=== PATIENT | female | born 1985 | race Caucasian/White ===

== ENCOUNTER 2024-02-18 21:32 | Outpatient (REF) | payer MEDICAID, SELFPAY ==
[2024-02-24 12:09] LABS: Age Gdln ACOG Testing Note (.); HPV Aptima Negative (Negative); IGP, Aptima HPV, rfx 16/18,45 Note (.)
== END 2024-02-18 21:33 | disposition home or self-care (01) ==
LOC: LAB 21:32
PROVIDERS: Visit Provider Obstetrics & Gynecology
DX: Z01.419 Encounter for gynecological examination (general) (routine) without abnormal findings (principal)
CPT/HCPCS: 88175

== ENCOUNTER 2024-04-02 08:50 | Outpatient (OUT) | payer MEDICAID, SELFPAY ==
--- NOTE | 2024-04-02 09:01 | ECG_ITS ---
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
--- OUTSIDE RECORDS SUMMARY | 2024-04-02 09:04 | XMS_ITS | CCD ---
Author Organization [facility] Care Team Providers Care Telecommunications Network Engineer Name Role Phone House, Sr Mario Peterson Primary Care Provider MAXWELL LLANES Referring Unavailab le HOUSE, SR MARIO Peterson Primary Care Unavailable MAXWELL LLANES Referring Unavailab le HOUSE, SR MARIO Peterson Primary Care Unavailable MAXWELL LLANES Referring Unavailab le HOUSE, SR MARIO Peterson Primary Care Unavailable MAXWELL LLANES Referring Unavailab le HOUSE, SR MARIO Peterson Primary Care Unavailable LISSETH GIBBS Attending Unavailable LESLIE, SR MARIO Peterson Primary Care Unavailable LESLIE, SR MARIO Peterson Primary Care Unavailable HOWARD CUELLAR Referring Unavailable JAVAD, DR BECKER Admitting Unavailable JAVAD, DR BECKER Attending Unavailable HOUSE, DR BOWERS Primary Care Unavailable JAVAD, DR BECKER Consulting Unavailable Adrian NITRIC ACID PLANT OPERATOR-Annette WARD Primary Care Provid er ANNETTE CAMPBELL Referring Unavailable ANNETTE CAMPBELL Primary Care Unavailable ANNETTE CAMPBELL Referring Unavailable ANNETTE CAMPBELL Primary Care Unavailable GRISELDA CAMPBELLERIE Oz Primary Care Unavailable GOOD, SINDI Attending Unavailable GOOD, SINDI Attending Unavailable GOODSINDI Referring Unavailable CAMPBELLGRISELDA GLEASONERICorina Clinton Primary Care Unavailable GIRISH HENRIQUEZ Referring Unavailable CAMPBELLANNETTE GLEASON Primary Care Unavailable ANNETTE CAMPBELL Referring Unavailable CAMPBELL, ANNETTE J Primary Care Unavailable Campbell Annette ADKINS Unavailable [phone] Cynthia Colvin Unavailable Unavailable ANNETTE CAMPBELL Attending Unavailable ANNETTE CAMPBELL Referring Unavailable ADRIAN, ANNETTE J Primary Care Unavailable ENEIDA EATON Attending Unavailable ANNETTE CAMPBELL Referring Unavailable CAMPBELL, ANNETTE Clinton Primary Care Unavailable CAMPBELL, ANNETTE J Attending Unavailable ANNETTE CAMPBELL Referring Unavailable CAMPBELL, ANNETTE Clinton Primary Care Unavailable CAMPBELL, ANNETTE Clinton Referring Unavailable CAMPBELL, ANNETTE Clinton Primary Care Unavailable CAMPBELL, ANNETTE Clinton Attending Unavailable CAMPBELL, ANNETTE Clinton Attending Unavailable CAMPBELL, ANNETTE Clinton Referring Unavailable CAMPBELL, ANNETTE Clinton Primary Care Unavailable CAMPBELL, ANNETTE Clinton Referring Unavailable CAMPBELL, ANNETTE Clinton Primary Care Unavailable CAMPBELL, ANNETTE Clinton Attending Unavailable CAMPBELL, ANNETTE Clinton Referring Unavailable CAMPBELL, ANNETTE Clinton Primary Care Unavailable CAMPBELL, ANNETTE Clinton Attending Unavailable CAMPBELL, ANNETTE Clinton Referring Unavailable CAMPBELL, ANNETTE Clinton Primary Care Unavailable CAMPBELL, ANNETTE Clinton Referring Unavailable CAMPBELL, ANNETTE Clinton Primary Care Unavailable CAMPBELL, ANNETTE Clinton Attending Unavailable CAMPBELL, ANNETTE Clinton Referring Unavailable CAMPBELL, ANNETTE Clinton Primary Care Unavailable LUÍS ALBARRAN Attending Unavailable ADRIAN, ANNETTE Referring Unavailable EUGENIO FARNSWORTH Attending Unavailable EUGENIO FARNSWORTH Attending Unavailable Allergies Allergy Classification Reported Allergen(s) Allergy Type Date of Onset Reaction(s) Facility (8 sources) benzonatate; Translations: [BENZONATATE] Drug Allergy 4 Facial Swelling [facility] (3 sources) benzonatate Drug Allergy 4 [facility] Work Phone: Medications Current Medications Medication Drug Class(es) Dates Sig (Normalized) Sig (Original) amoxicillin 875 mg / clavulanate 125 mg oral tablet (1 source) Penicillin-class Antibacterial Start: 08-28-2023 End: 09-07-2023 take 1 tablet by mouth once in the morning amoxicillin-pot clavulanate (AUGMENTIN) 875-125 mg per tablet Indications: Acute non-recurrent pansinusitis Take 1 tablet by mouth in the morning and 1 tablet before bedtime. Do all this for 10 days. 20 tablet 0 08/28/2023 09/07/2023 Active azithromycin 500 mg oral tablet (1 source) Macrolide Antimicrobial Start: 08-24-2023 take 1 tablet by mouth once daily at mealtime azithromycin (ZITHROMAX) 500 mg tablet TAKE 1 TABLET (500MG) BY MOUTH ONCE DAILY FOR 5 DAYS, TAKE WITH FOOD. 0 08/24/2023 Active cholecalciferol 0.125 mg oral capsule (8 sources) Vitamin D Start: 02-05-2024 take 1 capsule by mouth once in the morning cholecalciferol, vitamin D3, (VITAMIN D3) 5,000 units capsule Indications: Vitamin D deficiency Take 1 capsule (5,000 Units total) by mouth in the morning. 30 capsule 11 02/05/2024 Active Start: 05-05-2023 take 1 capsule by [facility] once in the morning cholecalciferol, vitamin D3, (VITAMIN D3) 5,000 units capsule Indications: Vitamin D deficiency Take 1 capsule (5,000 Units total) by mouth in the morning. 30 capsule 11 05/05/2023 Active End: 03-18-2024 take 1 capsule by mouth once daily cholecalciferol (Vitamin D-3) 250 MCG (11997 UT) capsule Take 1 capsule by mouth Daily 03/18/2024 Discontinued fluticasone propionate 0.05 mg/actuat metered dose nasal spray (4 sources) Corticosteroid Start: 10-09-2023 take 2 spray(s) nasal route in the morning fluticasone propionate (FLONASE) 50 mcg/actuation nasal spray Indications: Seasonal allergic rhinitis due to pollen Administer 2 sprays into each nostril in the morning. 16 g 6 10/09/2023 Active Start: 09-10-2023 End: 03-18-2024 take 2 spray(s) nasal route once daily fluticasone (Flonase) 50 MCG/ACT nasal spray Administer 2 sprays into each nostril Daily 09/10/2023 03/18/2024 Discontinued ibuprofen 600 mg oral tablet (8 sources) Nonsteroidal Anti-inflammatory Drug Start: 08-21-2022 take 1 tablet by mouth every eight hours as needed for pain ibuprofen (MOTRIN) 600 mg tablet Indications: Other headache syndrome Take 1 tablet (600 mg total) by mouth every 8 (eight) hours as needed for pain, fever or headaches. Take with food 90 tablet 1 08/21/2022 Active labetalol hydrochloride 200 mg oral tablet (5 sources) beta-Adrenergic Sergo take 1 tablet by mouth twice daily labetalol (NORMODYNE) 200 MG tablet Take 200 mg by mouth 2 times daily 0 Active metFORMIN hydrochloride 500 mg oral tablet (5 sources) Biguanide take 1 tablet by mouth twice daily at mealtime metFORMIN (GLUCOPHAGE) 500 MG tablet Take 500 mg by mouth 2 times daily (with meals) 0 Active 24 hr metoprolol succinate 50 mg extended release oral tablet (8 sources) beta-Adrenergic Sergo Start: 01-29-2024 take 1 tablet by mouth every twenty-four hours in the morning metoprolol succinate XL (TOPROL XL) 50 mg 24 hr tablet Indications: Essential (primary) hypertension TAKE 1 TABLET (50 MG TOTAL) BY MOUTH IN THE MORNING 30 tablet 5 01/29/2024 Active Start: 05-05-2023 take 1 tablet by valorie th every twenty-four hours in the morning metoprolol succinate XL (TOPROL XL) 50 mg 24 hr tablet Indications: Essential (primary) hypertension Take 1 tablet (50 mg total) by mouth in the morning. 30 tablet 5 05/05/2023 Active take 1 tablet by mouth once eric y metoprolol succinate XL (Toprol-XL) 50 MG 24 hr tablet Take 1 tablet by mouth Daily Active predniSONE 20 mg oral tablet (2 sources) Start: 08-24-2023 take 1 tablet by mouth once daily at mealtime predniSONE (DELTASONE) 20 mg tablet TAKE 1 TABLET (20MG) BY MOUTH ONCE A DAY FOR 5 DAYS. TAKE WITH FOOD 0 08/24/2023 Active Start: 08-14-2023 End: 08-21-2023 take 1 tablet by mouth in the morning predniSONE (DELTASONE) 20 mg tablet Take 1 tablet (20 mg total) by mouth in the morning for 7 days. 7 tablet 0 08/14/2023 08/21/2023 Active vitamin b12 1 mg/ml injectable solution (11 sources) Vitamin B12 Start: 09-04-2023 End: 03-02-2024 cyanocobalamin (Vitamin B-12) 1000 MCG/ML injection Inject 1,000 mcg into the shoulder, thigh, or buttocks every 30 (thirty) days 09/04/2023 03/02/2024 Active Start: 09-04-2023 End: 07-11-2024 inject 1000 ug by intramuscular injection every 30 days 1,000 mcg, intramuscular, Every 30 days, First dose on Fri01/13/24 at 1430, For 6 doses Start: 08-28-2023 End: 08-28-2023 cyanocobalamin (VITAMIN B-12 ) injection 1,000 mcg Start: 08-04-2023 End: 08-04-2023 cyanocobalamin (VITAMIN B-12 ) injection 1,000 mcg Start: 08-04-2023 End: 08-04-2023 cyanocobalamin (VITAMIN B-12 ) injection 1,000 mcg Completed/Discontinued Medications Medication Drug Class(es) Dates Sig (Normalized) Sig (Original) acetaminophen 500 mg oral tablet (1 source) Start: 04-03-2020 End: 04-03-2020 acetaminophen (TYLENOL) tablet 1,000 mg Start: 04-03-2020 End: 04-03-2020 acetaminophen (TYLENOL) tabl et 1,000 mg [id number] actuat albuterol 0.09 mg/actuat metered dose inhaler (3 sources) beta2-Adrenergic Agonist Start: 05-21-2023 End: 03-18-2024 albuterol HFA 90 mcg/act inhaler Inhale 05/21/2023 03/18/2024 Discontinued 12 hr cetirizine hydrochloride 5 mg / pseudoephedrine hydrochloride 120 mg extended release oral tablet (6 sources) alpha-Adrenergic Agonist, Histamine-1 Receptor Antagonist Start: 08-25-2023 End: 03-18-2024 take 1 tablet by mouth once in the morning, then take 1 tablet by mouth every twelve hours in the evening cetirizine-pseudo ephedrine (ZyrTEC-D) 5-120 MG 12 hr tablet Take 1 tablet by mouth in the morning and 1 tablet in the evening. 08/25/2023 03/18/2024 Discontinued Start: 08-25-2023 take 1 tablet by valorie th every twelve hours in the morning cetirizine-pseudoephedrine (ZyrTEC-D) 5- 120 mg per 12 hr tablet Indications: Congestion of nasal sinus , Congestion of both ears Take 1 tablet by mouth in the morning and 1 tablet before bedtime. 30 tablet 2 08/25/2023 Active dextromethorphan hydrobromide 2 mg/ml / guaiFENesin 20 mg/ml oral solution (2 sources) Uncompetitive C-jriowd-M-aspartate Receptor Antagonist, Sigma-1 Agonist Start: 08-14-2023 End: 04-01-2024 take 5 mL by mouth every twelve hours dextromethorphan-guaiFENesin (ROBITUSSIN-DM) 10-100 mg/5 mL liquid Take 5 mL by mouth every 12 (twelve) hours for 10 days. 200 mL 0 08/14/2023 08/25/2023 Discontinued (Therapy completed) hydrocortisone 25 mg/ml topical cream (3 sources) Corticosteroid End: 03-18-2024 hydrocortisone 2.5 % cream Apply topically 03/18/2024 Discontinued mecobalamin 1 mg sublingual tablet (3 sources) End: 03-18-2024 take 1 tablet by mouth once daily Methylcobalamin 1000 MCG sublingual tablet Take 1 tablet by mouth Daily 03/18/2024 Discontinued naratriptan 2.5 mg oral tablet (8 sources) Serotonin-1b and Serotonin-1d Receptor Agonist Start: 08-04-2023 End: 03-18-2024 take 1 tablet by mouth once naratriptan (Amerge) 2.5 MG tablet Take 2.5 mg by mouth 1 (one) time if needed 08/04/2023 03/18/2024 Discontinued ondansetron 4 mg disintegrating oral tablet (1 source) Serotonin-3 Receptor Antagonist Start: 04-03-2020 End: 04-03-2020 ondansetron (ZOFRAN-ODT) disintegrating tablet 4 mg Vitamin B Complex (1 source) Start: 05-05-2023 End: 08-04-2023 take 1 tablet by mouth in the morning b complex vitamins (B COMPLEX-VITAMIN B12) tablet Indications: Vitamin B 12 deficiency Take 1 tablet by mouth in the morning. 30 tablet 11 05/05/2023 08/04/2023 Discontinued (Side effects) Problems Active Problems Problem Classification Problem Date Documented Date Episodic/Chronic Anxiety disorders (3 sources) Anxiety disorder; Translations: [Anxiety disorder, unspecified] Onset: 04-04-2020 09-29-2023 Chronic Coagulation and hemorrhagic disorders (8 sources) Antiphospholipid syndrome; Translations: [Antiphospholipid syndrome] Onset: 07-30-2020 01-29-2023 Chronic Diseases of white blood cells (2 sources) Elevated white blood cell count, unspecified; Translations: [Elevated white blood cell count, unspecified] Onset: 02-04-2024 Chronic Disorders of lipid metabolism (3 sources) Mixed hyperlipidemia; Translations: [Mixed hyperlipidemia] Onset: 08-04-2023 08-04-2023 Chronic Esophageal disorders (8 sources) Gastroesophageal reflux disease; Translations: [Gastro-esophageal reflux disease without esophagitis] Onset: 04-04-2020 12-11-2021 Chronic Essential hypertension (11 sources) Hypertensive disorder; Translations: [Essential hypertension] Onset: 04-04-2020 08-04-2023 Chronic Headache; including migraine (11 sources) Ophthalmic migraine; Translations: [Migraine with aura, not intractable, without status migrainosus] Onset: 04-04-2020 08-04-2023 Chronic Headache; including migraine (1 source) Headache; including migraine Onset: 07-23-2023 Immunizations and screening for infectious disease (1 source) Encounter for screening for human papillomavirus (HPV); Translations: [ENC SCREENING HUMAN PAPILLOMAVIRUS] Onset: 04-06-2022 Episodic Inflammatory diseases of female pelvic organs (1 source) Cyst of Bartholin's gland duct; Translations: [Cyst of Bartholin's gland] 03-18-2024 Episodic Malaise and fatigue (8 sources) Chronic fatigue syndrome; Translations: [Chronic fatigue syndrome] Onset: 04-04-2020 12-11-2021 Chronic Nutritional deficiencies (11 sources) Vitamin D deficiency; Translations: [Vitamin D deficiency, unspecified] Onset: 04-04-2020 08-04-2023 Chronic Other circulatory disease (1 source) Upper respiratory tract finding; Translations: [Other specified symptoms and signs involving the circulatory and respiratory systems] 08-28-2023 Episodic Other ear and sense organ disorders (1 source) Sensation of blocked ear; Translations: [Other specified disorders of ear, bilateral] 08-25-2023 Episodic Other endocrine disorders (8 sources) Increased androgen level; Translations: [Androgen excess] Onset: 04-04-2020 12-11-2021 Chronic Other endocrine disorders (8 sources) Polycystic ovary syndrome; Translations: [Polycystic ovarian syndrome] Onset: 04-04-2020 12-11-2021 Chronic Other nutritional; endocrine; and metabolic disorders (8 sources) Insulin resistance; Translations: [Insulin resistance] Onset: 04-04-2020 12-11-2021 Chronic Other nutritional; endocrine; and metabolic disorders (8 sources) Morbid obesity; Translations: [Morbid (severe) obesity due to excess calories] Onset: 04-04-2020 12-11-2021 Chronic Other screening for suspected conditions (not mental disorders or infectious disease) (4 sources) Encounter for screening for malignant neoplasm of cervix; Translations: [ENC SCREENING MALIG NEOPLASM CERV] Onset: 04-01-2022 Episodic Other upper respiratory disease (1 source) Congestion of nasal sinus; Translations: [Nasal congestion] 08-25-2023 Episodic Spondylosis; intervertebral disc disorders; other back problems (4 sources) Neck pain; Translations: [Thoracic back pain] Episodic Thyroid disorders (20 sources) Hyperthyroidism; Translations: [Thyrotoxicosis, unspecified without thyrotoxic crisis or storm] Onset: 01-19-2020 01-19-2020 Chronic Unclassified (1 source) Insulin resistance, unspecified; Translations: [Insulin resistance, unspecified] Onset: 03-02-2024 Unclassified (1 source) Injection Onset: 09-29-2023 Unclassified (1 source) Earache Onset: 08-28-2023 Unclassified (1 source) discuss b12 Onset: 08-04-2023 Past or Other Problems Problem Classification Problem Date Documented Date Episodic/Chronic Diabetes mellitus without complication (11 sources) Prediabetes; Translations: [Prediabetes] Onset: 04-04-2020 08-04-2023 Episodic Female infertility (8 sources) Female infertility; Translations: [Female infertility, unspecified] Onset: 04-04-2020 Resolved: 09-29-2023 12-11-2021 Chronic Headache; including migraine (1 source) Headache Onset: 07-23-2023 Episodic Mood disorders (5 sources) Mood disorders Onset: 08-04-2023 Resolved: 08-28-2023 08-04-2023 Nutritional deficiencies (13 sources) Cobalamin deficiency; Translations: [Deficiency of other specified B group vitamins] Onset: 04-19-2020 08-04-2023 Episodic Other circulatory disease (1 source) Other specified symptoms and signs involving the circulatory and respiratory systems; Translations: [Other specified symptoms and signs involving the circulatory and respiratory systems] Onset: 08-28-2023 Episodic Other lower respiratory disease (1 source) Cough Onset: 08-28-2023 Episodic Other skin disorders (8 sources) Hirsutism; Translations: [Hirsutism] Onset: 04-04-2020 12-11-2021 Episodic Other skin disorders (3 sources) Loss of hair; Translations: [Nonscarring hair loss, unspecified] Onset: 04-04-2020 Resolved: 09-29-2023 09-29-2023 Episodic Other upper respiratory disease (1 source) Pain in throat Onset: 08-14-2023 Episodic Other upper respiratory disease (1 source) Nasal congestion Onset: 08-14-2023 Episodic Other upper respiratory infections (4 sources) Viral upper respiratory tract infection; Translations: [Acute upper respiratory infection, unspecified] Onset: 08-14-2023 08-14-2023 Episodic Otitis media and related conditions (4 sources) Otitis media of left ear; Translations: [Unspecified nonsuppurative otitis media, left ear] Onset: 10-02-2023 10-02-2023 Episodic Unclassified (5 sources) Onset: 08-04-2023 Resolved: 02-04-2024 08-04-2023 Results Test Name Value Interpretation Reference Range Facility US THYROIDon 03-03-2024 US THYROID US THYROID CLINICAL INFORMATION: Nontoxic single thyroid nodule. TECHNIQUE: Real time sonography of the thyroid gland performed. COMPARISON: Ultrasound 03/21/2023, 07/02/2022, 04/06/2021 FINDINGS: Thyroid size: Normal Right thyroid lobe measures: 5.4 x 2.4 x 2.1 cm Left thyroid lobe measures: 5.5 x 1.9 x 2.5 cm Isthmus measures 0.9 cm Overall thyroid texture: Mildly heterogeneous Nodule # 1 Maximum size/location: 1.5 x 0.9 x 0.8 cm in the mid left lobe Composition: Solid -2 Echogenicity: Hypoechoic - 2 Shape: Not taller than wide -0 Margins: Smooth - 0 Echogenic foci: None -0 Significant change in size (greater than 20% 2 dimensions): No Change in features: No Change in ACR TI RADS risk category: No ACR TI-RADS total points: 4 ACR TI RADS risk category: TR4 (4-6) ACR TI RADS Recommendation: Ultrasound biopsy previously performed. Otherwise follow-up ultrasound in 2 years. Additional TR 4 solid hypoechoic nodule in the inferior right lobe measuring up to 0.4 cm. No follow-up required per ACR guidelines. IMPRESSION: * TR 4 nodule in the mid left lobe measuring 1.5 cm. This is stable in size compared to prior exam on 04/06/2021. This meets criteria for ultrasound-guided biopsy, if not previously performed. Otherwise, follow-up ultrasound recommended in 2 years, per ACR guidelines. ACR TI-RADS recommendations: TR5 (greater than or equal to 7 points) - FNA if greater than or equal to 1cm, follow-up ultrasound if nodule is 0.5 - 0.9 cm every year for 5 years. TR4 (4 - 6 points) - FNA if greater than or equal to 1.5 cm, follow-up ultrasound if nodule is 1 -1.4 cm at 1, 2, 3 and 5 years. TR3 (3 points) - FNA if greater than or equal to 2.5 cm, follow-up ultrasound if nodule is 1.5 -2.4 cm at 1, 3 and 5 years. TR2 (2 points) & TR1 (0 points) - No FNA or follow-up. Approved by Resident Lazaro Pennington MD on 03/03/2024 8:54 AM I, Alexy Root MD have personally reviewed the image(s) and agree with and/or edited the report Finalized by Alexy Root MD on 03/03/2024 1:44 PM Normal [facility] FREE T3on 03-02-2024 Free T3 [Mass/Vol] 4.15 pg/mL High 2.50-3.90 [facility] Comment on above: Performed By: #### H A1C, THYR, 3051-0 #### [facility] ([id number]) [address], [address] [place] [address] HGB A1C (GLYCO-HGB)on 2023 Glucose [Mass/Vol] 105 mg/dL Normal [facility] Comment on above: Performed By: #### H A1C, THYR, 3051-0 #### [facility] ([id number]) [address], [address] [place] [address] HbA1c (Bld) [Mass fraction] 5.3 % Normal 4.4-5.6 [facility] Comment on above: Result Comment: NOTE ADA Guidelines Result HgbA1c Normal : less than 5.7 % Prediabetes : 5.7 % to 6.4 % Diabetes : > 6.4 % Use with caution in patients with abnormal hemoglobin variants as the half-life of red blood cells and in vivo glycation rates are affected. Performed By: #### H A1C, THYR, 305-0 #### [facility] ([id number]) [address], [address] [place] [address] HbA1c (Bld) [Mass fraction]o n 03-02-2024 Average glucose Estimated from glycated hemoglobin (Bld) [Mass/Vol] 105 mg/dL [facility] Comment on above: PERFORMED AT [place] [id number] [facility] [address],[place] [address] [facility] e Hemoglobin A1con 03-02-2024 HbA1c (Bld) [Mass fraction] 5.3 % 4.4 - 5.6 % [facility] Comment on above: NOTE ADA Guidelines Result HgbA1c Normal : less than 5.7 % Prediabetes : 5.7 % to 6.4 % Diabetes : > 6.4 % Use with caution in patients with abnormal hemoglobin variants as the half-life of red blood cells and in vivo glycation rates are affected. THYROID PROFILEon 03-02-2024 Free T4 [Mass/Vol] 0.97 ng/dL Normal 0.61-1.60 [facility] Comment on above: Performed By: #### H A1C, THYR, 3050-0 #### [facility] ([id number]) [address] [facility] [facility] [address] [place] [address] TSH 2.44 uIU/mL Normal 0.49-4.67 [facility] Comment on above: Performed By: #### H A1C, THYR, 305-0 #### [facility] ([id number]) [address] [facility], [facility] [address] [place] [address] CBC AND AUTO DIFFon 02-04-20 24 ABSOLUTE BASOPHIL 0.1 X10E9/L Normal 0.0-0.2 [facility] Comment on above: Performed By: #### Tonya DO, 2132-01, 98883-6 #### [facility] ([id number]) [address], [address] [place] [address] ABSOLUTE NEUTROPHIL 3.6 X10E9/L Normal 1.5-6.6 [facility] Comment on above: Performed By: #### Tonya DO, 2132-01, 26222-9 #### [facility] ([id number]) [address], [address] [place] [address] Basophils/100 WBC (Bld) 0.9 % Normal [facility] Comment on above: Performed By: #### Tonya DO, 2132-01, 14572-8 #### [facility] ([id number]) [address], [address] [place] [address] Eosinophils (Bld) [#/Vol] 0.1 10*3/uL Normal 0.0-0.4 [facility] Comment on above: Performed By: #### Tonya DO, 2132-01, 29196-5 #### [facility] ([id number]) [address] [place] [address] Eosinophils/100 WBC (Bld) 1.4 % Normal [facility] Comment on above: Performed By: #### Tonya DO, 2132-01, 78457-9 #### [facility] ([id number]) [address], [address] [place] [address] Erythrocyte distribution width (RBC) [Ratio] 13.5 % Normal 11.5-15.0 [facility] Comment on above: Performed By: #### Tonya DO, 2132-01, 76000-7 #### [facility] ([id number]) [address], [address] [place] [address] Hematocrit (Bld) [Volume fraction] 41.6 % Normal 35-47 [facility] Comment on above: Performed By: #### Tonya DO, 2132-01, 15310-2 #### [facility] ([id number]) [address], [address] [place] [address] Hemoglobin (Bld) [Mass/Vol] 14.1 g/dL Normal 11.7-15.5 [facility] Comment on above: Performed By: #### Tonya DO, 2132-01, 46891-2 #### [facility] ([id number]) [address], [facility] [address] [place] [address] Lymphocytes (Bld) [#/Vol] 1.7 10*3/uL Normal 1.0-3.5 [facility] Comment on above: Performed By: #### Tonya DO, 2132-01, 58103-7 #### [facility] ([id number]) [address], [facility] [address] [place] [address] Lymphocytes/100 WBC (Bld) 29.2 % Normal [facility] Comment on above: Performed By: #### Tonya DO, 2132-01, 33849-7 #### [facility] ([id number]) [address], [address] [place] [address] MCH (RBC) [Entitic mass] 28.3 pg Normal 27-34 [facility] Comment on above: Performed By: #### Tonya DO, 2132-01, 33579-8 #### [facility] ([id number]) [address], [address] [place] [address] MCHC (RBC) [Mass/Vol] 33.8 g/dL Normal 32-36 [facility] Comment on above: Performed By: #### Tonya DO, 2132-01, 70586-6 #### [facility] ([id number]) [address], [address] [place] [address] MCV (RBC) [Entitic vol] 84 fL Normal 80-100 [facility] Comment on above: Performed By: #### Tonya DO, 2132-01, 11254-1 #### [facility] ([id number]) [address], [address] [place] [address] Monocytes (Bld) [#/Vol] 0.3 10*3/uL Normal 0-0.9 [facility] Comment on above: Performed By: #### Tonya DO, 2132-01, 34398-3 #### [facility] ([id number]) [address], [address] [place] [address] Monocytes/100 WBC (Bld) 5.7 % Normal [facility] Comment on above: Performed By: #### Tonya DO, 2132-01, 63414-7 #### [facility] ([id number]) [address], [address] [place] [address] Neutrophils/100 WBC (Bld) 62.8 % Normal [facility] Comment on above: Performed By: #### Tonya DO, 2132-01, 01425-4 #### [facility] ([id number]) [address], [address] [place] [address] Platelet mean volume (Bld) [Entitic vol] 10.3 fL Normal 7-12 [facility] Comment on above: Performed By: #### Tonya DO, 2132-01, 01938-0 #### [facility] ([id number]) [address], [address] [place] [address] Platelets (Bld) [#/Vol] 168 10*3/uL Normal 150-450 [facility] Comment on above: Performed By: #### Tonya DO, 2132-01, 30725-1 #### [facility] ([id number]) [address] [place] [address] RBC COUNT 4.97 X10E12/L Normal 3.80-5.20 [facility] Comment on above: Performed By: #### C HI, 2132-01, 98164-7 #### [facility] ([id number]) [address] [place] [address] WBC (Bld) [#/Vol] 5.8 10*3/uL Normal 4.0-11.0 [facility] Comment on above: Performed By: #### Tonya DO, 2132-01, 29054-8 #### [facility] ([id number]) [address] [facility], [address] [place] [address] VITAMIN B12on 02-04-2024 Cobalamin (Vitamin B12) [Mass/Vol] 276 pg/mL Normal 180-914 [facility] Comment on above: Performed By: #### Tonya DO, 2132-01, 56975-4 #### [facility] ([id number]) [address] [place] [address] Vitamin D+Metabolites [Mass/ Vol]on 02-04-2024 VITAMIN D 25 HYD TOT 15.3 ng/mL Low 30-100 [facility] Comment on above: Result Comment: Vitamin D status 25 [place] Vitamin D Deficiency <20 ng/mL Insufficiency 20-29 ng/mL Sufficiency 30-100 ng/mL Toxicity >100 ng/mL NOTE: A pediatric reference range has not been established by the creative strategist of this kit. The [place] [employer] recommends a Vitamin D level of = or >20ng/mL in infants and children. Performed By: #### Tonya DO, 2132-01, 65348-1 #### [facility] ([id number]) [address] [place] [address] POCT Influenza A/Influenza B /SARS-COV-2 Veritoron 08-28-2023 External Poct Influenza A Antigen Negative [facility] External Poct Influenza B Antigen Negative [facility] SARS-CoV-2 (COVID-19) Ag IA.rapid Ql (Resp) Negative [facility] POCT rapid strep Aon 024 S. pyogenes Ag IA Ql (Unsp spec) Negative Negative [facility] CBC auto differentialon 07-24 Basophils (Bld) [#/Vol] 0.0 10*3/uL [facility] Basophils/100 WBC (Bld) 1.1 % [facility] Eosinophils (Bld) [#/Vol] 0.0 10*3/uL [facility] Eosinophils/100 WBC (Bld) 1.2 % [facility] Erythrocyte distribution width (RBC) [Ratio] 13.5 % 11.5 - 15.0 % [facility] Hematocrit (Bld) [Volume fraction] 41.0 % 35 - 47 % [facility] Hemoglobin (Bld) [Mass/Vol] 14.0 g/dL 11.7 - 15.5 g/dL [facility] Interpretation and review of laboratory results Abnormal [facility] Lymphocytes (Bld) [#/Vol] 0.8 10*3/uL Low [facility] Lymphocytes/100 WBC (Bld) 23.3 % [facility] MCH (RBC) [Entitic mass] 28.6 pg 27 - 34 pg [facility] MCHC (RBC) [Mass/Vol] 34.1 g/dL 32 - 36 g/dL [facility] MCV (RBC) [Entitic vol] 84 fL 80 - 100 fL [facility] Monocytes (Bld) [#/Vol] 0.5 10*3/uL [facility] Monocytes/100 WBC (Bld) 14.0 % [facility] Neutrophils (Bld) [#/Vol] 2.1 10*3/uL [facility] Neutrophils/100 WBC (Bld) 60.4 % [facility] Platelet mean volume (Bld) [Entitic vol] 10.1 fL 7 - 12 fL [facility] Platelets (Bld) [#/Vol] 115 10*3/uL Low [facility] RBC (Bld) [#/Vol] 4.89 10*6/uL [facility] WBC corrected for nucl RBC Auto (Bld) [#/Vol] 3.5 Low [facility] CBC AND AUTO DIFFon 08-04-19 24 ABSOLUTE BASOPHIL 0.0 X10E9/L Normal 0.0-0.2 [facility] Comment on above: Performed By: #### 2 4331-1, 50856-3, 2132-01, CBCA #### [facility] ([id number]) [address], [address] [place] [address] ABSOLUTE NEUTROPHIL 2.1 X10E9/L Normal 1.5-6.6 [facility] Comment on above: Performed By: #### 2 4331-1, 95955-6, 2132-01, CBCA #### [facility] ([id number]) [address], [address] [place] [address] Basophils/100 WBC (Bld) 1.1 % Normal [facility] Comment on above: Performed By: #### 2 4331-1, 82149-3, 2132-01, CBCA #### [facility] ([id number]) [address], [address] [place] [address] Eosinophils (Bld) [#/Vol] 0.0 10*3/uL Normal 0.0-0.4 [facility] Comment on above: Performed By: #### 2 4331-1, 19363-9, 2132-01, CBCA #### [facility] ([id number]) [address], [address] [place] [address] Eosinophils/100 WBC (Bld) 1.2 % Normal [facility] Comment on above: Performed By: #### 2 4331-1, 16843-8, 2132-01, CBCA #### [facility] ([id number]) [address], [address] [place] [address] Erythrocyte distribution width (RBC) [Ratio] 13.5 % Normal 11.5-15.0 [facility] Comment on above: Performed By: #### 2 4331-1, 74555-9, 2132-01, CBCA #### [facility] ([id number]) [address] [address] [place] [address] Hematocrit (Bld) [Volume fraction] 41.0 % Normal 35-47 [facility] Comment on above: Performed By: #### 2 4331-1, 88947-9, 2132-01, CBCA #### [facility] ([id number]) [address], [facility] [address] [place] [address] Hemoglobin (Bld) [Mass/Vol] 14.0 g/dL Normal 11.7-15.5 [facility] Comment on above: Performed By: #### 2 4331-1, , 2132-01, CBCA #### [facility] ([id number]) [address] [address] [place] [address] Lymphocytes (Bld) [#/Vol] 0.8 10*3/uL Low 1.0-3.5 [facility] Comment on above: Performed By: #### 2 4331-1, 48366-9, 2132-01, CBCA #### [facility] ([id number]) [address], [facility] [address] [place] [address] Lymphocytes/100 WBC (Bld) 23.3 % Normal [facility] Comment on above: Performed By: #### 2 4331-1, 11258-8, 2132-01, CBCA #### [facility] ([id number]) [address] [address] [place] [address] MCH (RBC) [Entitic mass] 28.6 pg Normal 27-34 [facility] Comment on above: Performed By: #### 2 4331-1, , 2132-01, CBCA #### [facility] ([id number]) [address] [place] [address] MCHC (RBC) [Mass/Vol] 34.1 g/dL Normal 32-36 [facility] Comment on above: Performed By: #### 2 4331-1, 18577-3, 2132-01, CBCA #### [facility] ([id number]) [address] [place] [address] MCV (RBC) [Entitic vol] 84 fL Normal 80-100 [facility] Comment on above: Performed By: #### 2 4331-1, , 2132-01, CBCA #### [facility] ([id number]) [address], [facility] [address] [place] [address] Monocytes (Bld) [#/Vol] 0.5 10*3/uL Normal 0-0.9 [facility] Comment on above: Performed By: #### 2 4331-1, , 2132-01, CBCA #### [facility] ([id number]) [address], [facility] [address] [place] [address] Monocytes/100 WBC (Bld) 14.0 % Normal [facility] Comment on above: Performed By: #### 2 4331-1, , 2132-01, CBCA #### [facility] ([id number]) [address], [address] [place] [address] Neutrophils/100 WBC (Bld) 60.4 % Normal [facility] Comment on above: Performed By: #### 2 4331-1, , 2132-01, CBCA #### [facility] ([id number]) [address] [place] [address] Platelet mean volume (Bld) [Entitic vol] 10.1 fL Normal 7-12 [facility] Comment on above: Performed By: #### 2 4331-1, 51337-7, 2132-01, CBCA #### [facility] ([id number]) [address] [place] [address] Platelets (Bld) [#/Vol] 115 10*3/uL Low 150-450 [facility] Comment on above: Performed By: #### 2 4331-1, 73345-0, 2132-01, CBCA #### [facility] ([id number]) [address] [place] [address] RBC COUNT 4.89 X10E12/L Normal 3.80-5.20 [facility] Comment on above: Performed By: #### 2 4331-1, 48950-9, 2132-01, CBCA #### [facility] ([id number]) [address], [address] [place] [address] WBC (Bld) [#/Vol] 3.5 10*3/uL Low 4.0-11.0 [facility] Comment on above: Performed By: #### 2 4331-1, 47574-1, 2132-01, CBCA #### [facility] ([id number]) [address], [address] [place] [address] Cobalamin (Vitamin B12) [Mas s/Vol]on 08-04-2023 [facility] HGB A1C (GLYCO-HGB)on 2023 Glucose [Mass/Vol] 105 mg/dL Normal [facility] Comment on above: Performed By: #### 2 4331-1, 68096-6, 2132-01, CBCA #### [facility] ([id number]) [address], [address] [place] [address] HbA1c (Bld) [Mass fraction] 5.3 % Normal 4.4-5.6 [facility] Comment on above: Result Comment: NOTE ADA Guidelines Result HgbA1c Normal : less than 5.7 % Prediabetes : 5.7 % to 6.4 % Diabetes : > 6.4 % Use with caution in patients with abnormal hemoglobin variants as the half-life of red blood cells and in vivo glycation rates are affected. Performed By: #### 2 4331-1, 35974-5, 2132-01, CBCA #### [facility] ([id number]) [address] [facility], [address] [place] [address] Lipid 1996 panelon 4 Cholesterol [Mass/Vol] 146 mg/dL Low 150 - 200 mg/dL [facility] Cholesterol in HDL [Mass/Vol] 30 mg/dL Low 39 - PINF mg/dL [facility] Comment on above: HDL <40 mg/dL - High Risk HDL > or = 40mg/dL- Desirable HDL >60 mg/dL - Negative Risk Cholesterol in LDL [Mass/Vol] 89 mg/dL NINF - 130 mg/dL [facility] Comment on above: LDL <100 mg/dL - Desirable LDL >160 mg/dL - High Risk Cholesterol in VLDL [Mass/Vol] 27 mg/dL 0 - 30 mg/dL [facility] Cholesterol.total/C holesterol in HDL [Mass ratio] 4.9 {ratio} 1.0 - 5.0 [facility] Interpretation and review of laboratory results Abnormal [facility] Triglyceride [Mass/Vol] 135 mg/dL 27 - 150 mg/dL [facility] Cholesterol [Mass/Vol] 146 mg/dL Low 150-200 [facility] Comment on above: Performed By: #### 2 4331-1, 12458-4, 2132-01, CBCA #### [facility] ([id number]) [address] [place] [address] Cholesterol in HDL [Mass/Vol] 30 mg/dL Low >39 [facility] Comment on above: Result Comment: HDL <40 mg/dL - High Risk HDL > or = 40mg/dL- Desirable HDL >60 mg/dL - Negative Risk Performed By: #### 2 4331-1, 86196-7, 2132-01, CBCA #### [facility] ([id number]) [address] [place] [address] Cholesterol in LDL [Mass/Vol] 89 mg/dL Normal <130 [facility] Comment on above: Result Comment: LDL <100 mg/dL - Desirable LDL >160 mg/dL - High Risk Performed By: #### 2 4331-1, 93748-5, 2132-01, CBCA #### [facility] ([id number]) [address] [place] [address] Cholesterol in VLDL [Mass/Vol] 27 mg/dL Normal 0-30 [facility] Comment on above: Performed By: #### 2 4331-1, 31718-8, 2132-01, CBCA #### [facility] ([id number]) [address] [place] [address] CHOLESTEROL:HDL 4.9 Normal 1.0-5.0 [facility] Comment on above: Performed By: #### 2 4331-1, 60814-4, 2132-01, CBCA #### [facility] ([id number]) [address] [place] [address] Triglyceride [Mass/Vol] 135 mg/dL Normal 27-150 [facility] Comment on above: Performed By: #### 2 4331-1, 97385-3, 2132-01, CBCA #### [facility] ([id number]) [address], [address] [place] [address] VITAMIN B12on 08-04-2023 Cobalamin (Vitamin B12) [Mass/Vol] 236 pg/mL Normal 180-914 [facility] Comment on above: Performed By: #### 2 4331-1, 48708-3, 2132-01, CBCA #### [facility] ([id number]) [address] [place] [address] Vitamin B12on 08-04-2023 Cobalamin (Vitamin B12) [Mass/Vol] 236 pg/mL 180 - 914 pg/mL [facility] Vitamin D 25 hydroxyon 08-03 Vitamin D+Metabolites [Mass/Vol] 26.0 ng/mL Low 30 - 100 ng/mL [facility] Comment on above: Vitamin D status 25 [place] Vitamin D Deficiency <20 ng/mL Insufficiency 20-29 ng/mL Sufficiency 30-100 ng/mL Toxicity >100 ng/mL NOTE: A pediatric reference range has not been established by the creative strategist of this kit. The [place] [employer] recommends a Vitamin D level of = or >20ng/mL in infants and children. Vitamin D+Metabolites [Mass/ Vol]on 08-04-2023 Interpretation and review of laboratory results Abnormal [facility] VITAMIN D 25 HYD TOT 26.0 ng/mL Low 30-100 [facility] Comment on above: Result Comment: Vitamin D status 25 [place] Vitamin D Deficiency <20 ng/mL Insufficiency 20-29 ng/mL Sufficiency 30-100 ng/mL Toxicity >100 ng/mL NOTE: A pediatric reference range has not been established by the creative strategist of this kit. The [place] [employer] recommends a Vitamin D level of = or >20ng/mL in infants and children. Performed By: #### 2 4331-1, 25417-1, 2132-9, CBCA #### [facility] ([id number]) [address] [facility], [address] [place] [address] CT BRAIN WO CONTon [address] CT BRAIN WO CONT CT BRAIN WO CONT EXAM:CT BRAIN WO CONT INDICATION: Headache, chronic, new features or increased frequency COMPARISON: None TECHNIQUE: Standard noncontrast axial CT sections through the head. All CT scans at this facility use dose modulation, iterative reconstruction, and/or weight based dosing when appropriate to reduce radiation dose to as low as reasonably achievable. FINDINGS: Brain Parenchyma: No acute hemorrhage, cerebral edema, or acute cortical infarction. No mass effect, or midline shift. Ventricles and Sulci: Normal for age. Extra-Axial Spaces: No extra-axial fluid collection. Orbits, paranasal sinuses, midface structures, mastoid air cells: Mild mucosal thickening of left maxillary sinus. Cranium and extracranial soft tissues: Normal IMPRESSION: No acute or subacute intracranial abnormalities. If there is sufficient clinical concern for acute ischemia or an occult abnormality, further evaluation with brain MRI is recommended. Finalized by Mauro Junior on 07/23/2023 7:00 PM Normal [facility] PAP ACOG PANEL 2: 30 to 65on 04-07-2022 . . Normal [facility] Comment on above: Result Comment: Perf ormed at: WB Performed By: #### 4 [id number] #### [facility] [address] [place] [address] Dr. Chato Chatterjee Age Gdln ACOG Testing 30-65 Normal [facility] Comment on above: Performed By: #### 4 [id number] #### [facility] [address] [address] [address] Chato Chatterjee DIAGNOSIS: Comment Normal [facility] Comment on above: Result Comment: NEGA TIVE FOR INTRAEPITHELIAL LESION OR MALIGNANCY. Performed at: WB Performed By: #### 4 [id number] #### [facility] [address] [place] [address] Dr. Chato Chatterjee HPV Aptima Negative Normal Negative [facility] Comment on above: Result Comment: This nucleic acid amplification test detects fourteen high-risk HPV types (16,18,31,33,35,39,45,51,52,56,58,59,66,68) without differentiation. Performed at: =G Performed By: #### 4 [id number] #### [facility] [address] [place] [address] Dr. Chato Chatterjee HPV Genotype Reflex Comment Normal [facility] Comment on above: Result Comment: Crit eria not met, HPV Genotype not performed. Performed at: WB Performed By: #### 4 [id number] #### [facility] [address] [place] [address] Dr. Chato Chatterjee Methodology: Comment Normal [facility] Comment on above: Result Comment: This liquid based ThinPrep(R) pap test was screened with the use of an image guided system. Performed at: WB Performed By: #### 4 [id number] #### [facility] [address] [place] [address] Dr. Chato Chatterjee Note: Comment Normal [facility] Comment on above: Result Comment: The Pap smear is a screening test designed to aid in the detection of premalignant and malignant conditions of the uterine cervix. It is not a diagnostic procedure and should not be used as the sole means of detecting cervical cancer. Both false-positive and false-negative reports do occur. . Performed at: WB Performed By: #### 4 [id number] #### [facility] [address] [place] [address] Dr. Chato Chatterjee Performed by: Comment Normal [facility] Comment on above: Result Comment: Gabino Ladd Bill Hiker (ASCP) Performed at: WB Performed By: #### 4 [id number] #### [facility] [address] [place] [address] Dr. Chato Chatterjee Specimen adequacy: Comment Normal [facility] Comment on above: Result Comment: Sati sfactory for evaluation. Endocervical and/or squamous metaplastic cells (endocervical component) are present. Performed at: WB Performed By: #### 4 [id number] #### [facility] [address] [place] [address] Dr. Chato Chatterjee [facility] CARDIAC STRESS/REST (LAURA CARDIAL PERFUSION/MIBI)on 05-29-2020 [facility] CARDIAC STRESS/REST (MYOCARDIAL PERFUSION/MIBI) Patient Name: KRYSTA DURAN STUDY: MYOCARDIAL PERFUSION STRESS TEST WITH EXERCISE Performing facility: [facility], [address] [place] [address], [address], [address] Provider: Ann Marie Hanna DO, [facility] PCP: Dr. Aaron Campbell Supervising provider: Chasity Sharma MD INDICATION: Chest Pain; HTN HISTORY: Gender: F; Age: 34 y/o ; Height: 162.56 cm; Weight: 498.7869993 kg. Chest Pain; Diabetes; HTN; Palpitations; Currently smoking. COMPARISON: No comparison. ACCESSION NUMBER(S): [id number]; [id number]; [id number] ORDERING CLINICIAN: DONATO HANNA TECHNIQUE: TWO DAY protocol. Stress injection: Date:05/29/2020, 35.8 mCi of Myoview IV at peak exercise. Rest injection: Date: , 35.7 mCi of Myoview IV at rest. Imaging was performed by gated tomographic technique. STRESS TEST DATA: Resting heart rate was 109 BPM. Resting blood pressure was 146/86 mmHg. The patient exercised using a Jean Carlos exercise protocol. 4:01 minutes exercised. 96 % of MPHR achieved for age. 5.8 METS achieved. Maximum heart rate was 181 BPM. Maximum blood pressure was 200/94 mmHg. DTS 4. TEST TERMINATED DUE TO: Fatigue, Dyspnea FINDINGS: STRESS TEST RESULTS: Resting electrocardiogram revealed normal sinus rhythm without ST-T changes. The patient had no significant ECG changes with maximal stress. The patient did not have chest pains/symptoms during the procedure. There was a normal recovery phase. There were no significant dysrhythmias. IMAGING RESULTS: Image quality was good. Rest and stress tomographic images were reviewed and revealed normal perfusion without evidence of ischemia, myocardial infarction, or left ventricular dilatation with stress. Overall left ventricular systolic function appeared to be normal without regional wall motion abnormalities. LV ejection fraction was 64 %. TID is 0.816 and is normal. There were evidence of breast attenuation artifact. IMPRESSION: Normal exercise Myoview cardiac perfusion stress test. No evidence of ischemia or myocardial infarction by perfusion imaging. Normal left ventricular systolic function, ejection fraction 64%. No exercise provoked significant ischemic ECG changes or chest pain symptoms. Please note the patient had very limited exercise tolerance which might decrease the sensitivity of the test. Patient was able to exercise for only 4 minutes no previous study available for comparison Electronically signed by: CHASITY SHARMA MD [facility] CARDIAC STRESS/REST INJE CTIONon 05-29-2020 [facility] CARDIAC STRESS/REST INJECTION Patient Name: KRYSTA DURAN STUDY: MYOCARDIAL PERFUSION STRESS TEST WITH EXERCISE Performing facility: [facility], [address] [place] [address], [address] Provider: Ann Marie Hanna DO, [facility] PCP: Dr. Aaron Campbell Supervising provider: Chasity Sharma MD INDICATION: Chest Pain; HTN HISTORY: Gender: F; Age: 34 y/o ; Height: 162.56 cm; Weight: 965.9316058 kg. Chest Pain; Diabetes; HTN; Palpitations; Currently smoking. COMPARISON: No comparison. ACCESSION NUMBER(S): [id number]; [id number]; [id number] ORDERING CLINICIAN: DONATO HANNA TECHNIQUE: TWO DAY protocol. Stress injection: Date:05/29/2020, 35.8 mCi of Myoview IV at peak exercise. Rest injection: Date: , 35.7 mCi of Myoview IV at rest. Imaging was performed by gated tomographic technique. STRESS TEST DATA: Resting heart rate was 109 BPM. Resting blood pressure was 146/86 mmHg. The patient exercised using a Jean Carlos exercise protocol. 4:01 minutes exercised. 96 % of MPHR achieved for age. 5.8 METS achieved. Maximum heart rate was 181 BPM. Maximum blood pressure was 200/94 mmHg. DTS 4. TEST TERMINATED DUE TO: Fatigue, Dyspnea FINDINGS: STRESS TEST RESULTS: Resting electrocardiogram revealed normal sinus rhythm without ST-T changes. The patient had no significant ECG changes with maximal stress. The patient did not have chest pains/symptoms during the procedure. There was a normal recovery phase. There were no significant dysrhythmias. IMAGING RESULTS: Image quality was good. Rest and stress tomographic images were reviewed and revealed normal perfusion without evidence of ischemia, myocardial infarction, or left ventricular dilatation with stress. Overall left ventricular systolic function appeared to be normal without regional wall motion abnormalities. LV ejection fraction was 64 %. TID is 0.816 and is normal. There were evidence of breast attenuation artifact. IMPRESSION: Normal exercise Myoview cardiac perfusion stress test. No evidence of ischemia or myocardial infarction by perfusion imaging. Normal left ventricular systolic function, ejection fraction 64%. No exercise provoked significant ischemic ECG changes or chest pain symptoms. Please note the patient had very limited exercise tolerance which might decrease the sensitivity of the test. Patient was able to exercise for only 4 minutes no previous study available for comparison Electronically signed by: CHASITY SHARMA MD [facility] PART 2 STRESS OR REST (N O CHARGE)on 05-29-2020 [facility] PART 2 STRESS OR REST (NO CHARGE) Patient Name: KRYSTA DURAN STUDY: MYOCARDIAL PERFUSION STRESS TEST WITH EXERCISE Performing facility: [facility], [address] [place] [address], [address] Provider: Ann Marie Hanna DO, [facility] PCP: Dr. Aaron Campbell Supervising provider: Chasity Sharma MD INDICATION: Chest Pain; HTN HISTORY: Gender: F; Age: 34 y/o ; Height: 162.56 cm; Weight: 116.9243232 kg. Chest Pain; Diabetes; HTN; Palpitations; Currently smoking. COMPARISON: No comparison. ACCESSION NUMBER(S): [id number]; [id number]; [id number] ORDERING CLINICIAN: DONATO HANNA TECHNIQUE: TWO DAY protocol. Stress injection: Date:05/29/2020, 35.8 mCi of Myoview IV at peak exercise. Rest injection: Date: , 35.7 mCi of Myoview IV at rest. Imaging was performed by gated tomographic technique. STRESS TEST DATA: Resting heart rate was 109 BPM. Resting blood pressure was 146/86 mmHg. The patient exercised using a Jean Carlos exercise protocol. 4:01 minutes exercised. 96 % of MPHR achieved for age. 5.8 METS achieved. Maximum heart rate was 181 BPM. Maximum blood pressure was 200/94 mmHg. DTS 4. TEST TERMINATED DUE TO: Fatigue, Dyspnea FINDINGS: STRESS TEST RESULTS: Resting electrocardiogram revealed normal sinus rhythm without ST-T changes. The patient had no significant ECG changes with maximal stress. The patient did not have chest pains/symptoms during the procedure. There was a normal recovery phase. There were no significant dysrhythmias. IMAGING RESULTS: Image quality was good. Rest and stress tomographic images were reviewed and revealed normal perfusion without evidence of ischemia, myocardial infarction, or left ventricular dilatation with stress. Overall left ventricular systolic function appeared to be normal without regional wall motion abnormalities. LV ejection fraction was 64 %. TID is 0.816 and is normal. There were evidence of breast attenuation artifact. IMPRESSION: Normal exercise Myoview cardiac perfusion stress test. No evidence of ischemia or myocardial infarction by perfusion imaging. Normal left ventricular systolic function, ejection fraction 64%. No exercise provoked significant ischemic ECG changes or chest pain symptoms. Please note the patient had very limited exercise tolerance which might decrease the sensitivity of the test. Patient was able to exercise for only 4 minutes no previous study available for comparison Electronically signed by: CHASITY SHARMA MD Normal [facility] B12/Folate Panelon 0 Cobalamin (Vitamin B12) [Mass/Vol] 250 pg/mL Normal [id number] [facility] Comment on above: Performed By: #### B 12FOL #### [facility] [employer] [address] [place] [address] [id number] Director Of Testing: Calderon Perez MD Folic Acid 10.5 ng/mL Normal >4.8 [facility] Comment on above: Performed By: #### B 12FOL #### [facility] [employer] [address] [place], [place] [id number] Director Of Testing: Calderon Perez MD Vitamin B12 & Folateon 03-30 Cobalamin (Vitamin B12) [Mass/Vol] 250 pg/mL 232 - 1245 pg/mL [facility], MD Folate 10.5 ng/mL >4.8 [facility] W OBLIQUES FLEXION AND EXTENSIONon 03-30-2020 XR CERVICAL SPINE W OBLIQUES FLEXION AND EXTENSION EXAMINATION: SEVEN XRAY VIEWS OF THE CERVICAL SPINE WITH OBLIQUES AND FLEXION/EXTENSION VIEWS 03/30/2020 10:02 am COMPARISON: None HISTORY: ORDERING SYSTEM PROVIDED HISTORY: Neck pain TECHNOLOGIST PROVIDED HISTORY: with flexion and extension and obliques views , AP and lateral neck pain FINDINGS: There is no convincing evidence of acute fracture. No localized prevertebral soft tissue swelling is seen. Bone mineralization appears intact. Vertebral body heights and disc spaces appear intact. Minimal uncovertebral hypertrophy at C4-C5. There is straightening of normal cervical lordosis on the neutral view which could be positional or due to spasm. No dynamic instability with flexion/extension. Note that on the flexion extension views the cervical spine is not well seen below the C6-C7 disc space. Oblique views show no significant neural foraminal stenosis. IMPRESSION: No acute abnormality of the cervical spine. Interpreted by: Alex Wilson MD Signed by: Alex Wilson MD 03/30/20 Final result Normal [facility] No acute abnormality of the cervical spine. [place], [place] EXAMINATION: SEVEN XRAY VIEWS OF THE CERVICAL SPINE WITH OBLIQUES AND FLEXION/EXTENSION VIEWS 03/30/2020 10:02 am COMPARISON: None HISTORY: ORDERING SYSTEM PROVIDED HISTORY: Neck pain TECHNOLOGIST PROVIDED HISTORY: with flexion and extension and obliques views , AP and lateral neck pain FINDINGS: There is no convincing evidence of acute fracture. No localized prevertebral soft tissue swelling is seen. Bone mineralization appears intact. Vertebral body heights and disc spaces appear intact. Minimal uncovertebral hypertrophy at C4-C5. There is straightening of normal cervical lordosis on the neutral view which could be positional or due to spasm. No dynamic instability with flexion/extension. Note that on the flexion extension views the cervical spine is not well seen below the C6-C7 disc space. Oblique views show no significant neural foraminal stenosis. [place], [place] Romie, [facility] Incoming Radiant Results From [facility] - 03/30/2020 2:36 PM EST EXAMINATION: SEVEN XRAY VIEWS OF THE CERVICAL SPINE WITH OBLIQUES AND FLEXION/EXTENSION VIEWS 03/30/2020 10:02 am COMPARISON: None HISTORY: ORDERING SYSTEM PROVIDED HISTORY: Neck pain TECHNOLOGIST PROVIDED HISTORY: with flexion and extension and obliques views , AP and lateral neck pain FINDINGS: There is no convincing evidence of acute fracture. No localized prevertebral soft tissue swelling is seen. Bone mineralization appears intact. Vertebral body heights and disc spaces appear intact. Minimal uncovertebral hypertrophy at C4-C5. There is straightening of normal cervical lordosis on the neutral view which could be positional or due to spasm. No dynamic instability with flexion/extension. Note that on the flexion extension views the cervical spine is not well seen below the C6-C7 disc space. Oblique views show no significant neural foraminal stenosis. IMPRESSION: No acute abnormality of the cervical spine. [place], [place] Vital Signs Date Time Vital Sign Value Performing Clinician Facility 03-18-2024 11:50-0400 Body mass index (BMI) [Ratio] 60.21 kg/m2 [employer] Work Phone: [facility] 03-18-2024 11:50-0400 Body weight 159.12 kg [employer] Work Phone: [facility] 03-18-2024 11:50-0400 Diastolic blood pressure 80 mm[Hg] [employer] Work Phone: [facility] 03-18-2024 11:50-0400 Systolic blood pressure 120 mm[Hg] [employer] Work Phone: [facility] 08-28-2023 11:05-0400 Body height 162.6 cm Annette Campbell [employer] Work Phone: [facility] 08-28-2023 11:05-0400 Body mass index (BMI) [Ratio] 59.67 kg/m2 [employer] NITRIC ACID PLANT OPERATOR-QUALITY PROJECT MANAGER Work Phone: [facility] 08-28-2023 11:05-0400 Body temperature 98.01 [degF] Annette Frazierillo NITRIC ACID PLANT OPERATOR-QUALITY PROJECT MANAGER Work Phone: [facility] 08-28-2023 11:05-0400 Body weight 157.67 kg Annette Campbell NITRIC ACID PLANT OPERATORBridge Pharmaceuticals Work Phone: [facility] 08-28-2023 11:05-0400 Diastolic blood pressure 82 mm[Hg] Annette Campbell NITRIC ACID PLANT OPERATOR-QUALITY PROJECT MANAGER Work Phone: [facility] 08-28-2023 11:05-0400 Heart rate 90 /min Annette Campbell APRN-QUALITY PROJECT MANAGER Work Phone: [facility] 08-28-2023 11:05-0400 SaO2% (BldA) [Mass fraction] 98 % Annette Campbell NITRIC ACID PLANT OPERATOR-QUALITY PROJECT MANAGER Work Phone: [facility] 08-28-2023 11:05-0400 Systolic blood pressure 138 mm[Hg] Annette Campbell NITRIC ACID PLANT OPERATOR-QUALITY PROJECT MANAGER Work Phone: [facility] 08-14-2023 12:25-0400 Diastolic blood pressure 86 mm[Hg] Eneida Eaton NITRIC ACID PLANT OPERATOR-STITCHER OPERATOR Work Phone: [facility] 08-14-2023 12:25-0400 Systolic blood pressure 146 mm[Hg] Eneida Eaton NITRIC ACID PLANT OPERATOR-STITCHER OPERATOR Work Phone: [facility] 08-14-2023 11:38-0400 Body height 162.6 cm Eneida Eaton NITRIC ACID PLANT OPERATOR-STITCHER OPERATOR Work Phone: [facility] 08-14-2023 11:38-0400 Body mass index (BMI) [Ratio] 59.7 kg/m2 Eneida Eaton NITRIC ACID PLANT OPERATOR-STITCHER OPERATOR Work Phone: [facility] 08-14-2023 11:38-0400 Body temperature 97.39 [degF] Eneida Eaton NITRIC ACID PLANT OPERATOR-STITCHER OPERATOR Work Phone: [facility] 08-14-2023 11:38-0400 Body weight 157.76 kg Eneida Eaton NITRIC ACID PLANT OPERATOR-STITCHER OPERATOR Work Phone: [facility] 08-14-2023 11:38-0400 Heart rate 87 /min Eneida Eaton NITRIC ACID PLANT OPERATOR-STITCHER OPERATOR Work Phone: [facility] 08-14-2023 11:38-0400 Respiratory rate 20 /min Eneida Eaton APRN-STITCHER OPERATOR Work Phone: [facility] 08-14-2023 11:38-0400 SaO2% (BldA) [Mass fraction] 96 % Eneida Eaton APRN-STITCHER OPERATOR Work Phone: [facility] 08-04-2023 11:33-0400 Body height 162.6 cm Annette Campbell NITRIC ACID PLANT OPERATOR-QUALITY PROJECT MANAGER Work Phone: [facility] 08-04-2023 11:33-0400 Body mass index (BMI) [Ratio] 58.81 kg/m2 Annette Campbell NITRIC ACID PLANT OPERATOR-QUALITY PROJECT MANAGER Work Phone: [facility] 08-04-2023 11:33-0400 Body temperature 97.5 [degF] Annette Campbell NITRIC ACID PLANT OPERATOR-QUALITY PROJECT MANAGER Work Phone: [facility] 08-04-2023 11:33-0400 Body weight 155.4 kg Annette Campbell NITRIC ACID PLANT OPERATOR-QUALITY PROJECT MANAGER Work Phone: [facility] 08-04-2023 11:33-0400 Diastolic blood pressure 60 mm[Hg] Annette Campbell NITRIC ACID PLANT OPERATOR-QUALITY PROJECT MANAGER Work Phone: [facility] 08-04-2023 11:33-0400 Heart rate 86 /min Annettewoo Campbell APRN-QUALITY PROJECT MANAGER Work Phone: [facility] 08-04-2023 11:33-0400 SaO2% (BldA) [Mass fraction] 99 % Annette Campbell NITRIC ACID PLANT OPERATOR-QUALITY PROJECT MANAGER Work Phone: [facility] 08-04-2023 11:33-0400 Systolic blood pressure 132 mm[Hg] Annette Campbell NITRIC ACID PLANT OPERATOR-QUALITY PROJECT MANAGER Work Phone: [facility] 04-03-2020 00:01-0500 BP Diastolic 103 mm[Hg] [facility] , [place] 04-03-2020 00:01-0500 BP Systolic 157 mm[Hg] Lisseth Madison [facility] , [place] 04-03-2020 00:01-0500 Pulse Oximetry 99 % [facility] , [place] 04-02-2020 23:46-0500 BMI (Body Mass Index) 51.49 kg/m2 [facility] 04-02-2020 23:46-0500 Body weight 136.08 kg [facility] [place] 04-02-2020 23:46-0500 Height 162.6 cm [facility] [place] 04-02-2020 23:46-0500 Pulse (Heart Rate) 79 /min Lisseth Madison [facility], [place] 04-02-2020 23:46-0500 Respiratory Rate 18 /min Lisseth Madison [facility], [place] 04-02-2020 23:39-0500 Body Temperature 97.3 [degF] [place] Encounters Encounter Date Encounter Type Care Provider Facility Start: 03-18-2024 End: 03-18-2024 Bamboo flowsheet Eugenio Javad DO Work Phone: [facility] Start: 03-18-2024 End: 03-18-2024 Bamboo flowsheet Eugenio Javad DO Work Phone: [facility] Start: 03-18-2024 End: 03-18-2024 Office outpatient visit 15 minutes Eugenio Javad DO Work Phone: [facility] Comment on above: Pre-operative exam; Bartholin's gland cyst Start: 03-18-2024 End: 03-18-2024 Preprocedural examination done Eugenio Javad DO Work Phone: [facility] Work Phone: Start: 03-18-2024 End: 03-18-2024 ambulatory EUGENIO JAVAD Not Available Start: 03-15-2024 End: 03-15-2024 Clinical Support Annette Campbell APRN-QUALITY PROJECT MANAGER Work Phone: [facility] Comment on above: Vitamin B 12 deficie ncy (Primary Dx) Start: 03-02-2024 End: 03-02-2024 External Result Encounter Eugenio Javad DO Work Phone: [facility] External [facility] Unsolicited Start: 03-02-2024 End: 03-02-2024 External Result Encounter Eugenio Javad DO Work Phone: [facility] External [facility] Unsolicited Start: 03-02-2024 End: 03-02-2024 ambulatory [facility] Start: 02-18-2024 End: 02-18-2024 ambulatory EUGENIO LANDAO Not Available Start: 02-12-2024 End: 02-12-2024 ambulatory [facility] Start: 02-04-2024 End: 02-04-2024 ambulatory [facility] Start: 02-04-2024 End: 02-04-2024 ambulatory [facility] Start: 01-13-2024 End: 01-13-2024 ambulatory [facility] Start: 12-03-2023 End: 12-03-2023 ambulatory [facility] Start: 11-03-2023 End: 11-03-2023 ambulatory [facility] Start: 10-02-2023 End: 10-02-2023 ambulatory LUÍS GRANTGalina Not Available Start: 09-29-2023 End: 09-29-2023 ambulatory [facility] Start: 08-28-2023 End: 08-28-2023 Office outpatient visit 25 minutes [facility] NITRIC ACID PLANT OPERATOR-QUALITY PROJECT MANAGER Work Phone: [facility] Comment on above: Acute non-recurrent pansinusitis (Primary Dx); Vitamin B 12 deficiency; Upper respiratory symptom Start: 08-28-2023 End: 08-28-2023 ambulatory [facility] Start: 08-25-2023 Orders Only Annette J [facility] NITRIC ACID PLANT OPERATOR-QUALITY PROJECT MANAGER Work Phone: [facility] Comment on above: Congestion of nasal sinus (Primary Dx); Congestion of both ears Start: 08-14-2023 End: 08-14-2023 Office outpatient visit 15 minutes Eneida Eaton NITRIC ACID PLANT OPERATOR-STITCHER OPERATOR Work Phone: [facility] Comment on above: Viral URI (Primary D x) Start: 08-14-2023 End: 08-14-2023 ambulatory ENEIDA MERCHANT [facility] Start: 08-04-2023 End: 08-04-2023 ambulatory [facility] Start: 08-04-2023 End: 08-04-2023 Office outpatient visit 25 minutes Annette J Campbell NITRIC ACID PLANT OPERATOR-QUALITY PROJECT MANAGER Work Phone: [facility] Comment on above: Vitamin B 12 deficie ncy (Primary Dx); Vitamin D deficiency; Prediabetes; Mixed hyperlipidemia; Ocular migraine; Essential hypertension Start: 08-04-2023 End: 08-04-2023 ambulatory [facility] Start: 07-23-2023 End: 07-24-2023 Emergency department patient visit SINDI GOOD [facility] Start: 04-01-2022 End: 04-01-[address] EUGENIO FARNSWORTH Facility: Start: 09-19-2020 End: 09-20-2020 ambulatory SR MARIO DURAN [facility] Start: 04-03-2020 End: 04-03-2020 Emergency department patient visit LISSETH GIBBS [facility] Start: 04-02-2020 End: 04-03-2020 Emergency department patient visit Lisesth Madison Work Phone: [facility] ED Comment on above: Hypertension, unspec ified type (Primary Dx) Start: 03-30-2020 End: 04-02-2020 [facility] Start: 03-30-2020 End: 04-01-2020 Subsequent hospital visit by physician Faiza Olmedo Dr Room 4 [facility] Comment on above: Neck pain; Midline thoracic back pain, unspecified chronicity Neck pain Midline thoracic mila k pain, unspecified chronicity Procedures Date Procedure Procedure Detail Performing Clinician Start: 03-02-2024 Hemoglobin glycosylated a1c Eugenio Farnsworth [employer] Work Phone: Start: 02-18-2024 Microscopic observat ion [Identifier] in Cervix by Cyto stain Eugenio LandaQwbcg Work Phone: Start: 02-04-2024 Follow-up visit Follow-up ANNETTE CAMPBELL Start: 08-28-2023 POCT INFLUENZA A/INF LUENZA B/SARS-COV-2 VERITOR Annette Campbell NITRIC ACID PLANT OPERATOR[facility] Work Phone: Start: 08-28-2023 Iaadiadoo streptococ cus group a Annette Campbell NITRIC ACID PLANT OPERATOR-QUALITY PROJECT MANAGER Work Phone: Start: 08-28-2023 Adult depression scr eening assessment Annette Frazierillo NITRIC ACID PLANT OPERATOR-QUALITY PROJECT MANAGER Work Phone: Start: 08-14-2023 Adult depression scr eening assessment Eneida Eaton NITRIC ACID PLANT OPERATOR-STITCHER OPERATOR Work Phone: Start: 08-04-2023 Adult depression scr eening assessment Annette Campbell NITRIC ACID PLANT OPERATOR-QUALITY PROJECT MANAGER Work Phone: Start: 03-30-2020 Radex spine cervical 6 or more views MAXWELL LLANES Start: 03-30-2020 Radex spine thoracic 2 views MAXWELL LLANES Start: 03-30-2020 Cyanocobalamin vitamin b-12 SARAIMPGER DALIAISHKHALIDA Start: 03-30-2020 Radex spine cervical 6 or more views Maxwell Llanes Work Phone: Start: 03-30-2020 VITAMIN B12 & FOLATE Ke mpsager Esme Work Phone: Plan of Treatment Date Care Activity Detail Author Start: 04-01-2027 Screening for malign ant neoplasm of cervix [facility] Start: 02-17-2027 Screening for malign ant neoplasm of cervix Pap Smear [facility] Start: 11-21-2025 DTaP,Tdap and Td Vaccines (3 - Td or Tdap) DTaP,Tdap and Td Vaccines (3 - Td or Tdap) [facility] Start: 02-03-2025 Adult BMI Follow Up Plan Adult BMI Follow Up Plan [facility] Start: 02-03-2025 Adult BMI Screening Adult BMI Screen ing [facility] Start: 02-03-2025 Tobacco Screening Tobacco Screening [facility] Start: 08-27-2024 Adult BMI Screening Adult BMI Screen ing [facility] Start: 08-27-2024 Depression Screening Depression Scre ening [facility] Start: 08-27-2024 Tobacco Screening Tobacco Screening [facility] Start: 08-13-2024 Adult BMI Screening Adult BMI Screen ing [facility] Start: 08-13-2024 Depression Screening Depression Scre ening [facility] Start: 08-13-2024 Tobacco Screening Tobacco Screening [facility] Start: 08-04-2024 End: 08-04-2024 Patient encounter procedure 08/04/2024 1:00 PM EDT Office Visit [facility] [address] [place] [address] Annette Campbell, NITRIC ACID PLANT OPERATOR[facility] [address] [place] [address] [facility] Start: 08-03-2024 Adult BMI Follow Up Plan Adult BMI Follow Up Plan [facility] Start: 08-03-2024 Adult BMI Screening Adult BMI Screen ing [facility] Start: 08-03-2024 Depression Screening Depression Scre ening [facility] Start: 08-03-2024 Tobacco Screening Tobacco Screening [facility] Start: 05-05-2024 Adult BMI Follow Up Plan Adult BMI Follow Up Plan [facility] Start: 04-15-2024 End: 04-15-2024 Clinical Support 04/15/2024 2:00 PM EST Clinical Support [facility] [address] [place] [address] Annette Campbell, NITRIC ACID PLANT OPERATOR-QUALITY PROJECT MANAGER [address] [place] [address] [facility] Start: 03-18-2024 End: 03-18-2024 Patient encounter procedure [facility] Comment on above: Arrived Start: 02-04-2024 End: 02-04-2024 Patient encounter procedure 02/04/2024 1:00 PM EDT Office Visit [facility] - Family Medicine [address] [place] [address] Annette Campbell, NITRIC ACID PLANT OPERATOR-QUALITY PROJECT MANAGER [address] [place] [address] [facility] Internal Medicine - Family Medicine Start: 01-25-2024 Influenza vaccination [facility] Start: 09-04-2023 End: 09-04-2023 Clinical Support 09/04/2023 2:30 PM EDT Clinical Support [facility] Internal Medicine - Family Medicine [address] [place] [address] [facility] Internal Medicine Family Medicine Start: 01-24-2023 Influenza vaccination Influenza Vacc ine [facility] Start: 01-25-2020 Influenza vaccination Flu vaccine (# 1) [place], [place] Start: 2008 Screening for malign ant neoplasm of cervix [facility] Start: 2006 DTaP/Tdap/Td vaccine (1 - Tdap) DTaP/Tdap/Td vaccine (1 - Tdap) [place], [place] Start: 2002 HIV screening HIV screen [place], [place] Start: 1993 Pneumococcal 0-64 ye ars Vaccine (1 of 1 - PPSV23) Pneumococcal 0-64 years Vaccine (1 of 1 - PPSV23) [place], [place] Start: 1988 Varicella vaccine (1 of 2 - 2-dose childhood series) Varicella vaccine (1 of 2 - 2-dose childhood series) [place], [place] Start: 1987 Tobacco Counseling Tobacco Counselin g [facility] End: 08-04-2024 Hemoglobin A1c/Hemoglobin.total in Blood Hemoglobin A1c Lab Routine Prediabetes 1 Occurrences starting 08/04/2023 until 08/04/2024 [employer] Work Phone: Comment on above: 1 Occurrences starti ng 08/04/2023 until 08/04/2024 Hemoglobin A1c/Hemoglobin.total in Blood Hemoglobin A1c Lab Routine Prediabetes 08/04/2023 10:55 PM EDT [facility] End: 03-30-2020 XR THORACIC SPINE (2 VIEWS) XR THORACIC SPINE (2 VIEWS) Imaging Routine Midline thoracic back pain, unspecified chronicity 1 Occurrences starting 03/30/2020 until 03/30/2020 [place], [place] Comment on above: 1 Occurrences starti ng 03/30/2020 until 03/30/2020 Immunizations Immunization Date Immunization Notes Care Provider Cy gimenez 11-22-2015 tetanus toxoid, redu bruce diphtheria toxoid, and acellular pertussis vaccine, adsorbed Annette Campbell NITRIC ACID PLANT OPERATOR-QUALITY PROJECT MANAGER Work Phone: [facility] 04-01-2014 influenza, seasonal, injectable, preservative free Annette Campbell NITRIC ACID PLANT OPERATOR-QUALITY PROJECT MANAGER Work Phone: [facility] 04-01-2014 tetanus toxoid, redu bruce diphtheria toxoid, and acellular pertussis vaccine, adsorbed Annette Campbell NITRIC ACID PLANT OPERATOR-QUALITY PROJECT MANAGER Work Phone: [facility] 04-01-2014 influenza virus vaccine, unspecified formulation Annette Campbell NITRIC ACID PLANT OPERATOR-QUALITY PROJECT MANAGER Work Phone: [facility] Payers Date Payer Category Payer Medicaid [id number] 2022 Medicaid [id number] 2020 Unknown [id number] 1987 Unknown [id number] 2.16.8 [id number] 1987 Unknown [id number] 2.16.8 40.1.927712.3.579.2.173 1987 Unknown [id number] 2.16.8 40.1.205884.3.579.2.173 1987 Unknown [id number] 2.16.8 40.1.226523.3.579.2.173 1987 Unknown [id number] 2.16.8 40.1.476067.3.579.2.175 1987 Unknown [id number] 2.16.8 40.1.078913.3.579.2.175 1987 Unknown [id number] 2.16.84 0.1.036022.3.579.2.593 1987 Unknown [id number] 2.16.8 40.1.764700.3.579.2.1285 1987 Unknown [id number] 2.16.8 40.1.982979.3.579.2.1285 1987 Unknown [id number] 2.16.8 40.1.711897.3.579.2.1285 1987 Unknown [id number] 2.16.8 40.1.672530.3.579.2.1285 1987 Unknown [id number] 2.16.8 40.1.992963.3.579.2.1285 1987 Unknown [id number] 2.16.8 40.1.579088.3.579.2.1285 1987 Unknown [id number] 2.16.8 40.1.378391.3.579.2.1285 1987 Unknown [id number] 2.16.8 40.1.790903.3.579.2.1285 1987 Unknown [id number] 2.16.8 40.1.415406.3.579.2.1286 1987 Unknown [id number] 2.16.8 40.1.811679.3.579.2.6 1987 Unknown [id number] 2.16.8 [id number] 1987 Unknown [id number] 2.16.8 [id number] 1987 Unknown [id number] 2.16.8 [id number] 1987 Unknown [id number] 2.16.8 [id number] 1987 Unknown [id number] 2.16.8 [id number] 1987 Unknown [id number] 2.16.8 [id number] 1987 Unknown [id number] 2.16.84 [id number] 1987 Unknown [id number] 2.16.84 [id number] 1987 Unknown [id number] 2.16.84 [id number] 1959 Unknown [id number] Social History Date Type Detail Facility Start: 03-30-2020 End: 02-18-2024 Tobacco smoking status MOIS Current every day smoker [facility] Start: 05-26-2005 History of tobacco use Cigarette Smo ker [place], [place] Start: 03-30-2020 End: 02-18-2024 Tobacco use and exposure Never used [place], [place] Start: 03-30-2020 End: 04-02-2020 Alcohol intake Lifetime non-drinker (finding) [place], [place] Start: 03-30-2020 History SDOH Alcohol Frequency 1 [place], [place] Start: 1985 Sex Assigned At Not on file [place], [place] Exposure to SARS-CoV -2 (event) Not sure [place] Start: 08-21-2022 End: 02-18-2024 Cigarettes smoked current (pack per day) - Reported 0.3 [facility] Start: 08-04-2023 End: 03-18-2024 Alcohol intake Ex-drinker (finding) [facility] Start: 06-12-2021 End: 02-18-2024 Social connection and isolation panel [facility] Do you belong to any clubs or organizations such as methodist groups, unions, fraternal or athletic groups, or school groups? No [facility] Are you now , , , , never or living with a partner? [facility] How often to you hav e a drink containing alcohol? Never [facility] Average Number of Drinks Not on file [facility] Do you feel stress - tense, restless, nervous, or anxious, or unable to sleep at night because your mind is troubled all the time - these days [OSQ] Only a little [facility] Start: 06-12-2021 Education 12 [facility] Start: 12-29-2014 Sex Female (finding) [facility] Clinical Notes 08-04-2023 to 03-18-2024 Daphne Matos, YAN - 03/18/2024 11:50 AM EDTAnnette Campbell, NITRIC ACID PLANT OPERATOR-QUALITY PROJECT MANAGER - 08/28/2023 11:00 AM EDTMakin Eaton, NITRIC ACID PLANT OPERATOR-STITCHER OPERATOR - 08/14/2023 11:40 AM EDT Note Date & Type Note Facility 03-18-2024 History of Present illness Narrative Reason for Appointment: Patient ID: Krysta Duran is a 38 y.o. female who presents for Pre-op Visit Patient presents today for Pre Op appointment. Patient is scheduled to undergo Excision Bartholin's Cyst on 04/16/[address] Farnsworth at [facility]. MEDICATIONS Current Outpatient Medications Medication Instructions ibuprofen 600 mg, Every 8 hours PRN metoprolol succinate XL (Toprol-XL) 50 MG 24 hr tablet 1 tablet, Daily ALLERGIES Allergies Allergen Reactions Benzonatate Other Reaction(s): Facial Swelling PROBLEMS Active Ambulatory Problems Diagnosis Date Noted Antiphospholipid syndrome ([facility]) 07/30/2020 Anxiety disorder 04/04/2020 Chronic fatigue syndrome 04/04/2020 Essential hypertension ([facility]) 04/04/2020 Gastroesophageal reflux disease 04/04/2020 Hirsutism 04/04/2020 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/2020 Hyperthyroidism ([facility]) 01/19/2020 Insulin resistance 04/04/2020 Migraine ([facility]) 04/04/2020 Morbid obesity ([facility]) 04/04/2020 Multiple thyroid nodules ([facility]) 01/29/2023 Non-toxic uninodular goiter ([facility]) 04/04/2020 Polycystic ovary syndrome 04/04/2020 Prediabetes 04/04/2020 Vitamin B 12 deficiency 04/19/2020 Vitamin D deficiency 04/04/2020 OME (otitis media with effusion), left 10/02/2023 Resolved Ambulatory Problems Diagnosis Date Noted Female infertility 04/04/2020 Loss of hair 04/04/2020 No Additional Past Medical History HISTORY PAST MEDICAL HISTORY SOCIAL HISTORY Past Medical History: Diagnosis Date Loss of hair 04/04/2020 Social History Tobacco Use Smoking status: Every Day Current packs/day: 0.25 Average packs/day: 0.3 packs/day for 10.0 years (2.5 ttl pk-yrs) Types: Cigarettes Smokeless tobacco: Never Substance Use Topics Alcohol use: Not Currently Drug use: Never FAMILY HISTORY Family History Problem Relation Name Age of Onset Thyroid disease Mother Diabetes Mother Diabetes Father SURGICAL HISTORY Past Surgical History: Procedure Laterality Date SECTION, CLASSIC OOPHORECTOMY 2011 REVIEW OF SYSTEMS Review of Systems: Review of Systems Constitutional: Negative. HENT: Negative. Eyes: Negative. Respiratory: Negative. Cardiovascular: Negative. Gastrointestinal: Negative. Genitourinary: Positive for vaginal pain. Musculoskeletal: Negative. Skin: Negative. Neurological: Negative. All other systems reviewed and are negative. Hematological: Negative. Endocrine: Negative. Allergic/Immunologic: Negative. OBJECTIVE Objective: Physical Exam Constitutional: Appearance: Normal appearance. She is well-developed. Genitourinary: Genitourinary Comments: Right side Bartholin Cyst previously noted on pelvic exams. Left Labia: Bartholin's cyst. Cardiovascular: Rate and Rhythm: Normal rate and regular rhythm. Pulmonary: Effort: Pulmonary effort is normal. Breath sounds: Normal breath sounds. Abdominal: General: Bowel sounds are normal. There is no distension. Palpations: Abdomen is soft. Tenderness: There is no abdominal tenderness. There is no guarding or rebound. Musculoskeletal: General: No swelling. Normal range of motion. Right lower leg: No edema. Left lower leg: No edema. Neurological: Mental Status: She is alert and oriented to person, place, and time. Skin: General: Skin is warm and dry. Psychiatric: Mood and Affect: Mood normal. Behavior: Behavior normal. Vitals and nursing note reviewed. Exam conducted with a park guard present. Vitals: Estimated body mass index is 60.21 kg/m as calculated from the following: Height as of 10/02/23: 5' 4 . Weight as of this encounter: 350 lb 12.8 oz. BP: 120/80 No LMP recorded. ASSESSMENT & PLAN ICD-10-CM 1. Pre-operative exam Z01.818 2. Bartholin's gland cyst N75.0 Pre Op: Patient is doing well but has complaints of vaginal pain. I have discussed conservative management vs. surgical management with the patient in detail and patient desires surgical management at this time. Patient will undergo Excision Bartholin's Cyst on 04/16/[address] Farnsworth at [facility]. Discussed post-operative care and recovery. Surgical consents were signed, mmc was reviewed, and patient is to proceed to [facility]. Follow Up: Patient is to follow up between 1-2 weeks post operative to assess proper healing and recovery from procedure. Documented by Daphne Matos LPN on behalf of: Eugenio Farnsworth DO documented in this encounter [facility] 08-28-2023 History of Present illness Narrative Images from the original note were not included. [address] [place] [id number] SUBJECTIVE: Patient ID: Krysta Duran is a 38 y.o. female. Chief Complaint Patient presents with Nasal Congestion Earache Cough Sore Throat Presents for multiple complaints today. Went to urgent care on Friday and was prescribed Prednisone and Zpak. She is on her last course of treatment today. She is not noticing any relief. Symptoms include congestion with thick yellow green drainage, sore throat, head congestion, cough, and ear pain. Sinus Problem This is a new problem. The current episode started 1 to 4 weeks ago. The problem has been waxing and waning since onset. Her pain is at a severity of 6/10. Associated symptoms include congestion, coughing, diaphoresis, ear pain, headaches, a hoarse voice, sinus pressure and a sore throat. Treatments tried: zpak and prednisone. The treatment provided mild relief. The following portions of the patient's history were reviewed and updated as appropriate: allergies, current medications, past family history, past medical history, past social history, past surgical history and problem list. Past Surgical History: Procedure Laterality Date SECTION OOPHORECTOMY 2012 OVARIAN CYST SURGERY Past Medical History: Diagnosis Date Hypertension PCOS (polycystic ovarian syndrome) Immunization History Administered Date(s) Administered Influenza (IM) Preservative Free 04/01/2014 Tdap 04/01/2014, 11/22/2015 REVIEW OF SYSTEMS: Review of Systems Constitutional: Positive for diaphoresis. HENT: Positive for congestion, ear pain, hoarse voice, postnasal drip, sinus pressure, sinus pain, sore throat and voice change. Eyes: Negative for visual disturbance. Respiratory: Positive for cough. Cardiovascular: Negative for palpitations. Gastrointestinal: Negative. Endocrine: Negative. Genitourinary: Negative for menstrual problem and pelvic pain. Musculoskeletal: Negative. Skin: Negative. Allergic/Immunologic: Negative. Neurological: Positive for headaches. Negative for syncope and facial asymmetry. Hematological: Does not bruise/bleed easily. Psychiatric/Behavioral: Negative. PHYSICAL EXAMINATION: Vitals: 08/28/23 1105 BP: 138/82 BP Site: Left Arm BP Postition: Sitting Pulse: 90 Temp: 36.7 C (98 F) TempSrc: Tympanic SpO2: 98% Weight: (!) 157.7 kg (347 lb 9.6 oz) Height: 162.6 cm (5' 4 ) Patient noted to have elevated BMI and the following intervention(s) were applied: encouragement to exercise. Physical Exam Vitals and nursing note reviewed. Constitutional: General: She is not in acute distress. Appearance: She is well-developed. She is not diaphoretic. HENT: Head: Normocephalic and atraumatic. Right Ear: External ear normal. Tympanic membrane is erythematous and bulging. Left Ear: External ear normal. Tympanic membrane is erythematous and bulging. Nose: Nasal tenderness, mucosal edema and congestion present. Right Turbinates: Swollen. Left Turbinates: Swollen. Right Sinus: Maxillary sinus tenderness and frontal sinus tenderness present. Left Sinus: Maxillary sinus tenderness and frontal sinus tenderness present. Mouth/Throat: Mouth: Mucous membranes are moist. Pharynx: No oropharyngeal exudate. Comments: Erythema. Post nasal drainage Eyes: General: Right eye: No discharge. Left eye: No discharge. Conjunctiva/sclera: Conjunctivae normal. Pupils: Pupils are equal, round, and reactive to light. Neck: Thyroid: No thyromegaly. Vascular: No JVD. Cardiovascular: Rate and Rhythm: Normal rate and regular rhythm. Heart sounds: Normal heart sounds. No murmur heard. No friction rub. No gallop. Pulmonary: Effort: Pulmonary effort is normal. Breath sounds: Normal breath sounds. Abdominal: General: Bowel sounds are normal. There is no distension. Palpations: Abdomen is soft. There is no mass. Tenderness: There is no abdominal tenderness. Musculoskeletal: General: Normal range of motion. Cervical back: Normal range of motion and neck supple. Lymphadenopathy: Cervical: No cervical adenopathy. Skin: General: Skin is warm and dry. Capillary Refill: Capillary refill takes less than 2 seconds. Neurological: Mental Status: She is alert and oriented to person, place, and time. Deep Tendon Reflexes: Reflexes are normal and symmetric. Psychiatric: Mood and Affect: Mood normal. Behavior: Behavior normal. Thought Content: Thought content normal. Judgment: Judgment normal. ASSESSMENT/PLAN: Krysta was seen today for nasal congestion, earache, cough and sore throat. Diagnoses and all orders for this visit: Acute non-recurrent pansinusitis - amoxicillin-pot clavulanate (AUGMENTIN) 875-125 mg per tablet; Take 1 tablet by mouth in the morning and 1 tablet before bedtime. Do all this for 10 days. Vitamin B 12 deficiency - cyanocobalamin (VITAMIN B-12) injection 1,000 mcg Upper respiratory symptom - POCT Influenza A/Influenza B/SARS-COV-2 Veritor - POCT rapid strep A Cool mist humidification for congestion, warm salt water gargles as needed for sore throat. Motrin or Tylenol as needed per creative strategist guidelines for fever or pain. POCT rapid strep, Influenza A/B, Covid 19 negative in office today Finish last dose of Prednisone and Zpak Start Augmentin tomorrow as directed B12 deficiency Cyanocobalamin 1,000 Mcg administered today Body mass index is 59.67 kg/m . Patient noted to have elevated BMI and the following intervention(s) were applied: Discussed current weight today. Consider healthy food choices, portion control. Avoid sugary beverages and high concentrated sweets. Routine exercise regimen encouraged. ALL QUESTIONS ANSWERED Total time spent was 30 minutes: Preparing to see the patient (e.g., review of tests) Obtaining and/or reviewing separately obtained history Performing a medically appropriate examination and/or evaluation Counseling and educating the patient/family/caregiver Ordering medications, tests, or procedures Follow-up: Next scheduled GUIDO Vila 08/28/23 1358 documented in this encounter [facility] 08-14-2023 History of Present illness Narrative Subjective Patient ID: Krysta Duran is a 38 y.o. female. Onset of symptoms yesterday with sore throat and sinus congestion No fever She has some yellow crusties around her eyes Her son is ill also and was negative for covid and influenza Minimal to no cough She is concerned as 6-8 weeks ago she started out with symptoms similar and then it took her a month to get better The following portions of the patient's history were reviewed and updated as appropriate: allergies, current medications, past family history, past medical history, past social history, past surgical history, problem list, and medication reconciliation was completed including current medication and post discharge medication. Review of Systems Constitutional: Positive for chills and fatigue. Negative for fever. HENT: Positive for congestion, postnasal drip, rhinorrhea and sore throat. Eyes: Positive for discharge. Negative for redness and visual disturbance. Respiratory: Negative. Cardiovascular: Negative. Gastrointestinal: Negative. Endocrine: Negative. Genitourinary: Negative. Musculoskeletal: Negative. Skin: Negative. Allergic/Immunologic: Negative. Neurological: Negative. Hematological: Negative. Psychiatric/Behavioral: Negative. Objective Physical Exam Vitals and nursing note reviewed. Constitutional: General: She is not in acute distress. Appearance: She is obese. HENT: Head: Normocephalic. Right Ear: Tympanic membrane, ear canal and external ear normal. Left Ear: Tympanic membrane, ear canal and external ear normal. Nose: Congestion and rhinorrhea present. Mouth/Throat: Mouth: Mucous membranes are moist. Eyes: Conjunctiva/sclera: Conjunctivae normal. Cardiovascular: Rate and Rhythm: Normal rate and regular rhythm. Pulses: Normal pulses. Heart sounds: Normal heart sounds. No murmur heard. Pulmonary: Effort: Pulmonary effort is normal. Breath sounds: Normal breath sounds. Musculoskeletal: Cervical back: Neck supple. No tenderness. Right lower leg: No edema. Left lower leg: No edema. Lymphadenopathy: Cervical: No cervical adenopathy. Skin: General: Skin is warm and dry. Neurological: Mental Status: She is alert and oriented to person, place, and time. Mental status is at baseline. Psychiatric: Thought Content: Thought content normal. Judgment: Judgment normal. Assessment/Plan Krysta was seen today for sore throat and nasal congestion. Diagnoses and all orders for this visit: Viral URI Other orders - predniSONE (DELTASONE) 20 mg tablet; Take 1 tablet (20 mg total) by mouth in the morning for 7 days. - dextromethorphan-guaiFENesin (ROBITUSSIN-DM) 10-100 mg/5 mL liquid; Take 5 mL by mouth every 12 (twelve) hours for 10 days. Today appears to have symptoms of a viral uri Will treat symptomatically If her symptoms change/worsen/persist she is to call back with an update NICOLAS Kwan 08/14/23 [id number] documented in this encounter [facility] 08-04-2023 History of Present illness Narrative Images from the original note were not included. [address] [place] [id number] SUBJECTIVE: Patient ID: Krysta Duran is a 38 y.o. female. Chief Complaint Patient presents with discuss b12 Patient admits to stopping B12 supplement over one month ago. She just does not like side effects. Believes B12 SL supplement may be one of the triggers to her ocular migraines. She was recently seen in ER on 07/23/23 for migraine. States this particular day, Motrin did not help with her symptoms. The following portions of the patient's history were reviewed and updated as appropriate: allergies, current medications, past family history, past medical history, past social history, past surgical history and problem list. Past Surgical History: Procedure Laterality Date SECTION OOPHORECTOMY 2012 OVARIAN CYST SURGERY Past Medical History: Diagnosis Date Hypertension PCOS (polycystic ovarian syndrome) Immunization History Administered Date(s) Administered Influenza (IM) Preservative Free 04/01/2014 Tdap 04/01/2014, 11/22/2015 REVIEW OF SYSTEMS: Review of Systems Constitutional: Negative for chills and fever. HENT: Negative. Eyes: Negative for visual disturbance. Respiratory: Negative for chest tightness and shortness of breath. Cardiovascular: Negative for chest pain and palpitations. Gastrointestinal: Negative. Endocrine: Negative. Genitourinary: Negative for menstrual problem and pelvic pain. Musculoskeletal: Negative. Skin: Negative. Allergic/Immunologic: Negative. Neurological: Positive for headaches. Negative for syncope and facial asymmetry. Hematological: Does not bruise/bleed easily. Psychiatric/Behavioral: Negative. PHYSICAL EXAMINATION: Vitals: 08/04/23 1133 BP: 132/60 BP Site: Left Arm BP Postition: Sitting Pulse: 86 Temp: 36.4 C (97.5 F) TempSrc: Oral SpO2: 99% Weight: (!) 155.4 kg (342 lb 9.6 oz) Height: 162.6 cm (5' 4 ) Patient noted to have elevated BMI and the following intervention(s) were applied: encouragement to exercise. Physical Exam Vitals and nursing note reviewed. Constitutional: General: She is not in acute distress. Appearance: She is well-developed. She is not diaphoretic. HENT: Head: Normocephalic and atraumatic. Right Ear: Tympanic membrane and external ear normal. Left Ear: Tympanic membrane and external ear normal. Nose: Nose normal. Mouth/Throat: Mouth: Mucous membranes are moist. Pharynx: No oropharyngeal exudate. Eyes: General: Right eye: No discharge. Left eye: No discharge. Conjunctiva/sclera: Conjunctivae normal. Pupils: Pupils are equal, round, and reactive to light. Neck: Thyroid: No thyromegaly. Vascular: No JVD. Cardiovascular: Rate and Rhythm: Normal rate and regular rhythm. Heart sounds: Normal heart sounds. No murmur heard. No friction rub. No gallop. Pulmonary: Effort: Pulmonary effort is normal. Breath sounds: Normal breath sounds. Abdominal: General: Bowel sounds are normal. There is no distension. Palpations: Abdomen is soft. There is no mass. Tenderness: There is no abdominal tenderness. Musculoskeletal: General: Normal range of motion. Cervical back: Normal range of motion and neck supple. Lymphadenopathy: Cervical: No cervical adenopathy. Skin: General: Skin is warm and dry. Capillary Refill: Capillary refill takes less than 2 seconds. Neurological: Mental Status: She is alert and oriented to person, place, and time. Deep Tendon Reflexes: Reflexes are normal and symmetric. Psychiatric: Mood and Affect: Mood normal. Behavior: Behavior normal. Thought Content: Thought content normal. Judgment: Judgment normal. ASSESSMENT/PLAN: Krysta was seen today for discuss b12. Diagnoses and all orders for this visit: Vitamin B 12 deficiency - Vitamin B12; Future - CBC auto differential; Future - cyanocobalamin (VITAMIN B-12) injection 1,000 mcg - cyanocobalamin (VITAMIN B-12) injection 1,000 mcg Vitamin D deficiency - Vitamin D 25 hydroxy; Future Prediabetes - Hemoglobin A1c; Future Mixed hyperlipidemia - Lipid panel; Future Ocular migraine - naratriptan (AMERGE) 2.5 mg tablet; Take 1 tablet (2.5 mg total) by mouth once as needed for migraine. May repeat in 4 hours if unresolved. Do not exceed 5 mg in 24 hours. Essential hypertension Labs drawn in office today History of prediabetes, PCOS. Check A1c Vitamin D deficiency. Admits to not taking supplement daily as she should. Check D level. Encourage compliance with D3 5,000 units oral daily. Suggest using med set reminder. Ocular Migraine- may continue Motrin PRN as directed for headaches. Start Amerge as directed PRN B12 deficiency- stopped B12 SL supplement over one month ago. Check B12 level. Cynocobalmin 1,000 mcg administered in office today. Return to monthly Cynocobalmin injections. HTN- controlled. Continue metoprolol succinate 50 mg oral daily Body mass index is 58.81 kg/m . Patient noted to have elevated BMI and the following intervention(s) were applied: Discussed current weight today. Consider healthy food choices, portion control. Avoid sugary beverages and high concentrated sweets. Routine exercise regimen encouraged. ALL QUESTIONS ANSWERED Total time spent was 25 minutes: Preparing to see the patient (e.g., review of tests) Obtaining and/or reviewing separately obtained history Performing a medically appropriate examination and/or evaluation Counseling and educating the patient/family/caregiver Ordering medications, tests, or procedures Follow-up: 5 months GUIDO Vila 08/04/23 1611 documented in this encounter [facility] Evaluation note Diagnosis Vitamin B 12 deficiency- Primary Other B-complex deficiencies Vitamin D deficiency Prediabetes Other abnormal glucose Mixed hyperlipidemia Ocular migraine Variants of migraine, not elsewhere classified, without mention of intractable migraine without mention of status migrainosus Essential hypertension Unspecified essential hypertension [facility] Diagnosis Viral URI- Primary Acute upper respiratory infections of unspecified site [facility] Diagnosis Congestion of nasal sinus- Primary Other diseases of nasal cavity and sinuses Congestion of both ears documented [facility] Diagnosis Acute non-recurrent pansinusitis- Primary Vitamin B 12 deficiency Other B-complex deficiencies Upper respiratory symptom documented [facility] Diagnosis Vitamin B 12 deficiency- Primary Other B-complex deficiencies [facility]* Diagnosis Pre-operative exam Unspecified pre-operative examination Bartholin's gland cyst Cyst of Bartholin's gland documented in this encounter [facility] HealthcareInstructions* Attachments The following attachments cannot be sent through Care Everywhere. * Vitamin D deficiency (Kyrgyz) * Vitamin B12 deficiency and folate deficiency (Kyrgyz) [facility]Not on [facility] SystemInstructions* Attachments The following attachments cannot be sent through Care Everywhere. * Sinusitis in adults (Kyrgyz) documented in [facility] SystemInstructionsNot on file [facility] Diagnosis Neck pain Cervicalgia Midline thoracic back pain, unspecified chronicity Diagnosis Neck pain Cervicalgia Diagnosis Midline thoracic back pain, unspecified chronicity Diagnosis Hypertension, unspecified type Summary Purpose Family History No Family History Records FoundNo Family History Records FoundNo Family History Records FoundNo Family History Records FoundNo Family History Records FoundNo Family History Records FoundNo Family History Records FoundNo Family History Records Found Advance Directives No Advanced Directives Records FoundNo Advanced Directives Records FoundNo Advanced Directives Records FoundNo Advanced Directives Records FoundNo Advanced Directives Records FoundNo Advanced Directives Records FoundNo Advanced Directives Records FoundNo Advanced Directives Records Found Discharge Instructions * Instructions* Koffi Barnes MD - 04/03/2020 Please feel free return to the hospital if your symptoms worsen or any new concerning symptoms develop. Follow-up with your primary care physician as needed for all other the concerns. Only take your blood pressure when you have chest pain or shortness of breath. Make appointment with your primary care doctor to discuss medication changes, follow-up with Holter monitor results. * Attachments The following attachments cannot be sent through Care Everywhere. * Hypertension: General Info (Kyrgyz) documented in this encounter Additional Source Comments INFORMATION SOURCE (unrecogn ized section and content) DATE CREATED AUTHOR 04/01/2020 [facility] DATE CREATED AUTHOR AUTHOR'S ORGANIZ ATION 06/02/2020 [facility] DATE CREATED AUTHOR AUTHOR'S ORGANIZ ATION 09/20/2020 [facility] DATE CREATED AUTHOR AUTHOR'S ORGANIZ ATION 04/08/2022 [facility] DATE CREATED AUTHOR AUTHOR'S ORGANIZ ATION 02/07/2024 [facility] DATE CREATED AUTHOR AUTHOR'S ORGANIZ ATION 03/04/2024 [facility] DATE CREATED AUTHOR AUTHOR'S ORGANIZ ATION 03/17/2024 [facility] DATE CREATED AUTHOR AUTHOR'S ORGANIZ ATION 03/20/[address] [facility] EPIC Reason for Visit (unrecogniz ed section and content) Reason Comments Hypertension ongoing chronic Reason Comments discuss b12 Reason Comments Sore Throat Nasal Congestion Reason Comments Nasal Congestion Earache Cough Sore Throat Reason Comments Pre-op Visit Care Teams (unrecognized sec tion and content) Telecommunications Network Engineer Relationship Specialty Start Date End Date Annette Campbell [facility] [address] [place] [address] PCP - General Family Medicine 04/03/20 Telecommunications Network Engineer Relationship Specialty Start Date End Date Annette Campbell [facility] [address] [place] [address] PCP - General Family Medicine 04/03/20 Telecommunications Network Engineer Relationship Specialty Start Date End Date Annette Campbell [facility] [address] [place] [address] PCP - General Family Medicine 04/03/20 Telecommunications Network Engineer Relationship Specialty Start Date End Date Annette Campbell [facility] [address] [place] [address] PCP - General Family Medicine 04/03/20 Telecommunications Network Engineer Relationship Specialty Start Date End Date Cynthia Colvin PCP - [facility] 11/24/23 Annette Campbell CRNP [address] [place] [address] Referring Physician Nurse Practitioner 09/24/23 Telecommunications Network Engineer Relationship Specialty Start Date End Date Annette Campbell [facility] [address] [place] [address] PCP - General Family Medicine 04/03/20 Telecommunications Network Engineer Relationship Specialty Start Date End Date Cynthia Colvin PCP - [facility] 11/24/23 Annette Campbell CRNP [address] [place] [address] Referring Physician Nurse Practitioner 09/24/23 Telecommunications Network Engineer Relationship Specialty Start Date End Date Cynthia Colvin PCP - [facility] 11/24/23 Annette Campbell CRNP [address] [place] [address] Referring Physician Nurse Practitioner 09/24/23 FOR RECORDS PERTAINING TO PATIENTS WHO ARE OR HAVE BEEN ENROLLED IN A CHEMICAL DEPENDENCY/SUBSTANCEABUSE PROGRAM, SOME INFORMATION MAY BE OMITTED. This clinical summary was aggregated from multiple sources. Caution should be exercised in using it in the provision of clinical care. This summary normalizes information from multiple sources, and as a consequence, information in this document may materially change the coding, format and clinical context of patient data. In addition, data may be omitted in some cases. CLINICAL DECISIONS SHOULD BE BASED ON THE PRIMARY CLINICAL RECORDS. [facility]. provides no warranty or guarantee of the accuracy or completeness of information in this document.
== END 2024-04-02 08:51 | disposition home or self-care (01) ==
LOC: PST 08:52
PROVIDERS: PCP Nurse Practitioner; Visit Provider Obstetrics & Gynecology
DX: Z01.810 Encounter for preprocedural cardiovascular examination (principal); N75.0 Cyst of Bartholin's gland
CPT/HCPCS: 93005

== ENCOUNTER 2025-01-26 12:00 | Outpatient (OUT) | payer MEDICAID, SELFPAY ==
--- NOTE | 2025-01-26 12:15 | ECG_ITS ---
[facility] Test Date: 2025-01-26 Pat Name: AMY DURAN Department: Room: - Gender: Female [employer]: : 1985 Requested By: EUGENIO ABEL Order Number: [id number] Reading MD: CODI CROWE Measurements Intervals Yoder Rate: 83 P: 50 PA: 180 QRS: 50 QRSD: 93 T: 28 QT: 343 QTc: 405 Interpretive Statements SINUS RHYTHM Compared to ECG 04/02/2024 09:51:39 No significant changes Electronically Signed On 01-26-2025 13:59:51 EDT by CODI CROWE
[2025-01-26 13:32] LABS: Anion Gap 10.0; Blood Urea Nitrogen 15.0 mg/dL (7.0-18.0); Calcium 9.0 mg/dL (8.5-10.1); Carbon Dioxide 30.2 mmol/L (21.0-32.0); Chloride 102 mmol/L (98-107); Estimated GFR (African America >60 (>=60 mL/min/1.73m^2); Estimated GFR (Non-African Ame 53 (>=60 mL/min/1.73m^2); Glucose 102 mg/dL (74-106); Potassium 4.2 mmol/L (3.5-5.1); Sodium 138 mmol/L (136-145)
--- OUTSIDE RECORDS SUMMARY | 2025-01-26 16:56 | XMS_ITS | CCD ---
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 Name Role Phone House, Sr Mario Peterson Primary Care Provider MAXWELL LLANES Referring Unavailab le HOUSE, SR MARIO Peterson Primary Care Unavailable MAXWELL LLANES Referring Unavailab le HOUSE, SR MARIO Peterson Primary Care Unavailable MAXWELL LLANES Referring Unavailab le HOUSE, SR MARIO Peterson Primary Care Unavailable MAXWELL LLANES Referring Unavailab le HOUSE, SR MARIO Peterson Primary Care Unavailable LISSETH GIBBS Attending Unavailable [place], SR MARIO Peterson Primary Care Unavailable [place], SR MARIO Peterson Primary Care Unavailable HOWARD CUELLAR Referring Unavailable JAVAD, DR BECKER Admitting Unavailable JAVAD, DR BECKER Attending Unavailable HOUSE, DR BOWERS Primary Care Unavailable JAVAD, DR BECKER Consulting Unavailable Annette Nathan Unavailable Cynthia Colvin Unavailable Unavailable Kamlesh Charles MD Unavailable Adrian HEALTH EDUCATION TEACHER-Annette WARD Primary Care Provid er Adrian HEALTH EDUCATION TEACHER-Annette WARD Primary Care Provid er ANNETTE CAMPBELL Attending Unavailable ANNETTE CAMPBELL Primary Care Unavailable ANNETTE CAMPBELL Referring Unavailable ANNETTE CAMPBELL Primary Care Unavailable ANNETTE CAMPBELL Referring Unavailable ANNETTE CAMPBELL Primary Care Unavailable CampbellSweetie Bynume Unavailable GIRISH HENRIQUEZ Referring Unavailable ANNETTE CAMPBELL Primary Care Unavailable ANNETTE CAMPBELL Referring Unavailable ANNETTE CAMPBELL Primary Care Unavailable ANNETTE CAMPBELL Primary Care Unavailable LILIA STEPHENS Attending Unavailable CAMPBELL, ANNETTE Oz Referring Unavailable CAMPBELL, ANNETTE J Primary Care Unavailable MARIO FARNSWORTH Referring Unavailable CAMPBELL, ANNETTE J Primary Care Unavailable Unavailable Primary Care Provider Unavailbrynn e JAVAD, MARIO Attending Unavailable JAVAD, MARIO Attending Unavailable JAVAD, MARIO Attending Unavailable JAVAD, MARIO Attending Unavailable JAVAD, MARIO Attending Unavailable ALTA ROTHMAN Attending Unavailable ASH LA Attending Unavailable IESHA VALDOVINOS Attending Unavailable CAMPBELL, ANNETTE J Referring Unavailable CAMPBELL, ANNETTE J Primary Care Unavailable CAMPBELL, ANNETTE Clinton Attending Unavailable CAMPBELL, ANNETTE Clinton Attending Unavailable CAMPBELL, ANNETTE J Referring Unavailable CAMPBELL, ANNETTE J Primary Care Unavailable CAMPBELL, ANNETTE J Attending Unavailable CAMPBELL, ANNETTE J Referring Unavailable CAMPBELL, ANNETTE J Primary Care Unavailable CAMPBELL, ANNETTE J Attending Unavailable CAMPBELL, ANNETTE J Referring Unavailable CAMPBELL, ANNETTE J Primary Care Unavailable CMAPBELL, ANNETTE J Attending Unavailable CAMPBELL, ANNETTE J Referring Unavailable CAMPBELL, ANNETTE J Primary Care Unavailable CAMPBELL, ANNETTE J Attending Unavailable CAMPBELL, ANNETTE J Referring Unavailable CAMPBELL, ANNETTE J Primary Care Unavailable CAMPBELL, ANNETTE J Attending Unavailable CAMPBELL, ANNETTE J Referring Unavailable CAMPBELL, ANNETTE J Primary Care Unavailable CAMPBELL, ANNETTE J Attending Unavailable CAMPBELL, ANNETTE J Referring Unavailable CAMPBELL, ANNETTE J Primary Care Unavailable CAMPBELL, ANNETTE J Attending Unavailable CAMPBELL, ANNETTE J Referring Unavailable CAMPBELL, ANNETTE J Primary Care Unavailable CAMPBELL, ANNETTE J Attending Unavailable CAMPBELL, ANNETTE J Referring Unavailable CAMPBELL, ANNETTE J Primary Care Unavailable CAMPBELL, ANNETTE J Referring Unavailable CAMPBELL, ANNETTE J Primary Care Unavailable CAMPBELL, ANNETTE J Attending Unavailable CAMPBELL, ANNETTE J Referring Unavailable CAMPBELL, ANNETTE J Primary Care Unavailable Allergies Allergy Classification Reported Allergen(s) Allergy Type Date of Onset Reaction(s) Facility (16 sources) benzonatate; Translations: [BENZONATATE] Drug Allergy 4 [facility] Work Phone: (20 sources) benzonatate Drug Allergy 4 Facial Swelling [facility] (18 sources) hydrALAZINE; Translations: [HYDRALAZINE] Drug Allergy 5 [place] [facility] Medications Current Medications Medication Drug Class(es) Dates Sig (Normalized) Sig (Original) amoxicillin 500 mg oral capsule (1 source) Penicillin-class Antibacterial Start: 08-12-2024 End: 08-22-2024 take 1 capsule by mouth in the morning, then take 1 capsule by mouth at bedtime amoxicillin (AMOXIL) 500 mg capsule Indications: Acute right otitis media Take 1 capsule (500 mg total) by mouth in the morning and 1 capsule (500 mg total) before bedtime. Do all this for 10 days. 20 capsule 08/12/2024 08/22/2024 Active amoxicillin 875 mg / clavulanate 125 mg oral tablet (2 sources) Penicillin-class Antibacterial Start: 08-28-2023 End: 09-07-2023 take 1 tablet by mouth once in the morning amoxicillin-pot clavulanate (AUGMENTIN) 875-125 mg per tablet Indications: Acute non-recurrent pansinusitis Take 1 tablet by mouth in the morning and 1 tablet before bedtime. Do all this for 10 days. 20 tablet 0 08/28/2023 09/07/2023 Active chlorthalidone 25 mg oral tablet (14 sources) Thiazide-like Diuretic Start: 09-14-2024 End: 12-15-2024 take 1 tablet by mouth once daily chlorthalidone (HYGROTON) 25 mg tablet Indications: Essential hypertension Take 1 tablet (25 mg total) by mouth daily. 30 tablet 3 12/15/2024 Active cholecalciferol 0.125 mg oral capsule (20 sources) Vitamin D Start: 05-05-2023 End: 09-01-2024 take 1 capsule by mouth once in the morning cholecalciferol, vitamin D3, (VITAMIN D3) 5,000 units capsule Indications: Vitamin D deficiency Take 1 capsule (5,000 Units total) by mouth in the morning. 30 capsule 11 09/01/2024 Active End: 03-18-2024 take 1 capsule by mouth once daily cholecalciferol (Vitamin D-3) 250 MCG (42198 UT) capsule Take 1 capsule by mouth Daily 03/18/2024 Discontinued fluconazole 150 mg oral tablet (1 source) Azole Antifungal Start: 08-12-2024 End: 08-12-2024 take 1 tablet by mouth once fluconazole (DIFLUCAN) 150 mg tablet Indications: Vaginal mayuri Take 1 tablet (150 mg total) by mouth once for 1 dose. 1 tablet 08/12/2024 08/12/2024 Active ibuprofen 600 mg oral tablet (20 sources) Nonsteroidal Anti-inflammatory Drug Start: 08-21-2022 take [...] by mouth 2 times daily 0 Active lisinopril 40 mg oral tablet (20 sources) Angiotensin Converting Enzyme Inhibitor Start: 09-14-2024 take 1 tablet by mouth in the morning lisinopriL (PRINIVIL,ZESTRIL) 40 mg tablet Indications: Essential hypertension Take 1 tablet (40 mg total) by mouth in the morning. 30 tablet 11 09/14/2024 Active Start: 07-29-2024 End: 01-05-2025 take 1 tablet by mouth once daily lisinopril 20 MG tablet Take 20 mg by mouth Daily 08/24/2024 01/05/2025 Discontinued loperamide hydrochloride 2 mg oral capsule (13 sources) Opioid Agonist Start: 05-24-2024 take 1 tablet by mouth four times daily as needed for diarrhea loperamide (Imodium) 2 MG capsule TAKE 1 TABLET BY MOUTH 4 TIMES A DAY NEEDED FOR DIARRHEA. 05/24/2024 Active Start: 05-24-2024 End: 08-12-2024 take 1 tablet by mouth four times daily as needed for diarrhea loperamide (IMODIUM A-D) 2 mg tablet Indications: Gastroenteritis Take 1 tablet (2 mg total) by mouth 4 (four) times a day as needed for diarrhea. 16 tablet 05/24/2024 08/12/2024 Discontinued (Therapy completed) metFORMIN hydrochloride 500 mg oral tablet (5 sources) Biguanide take 1 tablet by mouth twice daily at mealtime metFORMIN (GLUCOPHAGE) 500 MG tablet Take 500 mg by mouth 2 times daily (with meals) 0 Active 24 hr metoprolol succinate 100 mg extended release oral tablet (20 sources) beta-Adrenergic Sergo Start: End: take 1 tablet by mouth every twenty-four hours in the morning metoprolol succinate XL (TOPROL XL) 100 mg 24 hr tablet Indications: Essential (primary) hypertension Take 1 tablet (100 mg total) by mouth in the morning. 30 tablet 5 12/15/2024 Active Start: 05-05-2023 End: 07-26-2024 take 1 tablet by mouth every twenty-four hours in the morning metoprolol succinate XL (TOPROL XL) 50 mg 24 hr tablet Indications: Essential (primary) hypertension TAKE 1 TABLET (50 MG TOTAL) BY MOUTH IN THE MORNING 30 tablet 11 07/26/2024 07/26/2024 Discontinued (Reorder) take 1 tablet by mouth once eric y metoprolol succinate XL (Toprol-XL) 50 MG 24 hr tablet Take 1 tablet by mouth Daily Active norethindrone 0.35 mg oral tablet (2 sources) Start: 12-06-2024 End: 01-05-2025 take 1 tablet by mouth once daily, then take 1 tablet by mouth once daily norethindrone (Micronor) 0.35 MG tablet Indications: Menorrhagia with irregular cycle Take 1 tablet (0.35 mg) by mouth Daily for 28 days Take 1 tablet by mouth daily 28 tablet 11 12/06/2024 01/05/2025 Discontinued omeprazole 40 mg delayed release oral capsule (1 source) Proton Pump Inhibitor Start: 01-25-2025 take 1 capsule by mouth in the morning omeprazole (PriLOSEC) 40 mg capsule Indications: Gastroesophageal reflux disease without esophagitis Take 1 capsule (40 mg total) by mouth in the morning. 30 capsule 1 01/25/2025 Active predniSONE 20 mg oral tablet (11 sources) Start: 08-24-2023 take 1 tablet by mouth once daily at mealtime predniSONE (DELTASONE) 20 mg tablet TAKE 1 TABLET (20MG) BY MOUTH ONCE A DAY FOR 5 DAYS. TAKE WITH FOOD 08/24/2023 Active Start: 08-14-2023 End: 08-21-2023 take 1 tablet by mouth in the morning predniSONE (DELTASONE) 20 mg tablet Take 1 tablet (20 mg total) by mouth in the morning for 7 days. 7 tablet 0 08/14/2023 08/21/2023 Active tobramycin 3 mg/ml ophthalmic solution (1 source) Aminoglycoside Antibacterial Start: 08-29-2023 End: 09-05-2023 take 1 drop(s) into the eye(s) every four hours tobramycin (TOBREX) 0.3 % drops Administer 1 drop to both eyes every 4 (four) hours while awake for 7 days. 5 mL 0 08/29/2023 09/05/2023 Active vitamin b12 1 mg/ml injectable solution (20 sources) Vitamin B12 Start: 01-25-2025 cyanocobalamin (VITAMIN B-12) 1,000 mcg/mL injection Indications: Vitamin B 12 deficiency Inject 1 mL (1,000 mcg total) into the appropriate muscle every 30 (thirty) days. 10 mL 1 01/25/2025 Active Start: 07-26-2024 End: 01-22-2025 cyanocobalamin (VITAMIN B-12 ) injection 1,000 mcg Start: 09-04-2023 End: 03-02-2024 cyanocobalamin (Vitamin B-12 ) 1000 MCG/ML injection Inject 1,000 mcg into [...] 04-03-2020 acetaminophen (TYLENOL) tabl et 1,000 mg [id number] 200 actuat albuterol 0.09 mg/actuat metered dose inhaler (6 sources) beta2-Adrenergic Agonist Start: 05-21-2023 End: 03-18-2024 albuterol HFA 90 mcg/act inhaler Inhale 05/21/2023 03/18/2024 Discontinued azithromycin 500 mg oral tablet (10 sources) Macrolide Antimicrobial Start: 08-24-2023 End: 02-04-2024 take 1 tablet by mouth once daily at mealtime azithromycin (ZITHROMAX) 500 mg tablet TAKE 1 TABLET (500MG) BY MOUTH ONCE DAILY FOR 5 DAYS, TAKE WITH FOOD. 08/24/2023 02/04/2024 Discontinued (Therapy completed) 12 hr cetirizine hydrochloride 5 mg / pseudoephedrine hydrochloride 120 mg extended release oral tablet (20 sources) alpha-Adrenergic Agonist, Histamine-1 Receptor Antagonist Start: 08-25-2023 End: 01-25-2025 take 1 tablet by mouth every twelve hours in the morning cetirizine-pseud oephedrine (ZyrTEC-D) 5-120 mg per 12 hr tablet Indications: Congestion of nasal sinus , Congestion of both ears Take 1 tablet by mouth in the morning and 1 tablet before bedtime. 30 tablet 2 08/25/2023 01/25/2025 Discontinued Start: 08-25-2023 End: 03-18-2024 take 1 tablet by mouth once in the morning, then take 1 tablet by mouth every twelve hours in the evening cetirizine-pseudoephedrine (ZyrTEC-D) 5-120 MG 12 hr tablet Take 1 tablet by mouth in the morning and 1 tablet in the evening. 08/25/2023 03/18/2024 Discontinued dextromethorphan hydrobromide 2 mg/ml / guaiFENesin 20 mg/ml oral solution (2 sources) Uncompetitive Q-sslfiz-D-aspartate Receptor Antagonist, Sigma-1 Agonist Start: 08-14-2023 End: 08-25-2023 take 5 mL by mouth every twelve hours dextromethorphan-guaiFENesin (ROBITUSSIN-DM) 10-100 mg/5 mL liquid Take 5 mL by mouth every 12 (twelve) hours for 10 days. 200 mL 0 08/14/2023 08/25/2023 Discontinued (Therapy completed) ergocalciferol 1.25 mg oral capsule (5 sources) Provitamin D2 Compound End: 09-01-2024 ergocalciferol (DRISDOL) 1,250 mcg (50,000 unit) capsule 1 capsule (50,000 Units total). 09/01/2024 Discontinued (Therapy completed) fluticasone propionate 0.05 mg/actuat metered dose nasal spray (20 sources) Corticosteroid Start: 10-09-2023 End: 08-12-2024 take 2 spray(s ) nasal route in the morning fluticasone propionate (FLONASE) 50 mcg/actuation nasal spray Indications: Seasonal allergic rhinitis due to pollen Administer 2 sprays into each nostril in the morning. 16 g 6 10/09/2023 08/12/2024 Discontinued (Therapy completed) Start: 09-10-2023 End: 03-18-2024 take 2 spray(s) nasal route once daily fluticasone (Flonase) 50 MCG/ACT nasal spray Administer 2 sprays into each nostril Daily 09/10/2023 03/18/2024 Discontinued hydrocortisone 25 mg/ml topical cream (6 sources) Corticosteroid End: 03-18-2024 hydrocortisone 2.5 % cream Apply topically 03/18/2024 Discontinued mecobalamin 1 mg sublingual tablet (6 sources) End: 03-18-2024 take 1 tablet by mouth once daily Methylcobalamin 1000 MCG sublingual tablet Take 1 tablet by mouth Daily 03/18/2024 Discontinued methylPREDNISolone 4 mg oral tablet (4 sources) Corticosteroid Start: 07-26-2024 End: 08-12-2024 take 1 tablet by mouth in the morning methylPREDNISolone (MEDROL, KIRILL,) 4 mg tablet Indications: Dysfunction of right eustachian tube Take 1 tablet (4 mg total) by mouth in the morning. follow package directions. 21 tablet 07/26/2024 08/12/2024 Discontinued (Therapy completed) naratriptan 2.5 mg oral tablet (20 sources) Serotonin-1b and Serotonin-1d Receptor Agonist Start: 08-04-2023 End: 08-12-2024 naratriptan (AMERGE) 2.5 mg tablet Indications: Ocular migraine Take 1 tablet (2.5 mg total) by mouth once as needed for migraine. May repeat in 4 hours if unresolved. Do not exceed 5 mg in 24 hours. 9 tablet 08/04/2023 08/12/2024 Discontinued (Therapy completed) ondansetron 4 mg disintegrating oral tablet (16 sources) Serotonin-3 Receptor Antagonist Start: 05-24-2024 End: 01-25-2025 take 1 tablet by mouth every six hours as needed for nausea and vomiting and nausea and nausea ondansetron ODT (ZOFRAN ODT) 4 mg disintegrating tablet Indications: Nausea Dissolve 1 tablet (4 mg total) on tongue every 6 (six) hours as needed for nausea or vomiting. 16 tablet 05/24/2024 01/25/2025 Discontinued Start: 04-03-2020 End: 04-03-2020 ondansetron (ZOFRAN-ODT) dis integrating tablet 4 mg Vitamin B Complex (1 source) Start: 05-05-2023 End: 08-04-2023 take 1 tablet by mouth in the morning b complex vitamins (B COMPLEX-VITAMIN B12) tablet Indications: Vitamin B 12 deficiency Take 1 tablet by mouth in the morning. 30 tablet 11 05/05/2023 08/04/2023 Discontinued (Side effects) Problems Active Problems Problem Classification Problem Date Documented Date Episodic/Chronic Anxiety disorders (13 sources) Anxiety disorder; Translations: [Anxiety disorder, unspecified] Onset: 04-04-2020 09-29-2023 Chronic Coagulation and hemorrhagic disorders (20 sources) Antiphospholipid syndrome; Translations: [Antiphospholipid syndrome] Onset: 07-30-2020 09-29-2023 Chronic Diseases of white blood cells (3 sources) Leukocytosis; Translations: [Elevated white blood cell count, unspecified] Onset: 02-04-2024 02-04-2024 Chronic Disorders of lipid metabolism (1 source) Mixed hyperlipidemia; Translations: [Mixed hyperlipidemia] 08-04-2023 Chronic Esophageal disorders (20 sources) Gastroesophageal reflux disease; Translations: [Gastro-esophageal reflux disease without esophagitis] Onset: 04-04-2020 09-29-2023 Chronic Essential hypertension (20 sources) Hypertensive disorder; Translations: [Essential hypertension] Onset: 04-04-2020 09-29-2023 Chronic Headache; including migraine (20 sources) Migraine; Translations: [Migraine, unspecified, not intractable, without status migrainosus] Onset: 04-04-2020 09-29-2023 Chronic Immunizations and screening for infectious disease (1 source) Encounter for screening for human papillomavirus (HPV); Translations: [ENC SCREENING HUMAN PAPILLOMAVIRUS] Onset: 04-06-2022 Episodic Inflammatory diseases of female pelvic organs (1 source) Cyst of Bartholin's gland duct; Translations: [Cyst of Bartholin's gland] 03-18-2024 Episodic Malaise and fatigue (20 sources) Chronic fatigue syndrome; Translations: [Chronic fatigue syndrome] Onset: 04-04-2020 09-29-2023 Chronic Menstrual disorders (9 sources) Irregular periods; Translations: [Irregular menstruation, unspecified] Onset: 11-03-2024 10-28-2024 Chronic Mycoses (1 source) Candidiasis of vagina; Translations: [Vaginal mayuri] 08-12-2024 Episodic Nutritional deficiencies (20 sources) Vitamin D deficiency; Translations: [Vitamin D deficiency, unspecified] Onset: 04-04-2020 09-29-2023 Chronic Other endocrine disorders (20 sources) Increased androgen level; Translations: [Androgen excess] Onset: 04-04-2020 09-29-2023 Chronic Other endocrine disorders (20 sources) Polycystic ovary syndrome; Translations: [Polycystic ovarian syndrome] Onset: 04-04-2020 09-29-2023 Chronic Other female genital disorders (1 source) Cyst of vagina; Translations: [Other specified noninflammatory disorders of vagina] 01-05-2025 Episodic Other nutritional; endocrine; and metabolic disorders (20 sources) Insulin resistance; Translations: [Insulin resistance] Onset: 04-04-2020 09-29-2023 Chronic Other nutritional; endocrine; and metabolic disorders (20 sources) Morbid obesity; Translations: [Morbid (severe) obesity due to excess calories] Onset: 04-04-2020 09-29-2023 Chronic Other screening for suspected conditions (not mental disorders or infectious disease) (4 sources) Encounter for screening for malignant neoplasm of cervix; Translations: [ENC SCREENING MALIG NEOPLASM CERV] Onset: 04-01-2022 Episodic Other upper respiratory disease (1 source) Allergic rhinitis due to pollen; Translations: [Allergic rhinitis due to pollen] 10-09-2023 Chronic Residual codes; unclassified (2 sources) Obstructive sleep apnea syndrome; Translations: [Obstructive sleep apnea (adult) (pediatric)] 01-25-2025 Chronic Residual codes; unclassified (1 source) Obstructive sleep apnea (adult) (pediatric); Translations: [Obstructive sleep apnea (adult) (pediatric)] Onset: 01-25-2025 Chronic Spondylosis; intervertebral disc disorders; other back problems (4 sources) Neck pain; Translations: [Thoracic back pain] Episodic Thyroid disorders (20 sources) Hyperthyroidism; Translations: [Thyrotoxicosis, unspecified without thyrotoxic crisis or storm] Onset: 01-19-2020 09-29-2023 Chronic Unclassified (1 source) Insulin resistance, unspecified; Translations: [Insulin resistance, unspecified] Onset: 03-02-2024 Unclassified (1 source) 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; Translations: [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] Onset: 12-11-2021 Unclassified (1 source) Establish Care Onset: 01-25-2025 Unclassified (1 source) Acute candidiasis of vulva and vagina; Translations: [Acute candidiasis of vulva and vagina] Onset: 08-12-2024 Unclassified (1 source) BP Onset: 07-29-2024 Unclassified (1 source) Injection Onset: 07-26-2024 Unclassified (1 source) Sinus Problem Onset: 05-24-2024 Past or Other Problems Problem Classification Problem Date Documented Da te Episodic/Chronic Diabetes mellitus without complication (20 sources) Prediabetes; Translations: [Prediabetes] Onset: 04-04-2020 09-29-2023 Episodic Female infertility (20 sources) Female infertility; Translations: [Female infertility, unspecified] Onset: 04-04-2020 Resolved: 09-29-2023 09-29-2023 Chronic Inflammation; infection of eye (except that caused by tuberculosis or sexually transmitteddisease) (1 source) Acute infectious conjunctivitis; Translations: [Unspecified acute conjunctivitis, unspecified eye] 08-29-2023 Episodic Mood disorders (20 sources) Mood disorders Onset: 08-28-2023 Resolved: 01-25-2025 08-28-2023 Nausea and vomiting (3 sources) Nausea; Translations: [Nausea] Onset: 05-24-2024 05-24-2024 Episodic Noninfectious gastroenteritis (2 sources) Gastroenteritis; Translations: [Noninfective gastroenteritis and colitis, unspecified] Onset: 05-24-2024 05-24-2024 Episodic Nutritional deficiencies (20 sources) Cobalamin deficiency; Translations: [Deficiency of other specified B group vitamins] Onset: 04-19-2020 09-29-2023 Episodic Other circulatory disease (1 source) Upper respiratory tract finding; Translations: [Other specified symptoms and signs involving the circulatory and respiratory systems] 08-28-2023 Episodic Other ear and sense organ disorders (1 source) Bilateral earache; Translations: [Otalgia, bilateral] 09-23-2023 Episodic Other ear and sense organ disorders (1 source) Sensation of blocked ear; Translations: [Other specified disorders of ear, bilateral] 08-25-2023 Episodic Other gastrointestinal disorders (1 source) Diarrhea Onset: 05-24-2024 Episodic Other skin disorders (20 sources) Hirsutism; Translations: [Hirsutism] Onset: 04-04-2020 09-29-2023 Episodic Other skin disorders (13 sources) Loss of hair; Translations: [Nonscarring hair loss, unspecified] Onset: 04-04-2020 Resolved: 09-29-2023 09-29-2023 Episodic Other upper respiratory disease (1 source) Congestion of nasal sinus; Translations: [Nasal congestion] 08-25-2023 Episodic Other upper respiratory infections (2 sources) Viral upper respiratory tract infection; Translations: [Acute upper respiratory infection, unspecified] 08-14-2023 Episodic Otitis media and related conditions (20 sources) Otitis media of left ear; Translations: [Unspecified nonsuppurative otitis media, left ear] Onset: 10-02-2023 10-02-2023 Episodic Unclassified (20 sources) Onset: 05-24-2024 Resolved: 09-28-2024 05-24-2024 Results Test Name Value Interpretation Reference Range Facility ALL BASIC METABOLIC PANELon 01-26-2025 Anion gap [Moles/Vol] 10 mmol/L [facility] Calcium [Mass/Vol] 9 mg/dL 8.5 - 10. 1 mg/dL [facility] Chloride [Moles/Vol] 102 mmol/L 98 - 107 mmol/L [facility] CO2 [Moles/Vol] 30.2 mmol/L 21.0 - 32.0 mmol/L [facility] Creatinine [Mass/Vol] 1.15 mg/dL High 0.55 - 1.02 mg/dL [facility] GFR/1.73 sq M.predicted CKD-EPI (S/P/Bld) [Vol rate/Area] >60 >=60 mL/min/1.73m 2 [facility] Glucose [Mass/Vol] 102 mg/dL 74 - 106 mg/dL NO [facility] Interpretation and review of laboratory results Abnormal [facility] re Potassium [Moles/Vol] 4.2 mmol/L 3.5 - 5.1 mmol/L [facility] Sodium [Moles/Vol] 138 mmol/L 136 - 145 mmol/L [facility] TBH EGFR-NON AF [place] 53 Low >=60 mL/min/1.73m 2 [facility] Urea nitrogen [Mass/Vol] 15 mg/dL 7.0 - 18.0 mg/dL [facility] Urea nitrogen/Creatinine [Mass ratio] 13 mg/mg [facility] 01-26-2025 [place] [address] Electrocardiograph Report Signed Patient: KRYSTA DURAN MR#: [id number] : 1985 Acct:[id number] Age/Sex: 39 / F ADM Date: 01/26/25 Loc: [facility] Attending Dr: Mario Farnsworth D.O. Ordering Physician: Mario Farnsworth D.O. 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 Signed By: 01/26/251399 DD/ 45 TD/TT: Agricultural Produce Packer: [facility] Radiology, Radiologist, - 01/26/2025 [place] [address] Electrocardiograph Report Signed Patient: KRYSTA DURAN MR#: [id number] : 1985 Acct:[id number] Age/Sex: 39 / F ADM Date: 01/26/25 Loc: PST Attending Dr: Mario Farnsworth D.O. Ordering Physician: Mario Farnsworth D.O. 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 Walker office Return call from patient, patient scheduled for 12/30/2024 at 2:20 pm Normal [facility] Telephoneon 12-10-2024 Telephone [phone] Love Duran 1985 F Date Provider Department Center 12/10/2024 [id number] MAECDO LEROY Swift Family History Problem Relation Age of Onset Thyroid disease Mother Diabetes Mother Diabetes Father Family Status - Relation Status Age at Mother Father Normal [facility] HCG ( test) Ql (U)o n 12-06-2024 Interpretation and review of laboratory results [facility], Ur Negative Negative [facility] US PELVIC WITH TRANSVAGINALo n 11-07-2024 US PELVIC WITH TRANSVAGINAL US PELVIC WITH TRANSVAGINAL HISTORY: Irregular menstruation. Prior right oophorectomy. COMPARISON: 01/06/2021 TECHNIQUE: Multiplanar transabdominal and transvaginal ultrasonography of the pelvis using grayscale imaging, supplemented by color Doppler as needed. FINDINGS: The uterus measures 8.9 x 3.3 x 4.0 cm. Normal contour without focal lesions. Endometrial stripe measures 4.9 mm in thickness which is normal for demonstrating female. Cervix appears unremarkable. .The right ovary is not visualized from prior oophorectomy. .The left ovary is not visualized likely due to presence of bowel gas and adnexal region limiting visualization. . No adnexal masses. The bladder is within normal limits. No fluid in the cul-de-sac.. IMPRESSION: Limited study due to patient body habitus but unremarkable uterus. 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 Finalized by Romeo Khanna MD on 11/07/2024 2:59 PM Normal [facility] CBC WITH AUTO DIFFERENTIALon 11-03-2024 BASOPHILS ABSOLUTE COUNT (10*3/UL) BY AUTOMATED COUNT 0.0 10*3/uL Normal 0.0-0.2 [facility] Comment on above: Performed By: #### C BCA #### [facility] (TT) [address] [place] [address] VIR BASOPHILS RELATIVE PERCENT BY AUTOMATED COUNT 0.6 % Normal [facility] Comment on above: Performed By: #### C BCA #### [facility] ([facility]) [address] [place] [address] VIR CELLAVISION DIFFERENTIAL TYPE AUTOMATED DIFFERENTIAL Normal [facility] Comment on above: Performed By: #### C BCA #### [facility] ([facility]) [address] [place] [address] VIR Eosinophils (Bld) [#/Vol] 0.1 10*3/uL Normal 0.0-0.4 [facility] Comment on above: Performed By: #### C BCA #### [facility] ([facility]) [address] [place] [address] VIR EOSINOPHILS RELATIVE PERCENT BY AUTOMATED COUNT 0.6 % Normal [facility] Comment on above: Performed By: #### C BCA #### [facility] ([facility]) [address] [place] [address] VIR Erythrocyte distribution width (RBC) [Ratio] 13.7 % Normal 11.5-15 [facility] Comment on above: Performed By: #### C BCA #### [facility] ([facility]) [address] [place] [address] VIR Hematocrit (Bld) [Volume fraction] 39.3 % Normal 35-47 [facility] Comment on above: Performed By: #### C BCA #### [facility] ([facility]) [address] [place] [address] VIR Hemoglobin (Bld) [Mass/Vol] 13.6 g/dL Normal 11.7-15.5 [facility] Comment on above: Performed By: #### C BCA #### [facility] ([facility]) [address] [place] [address] VIR LYMPHOCYTES ABSOLUTE COUNT (10*3/UL) BY AUTOMATED COUNT 1.8 10*3/uL Normal 1.0-3.5 [facility] Comment on above: Performed By: #### C BCA #### [facility] ([facility]) [address] [place] [address] VIR LYMPHOCYTES RELATIVE PERCENT BY AUTOMATED COUNT 22.5 % Normal [facility] Comment on above: Performed By: #### C BCA #### [facility] ([facility]) [address] [place] [address] VIR MCH (RBC) [Entitic mass] 28.9 pg Normal 27-34 [facility] Comment on above: Performed By: #### C BCA #### [facility] ([facility]) [address] [place] [address] VIR MCHC (RBC) [Mass/Vol] 34.7 g/dL Normal 32-36 [facility] Comment on above: Performed By: #### C BCA #### [facility] ([facility]) [address] [place] [address] VIR MCV (RBC) [Entitic vol] 83 fL Normal 80-100 [facility] Comment on above: Performed By: #### C BCA #### [facility] ([facility]) [address] [place] [address] VIR MONOCYTES ABSOLUTE COUNT (10*3/UL) BY AUTOMATED COUNT 0.4 10*3/uL Normal 0.0-0.9 [facility] Comment on above: Performed By: #### C BCA #### [facility] ([facility]) [address] [place] [address] VIR MONOCYTES RELATIVE PERCENT BY AUTOMATED COUNT 5.3 % Normal [facility] Comment on above: Performed By: #### C BCA #### [facility] ([facility]) [address] [place] [address] VIR NEUTROPHILS ABSOLUTE COUNT BY AUTOMATED COUNT 5.8 10*3/uL Normal 1.5-6.6 [facility] Comment on above: Performed By: #### C BCA #### [facility] ([facility]) [address] [place] [address] VIR NEUTROPHILS RELATIVE PERCENT BY AUTOMATED COUNT 71.0 % Normal [facility] Comment on above: Performed By: #### C BCA #### [facility] ([facility]) [address] [place] [address] VIR Platelet mean volume (Bld) [Entitic vol] 9.7 fL Normal 7-12 [facility] Comment on above: Performed By: #### C BCA #### [facility] ([facility]) [address] [place] [address] VIR Platelets (Bld) [#/Vol] 208 10*3/uL Normal 150-450 [facility] Comment on above: Performed By: #### C BCA #### [facility] ([facility]) [address] [place] [address] VIR RBC COUNT 4.71 X10E12/L Normal 3.8-5.2 [facility] Comment on above: Performed By: #### C BCA #### [facility] ([facility]) [address] [place] [address] VIR WBC (Bld) [#/Vol] 8.1 10*3/uL Normal 4-11 [facility] Comment on above: Performed By: #### C BCA #### [facility] ([facility]) [address] [place] [address] VIR DEHYDROEPIANDROSTERONE, SERU 11-03-2024 DEHYDROEPIANDROSTER ONE, S 4.1 ng/mL Normal <10 [facility] Comment on above: Result Comment: ADDITIONAL INFORMATION This test was developed and its performance characteristics determined by [facility] in a manner consistent with CLIA requirements. This test has not been cleared or approved by the U.S. Food and Drug Administration. Test Performed by: [facility] [address] [place] [address] Manager Front Office: Elmo Casas Ph.D.; CLIA# [id number] Performed By: #### H A1C, THYR, 3050-0 #### [facility] ([id number]) [address] [place] [address] DHEA-SULFATEon 11-03-2024 DHEA S 302 ug/dL High 23-266 [facility] Comment on above: Performed By: #### H A1C, THYR, 3050-0 #### [facility] ([id number]) [address] [place] [address] FOLLICLE STIMULATING HORMONE on 11-03-2024 FOLLICLE STIM HORMONE 11.7 mIU/mL Normal [facility] Comment on above: Order Comment: ROMAIN L FEMALE:Luteal 1.8-5.1 mIU/mLFollicular 3.8-8.8 mIU/mLMid Cycle 4.5-22.5 mIU/mLPost Nancy 16.7-113.6 mIU/mL Performed By: #### H A1C, THYR, 3050-0 #### [facility] ([id number]) [address] [place] [address] HCG-BETA, SERUMon 11-03-2024 SERUM B HCG,3RD I.S. <^5 Normal [facility] Comment on above: Order Comment: WEEKS (SINCE LMP) MIU/mL 3 WEEKS 5 - 50 4 WEEKS 5 - 426 5 WEEKS 18 - 7,340 6 WEEKS 1,080 - 56,500 7-8 WEEKS 7,650 - 229,000 9-12 WEEKS 25,700 - 288,000 13-16 WEEKS 13,300 - 254,000 17-24 WEEKS 4,060 - 165,400 25-40 WEEKS 3,640 - 117,000 MALES AND NON- FEMALES - <5 MIU/mL This test has been FDA approved for use in only. Elevated levels are not necessarily diagnostic for trophoblastic or nontrophoblastic neoplasms. Performed By: #### H CG #### [facility] ([facility]) [address] [place] [address] VIR HEMOGLOBIN A1Con 11-03-2024 Glucose [Mass/Vol] 111 mg/dL Normal [facility] Comment on above: Performed By: #### H A1C #### [facility] ([facility]) [address] [place] [address] VIR HbA1c (Bld) [Mass fraction] 5.5 % Normal 4.4-5.6 [facility] Comment on above: Result Comment: ADA Guidelines Result HgbA1c Normal : less than 5.7 % Prediabetes : 5.7 % to 6.4 % Diabetes : > 6.4 % Use with caution in patients with abnormal hemoglobin variants as the half-life of red blood cells and in vivo glycation rates are affected. Performed By: #### H A1C #### [facility] ([facility]) [address] [place] [address] VIR LUTEINIZING HORMONEon 2024 LUTEINIZING HORMONE 8.7 mIU/mL Normal [facility] Comment on above: Order Comment: ROMAIN L FEMALEFollicular 2.1-10.9 mIU/mLMid Cycle 19.2-103 mIU/mLLuteal 1.2-12.9 mIU/mLPost [place] 10.9-58.6 mIU/mL Performed By: #### H A1C, THYR, 3051-0 #### [facility] ([id number]) [address] [address] [place] [address] THYROID PROFILE INCLUDES TSH FT4on 11-03-2024 Free T4 [Mass/Vol] 0.97 ng/dL Normal 0.61-1.60 [facility] Comment on above: Performed By: #### H A1C, THYR, 305-0 #### [facility] ([id number]) [address] [place] [address] TSH 3.00 uIU/mL Normal 0.49-4.67 [facility] Comment on above: Performed By: #### H A1C, THYR, 305-0 #### [facility] ([id number]) [address] [place] [address] BASIC METABOLIC PANELon Anion gap [Moles/Vol] 10 mmol/L Normal 5-15 [facility] Comment on above: Performed By: #### B MP #### [facility] ([facility]) [address] [place] [address] VIR Calcium [Mass/Vol] 9.9 mg/dL Normal 8.5-10.5 [facility] Comment on above: Performed By: #### B MP #### [facility] ([facility]) [address] [place] [address] VIR Chloride [Moles/Vol] 97 mmol/L Low 98-109 [facility] Comment on above: Performed By: #### B MP #### [facility] ([facility]) [address] [place] [address] VIR CO2 [Moles/Vol] 27 mmol/L Normal 22-32 [facility] Comment on above: Performed By: #### B MP #### [facility] ([facility]) [address] [place] [address] VIR Creatinine [Mass/Vol] 0.86 mg/dL Normal 0.40-1.00 [facility] Comment on above: Result Comment: METH OD TRACEABLE TO IDMS STANDARD Performed By: #### B MP #### [facility] ([facility]) [address] [place] [address] VIR GFR/1.73 sq M.predicted among non-blacks MDRD (S/P/Bld) [Vol rate/Area] 89 mL/min/{1.73_m2} Normal >=60 [facility] Comment on above: Result Comment: Repo rted eGFR is based on the CKD-EPI 2020 equation that does not use a race coefficient. Performed By: #### B MP #### [facility] ([facility]) [address] [place] [address] VIR Glucose [Mass/Vol] 98 mg/dL Normal 65-99 [facility] Comment on above: Performed By: #### B MP #### [facility] ([facility]) [address] [place] [address] VIR Potassium [Moles/Vol] 4.1 mmol/L Normal 3.5-5.0 [facility] Comment on above: Performed By: #### B MP #### [facility] ([facility]) [address] [place] [address] VIR Sodium [Moles/Vol] 134 mmol/L Normal 134-146 [facility] Comment on above: Performed By: #### B MP #### [facility] ([facility]) [address] [place] [address] VIR Urea nitrogen [Mass/Vol] 15 mg/dL Normal 5-23 [facility] Comment on above: Performed By: #### B MP #### [facility] ([facility]) [address] [place] [address] VIR CBC WITH AUTO DIFFERENTIALon 09-28-2024 BASOPHILS ABSOLUTE COUNT (10*3/UL) BY AUTOMATED COUNT 0.0 10*3/uL Normal [facility] Comment on above: Performed By: #### C BCA #### [facility] ([facility]) [address] [place] [address] VIR BASOPHILS RELATIVE PERCENT BY AUTOMATED COUNT 0.5 % Normal [facility] Comment on above: Performed By: #### C BCA #### [facility] ([facility]) [address] [place] [address] VIR CELLAVISION DIFFERENTIAL TYPE AUTOMATED DIFFERENTIAL Normal [facility] Comment on above: Performed By: #### C BCA #### [facility] ([facility]) [address] [place] [address] VIR Eosinophils (Bld) [#/Vol] 0.1 10*3/uL Normal [facility] Comment on above: Performed By: #### C BCA #### [facility] ([facility]) [address] [place] [address] VIR EOSINOPHILS RELATIVE PERCENT BY AUTOMATED COUNT 1.2 % Normal [facility] Comment on above: Performed By: #### C BCA #### [facility] ([facility]) [address] [place] [address] VIR Erythrocyte distribution width (RBC) [Ratio] 13.3 % Normal 11.5-15 [facility] Comment on above: Performed By: #### C BCA #### [facility] ([facility]) [address] [place] [address] VIR Hematocrit (Bld) [Volume fraction] 43.6 % Normal 35-47 [facility] Comment on above: Performed By: #### C BCA #### [facility] ([facility]) [address] [place] [address] VIR Hemoglobin (Bld) [Mass/Vol] 15.0 g/dL Normal 11.7-15.5 [facility] Comment on above: Performed By: #### C BCA #### [facility] ([facility]) [address] [place] [address] VIR LYMPHOCYTES ABSOLUTE COUNT (10*3/UL) BY AUTOMATED COUNT 1.7 10*3/uL Normal [facility] Comment on above: Performed By: #### C BCA #### [facility] ([facility]) [address] [place] [address] VIR LYMPHOCYTES RELATIVE PERCENT BY AUTOMATED COUNT 26.0 % Normal [facility] Comment on above: Performed By: #### C BCA #### [facility] ([facility]) [address] [place] [address] VIR MCH (RBC) [Entitic mass] 28.4 pg Normal 27-34 [facility] Comment on above: Performed By: #### C BCA #### [facility] ([facility]) [address] [place] [address] VIR MCHC (RBC) [Mass/Vol] 34.4 g/dL Normal 32-36 [facility] Comment on above: Performed By: #### C BCA #### [facility] ([facility]) [address] [place] [address] VIR MCV (RBC) [Entitic vol] 83 fL Normal 80-100 [facility] Comment on above: Performed By: #### C BCA #### [facility] ([facility]) [address] [place] [address] VIR MONOCYTES ABSOLUTE COUNT (10*3/UL) BY AUTOMATED COUNT 0.4 10*3/uL Normal [facility] Comment on above: Performed By: #### C BCA #### [facility] ([facility]) [address] [place] [address] VIR MONOCYTES RELATIVE PERCENT BY AUTOMATED COUNT 5.9 % Normal [facility] Comment on above: Performed By: #### C BCA #### [facility] ([facility]) [address] [place] [address] VIR NEUTROPHILS ABSOLUTE COUNT BY AUTOMATED COUNT 4.4 10*3/uL Normal [facility] Comment on above: Performed By: #### C BCA #### [facility] ([facility]) [address] [place] [address] VIR NEUTROPHILS RELATIVE PERCENT BY AUTOMATED COUNT 66.4 % Normal [facility] Comment on above: Performed By: #### C BCA #### [facility] ([facility]) [address] [place] [address] VIR Platelet mean volume (Bld) [Entitic vol] 10.8 fL Normal 7-12 [facility] Comment on above: Performed By: #### C BCA #### [facility] ([facility]) [address] [place] [address] VIR Platelets (Bld) [#/Vol] 178 10*3/uL Normal 150-450 [facility] Comment on above: Performed By: #### C BCA #### [facility] ([facility]) [address] [place] [address] VIR RBC COUNT 5.27 X10E12/L High 3.8-5.2 [facility] Comment on above: Performed By: #### C BCA #### [facility] ([facility]) [address] [place] [address] VIR WBC (Bld) [#/Vol] 6.6 10*3/uL Normal 4-11 [facility] Comment on above: Performed By: #### C BCA #### [facility] ([facility]) [address] [place] [address] VIR MAGNESIUMon 09-28-2024 Magnesium [Mass/Vol] 1.9 mg/dL Normal 1.8-2.6 [facility] Comment on above: Performed By: #### M G #### [facility] ([facility]) [address] [place] [address] VIR VITAMIN D 25 HYDROXYon 09-28 VITAMIN D 25 HYD TOT 26.6 ng/mL Low 30.0-100.0 [facility] Comment on above: Order Comment: Vitam in D status 25 [place] Vitamin D Deficiency <20 ng/mL Insufficiency 20-29 ng/mL Sufficiency 30-100 ng/mL Toxicity >100 ng/mL NOTE: A pediatric reference range has not been established by the insurance loss adjuster of this kit. The [place] [employer] recommends a Vitamin D level of = or >20ng/mL in infants and children. Performed By: #### V ITD #### [facility] ([facility]) [address] [place] [address] VIR VITAMIN B12on 08-12-2024 Cobalamin (Vitamin B12) [Mass/Vol] 437 pg/mL Normal 180-914 [facility] Comment on above: Performed By: #### 2 132-9 #### [facility] ([id number]) [address] [place] [address] BASIC METABOLIC PANLon 07-29 Anion gap [Moles/Vol] 8 mmol/L Normal 5-15 [facility] Comment on above: Performed By: #### [place], [address]-9 #### [facility] ([id number]) [address] [place] [address] Calcium [Mass/Vol] 8.9 mg/dL Normal 8.5-10.5 [facility] Comment on above: Performed By: #### [place], 07546-3 #### [facility] ([id number]) [address] [place] [address] Chloride [Moles/Vol] 102 mmol/L Normal 98-109 [facility] Comment on above: Performed By: #### [place], 0[address]-7 #### [facility] ([id number]) [address] [place] [address] CO2 [Moles/Vol] 26 mmol/L Normal 22-32 [facility] Comment on above: Performed By: #### [place], [address]-1 #### [facility] ([id number]) [address] [place] [address] Creatinine [Mass/Vol] 0.74 mg/dL Normal 0.40-1.00 [facility] Comment on above: Result Comment: METH OD TRACEABLE TO IDMS STANDARD Performed By: #### [place], [address]-1 #### [facility] ([id number]) [address] [place] [address] eGFR (CKD-EPI) NON-RACE DEPENDENT >90 Normal >59 [facility] Comment on above: Result Comment: Reported eGFR is based on the CKD-EPI 2020 equation that does not use a race coefficient. Performed By: #### [place], 87911-1 #### [facility] ([id number]) [address] [place] [address] Glucose [Mass/Vol] 101 mg/dL High 65-99 [facility] Comment on above: Performed By: #### RUSS Castaneda BCA, 10857-6 #### [facility] ([id number]) [address] [place] [address] Potassium [Moles/Vol] 3.4 mmol/L Low 3.5-5.0 [facility] Comment on above: Performed By: #### RUSS Castaneda BCA, 76980-5 #### [facility] ([id number]) [address] [place] [address] Sodium [Moles/Vol] 136 mmol/L Normal 134-146 [facility] Comment on above: Performed By: #### [place], [address]-0 #### [facility] ([id number]) [address] [place] [address] Urea nitrogen [Mass/Vol] 13 mg/dL Normal 5-23 [facility] Comment on above: Performed By: #### RUSS Castaneda BCA, 50752-0 #### [facility] ([id number]) [address] [place] [address] CBC AND AUTO DIFFon 07-30-19 25 ABSOLUTE BASOPHIL 0.1 X10E9/L Normal 0.0-0.2 [facility] Comment on above: Performed By: #### RUSS Castaneda BCA, 72980-0 #### [facility] ([id number]) [address] [place] [address] ABSOLUTE NEUTROPHIL 6.4 X10E9/L Normal 1.5-6.6 [facility] Comment on above: Performed By: #### Tonya DO [facility], 85635-7 #### [facility] ([id number]) [address] [place] [address] 26561 Basophils/100 WBC (Bld) 1.0 % Normal [facility] Comment on above: Performed By: #### RUSS Castaneda BCA, 77220-0 #### [facility] ([id number]) [address] [place] [address] 35615 Eosinophils (Bld) [#/Vol] 0.1 10*3/uL Normal 0.0-0.4 [facility] Comment on above: Performed By: #### RUSS Castaneda BCA, 80392-9 #### [facility] ([id number]) [address] [place] [address] 71101 Eosinophils/100 WBC (Bld) 0.6 % Normal [facility] Comment on above: Performed By: #### RUSS Castaneda BCA, 38766-8 #### [facility] ([id number]) [address] [place] [address] 19170 Erythrocyte distribution width (RBC) [Ratio] 13.3 % Normal 11.5-15.0 [facility] Comment on above: Performed By: #### RUSS Castaneda BCA, 59548-4 #### [facility] ([id number]) [address] [place] [address] 14594 Hematocrit (Bld) [Volume fraction] 41.4 % Normal 35-47 [facility] Comment on above: Performed By: #### [place], 46989-6 #### [facility] ([id number]) [address] [place] [address] 27923 Hemoglobin (Bld) [Mass/Vol] 14.6 g/dL Normal 11.7-15.5 [facility] Comment on above: Performed By: #### RUSS Castaneda BCA, 77099-5 #### [facility] ([id number]) [address] [place] [address] 09690 Lymphocytes (Bld) [#/Vol] 2.8 10*3/uL Normal 1.0-3.5 [facility] Comment on above: Performed By: #### RUSS Castaneda BCA, 46935-3 #### [facility] ([id number]) [address] [place] [address] 54444 Lymphocytes/100 WBC (Bld) 28.2 % Normal [facility] Comment on above: Performed By: #### RUSS Castaneda BCA, 33176-1 #### [facility] ([id number]) [address] [place] [address] 20081 MCH (RBC) [Entitic mass] 29.3 pg Normal 27-34 [facility] Comment on above: Performed By: #### RUSS Castaneda BCA, 92615-0 #### [facility] ([id number]) [address] [place] [address] 87336 MCHC (RBC) [Mass/Vol] 35.2 g/dL Normal 32-36 [facility] Comment on above: Performed By: #### RUSS Castaneda BCA, 44528-5 #### [facility] ([id number]) [address] [place] [address] 20742 MCV (RBC) [Entitic vol] 83 fL Normal 80-100 [facility] Comment on above: Performed By: #### [place], 01947-3 #### [facility] ([id number]) [address] [place] [address] 51090 Monocytes (Bld) [#/Vol] 0.6 10*3/uL Normal 0-0.9 [facility] Comment on above: Performed By: #### RUSS Castaneda BCA, 50168-7 #### [facility] ([id number]) [address] [place] [address] 96367 Monocytes/100 WBC (Bld) 6.0 % Normal [facility] Comment on above: Performed By: #### RUSS Castaneda BCA, 69245-3 #### [facility] ([id number]) [address] [place] [address] 11633 Neutrophils/100 WBC (Bld) 64.2 % Normal [facility] Comment on above: Performed By: #### Tonya DO [facility], 56401-6 #### [facility] ([id number]) [address] [place] [address] 61775 Platelet mean volume (Bld) [Entitic vol] 9.0 fL Normal 7-12 [facility] Comment on above: Performed By: #### RUSS Castaneda BCA, 72776-0 #### [facility] ([id number]) [address] [place] [address] 88306 Platelets (Bld) [#/Vol] 212 10*3/uL Normal 150-450 [facility] Comment on above: Performed By: #### RUSS Castaneda BCA, 69874-6 #### [facility] ([id number]) [address] [place] [address] 63613 RBC COUNT 4.97 X10E12/L Normal 3.80-5.20 [facility] Comment on above: Performed By: #### RUSS Castaneda BCA, 23304-1 #### [facility] ([id number]) [address] [place] [address] 20881 WBC (Bld) [#/Vol] 9.9 10*3/uL Normal 4.0-11.0 [facility] Comment on above: Performed By: #### [place], 70798-2 #### [facility] ([id number]) [address] [place] [address] 13912 Troponin I.cardiac High sens itivity method [Mass/Vol]on 07-29-2024 TROPONIN I, HIGH SENSITIVITY 3 ng/L Normal <16 [facility] Comment on above: Performed By: #### C HI, RUSS, 36554-6 #### [facility] ([id number]) [address] [place] [address] 44577 US THYROIDon 03-03-2024 US THYROID US THYROID [...] Root MD on 03/03/2024 1:44 PM Normal [facility] FREE T3on 03-02-2024 Free T3 [Mass/Vol] 4.15 pg/mL High 2.50-3.90 [facility] Comment on above: Performed By: #### H A1C, THYR, 3051-0 #### [facility] ([id number]) [address], [address] [place] [address] HGB A1C (GLYCO-HGB)on 2023 Glucose [Mass/Vol] 105 mg/dL Normal [facility] Comment on above: Performed By: #### H A1C, THYR, 3051-0 #### [facility] ([id number]) [address], [address] [place] [address] HbA1c (Bld) [Mass fraction] 5.3 % Normal 4.4-5.6 [facility] Comment on above: Result Comment: NOTE ADA Guidelines Result HgbA1c Normal : less than 5.7 % Prediabetes : 5.7 % to 6.4 % Diabetes : > 6.4 % Use with caution in patients with abnormal hemoglobin variants as the half-life of red blood cells and in vivo glycation rates are affected. Performed By: #### H A1C, THYR, 3050-0 #### [facility] ([id number]) [address], [facility] [address] [place] [address] HbA1c (Bld) [Mass fraction]o n 03-02-2024 Average glucose Estimated from glycated hemoglobin (Bld) [Mass/Vol] 105 mg/dL [facility] Comment on above: PERFORMED AT [facility] [address],[place] [address] [facility] e Hemoglobin A1con 03-02-2024 HbA1c (Bld) [Mass fraction] 5.3 % 4.4 - 5.6 % [facility] Comment on above: NOTE ADA Guidelines Result HgbA1c Normal : less than 5.7 % Prediabetes : 5.7 % to 6.4 % Diabetes : > 6.4 % Use with caution in patients with abnormal hemoglobin variants as the half-life of red blood cells and in vivo glycation rates are affected. THYROID PROFILEon 03-02-2024 Free T4 [Mass/Vol] 0.97 ng/dL Normal 0.61-1.60 [facility] Comment on above: Performed By: #### H A1C, THYR, 3050-0 #### [facility] ([id number]) [address] [address] [place] [address] TSH 2.44 uIU/mL Normal 0.49-4.67 [facility] Comment on above: Performed By: #### H A1C, THYR, 305-0 #### [facility] ([id number]) [address] [facility] [facility] [address] [place] [address] CBC AND AUTO DIFFon 02-04-20 24 ABSOLUTE BASOPHIL 0.1 X10E9/L Normal 0.0-0.2 [facility] Comment on above: Performed By: #### Tonya DO, 2132-01, 11738-7 #### [facility] ([id number]) [address], [address] [place] [address] ABSOLUTE NEUTROPHIL 3.6 X10E9/L Normal 1.5-6.6 [facility] Comment on above: Performed By: #### Tonya DO, 2132-01, 02997-2 #### [facility] ([id number]) [address], [address] [place] [address] Basophils/100 WBC (Bld) 0.9 % Normal [facility] Comment on above: Performed By: #### Tonya DO, 2132-01, 54824-4 #### [facility] ([id number]) [address], [address] [place] [address] Eosinophils (Bld) [#/Vol] 0.1 10*3/uL Normal 0.0-0.4 [facility] Comment on above: Performed By: #### Tonya DO, 2132-01, 74927-4 #### [facility] ([id number]) [address], [address] [place] [address] Eosinophils/100 WBC (Bld) 1.4 % Normal [facility] Comment on above: Performed By: #### Tonya DO, 2132-01, 81771-2 #### [facility] ([id number]) [address], [address] [place] [address] Erythrocyte distribution width (RBC) [Ratio] 13.5 % Normal 11.5-15.0 [facility] Comment on above: Performed By: #### Tonya DO, 2132-01, 89229-4 #### [facility] ([id number]) [address], [address] [place] [address] Hematocrit (Bld) [Volume fraction] 41.6 % Normal 35-47 [facility] Comment on above: Performed By: #### Tonya DO, 2132-01, 11137-3 #### [facility] ([id number]) [address], [address] [place] [address] Hemoglobin (Bld) [Mass/Vol] 14.1 g/dL Normal 11.7-15.5 [facility] Comment on above: Performed By: #### Tonya DO, 2132-01, 41801-1 #### [facility] ([id number]) [address], [facility] [address] [place] [address] Lymphocytes (Bld) [#/Vol] 1.7 10*3/uL Normal 1.0-3.5 [facility] Comment on above: Performed By: #### Tonya DO, 2132-01, 16017-9 #### [facility] ([id number]) [address], [facility] [address] [place] [address] Lymphocytes/100 WBC (Bld) 29.2 % Normal [facility] Comment on above: Performed By: #### Tonya DO, 2132-01, 07360-8 #### [facility] ([id number]) [address], [facility] [address] [place] [address] MCH (RBC) [Entitic mass] 28.3 pg Normal 27-34 [facility] Comment on above: Performed By: #### Tonya DO, 2132-01, 60224-9 #### [facility] ([id number]) [address], [address] [place] [address] MCHC (RBC) [Mass/Vol] 33.8 g/dL Normal 32-36 [facility] Comment on above: Performed By: #### Tonya DO, 2132-01, 09604-5 #### [facility] ([id number]) [address], [address] [place] [address] MCV (RBC) [Entitic vol] 84 fL Normal 80-100 [facility] Comment on above: Performed By: #### Tonya DO, 2132-01, 54476-5 #### [facility] ([id number]) [address], [address] [place] [address] Monocytes (Bld) [#/Vol] 0.3 10*3/uL Normal 0-0.9 [facility] Comment on above: Performed By: #### Tonya DO, 2132-01, 43659-6 #### [facility] ([id number]) [address], [facility] [address] [place] [address] Monocytes/100 WBC (Bld) 5.7 % Normal [facility] Comment on above: Performed By: #### Tonya DO, 2132-01, 30929-5 #### [facility] ([id number]) [address], [address] [place] [address] Neutrophils/100 WBC (Bld) 62.8 % Normal [facility] Comment on above: Performed By: #### Tonya DO, 2132-01, 33707-3 #### [facility] ([id number]) [address], [address] [place] [address] Platelet mean volume (Bld) [Entitic vol] 10.3 fL Normal 7-12 [facility] Comment on above: Performed By: #### Tonya DO, 2132-01, 78905-0 #### [facility] ([id number]) [address], [address] [place] [address] Platelets (Bld) [#/Vol] 168 10*3/uL Normal 150-450 [facility] Comment on above: Performed By: #### Tonya DO, 2132-01, 83135-9 #### [facility] ([id number]) [address], [address] [place] [address] RBC COUNT 4.97 X10E12/L Normal 3.80-5.20 [facility] Comment on above: Performed By: #### Tonya HI, 2132-01, 29875-9 #### [facility] ([id number]) [address], [address] [place] [address] WBC (Bld) [#/Vol] 5.8 10*3/uL Normal 4.0-11.0 [facility] Comment on above: Performed By: #### Tonya HI, 2132-01, 41928-3 #### [facility] ([id number]) [address] [facility], [address] [place] [address] CBC auto differentialon 01-24 Basophils (Bld) [#/Vol] 0.1 10*3/uL [facility] Basophils/100 WBC (Bld) 0.9 % [facility] Eosinophils (Bld) [#/Vol] 0.1 10*3/uL [facility] Eosinophils/100 WBC (Bld) 1.4 % [facility] Erythrocyte distribution width (RBC) [Ratio] 13.5 % 11.5 - 15.0 % [facility] Hematocrit (Bld) [Volume fraction] 41.6 % 35 - 47 % [facility] Hemoglobin (Bld) [Mass/Vol] 14.1 g/dL 11.7 - 15.5 g/dL [facility] Lymphocytes (Bld) [#/Vol] 1.7 10*3/uL [facility] Lymphocytes/100 WBC (Bld) 29.2 % [facility] MCH (RBC) [Entitic mass] 28.3 pg 27 - 34 pg [facility] MCHC (RBC) [Mass/Vol] 33.8 g/dL 32 - 36 g/dL [facility] MCV (RBC) [Entitic vol] 84 fL 80 - 100 fL [facility] Monocytes (Bld) [#/Vol] 0.3 10*3/uL [facility] Monocytes/100 WBC (Bld) 5.7 % [facility] Neutrophils (Bld) [#/Vol] 3.6 10*3/uL [facility] Neutrophils/100 WBC (Bld) 62.8 % [facility] Platelet mean volume (Bld) [Entitic vol] 10.3 fL 7 - 12 fL [facility] Platelets (Bld) [#/Vol] 168 10*3/uL [facility] RBC (Bld) [#/Vol] 4.97 10*6/uL [facility] WBC corrected for nucl RBC Auto (Bld) [#/Vol] 5.8 [facility] VITAMIN B12on 02-04-2024 Cobalamin (Vitamin B12) [Mass/Vol] 276 pg/mL Normal 180-914 [facility] Comment on above: Performed By: #### Tonya DO, 2132-01, 12007-3 #### [facility] ([id number]) [address] [place] [address], [address] [place] [address] Vitamin D+Metabolites [Mass/ Vol]on 02-04-2024 VITAMIN D 25 HYD TOT 15.3 ng/mL Low 30-100 [facility] Comment on above: Result Comment: Vitamin D status 25 [place] Vitamin D Deficiency <20 ng/mL Insufficiency 20-29 ng/mL Sufficiency 30-100 ng/mL Toxicity >100 ng/mL NOTE: A pediatric reference range has not been established by the insurance loss adjuster of this kit. The [place] [employer] recommends a Vitamin D level of = or >20ng/mL in infants and children. Performed By: #### Tonya DO, 2132-01, 35565-0 #### [facility] ([id number]) [address] [place] [address], [address] [place] [address] POCT Influenza A/Influenza B /SARS-COV-2 Veritoron 08-28-2023 External Poct Influenza A Antigen Negative [facility] External Poct Influenza B Antigen Negative [facility] SARS-CoV-2 (COVID-19) Ag IA.rapid Ql (Resp) Negative [facility] POCT rapid strep Aon 024 S. pyogenes Ag IA Ql (Unsp spec) Negative Negative [facility] CBC auto differentialon 07-24 Basophils (Bld) [#/Vol] 0.0 10*3/uL [facility] Basophils/100 WBC (Bld) 1.1 % [facility] Eosinophils (Bld) [#/Vol] 0.0 10*3/uL [facility] Eosinophils/100 WBC (Bld) 1.2 % [facility] Erythrocyte distribution width (RBC) [Ratio] 13.5 % 11.5 - 15.0 % [facility] Hematocrit (Bld) [Volume fraction] 41.0 % 35 - 47 % [facility] Hemoglobin (Bld) [Mass/Vol] 14.0 g/dL 11.7 - 15.5 g/dL [facility] Interpretation and review of laboratory results Abnormal [facility] Lymphocytes (Bld) [#/Vol] 0.8 10*3/uL Low [facility] Lymphocytes/100 WBC (Bld) 23.3 % [facility] MCH (RBC) [Entitic mass] 28.6 pg 27 - 34 pg [facility] MCHC (RBC) [Mass/Vol] 34.1 g/dL 32 - 36 g/dL [facility] MCV (RBC) [Entitic vol] 84 fL 80 - 100 fL [facility] Monocytes (Bld) [#/Vol] 0.5 10*3/uL [facility] Monocytes/100 WBC (Bld) 14.0 % [facility] Neutrophils (Bld) [#/Vol] 2.1 10*3/uL [facility] Neutrophils/100 WBC (Bld) 60.4 % [facility] Platelet mean volume (Bld) [Entitic vol] 10.1 fL 7 - 12 fL [facility] Platelets (Bld) [#/Vol] 115 10*3/uL Low [facility] RBC (Bld) [#/Vol] 4.89 10*6/uL [facility] WBC corrected for nucl RBC Auto (Bld) [#/Vol] 3.5 Low [facility] Cobalamin (Vitamin B12) [Mas s/Vol]on 08-04-2023 [facility] Lipid 1996 panelon Cholesterol [Mass/Vol] 146 mg/dL Low 150 - 200 mg/dL [facility] Cholesterol in HDL [Mass/Vol] 30 mg/dL Low 39 - PINF mg/dL [facility] Comment on above: HDL <40 mg/dL - High Risk HDL > or = 40mg/dL- Desirable HDL >60 mg/dL - Negative Risk Cholesterol in LDL [Mass/Vol] 89 mg/dL NINF - 130 mg/dL [facility] Comment on above: LDL <100 mg/dL - Desirable LDL >160 mg/dL - High Risk Cholesterol in VLDL [Mass/Vol] 27 mg/dL 0 - 30 mg/dL [facility] Cholesterol.total/C holesterol in HDL [Mass ratio] 4.9 {ratio} 1.0 - 5.0 [facility] Interpretation and review of laboratory results Abnormal [facility] Triglyceride [Mass/Vol] 135 mg/dL 27 - 150 mg/dL [facility] Vitamin B12on 08-04-2023 Cobalamin (Vitamin B12) [Mass/Vol] 236 pg/mL 180 - 914 pg/mL [facility] Vitamin D 25 hydroxyon 08-03 Vitamin D+Metabolites [Mass/Vol] 26.0 ng/mL Low 30 - 100 ng/mL [facility] Comment on above: Vitamin D status 25 [place] Vitamin D Deficiency <20 ng/mL Insufficiency 20-29 ng/mL Sufficiency 30-100 ng/mL Toxicity >100 ng/mL NOTE: A pediatric reference range has not been established by the insurance loss adjuster of this kit. The [place] [employer] recommends a Vitamin D level of = or >20ng/mL in infants and children. Vitamin D+Metabolites [Mass/ Vol]on 08-04-2023 Interpretation and review of laboratory results Abnormal [facility] PAP ACOG PANEL 2: 30 to 65on 04-07-2022 . . Normal [facility] Comment on above: Result Comment: Perf ormed at: WB Performed By: #### 4 [id number] #### [facility] [address] [address] [address] Chato Chatterjee Age Gdln ACOG Testing 30-65 Normal [facility] Comment on above: Performed By: #### 4 [id number] #### [facility] [address] [place] [address] Dr. Chato Chatterjee DIAGNOSIS: Comment Normal [facility] Comment on above: Result Comment: NEGA TIVE FOR INTRAEPITHELIAL LESION OR MALIGNANCY. Performed at: WB Performed By: #### 4 [id number] #### [facility] [address] [address] [address] Chato Chatterjee HPV Aptima Negative Normal Negative [facility] Comment on above: Result Comment: This nucleic acid amplification test detects fourteen high-risk HPV types (16,18,31,33,35,39,45,51,52,56,58,59,66,68) without differentiation. Performed at: =G Performed By: #### 4 [id number] #### [facility] [address] [address] [address] Chato Chatterjee HPV Genotype Reflex Comment Normal [facility] Comment on above: Result Comment: Crit eria not met, HPV Genotype not performed. Performed at: WB Performed By: #### 4 [id number] #### [facility] [address] [address] [address] Chato Chatterjee Methodology: Comment Normal [facility] Comment on above: Result Comment: This liquid based ThinPrep(R) pap test was screened with the use of an image guided system. Performed at: WB Performed By: #### 4 [id number] #### [facility] [address] [address] [address] Chato Chatterjee Note: Comment Normal [facility] Comment on above: Result Comment: The Pap smear is a screening test designed to aid in the detection of premalignant and malignant conditions of the uterine cervix. It is not a diagnostic procedure and should not be used as the sole means of detecting cervical cancer. Both false-positive and false-negative reports do occur. . Performed at: WB Performed By: #### 4 [id number] #### [facility] [address] [address] [address] Chato Chatterjee Performed by: Comment Normal [facility] Comment on above: Result Comment: Gabino Ladd Heavy Equipment Sales Manager (ASCP) Performed at: WB Performed By: #### 4 [id number] #### [facility] [address] [place] [address] Dr. Chato Chatterjee Specimen adequacy: Comment Normal [facility] Comment on above: Result Comment: Sati sfactory for evaluation. Endocervical and/or squamous metaplastic cells (endocervical component) are present. Performed at: WB Performed By: #### 4 [id number] #### [facility] [address] [place] [address] Dr. Chato Chatterjee Cytology Cervical or vaginal smear or scraping studyon 04-01-2022 [facility] CARDIAC STRESS/REST (LAURA CARDIAL PERFUSION/MIBI)on 05-29-2020 [facility] CARDIAC STRESS/REST (MYOCARDIAL PERFUSION/MIBI) Patient Name: KRYSTA DURAN STUDY: MYOCARDIAL PERFUSION STRESS TEST WITH EXERCISE Performing facility: [facility], [address] [place] [address], [address], [address] Provider: Ann Marie Lea DO, [facility] PCP: Dr. Aaron Campbell Supervising provider: Chasity Callahan MD INDICATION: Chest Pain; HTN HISTORY: Gender: F; Age: 34 y/o ; Height: 162.56 cm; Weight: 152.1880677 kg. Chest Pain; Diabetes; HTN; Palpitations; Currently smoking. COMPARISON: No comparison. ACCESSION NUMBER(S): [id number]; [id number]; [id number] ORDERING CLINICIAN: DONATO LEA TECHNIQUE: TWO DAY protocol. Stress injection: Date:05/29/2020, [...] available for comparison Electronically signed by: CHASITY CALLAHAN MD Normal [facility] CARDIAC STRESS/REST INJE CTIONon 05-29-2020 [facility] CARDIAC STRESS/REST INJECTION Patient Name: KRYSTA DURAN STUDY: MYOCARDIAL PERFUSION STRESS TEST WITH EXERCISE Performing facility: [facility], [address] [place] [address], [address], [place] [id number] [facility] Provider: Ann [facility] Lea [facility], [facility] PCP: Dr. Aaron Campbell Supervising provider: Chasity Callahan MD INDICATION: Chest Pain; HTN HISTORY: Gender: F; Age: 34 y/o ; Height: 162.56 cm; Weight: 076.3994161 kg. Chest Pain; Diabetes; HTN; Palpitations; Currently smoking. COMPARISON: No comparison. ACCESSION NUMBER(S): [id number]; [id number]; [id number] ORDERING CLINICIAN: DONATO LEA TECHNIQUE: TWO DAY protocol. Stress injection: Date:05/29/2020, [...] available for comparison Electronically signed by: CHASITY CALLAHAN MD Normal [facility] NO PART 2 STRESS OR REST (N O CHARGE)on 05-29-2020 NO PART 2 STRESS OR REST (NO CHARGE) Patient Name: KRYSTA DURAN STUDY: MYOCARDIAL PERFUSION STRESS TEST WITH EXERCISE Performing facility: [facility], [address] [facility], [address], [place] [address] [facility] Provider: Ann Marie Lea DO, [facility] PCP: Dr. Aaron Campbell Supervising provider: Chasity Callahan MD INDICATION: Chest Pain; HTN HISTORY: Gender: F; Age: 34 y/o ; Height: 162.56 cm; Weight: 283.5630444 kg. Chest Pain; Diabetes; HTN; Palpitations; Currently smoking. COMPARISON: No comparison. ACCESSION NUMBER(S): [id number]; [id number]; [id number] ORDERING CLINICIAN: DONATO LEA TECHNIQUE: TWO DAY protocol. Stress injection: Date:05/29/2020, [...] available for comparison Electronically signed by: CHASITY CALLAHAN MD Normal [facility] B12/Folate Panelon 0 Cobalamin (Vitamin B12) [Mass/Vol] 250 pg/mL Normal 232-1245 [facility] Comment on above: Performed By: #### B 12FOL #### [facility] [address] [place] [address] Manager Front Office: Calderon Perez MD Folic Acid 10.5 ng/mL Normal >4.8 [facility] Comment on above: Performed By: #### B 12FOL #### [facility] [address] [place] [address] Manager Front Office: Calderon Perez MD Vitamin B12 & Folateon 03-30 Cobalamin (Vitamin B12) [Mass/Vol] 250 pg/mL 232 - 1245 pg/mL [place], [place] Folate 10.5 ng/mL >4.8 [place], [place] XR CERVICAL SPINE W OBLIQUES FLEXION AND [...] Alex Wilson MD 03/30/20 Final result Normal [facility] No acute abnormality of the cervical spine. [place], [place] EXAMINATION: SEVEN XRAY VIEWS OF THE [...] views show no significant neural foraminal stenosis. [place], [place] Romie, [facility] Incoming Radiant Results From [facility] - 03/30/2020 2:36 PM EST EXAMINATION: SEVEN [...] [facility] the [facility] Date Time Vital Sign Value Performing Clinician Facility 01-25-2025 11: Body height 162.6 cm Alta Rothman MD Work Phone: [facility] 01-25-2025 11:11-040 Body mass index (BMI) [Ratio] 57.78 kg/m2 lAta Rothman MD Work Phone: [facility] 01-25-2025 11:11 Body temperature 97.5 [degF] Alta Rothman MD Work Phone: [facility] 01-25-2025 11:11-0400 Body weight 152.68 kg Alta Rothman MD Work Phone: [facility] 01-25-2025 11:11-0400 Diastolic blood pressure 64 mm[Hg] Alta Rothman MD Work Phone: [facility] 01-25-2025 11:11-0400 Heart rate 100 /min Alta Rothman MD Work Phone: [facility] 01-25-2025 11:11-0400 SaO2% (BldA) [Mass fraction] 97 % Alta Rothman MD Work Phone: [facility] 01-25-2025 11:11-0400 Systolic blood pressure 130 mm[Hg] Alta Rothman MD Work Phone: [facility] 01-05-2025 13:29-0400 Body mass index (BMI) [Ratio] 58.53 kg/m2 Mario Javad DO Work Phone: [facility] 01-05-2025 13:29-0400 Body weight 154.68 kg Mario Javad DO Work Phone: [facility] 01-05-2025 13:29-0400 Diastolic blood pressure 68 mm[Hg] Mario Javad DO Work Phone: [facility] 01-05-2025 13:29-0400 Systolic blood pressure 110 mm[Hg] Mario Javad DO Work Phone: [facility] 12-06-2024 13:41-0400 Body height 162.6 cm Mario Javad DO Work Phone: [facility] 12-06-2024 13:41-0400 Body mass index (BMI) [Ratio] 58.19 kg/m2 Mario Javad DO Work Phone: [facility] 12-06-2024 13:41-0400 Body weight 153.77 kg Mario Javad DO Work Phone: [facility] 12-06-2024 13:41-0400 Diastolic blood pressure 82 mm[Hg] Mario Javad DO Work Phone: [facility] 12-06-2024 13:41-0400 Systolic blood pressure 128 mm[Hg] Mario Javad DO Work Phone: [facility] 10-28-2024 11:17-0400 Body mass index (BMI) [Ratio] 58.19 kg/m2 Mario Javad DO Work Phone: [facility] 10-28-2024 11:17-0400 Body weight 153.77 kg Mario Javad DO Work Phone: [facility] 10-28-2024 11:17-0400 Diastolic blood pressure 82 mm[Hg] Mario Javad DO Work Phone: [facility] 10-28-2024 11:17-0400 Systolic blood pressure 126 mm[Hg] Mario Javad DO Work Phone: [facility] 09-28-2024 14:00-0400 Body height 162.6 cm Annette Campbell HEALTH EDUCATION TEACHER-AUTOMOBILE BODY CUSTOMIZER Work Phone: [facility] 09-28-2024 14:00-0400 Body mass index (BMI) [Ratio] 58.64 kg/m2 Annette Campbell HEALTH EDUCATION TEACHER-AUTOMOBILE BODY CUSTOMIZER Work Phone: [facility] 09-28-2024 14:00-0400 Body temperature 98.01 [degF] Annette Campbell HEALTH EDUCATION TEACHER-AUTOMOBILE BODY CUSTOMIZER Work Phone: [facility] 09-28-2024 14:00-0400 Body weight 154.95 kg Annette Campbell HEALTH EDUCATION TEACHER-AUTOMOBILE BODY CUSTOMIZER Work Phone: [facility] 09-28-2024 14:00-0400 Diastolic blood pressure 78 mm[Hg] Annette Campbell HEALTH EDUCATION TEACHER-AUTOMOBILE BODY CUSTOMIZER Work Phone: [facility] 09-28-2024 14:00-0400 Heart rate 80 /min Annette Campbell HEALTH EDUCATION TEACHER-AUTOMOBILE BODY CUSTOMIZER Work Phone: [facility] 09-28-2024 14:00-0400 Respiratory rate 18 /min Annette Campbell APRN-AUTOMOBILE BODY CUSTOMIZER Work Phone: [facility] 09-28-2024 14:00-0400 SaO2% (BldA) [Mass fraction] 98 % Annette Campbell APRN-SYLVIA Work Phone: [facility] 09-28-2024 14:00-0400 Systolic blood pressure 140 mm[Hg] Annette Campbell APRN-AUTOMOBILE BODY CUSTOMIZER Work Phone: [facility] 09-14-2024 13:38-0400 Body height 162.6 cm Annette Campbell APRN-AUTOMOBILE BODY CUSTOMIZER Work Phone: [facility] 09-14-2024 13:38-0400 Body mass index (BMI) [Ratio] 59.87 kg/m2 Annette Campbell APRN-SYLVIA Work Phone: [facility] 09-14-2024 13:38-0400 Body temperature 97.9 [degF] Annette Campbell APRN-SYLVIA Work Phone: [facility] 09-14-2024 13:38-0400 Body weight 158.22 kg Annette Campbell APRN-AUTOMOBILE BODY CUSTOMIZER Work Phone: [facility] 09-14-2024 13:38-0400 Diastolic blood pressure 90 mm[Hg] Annette Campbell APRN-AUTOMOBILE BODY CUSTOMIZER Work Phone: [facility] 09-14-2024 13:38-0400 Heart rate 75 /min Annette Campbell APRN-AUTOMOBILE BODY CUSTOMIZER Work Phone: [facility] 09-14-2024 13:38-0400 Respiratory rate 18 /min Annette Campbell APRN-AUTOMOBILE BODY CUSTOMIZER Work Phone: [facility] 09-14-2024 13:38-0400 SaO2% (BldA) [Mass fraction] 98 % Annette Campbell APRN-AUTOMOBILE BODY CUSTOMIZER Work Phone: [facility] [employer] [facility] 09-14-2024 13:38-0400 Systolic blood pressure 170 mm[Hg] Annette Campbell APRN-AUTOMOBILE BODY CUSTOMIZER Work Phone: [facility] [employer] [facility] 08-12-2024 14:42-0400 Body height 162.6 cm Annette Campbell APRN-AUTOMOBILE BODY CUSTOMIZER Work Phone: [facility] [employer] [facility] 08-12-2024 14:42-0400 Body mass index (BMI) [Ratio] 59.8 kg/m2 Annette Campbell APRN-AUTOMOBILE BODY CUSTOMIZER Work Phone: [facility] [employer] [facility] 08-12-2024 14:42-0400 Body temperature 98.1 [degF] Annette Campbell APRN-AUTOMOBILE BODY CUSTOMIZER Work Phone: [facility] [employer] [facility] 08-12-2024 14:42-0400 Body weight 158.03 kg Annette Campbell APRN-AUTOMOBILE BODY CUSTOMIZER Work Phone: [facility] [employer] [facility] 08-12-2024 14:42-0400 Diastolic blood pressure 80 mm[Hg] Annette Campbell APRN-AUTOMOBILE BODY CUSTOMIZER Work Phone: [facility] [employer] [facility] 08-12-2024 14:42-0400 Heart rate 86 /min Annette Campblel APRN-AUTOMOBILE BODY CUSTOMIZER Work Phone: [facility] [employer] [facility] 08-12-2024 14:42-0400 Respiratory rate 18 /min Annette Campbell APRN-AUTOMOBILE BODY CUSTOMIZER Work Phone: [facility] [employer] [facility] 08-12-2024 14:42-0400 SaO2% (BldA) [Mass fraction] 99 % Annette Campbell APRN-AUTOMOBILE BODY CUSTOMIZER Work Phone: [facility] [employer] [facility] 08-12-2024 14:42-0400 Systolic blood pressure 150 mm[Hg] Annette Campbell HEALTH EDUCATION TEACHER-AUTOMOBILE BODY CUSTOMIZER Work Phone: [facility] 07-29-2024 15:58-0500 Diastolic blood pressure 94 mm[Hg] Annette Campbell HEALTH EDUCATION TEACHER-AUTOMOBILE BODY CUSTOMIZER Work Phone: [facility] 07-29-2024 15:58-0500 Systolic blood pressure 162 mm[Hg] Annettetarah Campbell HEALTH EDUCATION TEACHER-AUTOMOBILE BODY CUSTOMIZER Work Phone: [facility] 07-29-2024 15:36-0500 Body temperature 98.6 [degF] Annette Campbell HEALTH EDUCATION TEACHER-AUTOMOBILE BODY CUSTOMIZER Work Phone: [facility] 07-29-2024 15:36-0500 Heart rate 78 /min Annette Campbell HEALTH EDUCATION TEACHER-AUTOMOBILE BODY CUSTOMIZER Work Phone: [facility] 07-26-2024 16:53-0500 Body height 162.6 cm Annette Campbell HEALTH EDUCATION TEACHER-AUTOMOBILE BODY CUSTOMIZER Work Phone: [facility] 07-26-2024 16:53-0500 Body mass index (BMI) [Ratio] 60.76 kg/m2 Annette Campbell HEALTH EDUCATION TEACHER-AUTOMOBILE BODY CUSTOMIZER Work Phone: [facility] 07-26-2024 16:53-0500 Body temperature 98.4 [degF] Annette Campbell HEALTH EDUCATION TEACHER-AUTOMOBILE BODY CUSTOMIZER Work Phone: [facility] 07-26-2024 16:53-0500 Body weight 160.57 kg Annette Campbell HEALTH EDUCATION TEACHER-AUTOMOBILE BODY CUSTOMIZER Work Phone: [facility] 07-26-2024 16:53-0500 Diastolic blood pressure 100 mm[Hg] Annettelaureano Frazierillo HEALTH EDUCATION TEACHER-AUTOMOBILE BODY CUSTOMIZER Work Phone: [facility] 07-26-2024 16:53-0500 Heart rate 101 /min Annettelaureano Campbell HEALTH EDUCATION TEACHER-AUTOMOBILE BODY CUSTOMIZER Work Phone: [facility] 07-26-2024 16:53-0500 Respiratory rate 18 /min Annettelaureano Frazierillo HEALTH EDUCATION TEACHER-AUTOMOBILE BODY CUSTOMIZER Work Phone: [facility] 07-26-2024 16:53-0500 SaO2% (BldA) [Mass fraction] 99 % Annette Campbell HEALTH EDUCATION TEACHER-AUTOMOBILE BODY CUSTOMIZER Work Phone: [facility] 07-26-2024 16:53-0500 Systolic blood pressure 170 mm[Hg] Annette Campbell HEALTH EDUCATION TEACHER-AUTOMOBILE BODY CUSTOMIZER Work Phone: [facility] 05-24-2024 16:10-0500 Body height 162.6 cm Annette Campbell HEALTH EDUCATION TEACHER-AUTOMOBILE BODY CUSTOMIZER Work Phone: [facility] 05-24-2024 16:10-0500 Body mass index (BMI) [Ratio] 59.73 kg/m2 Annette Campbell HEALTH EDUCATION TEACHER-AUTOMOBILE BODY CUSTOMIZER Work Phone: [facility] 05-24-2024 16:10-0500 Body temperature 98.71 [degF] Annette Campbell HEALTH EDUCATION TEACHER-AUTOMOBILE BODY CUSTOMIZER Work Phone: [facility] 05-24-2024 16:10-0500 Body weight 157.85 kg Annette Campbell HEALTH EDUCATION TEACHER-AUTOMOBILE BODY CUSTOMIZER Work Phone: [facility] 05-24-2024 16:10-0500 Diastolic blood pressure 100 mm[Hg] Annette Campbell HEALTH EDUCATION TEACHER-AUTOMOBILE BODY CUSTOMIZER Work Phone: [facility] 05-24-2024 16:10-0500 Heart rate 115 /min Annette Campbell HEALTH EDUCATION TEACHER-AUTOMOBILE BODY CUSTOMIZER Work Phone: [facility] 05-24-2024 16:10-0500 Respiratory rate 22 /min Annette Campbell HEALTH EDUCATION TEACHER-AUTOMOBILE BODY CUSTOMIZER Work Phone: [facility] 05-24-2024 16:10-0500 SaO2% (BldA) [Mass fraction] 99 % Annette Frazierillo HEALTH EDUCATION TEACHER-AUTOMOBILE BODY CUSTOMIZER Work Phone: [facility] 05-24-2024 16:10-0500 Systolic blood pressure 160 mm[Hg] Annette Campbell HEALTH EDUCATION TEACHER-AUTOMOBILE BODY CUSTOMIZER Work Phone: [facility] 03-18-2024 11:50-0400 Body mass index (BMI) [Ratio] 60.21 kg/m2 Mario Javad DO Work Phone: [facility] 03-18-2024 11:50-0400 Body weight 159.12 kg Mario Javad DO Work Phone: [facility] 03-18-2024 11:50-0400 Diastolic blood pressure 80 mm[Hg] Mario Javad DO Work Phone: [facility] 03-18-2024 11:50-0400 Systolic blood pressure 120 mm[Hg] Mario Javad DO Work Phone: [facility] 02-18-2024 13:24-0400 Body mass index (BMI) [Ratio] 61.11 kg/m2 Mario Javad DO Work Phone: [facility] 02-18-2024 13:24-0400 Body weight 161.48 kg Mario Javad DO Work Phone: [facility] 02-18-2024 13:24-0400 Diastolic blood pressure 82 mm[Hg] Mario Javad DO Work Phone: [facility] 02-18-2024 13:24-0400 Systolic blood pressure 140 mm[Hg] Mario Javad DO Work Phone: [facility] 02-04-2024 12:58-0400 Body height 162.6 cm Annette Frazierillo HEALTH EDUCATION TEACHER-AUTOMOBILE BODY CUSTOMIZER Work Phone: [facility] 02-04-2024 12:58-0400 Body mass index (BMI) [Ratio] 60.45 kg/m2 Annette Campbell HEALTH EDUCATION TEACHER-AUTOMOBILE BODY CUSTOMIZER Work Phone: [facility] 02-04-2024 12:58-0400 Body temperature 97.9 [degF] Annette Campbell HEALTH EDUCATION TEACHER-AUTOMOBILE BODY CUSTOMIZER Work Phone: [facility] 02-04-2024 12:58-0400 Body weight 159.76 kg Annette Campbell APRN-SYLVIA Work Phone: [facility] [employer] [facility] 02-04-2024 12:58-0400 Diastolic blood pressure 80 mm[Hg] Annette Campbell APRN-AUTOMOBILE BODY CUSTOMIZER Work Phone: [facility] [employer] [facility] 02-04-2024 12:58-0400 Heart rate 90 /min Annette Campbell APRN-AUTOMOBILE BODY CUSTOMIZER Work Phone: [facility] [employer] [facility] 02-04-2024 12:58-0400 Respiratory rate 18 /min Annette Campbell APRN-AUTOMOBILE BODY CUSTOMIZER Work Phone: [facility] 02-04-2024 12:58-0400 SaO2% (BldA) [Mass fraction] 99 % Annette Campbell APRN-AUTOMOBILE BODY CUSTOMIZER Work Phone: [facility] [employer] [facility] 02-04-2024 12:58-0400 Systolic blood pressure 138 mm[Hg] Annette Campbell APRN-AUTOMOBILE BODY CUSTOMIZER Work Phone: [facility] [employer] [facility] 08-28-2023 11:05-0400 Body height 162.6 cm Annette Campbell APRN-AUTOMOBILE BODY CUSTOMIZER Work Phone: [facility] [employer] [facility] 08-28-2023 11:05-0400 Body mass index (BMI) [Ratio] 59.67 kg/m2 Annette Campbell APRN-AUTOMOBILE BODY CUSTOMIZER Work Phone: [facility] [employer] [facility] 08-28-2023 11:05-0400 Body temperature 98.01 [degF] Annette Campbell APRN-AUTOMOBILE BODY CUSTOMIZER Work Phone: [facility] [employer] [facility] 08-28-2023 11:05-0400 Body weight 157.67 kg Annette Campbell APRN-AUTOMOBILE BODY CUSTOMIZER Work Phone: [facility] [employer] [facility] 08-28-2023 11:05-0400 Diastolic blood pressure 82 mm[Hg] Annette Campbell APRN-AUTOMOBILE BODY CUSTOMIZER Work Phone: [facility] 08-28-2023 11:05-0400 Heart rate 90 /min Annette Campbell APRN-AUTOMOBILE BODY CUSTOMIZER Work Phone: [facility] [employer] [facility] 08-28-2023 11:05-0400 SaO2% (BldA) [Mass fraction] 98 % Annette Campbell APRN-AUTOMOBILE BODY CUSTOMIZER Work Phone: [facility] [employer] [facility] 08-28-2023 11:05-0400 Systolic blood pressure 138 mm[Hg] Annette Campbell APRN-AUTOMOBILE BODY CUSTOMIZER Work Phone: [facility] [employer] [facility] 08-14-2023 12:25-0400 Diastolic blood pressure 86 mm[Hg] Diane Eaton HEALTH EDUCATION TEACHER-TELEPHONE SOLICITOR Work Phone: [facility] 08-14-2023 12:25-0400 Systolic blood pressure 146 mm[Hg] Diane Eaton HEALTH EDUCATION TEACHER-TELEPHONE SOLICITOR Work Phone: [facility] 08-14-2023 11:38-0400 Body height 162.6 cm Diane Eaton HEALTH EDUCATION TEACHER-TELEPHONE SOLICITOR Work Phone: [facility] [employer] [facility] 08-14-2023 11:38-0400 Body mass index (BMI) [Ratio] 59.7 kg/m2 Diane Eaton APRN-TELEPHONE SOLICITOR Work Phone: [facility] [employer] [facility] 08-14-2023 11:38-0400 Body temperature 97.39 [degF] Diane Eaton APRN-TELEPHONE SOLICITOR Work Phone: [facility] 08-14-2023 11:38-0400 Body weight 157.76 kg Diane Eaton HEALTH EDUCATION TEACHER-TELEPHONE SOLICITOR Work Phone: [facility] [employer] [facility] 08-14-2023 11:38-0400 Heart rate 87 /min Diane Eaton HEALTH EDUCATION TEACHER-TELEPHONE SOLICITOR Work Phone: [facility] 08-14-2023 11:38-0400 Respiratory rate 20 /min Diane Eaton HEALTH EDUCATION TEACHER-TELEPHONE SOLICITOR Work Phone: [facility] 08-14-2023 11:38-0400 SaO2% (BldA) [Mass fraction] 96 % Diane Eaton HEALTH EDUCATION TEACHER-TELEPHONE SOLICITOR Work Phone: [facility] 08-04-2023 11:33-0400 Body height 162.6 cm Annette Campbell APRN-AUTOMOBILE BODY CUSTOMIZER Work Phone: [facility] 08-04-2023 11:33-0400 Body mass index (BMI) [Ratio] 58.81 kg/m2 Annette Campbell APRN-AUTOMOBILE BODY CUSTOMIZER Work Phone: [facility] 08-04-2023 11:33-0400 Body temperature 97.5 [degF] Annette Campbell APRN-AUTOMOBILE BODY CUSTOMIZER Work Phone: [facility] 08-04-2023 11:33-0400 Body weight 155.4 kg Annette Campbell APRN-AUTOMOBILE BODY CUSTOMIZER Work Phone: [facility] 08-04-2023 11:33-0400 Diastolic blood pressure 60 mm[Hg] Annette Campbell APRN-AUTOMOBILE BODY CUSTOMIZER Work Phone: [facility] 08-04-2023 11:33-0400 Heart rate 86 /min Annette Campbell APRN-AUTOMOBILE BODY CUSTOMIZER Work Phone: [facility] 08-04-2023 11:33-0400 SaO2% (BldA) [Mass fraction] 99 % Annette Campbell APRN-AUTOMOBILE BODY CUSTOMIZER Work Phone: [facility] 08-04-2023 11:33-0400 Systolic blood pressure 132 mm[Hg] Annette Campbell APRN-AUTOMOBILE BODY CUSTOMIZER Work Phone: [facility] 04-03-2020 00:01-0500 BP Diastolic 103 mm[Hg] [facility] , [place] 04-03-2020 00:01-0500 BP Systolic 157 mm[Hg] [facility] , [place] 04-03-2020 00:01-0500 Pulse Oximetry 99 % [facility] [place] , [place] 04-02-2020 23:46-0500 BMI (Body Mass Index) 51.49 kg/m2 Lisseth Madison [facility], [place] 04-02-2020 23:46-0500 Body weight 136.08 kg Lisseth Madison [facility] , [place] 04-02-2020 23:46-0500 Height 162.6 cm Lisseth Madison [facility] , [place] 04-02-2020 23:46-0500 Pulse (Heart Rate) 79 /min Lisseth Madison [facility], [place] 04-02-2020 23:46-0500 Respiratory Rate 18 /min Lisseth Madison [facility], [place] 04-02-2020 23:39-0500 Body Temperature 97.3 [degF] Lisseth Madison [place], [place] Encounters Encounter Date Encounter Type Care Provider Facility Start: 01-26-2025 End: 01-26-2025 Clinisync Result Encounter Mario Javad DO Work Phone: [facility] External Department Unsolicited Start: 01-26-2025 End: 01-26-2025 Clinisync Result Encounter Mario Javad DO Work Phone: [facility] Unsolicited Start: 01-25-2025 End: 01-25-2025 Office outpatient new 45 minutes Alta Rothman MD Work Phone: [facility] Comment on above: Chronic fatigue synd chandler (Primary Dx); TALAT (obstructive sleep apnea); Gastroesophageal reflux disease without esophagitis; Vitamin B 12 deficiency Start: 01-25-2025 End: 01-25-2025 ambulatory ALTA ROTHMAN [facility] Start: 01-06-2025 End: 01-06-2025 Clinical Support Ash La DO Work Phone: [facility] Comment on above: Vitamin B 12 deficie ncy (Primary Dx) Start: 01-05-2025 End: 01-05-2025 ambulatory MARIO JAVAD Not Available Start: 01-05-2025 End: 01-05-2025 Office outpatient visit 15 minutes Mario Javad DO Work Phone: [facility] Comment on above: Pre-op examination; Menorrhagia with regular cycle; Vaginal cyst Start: 01-05-2025 End: 01-05-2025 Preprocedural examination done Mario Javad DO Work Phone: [facility] Start: 12-15-2024 End: 12-15-2024 Refill [facility] Comment on above: Essential hypertensi on; Essential (primary) hypertension Start: 12-06-2024 End: 12-06-2024 Office outpatient visit 15 minutes Mario Javad DO Work Phone: [facility] Comment on above: Menorrhagia with irr egular cycle Start: 12-06-2024 End: 12-06-2024 ambulatory MARIO JAVAD Not Available Start: 12-02-2024 End: 12-02-2024 Clinical Support Iesha aVldovinos HEALTH EDUCATION TEACHER-AUTOMOBILE BODY CUSTOMIZER Work Phone: [facility] Start: 11-03-2024 End: 11-03-2024 ambulatory [facility] Oz CAMPBELL [facility] Start: 10-28-2024 End: 10-28-2024 Bamboo flowsheet Mario Javad DO Work Phone: [facility] Start: 10-28-2024 End: 10-28-2024 Bamboo flowsheet Mario Javad DO Work Phone: [facility] Start: 10-28-2024 End: 10-28-2024 Office outpatient visit 15 minutes Mario Javad DO Work Phone: [facility] Comment on above: Irregular menses Start: 10-28-2024 End: 10-28-2024 ambulatory MARIO JAVAD Not Available Start: 10-19-2024 End: 10-19-2024 Clinical Support Annette Campbell HEALTH EDUCATION TEACHER-AUTOMOBILE BODY CUSTOMIZER Work Phone: [facility] Comment on above: Vitamin B 12 deficie ncy (Primary Dx) Start: 09-28-2024 End: 09-28-2024 Office outpatient visit 15 minutes Annette Oz Adrian HEALTH EDUCATION TEACHER-AUTOMOBILE BODY CUSTOMIZER Work Phone: [facility] Comment on above: Essential hypertensi on (Primary Dx); Vitamin D deficiency Start: 09-28-2024 End: 09-28-[address] [facility] Start: 09-28-2024 End: 09-28-2024 ambulatory [facility] Start: 09-14-2024 End: 09-14-2024 Office outpatient visit 15 minutes Annette Campbell HEALTH EDUCATION TEACHER-AUTOMOBILE BODY CUSTOMIZER Work [facility] Comment on above: Essential hypertensi on (Primary Dx) Start: 09-14-2024 End: 09-14-[address] [facility] Start: 09-01-2024 End: 09-01-2024 Orders Only Annette J Campbell HEALTH EDUCATION TEACHER-AUTOMOBILE BODY CUSTOMIZER Work Phone: [facility] Comment on above: Vitamin D deficiency Start: 08-12-2024 End: 08-12-2024 ambulatory [facility] Start: 08-12-2024 End: 08-12-2024 Office outpatient visit 15 minutes Annettelaureano Campbell HEALTH EDUCATION TEACHER-AUTOMOBILE BODY CUSTOMIZER Work Phone[facility] Comment on above: Vitamin B 12 deficie ncy (Primary Dx); Acute right otitis media; Vaginal mayuri; Essential hypertension Start: 08-12-2024 End: 08-12-[address] [facility] Start: 07-29-2024 End: 07-30-2024 Emergency department patient visit [facility] Start: 07-29-2024 End: 07-29-2024 Clinical Support Annette Campbell HEALTH EDUCATION TEACHER-AUTOMOBILE BODY CUSTOMIZER Work Phone: [facility] Comment on above: Essential (primary) hypertension (Primary Dx) Start: 07-26-2024 End: 07-26-[address] [facility] Start: 07-26-2024 End: 07-26-2024 Office outpatient visit 15 minutes Annette Campbell HEALTH EDUCATION TEACHER-AUTOMOBILE BODY CUSTOMIZER Work Phone: [facility] Comment on above: Essential (primary) hypertension (Primary Dx); Vitamin B 12 deficiency; Dysfunction of right eustachian tube Start: 07-24-2024 End: 07-26[facility]ATION TEACHER-AUTOMOBILE BODY CUSTOMIZER Work Phone: [facility] Comment on above: Essential (primary) hypertension Start: 06-24-2024 End: 06-24-2024 Clinical Support Annette Frazierillo HEALTH EDUCATION TEACHER-AUTOMOBILE BODY CUSTOMIZER Work Phone: [facility] Start: 05-24-2024 End: 05-24-2024 [facility] HE[facility] EDUCATION TEACHER-AUTOMOBILE BODY CUSTOMIZER Work Phone: [facility] Comment on above: Gastroenteritis (Liliane diane Dx); Nausea Start: 05-24-2024 End: 05-24-[address] [facility] Start: 04-15-2024 End: 04-15-2024 Clinical Support Annette J Campbell HEALTH EDUCATION TEACHER-AUTOMOBILE BODY CUSTOMIZER Work Phone: [facility] Comment on above: Vitamin B 12 deficie ncy (Primary Dx) Start: 03-18-2024 End: 03-18-2024 Bamboo flowsheet Mario Javad DO Work Phone: [facility] Start: 03-18-2024 End: 03-18-2024 Bamboo flowsheet Mario Javad DO Work Phone: [facility] Start: 03-18-2024 End: 03-18-2024 Office outpatient visit 15 minutes Mario Javad DO Work Phone: [facility] Comment on above: Pre-operative exam; Bartholin's gland cyst Start: 03-18-2024 End: 03-18-2024 Preprocedural examination done Mario Javad DO Work Phone: [facility] Work Phone: Start: 03-18-2024 End: 03-18-2024 ambulatory MARIO JAVAD Not Available Start: 03-15-2024 End: 03-15-2024 Clinical Support Annette Campbell HEALTH EDUCATION TEACHER-AUTOMOBILE BODY CUSTOMIZER Work Phone: [facility] Internal [facility] - Family Medicine Comment on above: Vitamin B 12 deficie ncy (Primary Dx) Start: 03-02-2024 End: 03-02-2024 External Result Encounter Mario Javad DO Work Phone: [facility] Unsolicited Start: 03-02-2024 End: 03-02-2024 External Result Encounter Mario Javad DO Work Phone: [facility] Unsolicited Start: 03-02-2024 End: 03-02-2024 ambulatory ANNETTELAUREANO CAMPBELL [facility] Start: 02-18-2024 End: 02-18-2024 Bamboo flowsheet Mario Javad DO Work Phone: [facility] Start: 02-18-2024 End: 02-18-2024 Bamboo flowsheet Mario Javad DO Work Phone: [facility] Start: 02-18-2024 End: 02-18-2024 Patient encounter procedure Mario Javad DO Work Phone: [facility] Start: 02-18-2024 End: 02-18-2024 Periodic preventive med est patient 18-39 yrs Mario Javad DO Work Phone: [facility] Comment on above: Well woman exam with routine gynecological exam; Hyperthyroidism (CMS/HCC); Insulin resistance Start: 02-18-2024 End: 02-18-2024 ambulatory MARIO JAVAD Not Available Start: 02-12-2024 End: 02-12-2024 Clinical Support Annette Campbell HEALTH EDUCATION TEACHER-AUTOMOBILE BODY CUSTOMIZER Work Phone: [facility] - Family Medicine Start: 02-04-2024 End: 02-04-2024 ambulatory ANNETTE Oz CAMPBELL [facility] Start: 02-04-2024 End: 02-04-2024 Office outpatient visit 15 minutes Annette Campbell HEALTH EDUCATION TEACHER-AUTOMOBILE BODY CUSTOMIZER Work Phone: [facility] - Family Medicine Comment on above: Essential hypertensi on (Primary Dx); Vitamin D deficiency; Vitamin B 12 deficiency; Leukocytosis, unspecified type Start: 02-04-2024 End: 02-04-2024 ambulatory ANNETTE J CAMPBELL [facility] Start: 01-29-2024 End: 01-29-2024 Refill Annette Campbell HEALTH EDUCATION TEACHER-AUTOMOBILE BODY CUSTOMIZER Work Phone: [facility] - Family Medicine Comment on above: Essential (primary) hypertension Start: 01-13-2024 End: 01-13-2024 Clinical Support Annette Campbell HEALTH EDUCATION TEACHER-AUTOMOBILE BODY CUSTOMIZER Work Phone: [facility] Comment on above: Vitamin B 12 deficie ncy (Primary Dx) Start: 12-03-2023 End: 12-03-2023 Clinical Support Annette Campbell HEALTH EDUCATION TEACHER-AUTOMOBILE BODY CUSTOMIZER Work Phone: [facility] Start: 11-03-2023 End: 11-03-2023 Clinical Support Annette Campbell HEALTH EDUCATION TEACHER-AUTOMOBILE BODY CUSTOMIZER Work Phone: [facility] - Family Medicine Comment on above: Vitamin B 12 deficie ncy (Primary Dx) Start: 10-09-2023 End: 10-09-2023 Telephone encounter Nahed Matty CMA [facility] Start: 09-29-2023 End: 09-29-2023 Clinical Support Annette Campbell HEALTH EDUCATION TEACHER-AUTOMOBILE BODY CUSTOMIZER Work Phone: [facility] Comment on above: B12 deficiency (Prim akin Dx) Start: 09-22-2023 End: 09-23-2023 Telephone encounter Annette Campbell HEALTH EDUCATION TEACHER-AUTOMOBILE BODY CUSTOMIZER Work Phone: [facility] - Family Medicine Start: 08-29-2023 Orders Only Diane Eaton HEALTH EDUCATION TEACHER-TELEPHONE SOLICITOR Work Phone: [facility] Comment on above: Acute bacterial conj unctivitis, unspecified laterality (Primary Dx) Start: 08-28-2023 End: 08-28-2023 Office outpatient visit 25 minutes Annette Campbell HEALTH EDUCATION TEACHER-AUTOMOBILE BODY CUSTOMIZER Work Phone: [facility] - [facility] Comment on above: Acute non-recurrent pansinusitis (Primary Dx); Vitamin B 12 deficiency; Upper respiratory symptom Start: 08-25-2023 Orders Only Annette juarez HEALTH EDUCATION TEACHER-AUTOMOBILE BODY CUSTOMIZER Work Phone: [facility] Comment on above: Congestion of nasal sinus (Primary Dx); Congestion of both ears Start: 08-14-2023 End: 08-14-2023 Office outpatient visit 15 minutes Diane Eaton HEALTH EDUCATION TEACHER-TELEPHONE SOLICITOR Work Phone: [facility] Comment on above: Viral URI (Primary D x) Start: 08-04-2023 End: 08-04-2023 Office outpatient visit 25 minutes Annette Campbell HEALTH EDUCATION TEACHER-AUTOMOBILE BODY CUSTOMIZER Work Phone: [facility] Comment on above: Vitamin B 12 deficie ncy (Primary Dx); Vitamin D deficiency; Prediabetes; Mixed hyperlipidemia; Ocular migraine; Essential hypertension Start: 04-01-2022 End: 04-01-[address] MARIO FARNSWORTH Facility: Start: 09-19-2020 End: 09-20-2020 ambulatory SR MARIO DURAN [facility] Start: 04-03-2020 End: 04-03-2020 Emergency department patient visit LISSETH GIBBS [facility] Start: 04-02-2020 End: 04-03-2020 Emergency department patient visit Lisseth Madison Work Phone: [facility] ED Comment on above: Hypertension, unspec ified type (Primary Dx) Start: 03-30-2020 End: 04-02-2020 Patient encounter procedure MAXWELL LLANES [facility] Start: 03-30-2020 End: 04-01-2020 Subsequent hospital visit by physician Faiza Xr Dr Room 4 [facility] Comment on above: Neck pain; Midline thoracic back pain, unspecified chronicity Neck pain Midline thoracic mila k pain, unspecified chronicity Procedures Date Procedure Procedure Detail Performing Clinician Start: 01-26-2025 ALL BASIC METABOLIC PANEL Mario Javad DO Work Phone: Start: 01-26-2025 ECG 12-LEAD Mario Fazi o DO Work Phone: Start: 01-25-2025 Adult depression scr eening assessment Alta Rothman MD Work Phone: Start: 12-06-2024 Urine test visual color cmprsn meths Mario Palacioso DO Work Phone: Start: 09-28-2024 Adult depression scr eening assessment Annette Campbell HEALTH EDUCATION TEACHERKal[employer] Work Phone: Start: 09-14-2024 Adult depression scr eening assessment Annette Campbell HEALTH EDUCATION [employer] Work Phone: Start: 08-12-2024 Adult depression scr eening assessment Annette Campbell HEALTH EDUCATION TEACHER-[employer] Work Phone: Start: 03-02-2024 Hemoglobin glycosylated a1c Mario Palacioso DO Work Phone: Start: 02-18-2024 Microscopic observat ion [Identifier] in Cervix by Cyto stain Mario Palacioso DO Work Phone: Start: 02-04-2024 Follow-up visit Follow-up ANNETTE CAMPBELL Start: 08-28-2023 POCT INFLUENZA A/INF LUENZA B/SARS-COV-2 VERITOR Annette Campbell HEALTH EDUCATION [employer] Work Phone: Start: 08-28-2023 Iaadiadoo streptococ cus group a Annette Campbell [facility] Work Phone: Start: 08-28-2023 Adult depression scr eening assessment Annette Campbell [facility] Work Phone: Start: 08-14-2023 Adult depression scr eening assessment Diane Eaton HEALTH EDUCATION TEACHER-TELEPHONE SOLICITOR Work Phone: Start: 08-04-2023 Adult depression scr eening assessment Annette Campbell [facility] Work Phone: Start: 04-01-2022 Cytp cerv/vag auto t hin layer prep mnl screen Mario Farnsworth DO Work Phone: Start: 03-30-2020 Radex spine cervical 6 or more views [employer] [facility] [employer] Start: 03-30-2020 Radex spine thoracic 2 views [employer] [facility] [employer] Start: 03-30-2020 Cyanocobalamin vitamin b-12 [employer] [facility] [employer] Start: 03-30-2020 Radex spine cervical 6 or more views [employer] Work Phone: Start: 03-30-2020 VITAMIN B12 & FOLATE [facility] [employer] Work Phone: Plan of Treatment Date Care Activity Detail Author Start: 04-01-2027 Screening for malign ant neoplasm of cervix [facility] Start: 02-17-2027 Screening for malign ant neoplasm of cervix Pap Smear [facility] Start: 01-25-2026 Adult BMI Screening Adult BMI Screen ing [facility] Start: 01-25-2026 Depression Screening Depression Scre ening [facility] Start: 01-25-2026 Tobacco Screening Tobacco Screening [facility] [employer] [facility] Start: 11-21-2025 DTaP,Tdap and Td Vaccines (3 - Td or Tdap) DTaP,Tdap and Td Vaccines (3 - Td or Tdap) [facility] [employer] [facility] Start: 09-28-2025 Adult BMI Follow Up Plan Adult BMI F ollow Up Plan [facility] Start: 09-28-2025 Adult BMI Screening Adult BMI Screen ing [facility] Start: 09-28-2025 Depression Screening Depression Scre ening [facility] Start: 09-28-2025 Tobacco Screening Tobacco Screening [facility] Start: 09-14-2025 Adult BMI Follow Up Plan Adult BMI F ollow Up Plan [facility] Start: 09-14-2025 Adult BMI Screening Adult BMI Screen ing [facility] Start: 09-14-2025 Depression Screening Depression Scre ening [facility] Start: 09-14-2025 Tobacco Screening Tobacco Screening [facility] Start: 08-12-2025 Adult BMI Follow Up Plan Adult BMI F ollow Up Plan [facility] Start: 08-12-2025 Adult BMI Screening Adult BMI Screen ing [facility] Start: 08-12-2025 Depression Screening Depression Scre ening [facility] Start: 08-12-2025 Tobacco Screening Tobacco Screening [facility] Start: 07-27-2025 Tobacco Screening Tobacco Screening [facility] Start: 07-26-2025 Adult BMI Follow Up Plan Adult BMI F ollow Up Plan [facility] Start: 07-26-2025 Adult BMI Screening Adult BMI Screen ing [facility] Start: 07-26-2025 Tobacco Screening Tobacco Screening [facility] Start: 05-24-2025 Adult BMI Follow Up Plan Adult BMI F ollow Up Plan [facility] Start: 05-24-2025 Adult BMI Screening Adult BMI Screen ing [facility] Start: 05-24-2025 Tobacco Screening Tobacco Screening [facility] Start: 05-03-2025 End: 05-03-2025 Patient encounter procedure 05/03/2025 3:15 PM EST Office Visit [facility] [address] [place] [address] Alta Rothman MD [address] [place] [address] [facility] Start: 02-10-2025 End: 02-10-2025 Patient encounter procedure 02/10/2025 9:40 AM EDT Office Visit [facility] [address] [place] [address] Mario Farnsworth, DO [address] [place] [address] [facility] Start: 02-07-2025 End: 02-07-2025 Clinical Support 02/07/2025 3:30 PM EDT Clinical Support [facility] [address] [place] [address] Rose Mary Ocampo, HEALTH EDUCATION TEACHER-AUTOMOBILE BODY CUSTOMIZER [address] [place] [address] [facility] Start: 02-07-2025 End: 01-25-2026 Cyanocobalamin vitamin b-12 Vitamin B12 Lab Routine Chronic fatigue syndrome Expected: 02/07/2025 (Approximate), Expires: 01/25/2026 [facility] Work Phone: Comment on above: Expected: 02/07/2025 (Approximate), Expires: 01/25/2026 Start: 02-07-2025 End: 01-25-2026 Vitamin D 25 hydroxy Vitamin D 25 hydroxy Lab Routine Chronic fatigue syndrome Expected: 02/07/2025, Expires: 01/25/2026 [facility] Comment on above: Expected: 02/07/2025 , Expires: 01/25/2026 Start: 02-03-2025 Adult BMI Follow Up Plan Adult BMI F ollow Up Plan [facility] Start: 02-03-2025 Adult BMI Screening Adult BMI Screen ing [facility] Start: 02-03-2025 Tobacco Screening Tobacco Screening [facility] Start: 01-25-2025 End: 01-25-2025 Patient encounter procedure 01/25/2025 11:15 AM EDT Office Visit [facility] [address] [place] [address] [place] [address] Alta Rothman MD [address] [place] [address] [facility] Start: 01-24-2025 Influenza vaccination [facility] Start: 01-06-2025 End: 01-06-2025 Clinical Support 01/06/2025 2:00 PM EDT Clinical Support [facility] - Family Medicine [address] [place] [address] Iesha Valdovinos, HEALTH EDUCATION TEACHER-AUTOMOBILE BODY CUSTOMIZER [address] [place] [address] [facility] - Family [facility] Start: 01-05-2025 End: 01-05-2025 Patient encounter procedure 01/05/2025 1:20 PM EDT Consult [facility] [address] [place] [id number] Mario Farnsworth DO [address] [place] [address] [facility] Start: 12-30-2024 End: 12-30-2024 Patient encounter procedure 12/30/2024 1:00 PM EDT Office Visit [facility] - [facility] [address] [place] [address] Annette Campbell, HEALTH EDUCATION TEACHER-AUTOMOBILE BODY CUSTOMIZER [address] [place] [address] [facility] - [facility] Start: 12-06-2024 End: 12-06-2025 Antimullerian hormone (AMH) Antimullerian hormone (AMH) Lab Routine Menorrhagia with irregular cycle Expected: 12/06/2024 (Approximate), Expires: 12/06/2025 [facility] Work Phone: Comment on above: Expected: 12/06/2024 (Approximate), Expires: 12/06/2025 Start: 12-06-2024 End: 12-06-2024 Patient encounter procedure 12/06/2024 1:30 PM EDT Procedure Visit [facility] [address] [facility] [place] [address] Mario Farnsworth, DO [address] [place] [address] [facility] Start: 11-22-2024 End: 11-22-2024 Clinical Support 11/22/2024 2:00 PM EDT Clinical Support [facility] Internal Medicine - Family [facility] [address] [place] [id number] [facility] Start: 10-28-2024 End: 10-28-2025 DHEA DHEA Lab Routine Irregular menses Expected: 10/28/2024 (Approximate), Expires: 10/28/2025 [facility] Comment on above: Expected: 10/28/2024 (Approximate), Expires: 10/28/2025 Start: 10-28-2024 End: 10-28-2025 US Pelvis US Pelvis w/ TV Imaging Routine Irregular menses Expected: 10/28/2024, Expires: 10/28/2025 [facility] Comment on above: Expected: 10/28/2024 , Expires: 10/28/2025 Start: 10-28-2024 End: 10-28-2024 Patient encounter procedure 10/28/2024 10:50 AM EDT Office Visit [facility] [address] [place] [address] Mario Farnsworth, DO [address] [place] [address] Arrived [facility] Comment on above: Arrived Start: 10-14-2024 End: 10-14-2024 Clinical Support 10/14/2024 2:40 PM EDT Clinical Support [facility] Internal [facility] Family [facility] [address] [place] [id number] [facility] Start: 09-28-2024 End: 09-28-2024 Patient encounter procedure 09/28/2024 2:00 PM EDT Office Visit [facility] [address] [place] [address] Annette Campbell, HEALTH EDUCATION TEACHER-AUTOMOBILE BODY CUSTOMIZER [address] [place] [address] [facility] Start: 09-14-2024 End: 09-14-2024 Patient encounter procedure 09/14/2024 1:40 PM EDT Office Visit [facility] - [facility] [address] [place] [address] Annette Campbell, HEALTH EDUCATION TEACHER-AUTOMOBILE BODY CUSTOMIZER [address] [place] [address] [facility] Start: 08-27-2024 Adult BMI Follow Up Plan Adult BMI F ollow Up Plan [facility] Start: 08-27-2024 Adult BMI Screening Adult BMI Screen ing [facility] Start: 08-27-2024 Depression Screening Depression Scre ening [facility] Start: 08-27-2024 Tobacco Screening Tobacco Screening [facility] Start: 08-13-2024 Adult BMI Screening Adult BMI Screen ing [facility] Start: 08-13-2024 Depression Screening Depression Scre ening [facility] Start: 08-13-2024 Tobacco Screening Tobacco Screening [facility] Start: 08-04-2024 End: 08-04-2024 Patient encounter procedure 08/04/2024 1:00 PM EDT Office Visit [facility] [address] [place] [address] Annette Campbell, HEALTH EDUCATION TEACHER-AUTOMOBILE BODY CUSTOMIZER [address] [place] [address] [facility] Start: 08-03-2024 Adult BMI Follow Up Plan Adult BMI F ollow Up Plan [facility] Start: 08-03-2024 Adult BMI Screening Adult BMI Screen ing [facility] Start: 08-03-2024 Depression Screening Depression Scre ening [facility] Start: 08-03-2024 Tobacco Screening Tobacco Screening [facility] Start: 07-29-2024 End: 07-29-2024 Clinical Support 07/29/2024 3:30 PM EST Clinical Support [facility] Internal Medicine - Family Medicine [address] [place] [address] [facility] Internal [facility] Start: 07-26-2024 End: 07-26-2024 Patient encounter procedure 07/26/2024 4:20 PM EST Office Visit [facility] [address] [place] [address] Annette Campbell, HEALTH EDUCATION TEACHER-AUTOMOBILE BODY CUSTOMIZER [address] [place] [address] [facility] - [facility] Start: 05-05-2024 Adult BMI Follow Up Plan Adult BMI F ollow Up Plan [facility] Start: 04-15-2024 End: 04-15-2024 Clinical Support 04/15/2024 2:00 PM EST Clinical Support [facility] [address] [place] [address] Annette Campbell, HEALTH EDUCATION TEACHER-AUTOMOBILE BODY CUSTOMIZER [address] [place] [address] [facility] - Family Medicine Start: 03-18-2024 End: 03-18-2024 Patient encounter procedure [facility] Comment on above: Arrived Start: 02-18-2024 End: 02-18-2024 Patient encounter procedure 02/18/2024 1:00 PM EDT Office Visit [facility] [address] [place] [address] Mario Farnsworth, DO [address] [facility] [place] [address] Arrived [facility] Comment on above: Arrived Start: 02-12-2024 End: 02-12-2024 Clinical Support 02/12/2024 11:40 AM EDT Clinical Support [facility] [address] [place] [address] [facility] Start: 02-04-2024 End: 02-04-2024 Patient encounter procedure 02/04/2024 1:00 PM EDT [facility] [address] [place] [address] Annette Campbell, HEALTH EDUCATION TEACHER-AUTOMOBILE BODY CUSTOMIZER [address] [place] [address] [facility] Start: 01-25-2024 Influenza vaccination [facility] Start: 01-01-2024 End: 01-01-2024 Clinical Support 01/01/2024 2:00 PM EDT Clinical Support [facility] [address] [place] [address] [facility] Start: 12-03-2023 End: 12-03-2023 Clinical Support 12/03/2023 2:00 PM EDT Clinical Support [facility] [address] [place] [address] [facility] Start: 10-30-2023 End: 10-30-2023 Clinical Support 10/30/2023 2:00 PM EDT Clinical Support [facility] [address] [place] [address] [facility] - [facility] Start: 09-04-2023 End: 09-04-2023 Clinical Support 09/04/2023 2:30 PM EDT Clinical Support [facility] - Family [facility] [address] [place] [address] [facility] - [facility] Start: 01-24-2023 Influenza vaccination Influenza Vacc ine [facility] Start: 01-25-2020 Influenza vaccination Flu vaccine (# 1) [place], [place] Start: 2008 Screening for malign ant neoplasm of cervix [facility] Start: 2006 DTaP/Tdap/Td vaccine (1 - Tdap) DTaP/Tdap/Td vaccine (1 - Tdap) [place], [place] Start: 2002 HIV screening HIV screen [place], [place] Start: 1993 Pneumococcal 0-64 ye ars Vaccine (1 of 1 - PPSV23) Pneumococcal 0-64 years Vaccine (1 of 1 - PPSV23) [place], [place] Start: 1988 Varicella vaccine (1 of 2 - 2-dose childhood series) Varicella vaccine (1 of 2 - 2-dose childhood series) [place], [place] Start: 1987 Tobacco Counseling Tobacco Counselin g [facility] End: 09-28-2025 Basic metabolic 2000 panel - Serum or Plasma Basic Metabolic Panel Lab Routine Essential hypertension 1 Occurrences starting 09/28/2024 until 09/28/2025 [facility] Comment on above: 1 Occurrences starti ng 09/28/2024 until 09/28/2025 Basic metabolic 2000 panel - Serum or Plasma Basic Metabolic Panel Lab Routine Essential hypertension 09/28/2024 2:26 PM EDT [facility] End: 09-28-2025 CBC W Auto Differential panel - Blood CBC auto differential Lab Routine Essential hypertension 1 Occurrences starting 09/28/2024 until 09/28/2025 [facility] Comment on above: 1 Occurrences starti ng 09/28/2024 until 09/28/2025 CBC W Auto Different ial panel - Blood CBC auto differential Lab Routine Essential hypertension 09/28/2024 2:26 PM EDT [facility] CBC W Auto Different ial panel - Blood CBC and differential Lab Routine Irregular menses Ordered: 10/28/2024 [facility] [employer] Comment on above: Ordered: 10/28/2024 Cobalamin (Vitamin B 12) [Mass/volume] in Serum or Plasma Vitamin B12 Lab Routine Vitamin B 12 deficiency 02/04/2024 7:48 PM EDT [employer] [facility] End: 02-03-2025 Cyanocobalamin vitamin b-12 Vitamin B12 Lab Routine Vitamin B 12 deficiency 1 Occurrences starting 02/04/2024 until 02/03/2025 [employer] Work Phone: Comment on above: 1 Occurrences starti ng 02/04/2024 until 02/03/2025 End: 08-12-2025 Cyanocobalamin vitamin b-12 Vitamin B12 Lab Routine Vitamin B 12 deficiency 1 Occurrences starting 08/12/2024 until 08/12/2025 [employer] Work Phone: Comment on above: 1 Occurrences starti ng 08/12/2024 until 08/12/2025 Cytology Cervical or vaginal smear or scraping study Pap Smear Pathology and Cytology Routine Well woman exam with routine gynecological exam Ordered: 02/18/2024 [facility] Work Phone: Comment on above: Ordered: 02/18/2024 DHEA-sulfate DHEA-sulfate Lab Routine Irregular menses Ordered: 10/28/2024 [facility] [employer] Comment on above: Ordered: 10/28/2024 Estradiol Estradiol Lab Ro utine Irregular menses Ordered: 10/28/2024 [facility] [employer] Comment on above: Ordered: 10/28/2024 Follicle stimulating hormone Follicle stimulating hormone Lab Routine Irregular menses Ordered: 10/28/2024 [facility] [employer] Comment on above: Ordered: 10/28/2024 hCG, quantitative, hCG, quantitative, Lab Routine Irregular menses Ordered: 10/28/2024 [employer] Work Phone: Comment on above: Ordered: 10/28/2024 Hemoglobin A1c/Hemoglobin.total in Blood Hemoglobin A1c Lab Routine Insulin resistance Ordered: 02/18/2024 [facility] [employer] Comment on above: Ordered: 02/18/2024 End: 08-04-2024 Hemoglobin A1c/Hemoglobin.total in Blood Hemoglobin A1c Lab Routine Prediabetes 1 Occurrences starting 08/04/2023 until 08/04/2024 [employer] Work Phone: Comment on above: 1 Occurrences starti ng 08/04/2023 until 08/04/2024 Hemoglobin A1c/Hemoglobin.total in Blood Hemoglobin A1c Lab Routine Prediabetes 08/04/2023 10:55 PM EDT [facility] Hemoglobin A1c/Hemoglobin.total in Blood Hemoglobin A1c Lab Routine Irregular menses Ordered: 10/28/2024 [facility] Comment on above: Ordered: 10/28/2024 Human papilloma viru s DNA [Presence] in Unspecified specimen by Probe with amplification HPV DNA probe, amplified Microbiology Routine Well woman exam with routine gynecological exam Ordered: 02/18/2024 [facility] Comment on above: Ordered: 02/18/2024 Luteinizing hormone Luteinizing hormone Lab Routine Irregular menses Ordered: 10/28/2024 [facility] Comment on above: Ordered: 10/28/2024 End: 09-28-2025 Magnesium [Mass/volume] in Serum or Plasma Magnesium Lab Routine Essential hypertension 1 Occurrences starting 09/28/2024 until 09/28/2025 [facility]: 1 Occurrences starti ng 09/28/2024 until 09/28/2025 Magnesium [Mass/volu me] in Serum or Plasma Magnesium Lab Routine Essential hypertension 09/28/2024 2:26 PM EDT [facility] Progesterone Lab Routine Irregular menses Ordered: 10/28/2024 [facility] Comment on above: Ordered: 10/28/2024 Thyrotropin [Units/volume] in Serum or Plasma TSH Lab Routine Hyperthyroidism (CMS/HCC) Ordered: 02/18/2024 [facility] Comment on above: Ordered: 02/18/2024 Thyrotropin [Units/volume] in Serum or Plasma TSH Lab Routine Irregular menses Ordered: 10/28/2024 [facility] Comment on above: Ordered: 10/28/2024 Thyroxine (T4) free [Mass/volume] in Serum or Plasma T4, free Lab Routine Irregular menses Ordered: 10/28/2024 [facility] Comment on above: Ordered: 10/28/2024 End: 02-04-2025 Vitamin D 25 hydroxy Vitamin D 25 hydroxy Lab Routine Vitamin D deficiency 1 Occurrences starting 02/04/2024 until 02/04/2025 [facility] Comment on above: 1 Occurrences starti ng 02/04/2024 until 02/04/2025 End: 09-29-2025 Vitamin D 25 hydroxy Vitamin D 25 hydroxy Lab Routine Vitamin D deficiency 1 Occurrences starting 09/28/2024 until 09/29/2025 [facility] Work Phone: Comment on above: 1 Occurrences starti ng 09/28/2024 until 09/29/2025 Vitamin D 25 hydroxy Vitamin D 2 5 hydroxy Lab Routine Vitamin D deficiency 09/28/2024 2:26 PM EDT [facility] Vitamin D+Metabolite s [Mass/volume] in Serum or Plasma Vitamin D 25 hydroxy Lab Routine Vitamin D deficiency 02/04/2024 7:48 PM EDT [facility] End: 03-30-2020 XR THORACIC SPINE (2 VIEWS) XR THORACIC SPINE (2 VIEWS) Imaging Routine Midline thoracic back pain, unspecified chronicity 1 Occurrences starting 03/30/2020 until 03/30/2020 [place], [place] Comment on above: 1 Occurrences starti ng 03/30/2020 until 03/30/2020 Immunizations Immunization Date Immunization Notes Care Provider Cy gimenez 11-22-2015 tetanus toxoid, redu bruce diphtheria toxoid, and acellular pertussis vaccine, adsorbed Annette Campbell [employer] EDUCATION TEACHER-[employer]OBI[employer] CUSTOMIZER Work Phone: [facility] 04-01-2014 influenza, seasonal, injectable, preservative free Annette Campbell HEALTH EDUCATION TEACHER-AUTOMOBILE BODY CUSTOMIZER Work Phone: [facility] 04-01-2014 tetanus toxoid, redu bruce diphtheria toxoid, and acellular pertussis vaccine, adsorbed Annette Campbell HEALTH EDUCATION TEACHER-AUTOMOBILE BODY CUSTOMIZER Work Phone: [facility] 04-01-2014 influenza virus vaccine, unspecified formulation Annette Campbell HEALTH EDUCATION TEACHER-AUTOMOBILE BODY CUSTOMIZER Work Phone: [facility] Payers Date Payer Category Payer Medicaid [id number] 2022 Medicaid [id number] 2014 Unknown [id number] 1987 Unknown [id number] 2.16.8 40.1.956350.3.579.2.173 1987 Unknown [id number] 2.16.8 40.1.266720.3.579.2.173 1987 Unknown [id number] 2.16.8 40.1.851496.3.579.2.173 1987 Unknown [id number] 2.16.8 40.1.654704.3.579.2.173 1987 Unknown [id number] 2.16.8 40.1.339051.3.579.2.175 1987 Unknown [id number] 2.16.8 40.1.146584.3.579.2.175 1987 Unknown [id number] 2.16.84 0.1.295687.3.579.2.593 1987 Unknown [id number] 2.16. 840.1.377802.3.579.2.1286 1987 Unknown [id number] 2.16. 840.1.373042.3.579.2.1286 1987 Unknown [id number] 2.16.8 40.1.573986.3.579.2.1286 1987 Unknown [id number] 2.16. 840.1.962391.3.579.2.1286 1987 Unknown [id number] 2.16. 840.1.407810.3.579.2.1286 1987 Unknown [id number] 2.16. 840.1.693297.3.579.2.1286 1987 Unknown [id number] 2.16.8 40.1.027484.3.579.2.1286 1987 Unknown [id number] 2.16.8 40.1.775443.3.579.2.1286 1987 Unknown [id number] 2.16.8 40.1.632809.3.579.2.9 1987 Unknown [id number] 2.16.8 40.1.819318.3.579.2.9 1987 Unknown [id number] 2.16.8 40.1.080573.3.579.2.9 1987 Unknown [id number] 2.16.84 0.1.663961.3.579.2.9 1987 Unknown [id number] 2.16.84 0.1.457081.3.579.2.1258 1987 Unknown [id number] 2.16. 840.1.095535.3.579.2.1285 1987 Unknown [id number] 2.16. 840.1.703399.3.579.2.1285 1987 Unknown [id number] 2.16. 840.1.638491.3.579.2.1285 1987 Unknown [id number] 2.16. 840.1.792118.3.579.2.1285 1987 Unknown [id number] 2.16. 840.1.588103.3.579.2.1285 1987 Unknown [id number] 2.16. 840.1.112651.3.579.2.1285 1987 Unknown [id number] 2.16. 840.1.180461.3.579.2.1285 1987 Unknown [id number] 2.16. 840.1.320070.3.579.2.1285 1987 Unknown [id number] 2.16. 840.1.371938.3.579.2.1285 1987 Unknown [id number] 2.16. 840.1.348971.3.579.2.1285 1987 Unknown [id number] 2.16. 840.1.053936.3.579.2.1286 1987 Unknown [id number] 2.16.8 40.1.122815.3.579.2.1286 1987 Unknown [id number] 2.16.8 40.1.414574.3.579.2.1286 1987 Unknown [id number] 2.16.8 40.1.056076.3.579.2.1286 1987 Unknown [id number] 2.16.8 40.1.880897.3.579.2.1286 1959 Unknown [id number] Social History Date Type Detail Facility Start: 03-30-2020 End: 02-18-2024 Tobacco smoking status SCIS Current every day smoker [facility] Start: 05-26-2005 History of tobacco use Cigarette Smo ker [place], [place] Start: 03-30-2020 End: 02-18-2024 Tobacco use and exposure Never used [place], [place] Start: 03-30-2020 End: 04-02-2020 Alcohol intake Lifetime non-drinker (finding) [place], [place] Start: 03-30-2020 History SDOH Alcohol Frequency 1 [place], [place] Start: 1985 Sex Assigned At Not on file M [place], [place] Exposure to SARS-CoV -2 (event) Not sure [place], [place] Start: 06-12-2021 End: 02-18-2024 Cigarettes smoked current (pack per day) - Reported 0.3 [facility] Start: 02-18-2024 End: 01-05-2025 Alcoholic beverage intake Ex-drinker (finding) [facility] Start: 06-12-2021 End: 02-18-2024 Tobacco use panel [facility] Do you belong to any clubs or organizations such as latter day groups, unions, fraternal or athletic groups, or school groups? No [facility] Are you now , , , , never or living with a partner? [facility] How often to you hav e a drink containing alcohol? Never [facility] Average Number of Drinks Not on file [facility] Do you feel stress - tense, restless, nervous, or anxious, or unable to sleep at night because your mind is troubled all the time - these days [OSQ] Only a little [facility] Start: 06-12-2021 Education 12 [facility] Start: 12-29-2014 Sex Female (finding) [facility] Clinical Notes 08-04-2023 to 01-25-2025 Alta Rothman MD - 01/25/2025 11:15 AM EDTAsh La, - 01/06/2025 1:15 PM EDTBfadumo Garcia - 01/05/2025 1:20 PM EDTTelephone Encounter - Yaz MAURY Luna - 12/15/2024 3:14 PM EDT Note Date & Type Note Facility 01-25-2025 History of Present illness Narrative Images from the original note were not included. [address] [place] [phone] Patient: Krysta Duran Date of : 1985 Encounter Date: 01/25/2025 SUBJECTIVE: HISTORY OF PRESENT ILLNESS: Chief Complaint: Chief Complaint Patient presents with [facility] Patient ID: Krysta is a 39 y.o. female 39-year-old female here to establish new primary care provider Has a past medical history of hypertension, migraine, B12 deficiency, BMI of 57, hypothyroidism, PCOS/hyperandrogenemia, s/p right oopherectomy due to ovarian torsion 2/2 large ovarian cyst. Primary goals for patient is weight loss and optimization overall health. In the past has been getting vitamin B12 shots every month. Weight used to be 357 over the past several months has come down to 336. Her lowest she was 280 while she was on metformin however since then has regained some of her way. Also endorses new symptoms of GERD for which she has not been taking any therapy. Does report a history of TALAT but never tolerating the CPAP machine. Previously evaluated Margaret, strongly urge patient to revisit this as it can correlate to her challenges in controlling hypertension, weight, irregular menstrual cycles and so on. PAST MEDICAL HISTORY: Past Medical History: Diagnosis Date Hypertension PCOS (polycystic ovarian syndrome) PAST SURGICAL HISTORY: Past Surgical History: Procedure Laterality Date SECTION OOPHORECTOMY 2012 OVARIAN CYST SURGERY FAMILY HISTORY: Family History Problem Relation Age of Onset Heart attack Mother Diabetes Father SOCIAL HISTORY: Social History Socioeconomic History Marital status: Spouse name: Not on file Number of children: Not on file Years of education: Not on file Highest education level: 12th grade Occupational History Not on file Tobacco Use Smoking status: Every Day Current packs/day: 0.25 Average packs/day: 0.3 packs/day for 19.7 years (4.9 ttl pk-yrs) Types: Cigarettes Start date: 2005 Smokeless tobacco: Never Substance and Sexual Activity Alcohol use: Not Currently Drug use: Never Sexual activity: Yes Partners: Male control/protection: None Other Topics Concern Coffee Not Asked Tea Not Asked Carbonated Beverages Not Asked Chocolate Not Asked Social History Narrative Not on file Social Drivers of Health Financial Resource Strain: Low Risk (01/29/2023) Overall Financial Resource Strain (CARDIA) Difficulty of Paying Living Expenses: Not hard at all Food Insecurity: No Food Insecurity (01/25/2025) Hunger Screening Food Insecurity - Worry: Never True Food Insecurity - Inability: Never True Transportation Needs: No Transportation Needs (01/29/2023) PRAPARE - Transportation Lack of Transportation (Medical): No Lack of Transportation (Non-Medical): No Physical Activity: Insufficiently Active (06/12/2021) Exercise Vital Sign Days of Exercise per Week: 1 day Minutes of Exercise per Session: 10 min Stress: No Stress Concern Present (06/12/2021) [employer] - Occupational Stress Questionnaire Feeling of Stress : Only a little Social Connections: Moderately Isolated (06/12/2021) Social Connection and Isolation Panel [NHANES] Frequency of Communication with Friends and Family: Three times a week Frequency of Social Gatherings with Friends and Family: Once a week Attends Yarsanism Services: Never Active Member of Clubs or Organizations: No Attends Club or Organization Meetings: Never Marital Status: Interpersonal Safety: Unknown (07/17/2023) Received from [facility] Fear of Current or Ex-Partner: Not on file Emotionally Abused: Not on file Physically Abused: Not on file Sexually Abused: Not on file Physically or Sexually Abused: Not on file Housing Instability: Low Risk (01/29/2023) Housing Instability Housing Instability: No ALLERGY: Allergies Allergen Reactions Tessalon [Benzonatate] Facial Swelling Hydralazine Flushing MEDICATIONS Current Outpatient Medications Medication Sig Dispense Refill chlorthalidone (HYGROTON) 25 mg tablet Take 1 tablet (25 mg total) by mouth daily. 30 tablet 3 cholecalciferol, vitamin D3, (VITAMIN D3) 5,000 units capsule Take 1 capsule (5,000 Units total) by mouth in the morning. 30 capsule 11 ibuprofen (MOTRIN) 600 mg tablet Take 1 tablet (600 mg total) by mouth every 8 (eight) hours as needed for pain, fever or headaches. Take with food 90 tablet 1 lisinopriL (PRINIVIL,ZESTRIL) 40 mg tablet Take 1 tablet (40 mg total) by mouth in the morning. 30 tablet 11 metoprolol succinate XL (TOPROL XL) 100 mg 24 hr tablet Take 1 tablet (100 mg total) by mouth in the morning. 30 tablet 5 cyanocobalamin (VITAMIN B-12) 1,000 mcg/mL injection Inject 1 mL (1,000 mcg total) into the appropriate muscle every 30 (thirty) days. 10 mL 1 omeprazole (PriLOSEC) 40 mg capsule Take 1 capsule (40 mg total) by mouth in the morning. 30 capsule 1 Current Facility-Administered Medications Medication Dose Route Frequency Provider Last Rate Last Admin cyanocobalamin (VITAMIN B-12) injection 1,000 mcg 1,000 mcg intramuscular Q30 Days 1,000 mcg at 01/06/25 1318 PHYSICAL EXAMINATION: Vitals: 01/25/25 1111 BP: 130/64 Pulse: 100 Temp: 36.4 C (97.5 F) TempSrc: Oral SpO2: 97% Weight: (!) 152.7 kg (336 lb 9.6 oz) Height: 162.6 cm (5' 4 ) Physical Exam Vitals reviewed. Constitutional: General: She is not in acute distress. Appearance: Normal appearance. Eyes: Extraocular Movements: Extraocular movements intact. Pupils: Pupils are equal, round, and reactive to light. Cardiovascular: Rate and Rhythm: Normal rate and regular rhythm. Pulses: Normal pulses. Heart sounds: Normal heart sounds. Pulmonary: Effort: Pulmonary effort is normal. No respiratory distress. Breath sounds: Normal breath sounds. No wheezing or rhonchi. Abdominal: General: Bowel sounds are normal. There is no distension. Palpations: Abdomen is soft. There is no mass. Tenderness: There is no abdominal tenderness. There is no right CVA tenderness, left CVA tenderness or guarding. Musculoskeletal: Cervical back: Normal range of motion and neck supple. Neurological: Mental Status: She is alert and oriented to person, place, and time. Mental status is at baseline. Labs, imaging, and records: I have personally obtained and reviewed the relevant labs/imaging. ASSESSMENT/PLAN: rKysta was seen today for establish care. Diagnoses and all orders for this visit: Chronic fatigue syndrome - Ambulatory referral to Sleep Medicine (Non[facility]); Future - Vitamin B12; Future - Vitamin D 25 hydroxy; Future TALAT (obstructive sleep apnea) - Ambulatory referral to Sleep Medicine (Non[facility]); Future Gastroesophageal reflux disease without esophagitis - omeprazole (PriLOSEC) 40 mg capsule; Take 1 capsule (40 mg total) by mouth in the morning. Vitamin B 12 deficiency - cyanocobalamin (VITAMIN B-12) 1,000 mcg/mL injection; Inject 1 mL (1,000 mcg total) into the appropriate muscle every 30 (thirty) days. Fatigue, insomnia, challenges with weight loss: Patient to revisit sleep medicine expert to consider alternative options or re-evaluate for CPAP with alternative mass which she is going to be able to tolerate. GERD new diagnosis treat with PPI as above B12 deficiency plan monthly injections of 1000 mcg. Will prescribe 10 mL vial for patient to bring in for each dose. Next dose due after 02/06/2025. Plan to draw B12 and vitamin-D levels during next week nurse visit Has upcoming visit with OB Gyne Procedure due to irregular menstrual cycles and poor tolerance of endometrial biopsy in office. Follow-up 3 months ALTA ROTHMAN MD Family Medicine Physician [facility] 01/25/25 This note was completed with voice recognition software. The document was reviewed for errors however some may still be present. Please do not hesitate to contact/[facility] the author to verify any questions/concerns. documented in this encounter [facility] 01-06-2025 History of Present illness Narrative B12 injection given without incident. documented in this encounter [facility] 01-05-2025 History of Present illness Narrative Reason for Appointment: Patient ID: Krysta Duran is a 39 y.o. female who presents for Pre-op Visit Patient presents today for Pre Op appointment. Patient is scheduled to undergo D&C Hysteroscopy, possible Myosure and removal of vaginal cyst on 02-04-[address] Farnsworth at [facility]. MEDICATIONS Current Outpatient Medications Medication Instructions chlorthalidone (HYGROTON) 25 mg, Oral, Daily ibuprofen 600 mg, Every 8 hours PRN lisinopril 20 mg, Daily lisinopril 40 mg, Oral, Daily loperamide (Imodium) 2 MG capsule TAKE 1 TABLET BY MOUTH 4 TIMES A DAY NEEDED FOR DIARRHEA. metoprolol succinate XL (Toprol-XL) 50 MG 24 hr tablet 1 tablet, Daily norethindrone (MICRONOR) 0.35 mg, Oral, Daily, Take 1 tablet by mouth daily ALLERGIES Allergies Allergen Reactions Benzonatate Other Reaction(s): Facial Swelling Hydralazine Other Reaction(s): Flushing PROBLEMS Active Ambulatory Problems Diagnosis Date Noted Antiphospholipid syndrome ([facility]) 07/30/2020 Anxiety disorder 04/04/2020 Chronic fatigue syndrome 04/04/2020 Essential hypertension 04/04/2020 Gastroesophageal reflux disease 04/04/2020 Hirsutism 04/04/2020 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/2020 Hyperthyroidism 01/19/2020 Insulin resistance 04/04/2020 Migraine 04/04/2020 Morbid obesity ([facility]) 04/04/2020 Multiple thyroid nodules 01/29/2023 Non-toxic uninodular goiter 04/04/2020 Polycystic ovary syndrome 04/04/2020 Prediabetes 04/04/2020 Vitamin B 12 deficiency 04/19/2020 Vitamin D deficiency 04/04/2020 OME (otitis media with effusion), left 10/02/2023 Menorrhagia with irregular cycle 11/25/2024 Resolved Ambulatory Problems Diagnosis Date Noted Female [...] History: Procedure Laterality Date SECTION, CLASSIC OOPHORECTOMY 2012 REVIEW OF SYSTEMS Review of Systems: Review of Systems Constitutional: Negative. HENT: Negative. Eyes: Negative. Respiratory: Negative. Cardiovascular: Negative. Gastrointestinal: Negative. Genitourinary: Positive for menstrual problem and vaginal pain. Musculoskeletal: Negative. Skin: Negative. Neurological: Negative. All other systems reviewed and are negative. Hematological: Negative. Endocrine: Negative. Allergic/Immunologic: Negative. OBJECTIVE Objective: Physical Exam Constitutional: Appearance: Normal appearance. She is well-developed. Cardiovascular: Rate and Rhythm: Normal rate and [...] nursing note reviewed. Exam conducted with a calciner operator present. Vitals: Estimated body mass index is 58.19 kg/m as calculated from the following: Height as of 12/06/24: 5' 4 . Weight as of 12/06/24: 339 lb. BP: No LMP recorded (lmp unknown). ASSESSMENT & PLAN ICD-10-CM 1. Pre-op examination Z01.818 2. Menorrhagia with regular cycle N92.0 3. Vaginal cyst N89.8 Pre Op: Patient is doing well but has complaints of a vaginal cyst and menorrhagia. I have discussed conservative management vs. surgical management with the patient in detail and patient desires surgical management at this time. Patient will undergo D&C Hysteroscopy, possible Myosure and the removal of a vaginal cyst on 02-04-25. Surgical consents were signed, mmc was reviewed, and patient is to proceed to [facility] OR. Follow Up: Patient is to follow up between 1-2 weeks post operative to assess proper healing and recovery from procedure. Documented by Fifi Coronel LPN on behalf of: Mario Farnsworth DO documented in this encounter [facility] 12-15-2024 Miscellaneous Notes Patient can not get into her new PCP until late Jan. She needs enough of these wto meds to hold her over until then documented in this encounter [facility] 12-15-2024 Telephone encounter Note Patient can not get into her new PCP until late Jan. She needs enough of these wto meds to hold her over until then [facility] 12-06-2024 History of Present illness Narrative Reason for Appointment: Patient ID: Krysta Duran is a 39 y.o. female who presents for Menorrhagia (Pt present today for an Embx due to menorrhagia.) Patient presents today for Consult appointment. MEDICATIONS Current Outpatient Medications Medication Instructions chlorthalidone (HYGROTON) 25 mg, Oral, Daily ibuprofen 600 mg, Every 8 hours PRN lisinopril 20 mg, Daily lisinopril 40 mg, Oral, Daily loperamide (Imodium) 2 MG capsule TAKE 1 TABLET BY MOUTH 4 TIMES A DAY NEEDED FOR DIARRHEA. metoprolol succinate XL (Toprol-XL) 50 MG 24 hr tablet 1 tablet, Daily ALLERGIES Allergies Allergen Reactions Benzonatate Other Reaction(s): Facial Swelling Hydralazine Other Reaction(s): Flushing PROBLEMS Active Ambulatory Problems Diagnosis Date Noted Antiphospholipid syndrome ([facility]) 07/30/2020 Anxiety disorder 04/04/2020 Chronic fatigue syndrome 04/04/2020 Essential hypertension 04/04/2020 Gastroesophageal reflux disease 04/04/2020 Hirsutism 04/04/2020 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/2020 Hyperthyroidism 01/19/2020 Insulin resistance 04/04/2020 Migraine 04/04/2020 Morbid obesity ([facility]) 04/04/2020 Multiple thyroid nodules 01/29/2023 Non-toxic uninodular goiter 04/04/2020 Polycystic ovary syndrome 04/04/2020 Prediabetes 04/04/2020 Vitamin B 12 deficiency 04/19/2020 Vitamin D deficiency 04/04/2020 OME (otitis media with effusion), left 10/02/2023 Menorrhagia with irregular cycle 11/25/2024 Resolved Ambulatory Problems Diagnosis Date Noted Female [...] History: Procedure Laterality Date SECTION, CLASSIC OOPHORECTOMY 2012 REVIEW OF SYSTEMS Review of Systems: Review of Systems Constitutional: Negative. HENT: Negative. Eyes: Negative. Respiratory: Negative. Cardiovascular: Negative. Gastrointestinal: Negative. Genitourinary: Positive for menstrual problem and vaginal bleeding. Musculoskeletal: Negative. Skin: Negative. Neurological: Negative. All other systems reviewed and are negative. Hematological: Negative. Endocrine: Negative. Allergic/Immunologic: Negative. OBJECTIVE Objective: Physical Exam Constitutional: Appearance: Normal appearance. She is well-developed. Genitourinary: Vulva normal. Cardiovascular: Rate and Rhythm: Normal rate [...] nursing note reviewed. Exam conducted with a calciner operator present. Vitals: Estimated body mass index is 58.19 kg/m as calculated from the following: Height as of this encounter: 5' 4 . Weight as of this encounter: 339 lb. BP: 126/82 No LMP recorded (lmp unknown). ASSESSMENT & PLAN ICD-10-CM 1. Menorrhagia with irregular cycle N92.1 Endometrial biopsy POCT , urine manually resulted Patient presents for Endometrial Biopsy, unable to obtain sample due to cervix and cervical cyst present. Discussed with patient surgical management with Hysteroscopy D&C and Cervical Cyst Removal. Patient does desire to have future childbearing. Patient will schedule procedure with [facility] since Endometrial Biopsy could not be performed. Documented by Daphne Matos LPN on behalf of: Mario Farnsworth DO documented in this encounter [facility] 10-28-2024 History of Present illness Narrative Reason for Appointment: Patient ID: Krysta Duran is a 39 y.o. female who presents for irregular cycles Patient presents today for Consult appointment. MEDICATIONS Current Outpatient Medications Medication Instructions chlorthalidone (HYGROTON) 25 mg, Oral, Daily ibuprofen 600 mg, Every 8 hours PRN lisinopril 20 mg, Daily lisinopril 40 mg, Oral, Daily loperamide (Imodium) 2 MG capsule TAKE 1 TABLET BY MOUTH 4 TIMES A DAY NEEDED FOR DIARRHEA. metoprolol succinate XL (Toprol-XL) 50 MG 24 hr tablet 1 tablet, Daily ALLERGIES Allergies Allergen Reactions Benzonatate Other Reaction(s): Facial Swelling Hydralazine Other Reaction(s): Flushing PROBLEMS Active Ambulatory Problems Diagnosis Date Noted Antiphospholipid syndrome (CMS/[facility]) 07/30/2020 Anxiety disorder 04/04/2020 Chronic fatigue syndrome 04/04/2020 Essential hypertension (CMS/[facility]) 04/04/2020 Gastroesophageal reflux disease 04/04/2020 Hirsutism 04/04/2020 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/2020 Hyperthyroidism ([facility]) 01/19/2020 Insulin resistance 04/04/2020 Migraine 04/04/2020 Morbid obesity ([facility]) 04/04/2020 Multiple thyroid nodules ([facility]) 01/29/2023 Non-toxic uninodular goiter ([facility]) 04/04/2020 Polycystic ovary syndrome 04/04/2020 Prediabetes 04/04/2020 [...] Cardiovascular: Negative. Gastrointestinal: Negative. Genitourinary: Positive for menstrual problem. Musculoskeletal: Negative. Skin: Negative. Neurological: Negative. All other systems reviewed and are negative. Hematological: Negative. Endocrine: Negative. Allergic/Immunologic: Negative. OBJECTIVE Objective: Physical Exam Constitutional: Appearance: Normal appearance. She is well-developed. Cardiovascular: Rate and Rhythm: Normal rate and [...] nursing note reviewed. Exam conducted with a calciner operator present. Vitals: Estimated body mass index is 58.19 kg/m as calculated from the following: Height as of 24: 5' 4 . Weight as of this encounter: 339 lb. BP: 126/82 No LMP recorded. ASSESSMENT & PLAN ICD-10-CM 1. Irregular menses N92.6 hCG, quantitative, TSH T4, free CBC and differential Follicle stimulating hormone Luteinizing hormone Hemoglobin A1c DHEA-sulfate DHEA US Pelvis w/ TV Estradiol Progesterone DHEA 2. PCOS (polycystic ovarian syndrome) E28.2 Patient presents today for irregular cycles. Patient voiced that this has been ongoing since June & the flow varies from light to heavy. Discussed with patient possible options for causes. Patient given lab slip to have labs drawn and US obtained. Patient to return to clinic in 4-6 weeks for endometrial biopsy. Documented by Daphne Matos LPN...on behalf of: Mario Farnsworth DO documented in this encounter [facility] 09-28-2024 History of Present illness Narrative Images from the original note were not included. [address] [place] [address] SUBJECTIVE: Patient ID: Krysta Druan is a 39 y.o. female. Chief Complaint Patient presents with Hypertension Presents for HTN follow up Blood pressures have improved. She is now 140/78. Was previously 170/90.States her headaches are now intermittent, have significantly improved. States yesterday when she took her blood pressure, she noticed her pulse was 120. [place] palpitations. She took her medication, which includes metoprolol succinate, heart rate improved several hours later. Hypertension This is a chronic problem. Pertinent negatives include no chest pain, palpitations or shortness of breath. The following portions of the patient's history were reviewed and updated as appropriate: allergies, current medications, past family history, past medical history, past social history, past surgical history and problem list. Past Surgical History: Procedure Laterality Date SECTION OOPHORECTOMY 2011 OVARIAN CYST SURGERY Past Medical History: Diagnosis [...] Musculoskeletal: Negative. Skin: Negative. Allergic/Immunologic: Negative. Neurological: Negative for syncope and facial asymmetry. Hematological: Does not bruise/bleed easily. Psychiatric/Behavioral: Negative. PHYSICAL EXAMINATION: Vitals: 09/28/24 1400 BP: 140/78 BP Site: Left Arm BP Postition: Sitting Pulse: 80 Resp: 18 Temp: 36.7 C (98 F) TempSrc: Oral SpO2: 98% Weight: (!) 154.9 kg (341 lb 9.6 oz) Height: 162.6 cm (5' [...] normal. ASSESSMENT/PLAN: Krysta was seen today for hypertension. Diagnoses and all orders for this visit: Essential hypertension - Basic Metabolic Panel; Future - Magnesium; Future - CBC auto differential; Future - CBC auto differential - Magnesium - Basic Metabolic Panel Vitamin D deficiency - Vitamin D 25 hydroxy; Future - Vitamin D 25 hydroxy HTN Better controlled. Headaches and head pressure has improved. Continue chlorthalidone, lisinopril, and metoprolol succinate. Patient reported having palpitations yesterday. Labs collected; magnesium, CBC, BMP Vitamin D deficiency Check vitamin D level States she has been more complaint with taking her supplement. Continue D3 5,000 units oral daily. Body mass index is 58.64 kg/m . Patient noted to have elevated [...] patient/family/caregiver Ordering medications, tests, or procedures Follow-up: 3 months GUIDO Vila 09/28/24 1444 documented in this encounter [facility] 09-14-2024 History of Present illness Narrative Images from the original note were not included. [place] [address] SUBJECTIVE: Patient ID: Krysta Duran is a 39 y.o. female. Chief Complaint Patient presents with Hypertension Presents for HTN follow up Blood pressure remains elevated today, 170/90. She took metoprolol and lisinopril at around 11 am today. She is experiencing headaches. Hypertension This is a chronic problem. The problem has been waxing and waning since onset. The problem is uncontrolled. Associated symptoms include headaches and malaise/fatigue. Pertinent negatives include no chest pain, palpitations or shortness of breath. There are no associated agents to hypertension. Risk factors for coronary artery disease include family history, obesity and smoking/tobacco exposure. Past treatments include beta blockers and VAN inhibitors. The current treatment provides mild improvement. Compliance problems include diet and exercise. The following portions of the patient's history [...] SYSTEMS: Review of Systems Constitutional: Positive for malaise/fatigue. Negative for chills and fever. HENT: Negative. [...] bruise/bleed easily. Psychiatric/Behavioral: Negative. PHYSICAL EXAMINATION: Vitals: 09/14/24 1338 BP: 170/90 BP Site: Left Arm BP Postition: Sitting Pulse: 75 Resp: 18 Temp: 36.6 C (97.9 F) TempSrc: Oral SpO2: 98% Weight: (!) 158.2 kg (348 lb 12.8 oz) Height: 162.6 cm (5' 4 ) [...] normal. ASSESSMENT/PLAN: Krysta was seen today for hypertension. Diagnoses and all orders for this visit: Essential hypertension - chlorthalidone (HYGROTON) 25 mg tablet; Take 1 tablet (25 mg total) by mouth daily. - lisinopriL (PRINIVIL,ZESTRIL) 40 mg tablet; Take 1 tablet (40 mg total) by mouth in the morning. Blood pressure is 170/90 in office today Start chlorthalidone 25 mg oral daily Continue metoprolol succinate 100 mg oral daily Increase lisinopril to 40 mg oral daily Body mass index is 59.87 kg/m . Patient noted to have elevated [...] patient/family/caregiver Ordering medications, tests, or procedures Follow-up: 2 weeks HTN G[facility] 09/14/24 1415 documented in this encounter [facility] 08-12-2024 History of Present illness Narrative Images from the original note were not included. [address] [place] [address] SUBJECTIVE: Patient ID: Krysta Duran is a 39 y.o. female. Chief Complaint Patient presents with Hypertension Presents for blood pressure follow up. States she ended up going to ER on 07/29 for blood pressure. She was getting readings at home over 200/100. She had not started her lisinopril she was ordered. She is now taking both lisinopril and metoprolol succinate but a different times of day. Today, she took one medication at 11am and the other one hour before appointment today. She was unaware she can take both together in the morning. Additional concern today is chronic right ear pain. States the pain has not improved. She has been evaluated in the past by ENT. She was informed she needs a tube . She has not proceeded with this yet. Hypertension This is a chronic problem. The current episode started more than 1 year ago. The problem has been gradually improving since onset. Condition status: waxing and waning. Pertinent negatives include no chest pain, headaches, neck pain, palpitations or shortness of breath. There are no associated agents to hypertension. Risk factors for coronary artery disease include family history, obesity and sedentary lifestyle. Past treatments include beta blockers and VAN inhibitors. The current treatment provides moderate improvement. Compliance problems include diet and exercise. Earache There is pain in the right ear. The current episode started more than 1 month ago. The problem occurs hourly. The problem has been unchanged. The pain is at a severity of 4/10. Pertinent negatives include no abdominal pain, coughing, diarrhea, ear discharge, headaches, hearing loss, neck pain, rash, rhinorrhea, sore throat or vomiting. Treatments tried: steroids. The treatment provided no relief. The following portions of the patient's [...] Constitutional: Negative for chills and fever. HENT: Positive for ear pain. Negative for ear discharge, hearing loss, rhinorrhea and sore throat. Eyes: Negative for visual disturbance. Respiratory: Negative for cough, chest tightness and shortness of breath. Cardiovascular: Negative for chest pain and palpitations. Gastrointestinal: Negative. Negative for abdominal pain, diarrhea and vomiting. Endocrine: Negative. Genitourinary: Negative for menstrual problem and pelvic pain. Musculoskeletal: Negative. Negative for neck pain. Skin: Negative. Negative for rash. Allergic/Immunologic: Negative. Neurological: Negative for syncope, facial asymmetry and headaches. Hematological: Does not bruise/bleed easily. Psychiatric/Behavioral: Negative. PHYSICAL EXAMINATION: Vitals: 08/12/24 1442 BP: 150/80 BP Site: Left Arm BP Postition: Sitting Pulse: 86 Resp: 18 Temp: 36.7 C (98.1 F) TempSrc: Oral SpO2: 99% Weight: (!) 158 kg (348 lb 6.4 oz) Height: 162.6 cm (5' 4 ) Patient noted to have elevated BMI and the following intervention(s) were applied: encouragement to exercise. Physical Exam Vitals and nursing note reviewed. Constitutional: General: She is not in acute distress. Appearance: She is well-developed. She is not diaphoretic. HENT: Head: Normocephalic and atraumatic. Right Ear: External ear normal. Tympanic membrane is erythematous and bulging. Left Ear: Tympanic membrane and external ear [...] normal. ASSESSMENT/PLAN: Krysta was seen today for hypertension. Diagnoses and all orders for this visit: Vitamin B 12 deficiency - Vitamin B12; Future Acute right otitis media - amoxicillin (AMOXIL) 500 mg capsule; Take 1 capsule (500 mg total) by mouth in the morning and 1 capsule (500 mg total) before bedtime. Do all this for 10 days. Vaginal mayuri - fluconazole (DIFLUCAN) 150 mg tablet; Take 1 tablet (150 mg total) by mouth once for 1 dose. Essential hypertension Other orders - Cancel: T4, free; Future HTN. Blood pressure has slightly improved. States she just took metoprolol one hour before her appointment today. She also relates her dog several days ago and her stress is high today. BP was 170/100 at last appointment. Is 150/80 today. We did discuss increasing lisinopril today. She would like to wait a few weeks after she becomes more compliant with taking the medication Encourage her to monitor blood pressure at home and keep log. B12 deficiency. Check B12 level today Right otitis media. Start Amoxicillin 500 mg oral BID for 10 days. I have encouraged her to make follow up appointment with ENT for further evaluation. She was seen in 2023 and was recommended for myringotomy tube. She has not proceeded with this yet. Body mass index is 59.8 kg/m . Patient noted to have elevated [...] patient/family/caregiver Ordering medications, tests, or procedures Follow-up: 3 weeks HTN GUIDO Vila 08/12/24 1528 documented in this encounter [facility] 08-12-2024 Instructions GUIDO Vila - 08/12/2024 2:40 PM EDT Are You Ready To Kick The Habit? Free Tobacco Cessation Resources [facility] Services [facility] provide all employees with free tobacco cessation services that include: Counseling to understand nicotine addiction Education about medications that can help you successfully quit Assistance with developing a plan to quit Call to set up an individual appointment or find out when group classes will be held: [facility]: [phone] [facility]: [phone] [facility]: [phone] [facility]: [phone] Quit Smoking Action Plan and Resources [facility] offers an eight-week, online smoking cessation plan to all [facility] employees, regardless of whether [employer] is your medical insurance provider. Go to [email or web address]/[email or web address] ess and click the Health Risk Assessment and Resources link to get started. In the Rxkfw3Tzmknq menu, click Action Plans instead of Health Risk Assessment to access the Quit Smoking Action Plan. Additional smoking cessation resources are also available to all [facility] employees on the Cwzoh9Zfjrnq web page at www.[employer]/quits gilberto. [employer] Tobacco Cessation Program If [employer] is your medical insurance provider, there are more free resources available to you, including: No copays or deductibles on local tobacco cessation counseling services to help you quit Prescription assistance for tobacco cessation medications to help you quit For details about the tobacco cessation program available to [employer] members, go to www.[employer] (Search: Tobacco Cessation Program). [place] Tobacco Quit Line 1-091-UFAH-NOW ( ) is a toll-free, telephonic service that helps [place] residents quit smoking and using tobacco. It is staffed by experts who tailor a quit plan for you and provide you with advice. [place] Tobacco Quit Line 5-852-XOZR-NOW ( ) is a toll-free, telephonic service that helps [place] residents quit smoking and using tobacco. It is staffed by experts who tailor a quit plan for you and provide you with advice. Two weeks of nicotine replacement therapy may be provided at no charge, if needed. Additional Resources These national organizations also offer free information and resources to help you quit tobacco: [place] [employer]--www.cancer.org/healthy/s tayawayfromtobacco [place] [employer]--www.heart.org (Search: Quit Smoking) Centers for Disease Control and Prevention--www.cdc.gov/tobacco [place] [employer]--www.lungusa.org documented in this encounter [facility] 07-29-2024 Miscellaneous Notes ----- Message from Magi sent at 07/29/2024 7:59 PM EST ----- Contract: 198 Has a question concerning BP 213/124 Seen in office today. Metoprolol increased from 50 mg to 100 mg on Friday. Currently BP is 213/124 HR 89. Reports generalized headache. Denies weakness, dizziness, nausea or vomiting, Chest Pain, or SOB. Rates headache 2-3/10. Reports has been elevated all day, worse now. Advised to go to ER for further evaluation/treatment. Verbalizes understanding. will take her. Reason for Disposition [1] Systolic BP >= 160 OR Diastolic >= 100 AND [2] cardiac (e.g., breathing difficulty, chest pain) or neurologic symptoms (e.g., new-onset blurred or double vision, unsteady gait) Protocols used: Blood Pressure - High-A-AH documented in this encounter [facility] 07-29-2024 Telephone encounter Note ----- Message from Magi sent at 07/29/2024 7:59 PM EST ----- Contract: 198 Has a question concerning BP 213/124 [facility] 07-29-2024 Telephone encounter Note Seen in office today. Metoprolol increased from 50 mg to 100 mg on Friday. Currently BP is 213/124 HR 89. Reports generalized headache. Denies weakness, dizziness, nausea or vomiting, Chest Pain, or SOB. Rates headache 2-3/10. Reports has been elevated all day, worse now. Advised to go to ER for further evaluation/treatment. Verbalizes understanding. will take her. Reason for Disposition [1] Systolic BP >= 160 OR Diastolic >= 100 AND [2] cardiac (e.g., breathing difficulty, chest pain) or neurologic symptoms (e.g., new-onset blurred or double vision, unsteady gait) Protocols used: Blood Pressure - High-A-AH [facility] 07-29-2024 History of Present illness Narrative Blood pressure was 170/100 at last appointment. Currently is 164/100 and 162/94. Currently taking metoprolol succinate 100 mg oral daily. Add lisinopril 20 mg oral daily. Patient informed of changes. Voices understanding. GUIDO Vila 07/29/24 1611 documented in this encounter [facility] 07-26-2024 History of Present illness Narrative Images from the original note were not included. [address] [place] [address] SUBJECTIVE: Patient ID: Krysta Duran is a 39 y.o. female. Chief Complaint Patient presents with Injection wooshy in ears , fullness States she is feeling headaches and right ear fullness. States her ears feel wooshy, pulsating . She was referred to ENT for same complaint for her ear September 2023. She was prescribed Prednisone and was told she may need myringotomy tube Blood pressure is noted to be elevated today, 170/100. States she took her blood pressure medication around 2 pm today. Ear Fullness There is pain in the right ear. This is a recurrent problem. The current episode started 1 to 4 weeks ago. The problem occurs every few hours. The problem has been waxing and waning. There has been no fever. The pain is at a severity of 0/10. The patient is experiencing no pain. Associated symptoms include headaches. She has tried nothing for the symptoms. Hypertension This is a chronic problem. The current episode started more than 1 year ago. The problem is uncontrolled. Associated symptoms include headaches. Pertinent negatives include no palpitations or shortness of breath. There are no associated agents to hypertension. Risk factors for coronary artery disease include obesity. Past treatments include beta blockers. The current treatment provides moderate improvement. The following portions of the patient's history [...] 11/22/2015 REVIEW OF SYSTEMS: Review of Systems HENT: Positive for ear pain and tinnitus. Eyes: Negative for visual disturbance. Respiratory: Negative for chest tightness and shortness of breath. Cardiovascular: Negative for palpitations. Gastrointestinal: Negative. Endocrine: Negative. Genitourinary: Negative for menstrual problem and pelvic pain. Musculoskeletal: Negative. Skin: Negative. Allergic/Immunologic: Negative. Neurological: Positive for headaches. Negative for syncope and facial asymmetry. Hematological: Does not bruise/bleed easily. Psychiatric/Behavioral: Negative. PHYSICAL EXAMINATION: Vitals: 07/26/24 1653 BP: (!) 170/100 BP Site: Left Arm BP Postition: Sitting Pulse: 101 Resp: 18 Temp: 36.9 C (98.4 F) TempSrc: Oral SpO2: 99% Weight: (!) 160.6 kg (354 lb) Height: 162.6 cm (5' 4 ) Patient noted to have elevated BMI and the following intervention(s) were applied: encouragement to exercise. Physical Exam Vitals and nursing note reviewed. Constitutional: General: She is not in acute distress. Appearance: She is well-developed. She is not diaphoretic. HENT: Head: Normocephalic and atraumatic. Right Ear: External ear normal. Tympanic membrane is bulging. Left Ear: Tympanic membrane and external ear [...] normal. ASSESSMENT/PLAN: Krysta was seen today for injection and wooshy in ears , fullness. Diagnoses and all orders for this visit: Vitamin B 12 deficiency - cyanocobalamin (VITAMIN B-12) injection 1,000 mcg Essential (primary) hypertension - metoprolol succinate XL (TOPROL XL) 100 mg 24 hr tablet; Take 1 tablet (100 mg total) by mouth in the morning. Dysfunction of right eustachian tube - methylPREDNISolone (MEDROL, KRIILL,) 4 mg tablet; Take 1 tablet (4 mg total) by mouth in the morning. follow package directions. Blood pressure is elevated today, 170/100. Patient reports she took her BP medication, metoprolol, around 2 pm. Rechecked BP at end of visit, remained 170/100. Increase metoprolol succinate XL to 100 mg oral daily Start Medrol 4 mg dose pack for her right ear. TM is bulging. States she is experiencing fullness in the ear, sometimes uncomfortable. Has been evaluated in the past by ENT, there was a discussion about possible myringotomy tube if symptoms persist. B12 deficiency. Cyanocobalamin 1,000 mcg IM administered today. ALL QUESTIONS ANSWERED Total time spent was 25 minutes: Preparing to see the patient (e.g., review of tests) Obtaining and/or reviewing separately obtained history Performing a medically appropriate examination and/or evaluation Counseling and educating the patient/family/caregiver Ordering medications, tests, or procedures Follow-up: Nurse visit for BP check this week GUIDO Vila 07/27/24 1009 documented in this encounter [facility] 06-24-2024 History of Present illness Narrative After obtaining consent, and per orders of Annette Campbell, injection of B12 given by Nahed Starr CMA. Patient instructed to remain in clinic for 20 minutes afterwards, and to report any adverse reaction to me immediately. GUIDO Vila 06/24/24 1337 documented in this encounter [facility] 05-24-2024 History of Present illness Narrative Images from the original note were not included. [address] [facility] [address] SUBJECTIVE: Patient ID: Krysta Duran is a 38 y.o. female. Chief Complaint Patient presents with Diarrhea Vomiting Sinus Problem Patient presents with complaints of nausea, vomiting, diarrhea, and headache. Onset was last night. She denies fevers or chills. Blood pressure is elevated today, 160/100. States she was unable to take her blood pressure medication due to nausea and vomiting. States her son also has similar symptoms. Vomiting This is a new problem. The current episode started yesterday. The problem occurs 2 to 4 times per day. The problem has been waxing and waning. The emesis has an appearance of bile and stomach contents. There has been no fever. Associated symptoms include diarrhea, headaches, myalgias and URI. Pertinent negatives include no chest pain, chills or fever. Risk factors include ill contacts. She has tried increased fluids and sleep for the symptoms. The treatment provided no relief. The following portions of the patient's [...] SYSTEMS: Review of Systems Constitutional: Positive for fatigue. Negative for chills and fever. HENT: Positive for congestion and postnasal drip. Eyes: Negative for visual disturbance. Respiratory: Negative for chest tightness and shortness of breath. Cardiovascular: Negative for chest pain and palpitations. Gastrointestinal: Positive for diarrhea, nausea and vomiting. Endocrine: Negative. Genitourinary: Negative for menstrual problem and pelvic pain. Musculoskeletal: Positive for myalgias. Skin: Negative. Allergic/Immunologic: Negative. Neurological: Positive for headaches. Negative for syncope and facial asymmetry. Hematological: Does not bruise/bleed easily. Psychiatric/Behavioral: Negative. PHYSICAL EXAMINATION: Vitals: 05/24/24 1610 BP: (!) 160/100 BP Site: Left Arm BP Postition: Sitting Pulse: 115 Resp: 22 Temp: 37.1 C (98.7 F) TempSrc: Oral SpO2: 99% Weight: (!) 157.9 kg (348 lb) Height: 162.6 cm (5' 4 ) Patient [...] Vascular: No JVD. Cardiovascular: Rate and Rhythm: Regular rhythm. Heart sounds: Normal heart sounds. No [...] normal. ASSESSMENT/PLAN: Krysta was seen today for diarrhea, vomiting and sinus problem. Diagnoses and all orders for this visit: Gastroenteritis - loperamide (IMODIUM A-D) 2 mg tablet; Take 1 tablet (2 mg total) by mouth 4 (four) times a day as needed for diarrhea. Nausea - ondansetron ODT (ZOFRAN ODT) 4 mg disintegrating tablet; Dissolve 1 tablet (4 mg total) on tongue every 6 (six) hours as needed for nausea or vomiting. Education regarding viral gastroenteritis. New orders for Zofran and Imodium A-D. Continue to increase fluids. BP elevated today. Encourage to take blood pressure medication, metoprolol succinate XL ALL QUESTIONS ANSWERED Total time spent was 25 minutes: Preparing to see the patient (e.g., review of tests) Obtaining and/or reviewing separately obtained history Performing a medically appropriate examination and/or evaluation Counseling and educating the patient/family/caregiver Ordering medications, tests, or procedures Follow-up: Next scheduled Sooner if needed GUIDO Vila 05/24/24 1642 documented in this encounter [facility] 03-18-2024 History of Present illness Narrative Reason for Appointment: Patient ID: Krysta Duran is a 38 y.o. female who presents for Pre-op Visit Patient presents today for Pre Op appointment. Patient is scheduled to undergo Excision Bartholin's Cyst on 04/16/[address] Farnsworth at [facility]. MEDICATIONS Current Outpatient Medications Medication Instructions ibuprofen 600 mg, Every 8 hours PRN metoprolol succinate XL (Toprol-XL) 50 MG 24 hr tablet 1 tablet, Daily ALLERGIES Allergies Allergen Reactions Benzonatate Other Reaction(s): Facial Swelling PROBLEMS Active Ambulatory Problems Diagnosis Date Noted Antiphospholipid syndrome ([facility]) 07/30/2020 Anxiety disorder 04/04/2020 Chronic fatigue syndrome 04/04/2020 Essential hypertension ([facility]/HCC) 04/04/2020 Gastroesophageal reflux disease 04/04/2020 Hirsutism 04/04/2020 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/2020 Hyperthyroidism (CMS/HCC) 01/19/2020 Insulin resistance 04/04/2020 Migraine (CMS/HCC) 04/04/2020 Morbid obesity (CMS/HCC) 04/04/2020 Multiple thyroid nodules (CMS/HCC) 01/29/2023 Non-toxic uninodular goiter ([facility]/HCC) 04/04/2020 Polycystic ovary syndrome 04/04/2020 Prediabetes 04/04/2020 [...] nursing note reviewed. Exam conducted with a calciner operator present. Vitals: Estimated body mass index is [...] on 04/16/[address] Farnsworth at [facility]. Discussed post-operative care and recovery. Surgical consents were signed, mmc was reviewed, and patient is to proceed to H OR. Follow Up: Patient is to follow up between 1-2 weeks post operative to assess proper healing and recovery from procedure. Documented by Daphne Matos LPN on behalf of: Mario Farnsworth DO documented in this encounter [facility] 02-18-2024 History of Present illness Narrative Reason for Appointment: Patient ID: Krysta Duran is a 38 y.o. female who presents for Gynecologic Exam Patient presents today for Annual Exam. MEDICATIONS Current Outpatient Medications Medication Instructions albuterol HFA 90 mcg/act inhaler Inhalation cetirizine-pseudoephedrine (ZyrTEC-D) 5-120 MG 12 hr tablet 1 tablet, Oral, 2 times daily cholecalciferol (Vitamin D-3) 250 MCG (83445 UT) capsule 1 capsule, Oral, Daily cyanocobalamin (VITAMIN B-12) 1,000 mcg, Intramuscular, Every 30 days fluticasone (Flonase) 50 MCG/ACT nasal spray 2 sprays, Each Nostril, Daily hydrocortisone 2.5 % cream Topical ibuprofen 600 mg, Oral, Every 8 hours PRN Methylcobalamin 1000 MCG sublingual tablet 1 tablet, Oral, Daily metoprolol succinate XL (Toprol-XL) 50 MG 24 hr tablet 1 tablet, Oral, Daily naratriptan (AMERGE) 2.5 mg, Oral, Once as needed ALLERGIES Allergies Allergen Reactions Benzonatate Other Reaction(s): Facial Swelling PROBLEMS Active Ambulatory Problems Diagnosis Date Noted Antiphospholipid syndrome ([facility]) 07/30/2020 Anxiety disorder 04/04/2020 Chronic fatigue syndrome 04/04/2020 Essential hypertension ([facility]) 04/04/2020 Gastroesophageal reflux disease 04/04/2020 Hirsutism 04/04/2020 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 Cardiovascular: Negative. Gastrointestinal: Negative. Genitourinary: Negative. Musculoskeletal: Negative. Skin: Negative. Neurological: Negative. All other systems reviewed and are negative. Hematological: Negative. Endocrine: Negative. Allergic/Immunologic: Negative. OBJECTIVE Objective: Physical Exam Constitutional: Appearance: Normal appearance. She is well-developed. Genitourinary: Vulva normal. Genitourinary Comments: Cyst noted on right side of vaginal opening. Breasts: Breasts are soft. Right: Normal. Left: Normal. Cardiovascular: Rate and Rhythm: Normal rate and [...] nursing note reviewed. Exam conducted with a calciner operator present. Vitals: Estimated body mass index is 61.11 kg/m as calculated from the following: Height as of 10/02/23: 5' 4 . Weight as of this encounter: 356 lb. BP: 140/82 No LMP recorded. ASSESSMENT & PLAN ICD-10-CM 1. Well woman exam with routine gynecological exam Z01.419 Pap Smear HPV DNA probe, amplified Annual Exam: Patient presents today for an annual exam. Patient states she is doing well and has no complaints. Pap was obtained without difficulty. Pt has cyst on right side just outside of opening of vagina. Pt states it has been there for years and it is becoming painful and annoying. Pt desires fertility, discussed weight loss with pt. Pt given labs to have obtained. Pt to be scheduled for cyst removal. Orders Placed This Encounter Procedures HPV DNA probe, amplified Follow Up: Patient is to return in one year for annual unless needed otherwise. Documented by Fifi Coronel LPN on behalf of: Mario Farnsworth DO documented in this encounter [facility] 02-12-2024 History of Present illness Narrative After obtaining consent, and per orders of Annette Campbell, injection of B12 given by Nahed Starr CMA. Patient instructed to remain in clinic for 20 minutes afterwards, and to report any adverse reaction to me immediately. documented in this encounter [facility] [employer] 02-04-2024 History of Present illness Narrative Images from the original note were not included[place] [address] SUBJECTIVE: Patient ID: Krysta Duran is a 38 y.o. female. Chief Complaint Patient presents with Follow-up 6 month Presents for follow up States overall she has been doing good. She did have COVID one month ago but has recovered. Hypertension This is a chronic problem. The current episode started more than 1 year ago. The problem is controlled. Pertinent negatives include no palpitations or shortness of breath. There are no associated agents to hypertension. Risk factors for coronary artery disease include obesity and family history. Past treatments include beta blockers. The current treatment provides significant improvement. There are no compliance problems. The following portions of the patient's history were reviewed and updated as appropriate: allergies, current medications, past family history, past medical history, past social history, past surgical history and problem list. Past Surgical History: Procedure Laterality Date SECTION OOPHORECTOMY 2011 OVARIAN CYST SURGERY Past Medical History: Diagnosis Date Hypertension PCOS (polycystic ovarian syndrome) Immunization History Administered Date(s) Administered Influenza (IM) Preservative Free 04/01/2014 Tdap 04/01/2014, 11/22/2015 REVIEW OF SYSTEMS: Review of Systems HENT: Negative. Eyes: Negative for visual disturbance. Respiratory: Negative for chest tightness and shortness of breath. Cardiovascular: Negative for palpitations. Gastrointestinal: Negative. Endocrine: Negative. Genitourinary: Negative for menstrual problem and pelvic pain. Musculoskeletal: Negative. Skin: Negative. Allergic/Immunologic: Negative. Neurological: Negative for syncope and facial asymmetry. Hematological: Does not bruise/bleed easily. Psychiatric/Behavioral: Negative. PHYSICAL EXAMINATION: Vitals: 02/04/24 1258 BP: 138/80 BP Site: Left Arm BP Postition: Sitting Pulse: 90 Resp: 18 Temp: 36.6 C (97.9 F) TempSrc: Oral SpO2: 99% Weight: (!) 159.8 kg (352 lb 3.2 oz) Height: 162.6 cm (5' 4 ) Patient noted to have elevated BMI and the following intervention(s) were applied: encouragement to exercise. Physical Exam Vitals and nursing note reviewed. Constitutional: General: She is not in acute distress. Appearance: She is well-developed. She is not diaphoretic. HENT: Head: Normocephalic and atraumatic. Right Ear: External ear normal. Tympanic membrane is bulging. Left Ear: Tympanic membrane and external ear [...] normal. ASSESSMENT/PLAN: Krysta was seen today for follow-up. Diagnoses and all orders for this visit: Vitamin D deficiency - Vitamin D 25 hydroxy; Future Vitamin B 12 deficiency - Vitamin B12; Future Essential hypertension Leukocytosis, unspecified type - CBC auto differential; Future Vitamin D deficiency Check level today Admits she does not always take D supplement Continue D3 5,000 units oral daily B12 deficiency B12 level drawn today Is receiving monthly B12 injections. Unable to take oral form, states makes her feel ill Next injection due next week HTN 138/80 Continue metoprolol succinate XL 50 mg oral daily Leukocytosis Mild. Last CBC, WBC was 3.5, platelets 115. Recheck CBC with diff. Body mass index is 60.45 kg/m . Patient noted to have elevated [...] patient/family/caregiver Ordering medications, tests, or procedures Follow-up: Annual physical 6 months Annette Campbell APRN-AUTOMOBILE BODY CUSTOMIZER 02/04/24 1402 documented in this encounter [facility] 12-03-2023 History of Present illness Narrative B12 administered per MAXIM GUIDO Vila 12/03/23 1516 documented in this encounter [facility] 10-09-2023 Miscellaneous Notes Pt called wanted to know if you could represcribe the flonase , she was prescribled flonase by urgent care a month ago and ent would like her using that over the zyrtec Done documented in this encounter [facility] 10-09-2023 Telephone encounter Note Pt called wanted to know if you could represcribe the flonase , she was prescribled flonase by urgent care a month ago and ent would like her using that over the zyrtec [facility] 10-09-2023 Telephone encounter Note Done [facility] 09-22-2023 Miscellaneous Notes Patient called she would like a referral to ENT, I mentioned Amish and she said that was fine I need a reason, is this for chronic ear pain? Yes, and drainage. Nothing that we have done has helped her. Done documented in this encounter [facility] 09-22-2023 Telephone encounter Note Patient called she would like a referral to ENT, I mentioned Amish and she said that was fine [facility] 09-22-2023 Telephone encounter Note I need a reason, is this for chronic ear pain? [facility] 09-22-2023 Telephone encounter Note Yes, and drainage. Nothing that we have done has helped her. [facility] 09-22-2023 Telephone encounter Note Done [facility] 08-28-2023 History of Present illness Narrative Images from the original note were not included. [address] [facility] [address] SUBJECTIVE: Patient ID: Krysta Duran is [...] throat. Motrin or Tylenol as needed per insurance loss adjuster guidelines for fever or pain. POCT rapid [...] Vila 08/28/23 1358 [facility] History of Present illness Narrative Subjective [...] back with an update NICOLAS Kwan 08/14/23 0124 documented in this encounter [facility] 08-04-2023 History of Present illness Narrative Images from the original note were not included. [address] [place] [address] SUBJECTIVE: Patient ID: Krysta Duran is a [...] Vila 08/04/23 1611 documented in this encounter [facility] Evaluation note Diagnosis Pre-operative exam Unspecified pre-operative examination Bartholin's gland cyst Cyst of Bartholin's gland documented in this encounter [facility]* Diagnosis Well woman exam with routine gynecological exam Routine gynecological examination Hyperthyroidism (CMS/HCC) Thyrotoxicosis without mention of goiter or other cause, without mention of thyrotoxic crisis or storm Insulin resistance Other abnormal glucose documented in this encounter [facility] Healthcare[facility]* Diagnosis Gastroenteritis- Primary Other and unspecified noninfectious gastroenteritis and colitis Nausea Nausea alone [facility] Diagnosis Ear pain, bilateral- Primary [facility] Diagnosis B12 deficiency- Primary [facility] Diagnosis Seasonal allergic rhinitis due to pollen- Primary [facility] Diagnosis Vitamin B 12 deficiency- Primary Other B-complex deficiencies [facility] Diagnosis Vitamin B 12 deficiency- Primary Other B-complex deficiencies Vitamin D deficiency Prediabetes Other abnormal glucose Mixed hyperlipidemia Ocular migraine Variants of migraine, not elsewhere classified, without mention of intractable migraine without mention of status migrainosus Essential hypertension Unspecified essential hypertension [facility] Diagnosis Viral URI- Primary Acute upper respiratory infections of unspecified site [facility] Diagnosis Congestion of nasal sinus- Primary Other diseases of nasal cavity and sinuses Congestion of both ears [facility] Diagnosis Acute non-recurrent pansinusitis- Primary Vitamin B 12 deficiency Other B-complex deficiencies Upper respiratory symptom [facility]* Diagnosis Acute bacterial conjunctivitis, unspecified laterality- Primary [facility] Diagnosis Vitamin B 12 deficiency- Primary Other B-complex deficiencies [facility]* Diagnosis Essential (primary) hypertension Unspecified essential hypertension [facility] Diagnosis Essential hypertension- Primary Unspecified essential hypertension Vitamin D deficiency Vitamin B 12 deficiency Other B-complex deficiencies Leukocytosis, unspecified type [facility] Diagnosis Vitamin B 12 deficiency- Primary Other B-complex deficiencies [facility]* Diagnosis Vitamin B 12 deficiency- Primary Other B-complex deficiencies [facility]* Diagnosis Essential (primary) hypertension Unspecified essential hypertension [facility]* Diagnosis Essential (primary) hypertension- Primary Unspecified essential hypertension Vitamin B 12 deficiency Other B-complex deficiencies Dysfunction of right eustachian tube [facility] Diagnosis Essential (primary) hypertension- Primary Unspecified essential hypertension [facility] Diagnosis Vitamin B 12 deficiency- Primary Other B-complex deficiencies Acute right otitis media Vaginal mayuri Candidiasis of vulva and vagina Essential hypertension Unspecified essential hypertension [facility] Diagnosis Vitamin D deficiency [facility] Diagnosis Essential hypertension- Primary Unspecified essential hypertension [facility] Diagnosis Essential hypertension- Primary Unspecified essential hypertension Vitamin D deficiency [facility] Diagnosis Vitamin B 12 deficiency- Primary Other B-complex deficiencies [facility]* Diagnosis Irregular menses Irregular menstrual cycle documented in this encounter [facility]* Diagnosis Menorrhagia with irregular cycle documented in this encounter [facility]* Diagnosis Essential hypertension Unspecified essential hypertension Essential (primary) hypertension Unspecified essential hypertension [facility]* Diagnosis Pre-op examination Menorrhagia with regular cycle Vaginal cyst Other specified noninflammatory disorder of vagina documented in this encounter [facility]* Diagnosis Vitamin B 12 deficiency- Primary Other B-complex deficiencies [facility] Diagnosis Chronic fatigue syndrome- Primary TALAT (obstructive sleep apnea) Obstructive sleep apnea (adult) (pediatric) Gastroesophageal reflux disease without esophagitis Esophageal reflux Vitamin B 12 deficiency Other B-complex deficiencies [facility]* Attachments The following attachments cannot be sent through Care Everywhere. * Viral Gastroenteritis Discharge Instructions, Adult (Jordanian) [facility]Not [facility] file documented in [facility]Not on file documented in [facility]Not on file [facility]* Attachments The following attachments cannot be sent through Care Everywhere. * Vitamin B12 Deficiency Discharge Instructions (Jordanian) documented [facility] this [facility]* Attachments The following attachments cannot be sent through Care Everywhere. * Vitamin D deficiency (Jordanian) * Vitamin B12 deficiency and folate deficiency (Jordanian) [facility]Not [facility] documented in this [facility]* Attachments The following attachments cannot be sent through Care Everywhere. * Sinusitis in adults (Jordanian) [facility]Not on file documented in this [facility]ructionsNot [facility] file documented in this [facility]* Attachments The following attachments cannot be sent through Care Everywhere. * High blood pressure in adults (Jordanian) [facility]Not on file documented in this [facility]* Attachments The following attachments cannot be sent through Care Everywhere. * Eustachian tube problems (Jordanian) * High blood pressure in adults (Jordanian) [facility]Not on file documented in this [facility]ructionsNot [facility] file documented in this [facility]* Attachments The following attachments cannot be sent through Care Everywhere. * High Blood Pressure Discharge Instructions (Jordanian) [facility] Attachments The following attachments cannot be sent through Care Everywhere. * Controlling your blood pressure through lifestyle (Jordanian) documented in [facility] Hospital[facility]ructionsNot on file documented in this encounterProv[facility] HospitalReason for referral (narrative)* Consultation (Routine) - Pending Review Specialty Diagnoses / Procedures Referred By Arelis shoemaker Referred To Contact Otolaryngology Diagnoses Ear pain, bilateral Annette Campbell APRN-AUTOMOBILE BODY CUSTOMIZER [address] [place] [address] Tanja Wellington MD [address] [place] [address] Referral ID Status Reason Start Date Expiration Date Visits Requested Visits Authorized [id number] Pending Review Specialty Services Required 09/23/2023 09/22/2024 1 1 [employer] System Assessments Diagnosis Neck pain Cervicalgia Midline [...] through Care Everywhere. * Hypertension: General Info (Jordanian) documented in this encounter Additional Source Comments INFORMATION SOURCE (unrecogn ized section and content) DATE CREATED AUTHOR 04/01/2020 [facility] Mel[facility] DATE CREATED AUTHOR AUTHOR'S ORGANIZ ATION [facility]02/2020 [facility] DATE CREATED AUTHOR AUTHOR'S ORGANIZ ATION 09/20/2020 [facility] DATE CREATED AUTHOR AUTHOR'S ORGANIZ ATION 04/08/2022 [facility] DATE CREATED AUTHOR AUTHOR'S ORGANIZ ATION 10/01/2024 [facility] DATE CREATED AUTHOR AUTHOR'S ORGANIZ ATION 11/09/2024 [facility] DATE CREATED AUTHOR AUTHOR'S ORGANIZ ATION 12/13/2024 [facility] DATE CREATED AUTHOR AUTHOR'S ORGANIZ ATION 01/07/2025 [facility] DATE CREATED AUTHOR AUTHOR'S ORGANIZ ATION 01/26/2025 [facility] Reason for Visit (unrecogniz ed section and content) Reason Comments Hypertension ongoing chronic Reason Comments Pre-op Visit Reason Comments Gynecologic Exam Reason Comments Diarrhea Vomiting Sinus Problem Reason Comments Injection Reason Comments discuss b12 Reason Comments Sore Throat Nasal Congestion Reason Comments Nasal Congestion Earache Cough Sore Throat Reason Comments Med Refill Reason Comments Follow-up 6 month Reason Comments Injection wooshy in ears , fullness Reason Comments BP Reason Onset Date Comments Hypertension 07/29/2024 Reason Comments Hypertension Reason Comments irregular cycles Reason Comments Menorrhagia Pt present today for an Embx due to menorrhagia. Reason Onset Date Comments Med Refill 12/15/2024 Reason Comments Establish Care Care Teams (unrecognized sec tion and content) Cool Roofing Installer Relationship Specialty Start Date End Date Cynthia Colvin PCP - [facility] [employer]ICAL [employer]ETIC[employer] 11/24/23 Annette Campbell CRNP [address] [place] [address] Referring Physician Nurse Practitioner 09/24/23 Cool Roofing Installer Relationship Specialty Start Date End Date Cynthia Colvin PCP - [facility] [place] [facility] 11/24/23 Annette Campbell CRNP [address] [place] [address] Referring Physician Nurse Practitioner 09/24/23 Cool Roofing Installer Relationship Specialty Start Date End Date Cynthia Colvin PCP - [facility] [place] [facility] 11/24/23 Annette Campbell CRNP [address] [place] [address] Referring Physician Nurse Practitioner 09/24/23 Cool Roofing Installer Relationship Specialty Start Date End Date Cynthia Colvin PCP - [facility] [place] [facility] 11/24/23 Annette Campbell CRNP [address] [place] [address] Referring Physician Nurse Practitioner 09/24/23 Cool Roofing Installer Relationship Specialty Start Date End Date Kamlesh Charles MD [address] [place] [address] PCP - [facility] [place] [facility] 08/25/23 Annette Campbell CRNP [address] [place] [address] Referring Physician Nurse Practitioner 09/24/23 Cool Roofing Installer Relationship Specialty Start Date End Date Annette Campbell APRN-AUTOMOBILE BODY CUSTOMIZER [address] [place] [address] PCP - General Family Medicine 04/03/20 Cool Roofing Installer Relationship Specialty Start Date End Date Annette Campbell APRN-AUTOMOBILE BODY CUSTOMIZER [address] [place] [address] PCP - General Family Medicine 04/03/20 Cool Roofing Installer Relationship Specialty Start Date End Date Annette Campbell [facility] [address] [place] [address] PCP - General Family Medicine 04/03/20 Cool Roofing Installer Relationship Specialty Start Date End Date Annette Campbell [facility] [address] [place] [address] PCP - General Family Medicine 04/03/20 Cool Roofing Installer Relationship Specialty Start Date End Date Annette Campbell [facility] [address] [place] [place] [address] PCP - General Family Medicine 04/03/20 Cool Roofing Installer Relationship Specialty Start Date End Date Annette Campbell [facility] [address] [place] [address] PCP - General Family Medicine 04/03/20 Cool Roofing Installer Relationship Specialty Start Date End Date Annette Campbell [facility] [address] [place] [place] [address] PCP - General Family Medicine 04/03/20 Cool Roofing Installer Relationship Specialty Start Date End Date Annette Campbell [facility] [address] [place] [place] [address] PCP - General Family Medicine 04/03/20 Cool Roofing Installer Relationship Specialty Start Date End Date Annette Campbell [facility] [address] [place] [address] PCP - General Family Medicine 04/03/20 Cool Roofing Installer Relationship Specialty Start Date End Date Annette Campbell [facility] [address] [place] [place] [address] PCP - General Family Medicine 04/03/20 Cool Roofing Installer Relationship Specialty Start Date End Date Annette Campbell [facility] [address] [place] [address] PCP - General Family Medicine 04/03/20 Cool Roofing Installer Relationship Specialty Start Date End Date Annette Campbell [facility] [address] [place] [address] PCP - General Family Medicine 04/03/20 Cool Roofing Installer Relationship Specialty Start Date End Date Annette Campbell [facility] [address] [place] [place] [address] PCP - General Family Medicine 04/03/20 Cool Roofing Installer Relationship Specialty Start Date End Date Annette Campbell [facility] [address] [place] [place] [address] PCP - General Family Medicine 04/03/20 Cool Roofing Installer Relationship Specialty Start Date End Date Annette Campbell, HEALTH EDUCATION TEACHER-AUTOMOBILE BODY CUSTOMIZER [address] [place] [address] PCP - General Family Medicine 04/03/20 Cool Roofing Installer Relationship Specialty Start Date End Date Annette Campbell HEALTH EDUCATION TEACHER-AUTOMOBILE BODY CUSTOMIZER [address] [place] [address] PCP - General Family Medicine 04/03/20 Cool Roofing Installer Relationship Specialty Start Date End Date LennyZac galeasyssa PCP - [facility] [place] 11/24/23 Annette Campbell CRNP Referring Physician Nurse Practitioner 09/24/23 Cool Roofing Installer Relationship Specialty Start Date End Date Lennyadal Cynthia PCP - [facility] [place] [facility] 11/24/23 Annette Campbell CRNP Referring Physician Nurse Practitioner 09/24/23 Cool Roofing Installer Relationship Specialty Start Date End Date LennyZac galeasyssa PCP - [facility] [place] [facility] 11/24/23 Annette Campbell CRNP Referring Physician Nurse Practitioner 09/24/23 Cool Roofing Installer Relationship Specialty Start Date End Date LennyBernadette galeassa PCP - [facility] [place] [facility] 11/24/23 Annette Campbell CRNP Referring Physician Nurse Practitioner 09/24/23 FOR RECORDS [...] BE BASED ON THE PRIMARY CLINICAL RECORDS. [facility] provides no warranty or guarantee of the accuracy or completeness of information in this document.
== END 2025-01-26 12:01 | disposition home or self-care (01) ==
LOC: PST 12:02
PROVIDERS: PCP Student in an Organized Health Care Education/Training Program; Visit Provider Obstetrics & Gynecology
DX: Z01.810 Encounter for preprocedural cardiovascular examination (principal); Z01.812 Encounter for preprocedural laboratory examination; N89.8 Other specified noninflammatory disorders of vagina; N92.0 Excessive and frequent menstruation with regular cycle
CPT/HCPCS: 80048; 93005

== ENCOUNTER 2025-02-04 08:08 | Day surgery (SDC) | payer MEDICAID, SELFPAY ==
[2025-01-26 12:56] VITALS: BP 127/80; PULSE 95; TEMP 36.4; O2SAT 98; BMI 57.7
[2025-02-04] VITALS (29 sets, daily range): BP systolic 62–143; BP diastolic 33–79; PULSE 63–86; TEMP 36.2–36.3; O2SAT 87–100; BMI 57.7
--- OUTSIDE RECORDS SUMMARY | 2025-02-04 08:12 | XMS_ITS | CCD ---
Author Organization [facility] Care Team Providers Care Ordnance Artificer Name Role Phone House, Sr Mario Peterson Primary Care Provider MAXWELL LLANES Referring Unavailab le HOUSE, SR MARIO Peterson Primary Care Unavailable MAXWELL LLANES Referring Unavailab le HOUSE, SR MARIO Peterson Primary Care Unavailable MAXWELL LLANES Referring Unavailab le HOUSE, SR MARIO Peterson Primary Care Unavailable MAXWELL LLANES Referring Unavailab le [place], SR MARIO Peterson Primary Care Unavailable LISSETH GIBBS Attending Unavailable [place], SR MARIO Peterson Primary Care Unavailable [place], SR MARIO Peterson Primary Care Unavailable HOWARD CUELLAR Referring Unavailable JAVAD, DR BECKER Admitting Unavailable JAVAD, DR BECKER Attending Unavailable HOUSE, DR BOWERS Primary Care Unavailable JAVAD, DR BECKER Consulting Unavailable Annette Nathan Unavailable Cynthia Colvin Unavailable Unavailable Kamlesh Charles MD Unavailable Adrian AURIST-Annette WARD Primary Care Provid er Adrian AURIST-Annette WARD Primary Care Provid er ANNETTE CAMPBELL Attending Unavailable ANNETTE CAMPBELL Primary Care Unavailable ANNETTE CAMPBELL Referring Unavailable ANNETTE CAMPBELL Primary Care Unavailable ANNETTE CAMPBELL Referring Unavailable ANNETTE CAMPBELL Primary Care Unavailable Sweetie Nathane Unavailable GIRISH HENRIQUEZ Referring Unavailable ANNETTE CAMPBELL Primary Care Unavailable ANNETTE CAMPBELL Referring Unavailable ANNETTE CAMPBELL Primary Care Unavailable ANNETTE CAMPBELL Primary Care Unavailable LILIA STEPHENS Attending Unavailable CAMPBELL, ANNETTE Oz Referring Unavailable CAMPBELL, ANNETTE J Primary Care Unavailable JAVADMAROI Referring Unavailable CAMPBELL, ANNETTE J Primary Care Unavailable Unavailable Primary Care Provider Unavailabl e JAVAD, MARIO Attending Unavailable JAVAD, MARIO Attending Unavailable JAVAD, MARIO Attending Unavailable JAVAD, MARIO Attending Unavailable JAVAD, MARIO Attending Unavailable ALTA ROTHMAN Attending Unavailable ASH LA Attending Unavailable IESHA VALDOVINOS Attending Unavailable CAMPBELL, ANNETTE J Referring Unavailable CAMPBELL, ANNETTE J Primary Care Unavailable CAMPBELL, ANNETTE Clinton Attending Unavailable CAMPBELL, ANNETTE J Attending Unavailable CAMPBELL, [...] Attending Unavailable CAMPBELL, ANNETTE J Referring Unavailable CAPMBELL, ANNETTE J Primary Care Unavailable CAMPBELL, ANNETTE [...] sources) benzonatate; Translations: [BENZONATATE] Drug Allergy 4 [facility] Work Phone: (20 sources) benzonatate Drug Allergy 4 Facial Swelling [facility] (18 sources) hydrALAZINE; Translations: [HYDRALAZINE] Drug Allergy 5 Flushing [facility] Medications Current Medications Medication Drug Class(es) [...] once daily cholecalciferol (Vitamin D-3) 250 MCG (96421 UT) capsule Take 1 capsule by mouth [...] 04-03-2020 acetaminophen (TYLENOL) tabl et 1,000 mg [id number] 200 actuat albuterol 0.09 mg/actuat metered dose [...] 20 mg/ml oral solution (2 sources) Uncompetitive D-xtjqyg-V-aspartate Receptor Antagonist, Sigma-1 Agonist Start: 08-14-2023 End: [...] unspecified] Onset: 03-02-2024 Unclassified (1 source) 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 Per patient she does not wish to reschedule at this time, she is seeing her PCP and will discuss it with her PCP to see if seeing a pool lifeguard is necessary. Normal [facility] ALL BASIC METABOLIC PANELon 01-26-2025 Anion gap [Moles/Vol] 10 mmol/L [facility] Calcium [Mass/Vol] 9 mg/dL 8.5 - 10. 1 mg/dL [facility] Chloride [Moles/Vol] 102 mmol/L 98 - 107 mmol/L [facility] CO2 [Moles/Vol] 30.2 mmol/L 21.0 - 32.0 mmol/L [facility] Creatinine [Mass/Vol] 1.15 mg/dL High 0.55 - 1.02 mg/dL [facility] GFR/1.73 sq M.predicted CKD-EPI (S/P/Bld) [Vol rate/Area] >60 >=60 mL/min/1.73m 2 [facility] Glucose [Mass/Vol] 102 mg/dL 74 - 106 mg/dL [facility] Interpretation and review of laboratory results [facility] Pot[facility] [Moles/Vol] 4.2 mmol/L 3.5 - 5.1 mmol/L [facility] Sodium [Moles/Vol] 138 mmol/L 136 - 145 mmol/L [facility] TBH EGFR-NON AF MAURITANIAN 53 Low >=60 mL/min/1.73m 2 [facility] Urea nitrogen [Mass/Vol] 15 mg/dL 7.0 - 18.0 mg/dL [facility] Urea nitrogen/Creatinine [Mass ratio] 13 mg/mg [facility] 01-26-20[address] [place] [address] Electrocardiograph Report Signed Patient: KRYSTA DURAN MR#: [id number] : 1985 Acct:[id number] Age/Sex: 39 / F ADM Date: 01/26/25 Loc: PST Attending Dr: Mario Farnsworth D.O. Ordering Physician: Mario Farnsworth D.O. Date of Service: 01/26/25 Procedure(s): ECG 12 lead Accession Number(s): [id number] cc: [facility] Test Date: 2025-01-26 Pat Name: KRYSTA DURAN Department: Room: - Gender: Female Toggler: : 1985 Requested By: MARIO FARNSWORTH Order Number: [id number] Reading MD: MARIBEL PAUL Measurements Intervals [place] Rate: 83 P: 50 NV: 180 QRS: 50 QRSD: 93 T: 28 QT: 343 QTc: 405 Interpretive Statements SINUS RHYTHM Compared to ECG 04/02/2024 09:51:39 No significant changes Electronically Signed On 01-26-2025 13:59:51 EDT by MARIBEL PAUL Dictated By: Maribel Paul M.D. Signed By: 01/26/25 1400 DD/ 1046 TD/TT: Firefighter: [facility] Radiology, Radiologist, - 01/26/2025 [place] [address] Electrocardiograph Report Signed Patient: KRYSTA DURAN MR#: [id number] : 1985 Acct:[id number] Age/Sex: 39 / F ADM Date: 01/26/25 Loc: [facility] Attending Dr: Mario Farnsworth D.O. Ordering Physician: Mario Farnsworth D.O. Date of Service: 01/26/25 Procedure(s): ECG 12 lead Accession Number(s): [id number] cc: [facility] Test Date: 2025-01-26 Pat Name: KRYSTA DURAN Department: Room: - Gender: Female Toggler: : 1985 Requested By: MARIO FARNSWORTH Order Number: [id number] Reading MD: MARIBEL PAUL Measurements Intervals [place] Rate: 83 P: 50 NV: 180 QRS: 50 QRSD: 93 T: 28 QT: 343 QTc: 405 Interpretive Statements SINUS RHYTHM Compared to ECG 04/02/2024 09:51:39 No significant changes Electronically Signed On 01-26-2025 13:59:51 EDT by MARIBEL PAUL Dictated By: Maribel Paul M.D. Signed By: 01/26/25 1400 DD/ 1046 TD/TT: Firefighter: [facility] Radiology Study observation (narrative) [facility] ECG 12-LEADOrdered By: [facility] on 01-26-2025 [facility] Work Phone: 36on 12-10-2024 36 12/10/2024 LVM left for patient to call and schedule new patient consult per Dr. Walker office Return call from patient, patient scheduled for 12/30/2024 at 2:20 pm Normal [facility] Telephoneon 12-10-2024 Telephone [phone] Love Duran 1985 F Date Provider Department Center 12/10/2024 [id number] MACEDO CARD [facility] Family History Problem Relation Age of Onset Thyroid disease Mother Diabetes Mother Diabetes Father Family Status - Relation Status Age at Mother Father Normal [facility] HCG ( test) Ql (U)o n 12-06-2024 Interpretation and review of laboratory results Normal [facility] Preg Test, Ur Negative [facility] [employer] [facility] US PELVIC WITH TRANSVAGINALo n 11-07-2024 [...] Khanna MD on 11/07/2024 2:59 PM Normal [facility] CBC WITH AUTO DIFFERENTIALon 11-03-2024 BASOPHILS ABSOLUTE COUNT (10*3/UL) BY AUTOMATED COUNT 0.0 10*3/uL Normal 0.0-0.2 [facility] Comment on above: Performed By: #### C BCA #### [facility] ([facility]) [address] [place] [address] VIR BASOPHILS RELATIVE PERCENT BY AUTOMATED COUNT 0.6 % Normal [facility] Comment on above: Performed By: #### C BCA #### [facility] ([facility]) [address] [place] [address] VIR CELLAVISION DIFFERENTIAL TYPE AUTOMATED DIFFERENTIAL Normal [facility] Comment on above: Performed By: #### C BCA #### [facility] ([facility]) [address] [place] [address] VIR Eosinophils (Bld) [#/Vol] 0.1 10*3/uL Normal 0.0-0.4 [facility] Comment on above: Performed By: #### C BCA #### [facility] ([facility]) [address] [place] [address] VIR EOSINOPHILS RELATIVE PERCENT BY AUTOMATED COUNT 0.6 % Normal [facility] Comment on above: Performed By: #### C BCA #### [facility] ([facility]) [address] [place] [address] VIR Erythrocyte distribution width (RBC) [Ratio] 13.7 % Normal 11.5-15 [facility] Comment on above: Performed By: #### C BCA #### [facility] ([facility]) [address] [place] [address] VIR Hematocrit (Bld) [Volume fraction] 39.3 % Normal 35-47 [facility] Comment on above: Performed By: #### C BCA #### [facility] ([facility]) [address] [place] [address] VIR Hemoglobin (Bld) [Mass/Vol] 13.6 g/dL Normal 11.7-15.5 [facility] Comment on above: Performed By: #### C BCA #### [facility] ([facility]) [address] [place] [address] VIR LYMPHOCYTES ABSOLUTE COUNT (10*3/UL) BY AUTOMATED COUNT 1.8 10*3/uL Normal 1.0-3.5 [facility] Comment on above: Performed By: #### C BCA #### [facility] ([facility]) [address] [place] [address] VIR LYMPHOCYTES RELATIVE PERCENT BY AUTOMATED COUNT 22.5 % Normal [facility] Comment on above: Performed By: #### C BCA #### [facility] ([facility]) [address] [place] [address] VIR MCH (RBC) [Entitic mass] 28.9 pg Normal 27-34 [facility] Comment on above: Performed By: #### C BCA #### [facility] ([facility]) [address] [place] [address] VIR MCHC (RBC) [Mass/Vol] 34.7 g/dL Normal 32-36 [facility] Comment on above: Performed By: #### C BCA #### [facility] ([facility]) [address] [place] [address] VIR MCV (RBC) [Entitic vol] 83 fL Normal 80-100 [facility] Comment on above: Performed By: #### C BCA #### [facility] ([facility]) [address] [place] [address] VIR MONOCYTES ABSOLUTE COUNT (10*3/UL) BY AUTOMATED COUNT 0.4 10*3/uL Normal 0.0-0.9 [facility] Comment on above: Performed By: #### C BCA #### [facility] ([facility]) [address] [place] [address] VIR MONOCYTES RELATIVE PERCENT BY AUTOMATED COUNT 5.3 % Normal [facility] Comment on above: Performed By: #### C BCA #### [facility] ([facility]) [address] [place] [address] VIR NEUTROPHILS ABSOLUTE COUNT BY AUTOMATED COUNT 5.8 10*3/uL Normal 1.5-6.6 [facility] Comment on above: Performed By: #### C BCA #### [facility] ([facility]) [address] [place] [address] VIR NEUTROPHILS RELATIVE PERCENT BY AUTOMATED COUNT 71.0 % Normal [facility] Comment on above: Performed By: #### C BCA #### [facility] ([facility]) [address] [place] [address] VIR Platelet mean volume (Bld) [Entitic vol] 9.7 fL Normal 7-12 [facility] Comment on above: Performed By: #### C BCA #### [facility] ([facility]) [address] [place] [address] VIR Platelets (Bld) [#/Vol] 208 10*3/uL Normal 150-450 [facility] Comment on above: Performed By: #### C BCA #### [facility] ([facility]) [address] [place] [address] VIR RBC COUNT 4.71 X10E12/L Normal 3.8-5.2 [facility] Comment on above: Performed By: #### C BCA #### [facility] ([facility]) [address] [place] [address] VIR WBC (Bld) [#/Vol] 8.1 10*3/uL Normal 4-11 [facility] Comment on above: Performed By: #### C BCA #### [facility] ([facility]) [address] [place] [address] VIR DEHYDROEPIANDROSTERONE, SERU 11-03-2024 DEHYDROEPIANDROSTER ONE, S 4.1 ng/mL Normal <10 [facility] Comment on above: Result Comment: ADDITIONAL INFORMATION This test was developed and its performance characteristics determined by [facility] in a manner consistent with CLIA requirements. This test has not been cleared or approved by the U.S. Food and Drug Administration. Test Performed by: [facility] [address] [place] [address] Strip Mill Operator: Elmo Casas Ph.D.; CLIA# [id number] Performed By: #### H A1C, THYR, 0 #### [facility] ([id number]) [address] [place] [address] DHEA-SULFATEon 11-03-2024 DHEA S 302 ug/dL High 23-266 [facility] Comment on above: Performed By: #### H A1C, THYR, 0 #### [facility] ([id number]) [address] [place] [address] FOLLICLE STIMULATING HORMONE on 11-03-2024 FOLLICLE STIM HORMONE 11.7 mIU/mL Normal [facility] Comment on above: Order Comment: ROMAIN L FEMALE:Luteal 1.8-5.1 mIU/mLFollicular 3.8-8.8 mIU/mLMid Cycle 4.5-22.5 mIU/mLPost Nancy 16.7-113.6 mIU/mL Performed By: #### H A1C, THYR, 0 #### [facility] ([id number]) [address] [place] [address] HCG-BETA, SERUMon 11-03-2024 SERUM B HCG,3RD I.S. <^5 Normal [facility] Comment on above: Order Comment: WEEKS (SINCE [...] neoplasms. Performed By: #### H CG #### [facility] ([facility]) [address] [place] [address] VIR HEMOGLOBIN A1Con 11-03-2024 Glucose [Mass/Vol] 111 mg/dL Normal [facility] Comment on above: Performed By: #### H A1C #### [facility] ([facility]) [address] [place] [address] VIR HbA1c (Bld) [Mass fraction] 5.5 % Normal 4.4-5.6 [facility] Comment on above: Result Comment: ADA Guidelines Result HgbA1c Normal : less than 5.7 % Prediabetes : 5.7 % to 6.4 % Diabetes : > 6.4 % Use with caution in patients with abnormal hemoglobin variants as the half-life of red blood cells and in vivo glycation rates are affected. Performed By: #### H A1C #### [facility] ([facility]) [address] [place] [address] VIR LUTEINIZING HORMONEon 2024 LUTEINIZING HORMONE 8.7 mIU/mL Normal [facility] Comment on above: Order Comment: ROMAIN L FEMALEFollicular 2.1-10.9 mIU/mLMid Cycle 19.2-103 mIU/mLLuteal 1.2-12.9 mIU/mLPost [place] 10.9-58.6 mIU/mL Performed By: #### H A1C, THYR, 305-0 #### [facility] ([id number]) [address] [place] [address] THYROID PROFILE INCLUDES TSH FT4on 11-03-2024 Free T4 [Mass/Vol] 0.97 ng/dL Normal 0.61-1.60 [facility] Comment on above: Performed By: #### H A1C, THYR, 305-0 #### [facility] ([id number]) [address] [place] [address] TSH 3.00 uIU/mL Normal 0.49-4.67 [facility] Comment on above: Performed By: #### H A1C, THYR, 305-0 #### [facility] ([id number]) [address] [facility] [place] [address] BASIC METABOLIC PANELon Anion gap [Moles/Vol] 10 mmol/L Normal 5-15 [facility] Comment on above: Performed By: #### B MP #### [facility] ([facility]) [address] [place] [address] VIR Calcium [Mass/Vol] 9.9 mg/dL Normal 8.5-10.5 [facility] Comment on above: Performed By: #### B MP #### [facility] ([facility]) [address] [place] [address] VIR Chloride [Moles/Vol] 97 mmol/L Low 98-109 [facility] Comment on above: Performed By: #### B MP #### [facility] ([facility]) [address] [place] [address] VIR CO2 [Moles/Vol] 27 mmol/L Normal 22-32 [facility] Comment on above: Performed By: #### B MP #### [facility] ([facility]) [address] [place] [address] VIR Creatinine [Mass/Vol] 0.86 mg/dL Normal 0.40-1.00 [facility] Comment on above: Result Comment: METH OD TRACEABLE TO IDMS STANDARD Performed By: #### B MP #### [facility] ([facility]) [address] [place] [address] VIR GFR/1.73 sq M.predicted among non-blacks MDRD (S/P/Bld) [Vol rate/Area] 89 mL/min/{1.73_m2} Normal >=60 [facility] Comment on above: Result Comment: Repo rted eGFR is based on the CKD-EPI 2020 equation that does not use a race coefficient. Performed By: #### B MP #### [facility] ([facility]) [address] [place] [address] VIR Glucose [Mass/Vol] 98 mg/dL Normal 65-99 [facility] Comment on above: Performed By: #### B MP #### [facility] ([facility]) [address] [place] [address] VIR Potassium [Moles/Vol] 4.1 mmol/L Normal 3.5-5.0 [facility] Comment on above: Performed By: #### B MP #### [facility] ([facility]) [address] [place] [address] VIR Sodium [Moles/Vol] 134 mmol/L Normal 134-146 [facility] Comment on above: Performed By: #### B MP #### [facility] ([facility]) [address] [place] [address] VIR Urea nitrogen [Mass/Vol] 15 mg/dL Normal 5-23 [facility] Comment on above: Performed By: #### B MP #### [facility] ([facility]) [address] [place] [address] VIR CBC WITH AUTO DIFFERENTIALon 09-28-2024 BASOPHILS ABSOLUTE COUNT (10*3/UL) BY AUTOMATED COUNT 0.0 10*3/uL Normal [facility] Comment on above: Performed By: #### C BCA #### [facility] ([facility]) [address] [place] [address] VIR BASOPHILS RELATIVE PERCENT BY AUTOMATED COUNT 0.5 % Normal [facility] Comment on above: Performed By: #### C BCA #### [facility] ([facility]) [address] [place] [address] VIR CELLAVISION DIFFERENTIAL TYPE AUTOMATED DIFFERENTIAL Normal [facility] Comment on above: Performed By: #### C BCA #### [facility] ([facility]) [address] [place] [address] VIR Eosinophils (Bld) [#/Vol] 0.1 10*3/uL Normal [facility] Comment on above: Performed By: #### C BCA #### [facility] ([facility]) [address] [place] [address] VIR EOSINOPHILS RELATIVE PERCENT BY AUTOMATED COUNT 1.2 % Normal [facility] Comment on above: Performed By: #### C BCA #### [facility] ([facility]) [address] [place] [address] VIR Erythrocyte distribution width (RBC) [Ratio] 13.3 % Normal 11.5-15 [facility] Comment on above: Performed By: #### C BCA #### [facility] ([facility]) [address] [place] [address] VIR Hematocrit (Bld) [Volume fraction] 43.6 % Normal 35-47 [facility] Comment on above: Performed By: #### C BCA #### [facility] ([facility]) [address] [place] [address] VIR Hemoglobin (Bld) [Mass/Vol] 15.0 g/dL Normal 11.7-15.5 [facility] Comment on above: Performed By: #### C BCA #### [facility] ([facility]) [address] [place] [address] VIR LYMPHOCYTES ABSOLUTE COUNT (10*3/UL) BY AUTOMATED COUNT 1.7 10*3/uL Normal [facility] Comment on above: Performed By: #### C BCA #### [facility] ([facility]) [address] [place] [address] VIR LYMPHOCYTES RELATIVE PERCENT BY AUTOMATED COUNT 26.0 % Normal [facility] Comment on above: Performed By: #### C BCA #### [facility] ([facility]) [address] [place] [address] VIR MCH (RBC) [Entitic mass] 28.4 pg Normal 27-34 [facility] Comment on above: Performed By: #### C BCA #### [facility] ([facility]) [address] [place] [address] VIR MCHC (RBC) [Mass/Vol] 34.4 g/dL Normal 32-36 [facility] Comment on above: Performed By: #### C BCA #### [facility] ([facility]) [address] [place] [address] VIR MCV (RBC) [Entitic vol] 83 fL Normal 80-100 [facility] Comment on above: Performed By: #### C BCA #### [facility] [facility] ([facility]) [address] [place] [address] VIR MONOCYTES ABSOLUTE COUNT (10*3/UL) BY AUTOMATED COUNT 0.4 10*3/uL Normal [facility] Comment on above: Performed By: #### C BCA #### [facility] ([facility]) [address] [place] [address] VIR MONOCYTES RELATIVE PERCENT BY AUTOMATED COUNT 5.9 % Normal [facility] Comment on above: Performed By: #### C BCA #### [facility] ([facility]) [address] [place] [address] VIR NEUTROPHILS ABSOLUTE COUNT BY AUTOMATED COUNT 4.4 10*3/uL Normal [facility] Comment on above: Performed By: #### C BCA #### [facility] ([facility]) [address] [place] [address] VIR NEUTROPHILS RELATIVE PERCENT BY AUTOMATED COUNT 66.4 % Normal [facility] Comment on above: Performed By: #### C BCA #### [facility] ([facility]) [address] [place] [address] VIR Platelet mean volume (Bld) [Entitic vol] 10.8 fL Normal 7-12 [facility] Comment on above: Performed By: #### C BCA #### [facility] ([facility]) [address] [place] [address] VIR Platelets (Bld) [#/Vol] 178 10*3/uL Normal 150-450 [facility] Comment on above: Performed By: #### C BCA #### [facility] ([facility]) [address] [place] [address] VIR RBC COUNT 5.27 X10E12/L High 3.8-5.2 [facility] Comment on above: Performed By: #### C BCA #### [facility] ([facility]) [address] [place] [address] VIR WBC (Bld) [#/Vol] 6.6 10*3/uL Normal 4-11 [facility] Comment on above: Performed By: #### C BCA #### [facility] ([facility]) [address] [place] [address] VIR MAGNESIUMon 09-28-2024 Magnesium [Mass/Vol] 1.9 mg/dL Normal 1.8-2.6 [facility] Comment on above: Performed By: #### M G #### [facility] ([facility]) [address] [place] [address] VIR VITAMIN D 25 HYDROXYon 09-28 VITAMIN D 25 HYD TOT 26.6 ng/mL Low 30.0-100.0 [facility] Comment on above: Order Comment: Vitam in D status 25 [place] Vitamin D Deficiency <20 ng/mL Insufficiency 20-29 ng/mL Sufficiency 30-100 ng/mL Toxicity >100 ng/mL NOTE: A pediatric reference range has not been established by the ophthalmic asst of this kit. The [employer] recommends a Vitamin D level of = or >20ng/mL in infants and children. Performed By: #### V ITD #### [facility] ([facility]) [address] [place] [address] VIR VITAMIN B12on 08-12-2024 Cobalamin (Vitamin B12) [Mass/Vol] 437 pg/mL Normal 180-914 [facility] Comment on above: Performed By: #### 2 132-9 #### [facility] ([id number]) [address] [place] [address] BASIC METABOLIC PANLon 07-29 Anion gap [Moles/Vol] 8 mmol/L Normal 5-15 [facility] Comment on above: Performed By: #### [place], [address]-0 #### [facility] ([id number]) [address] [place] [address] Calcium [Mass/Vol] 8.9 mg/dL Normal 8.5-10.5 [facility] Comment on above: Performed By: #### [place], 87875-8 #### [facility] ([id number]) [address] [place] [address] Chloride [Moles/Vol] 102 mmol/L Normal 98-109 [facility] Comment on above: Performed By: #### C RUSS DO, 55833-2 #### [facility] ([id number]) [address] [place] [address] CO2 [Moles/Vol] 26 mmol/L Normal 22-32 [facility] Comment on above: Performed By: #### [place], 84645-1 #### [facility] ([id number]) [address] [place] [address] Creatinine [Mass/Vol] 0.74 mg/dL Normal 0.40-1.00 [facility] Comment on above: Result Comment: METH OD TRACEABLE TO IDMS STANDARD Performed By: #### [place], 77345-7 #### [facility] ([id number]) [address] [place] [address] eGFR (CKD-EPI) NON-RACE DEPENDENT >90 Normal >59 [facility] Comment on above: Result Comment: Reported eGFR is based on the CKD-EPI 2020 equation that does not use a race coefficient. Performed By: #### C RUSS DO, 43578-3 #### [facility] ([id number]) [address] [place] [address] Glucose [Mass/Vol] 101 mg/dL High 65-99 [facility] Comment on above: Performed By: #### C RUSS DO, 74031-1 #### [facility] ([id number]) [address] [place] [address] Potassium [Moles/Vol] 3.4 mmol/L Low 3.5-5.0 [facility] Comment on above: Performed By: #### [place], 19319-5 #### [facility] ([id number]) [address] [place] [address] Sodium [Moles/Vol] 136 mmol/L Normal 134-146 [facility] Comment on above: Performed By: #### C RUSS DO, 59731-5 #### [facility] ([id number]) [address] [place] [address] Urea nitrogen [Mass/Vol] 13 mg/dL Normal 5-23 [facility] Comment on above: Performed By: #### RUSS Castaneda BCA, 32212-6 #### [facility] ([id number]) [address] [place] [address] CBC AND AUTO DIFFon 07-30-19 25 ABSOLUTE BASOPHIL 0.1 X10E9/L Normal 0.0-0.2 [facility] Comment on above: Performed By: #### RUSS Castaneda BCA, 12007-7 #### [facility] ([id number]) [address] [place] [address] ABSOLUTE NEUTROPHIL 6.4 X10E9/L Normal 1.5-6.6 [facility] Comment on above: Performed By: #### RUSS Castaneda BCA, 96942-7 #### [facility] ([id number]) [address] [place] [address]99 Basophils/100 WBC (Bld) 1.0 % Normal [facility] Comment on above: Performed By: #### Tonya DO [facility], 61433-8 #### [facility] ([id number]) [address] [place] [address] Eosinophils (Bld) [#/Vol] 0.1 10*3/uL Normal 0.0-0.4 [facility] Comment on above: Performed By: #### RUSS Castaneda BCA, 59335-8 #### [facility] ([id number]) [address] [place] [address]80 Eosinophils/100 WBC (Bld) 0.6 % Normal [facility] Comment on above: Performed By: #### RUSS Castaneda BCA, 07054-6 #### [facility] ([id number]) [address] [place] [address] Erythrocyte distribution width (RBC) [Ratio] 13.3 % Normal 11.5-15.0 [facility] Comment on above: Performed By: #### C RUSS DO, 90577-9 #### [facility] ([id number]) [address] [place] [address] Hematocrit (Bld) [Volume fraction] 41.4 % Normal 35-47 [facility] Comment on above: Performed By: #### C RUSS DO, 93084-7 #### [facility] ([id number]) [address] [place] [address]186 Hemoglobin (Bld) [Mass/Vol] 14.6 g/dL Normal 11.7-15.5 [facility] Comment on above: Performed By: #### RUSS Castaneda BCA, 66792-0 #### [facility] ([id number]) [address] [place] [address] 11188 Lymphocytes (Bld) [#/Vol] 2.8 10*3/uL Normal 1.0-3.5 [facility] Comment on above: Performed By: #### RUSS Castaneda BCA, 84729-1 #### [facility] ([id number]) [address] [place] [address] 30853 Lymphocytes/100 WBC (Bld) 28.2 % Normal [facility] Comment on above: Performed By: #### RUSS Castaneda BCA, 09301-6 #### [facility] ([id number]) [address] [place] [address] 21864 MCH (RBC) [Entitic mass] 29.3 pg Normal 27-34 [facility] Comment on above: Performed By: #### RUSS Castaneda BCA, 07331-6 #### [facility] ([id number]) [address] [place] [address] 14950 MCHC (RBC) [Mass/Vol] 35.2 g/dL Normal 32-36 [facility] Comment on above: Performed By: #### RUSS Castaneda BCA, 09378-7 #### [facility] ([id number]) [address] [place] [address] 65260 MCV (RBC) [Entitic vol] 83 fL Normal 80-100 [facility] Comment on above: Performed By: #### [place], 68153-5 #### [facility] ([id number]) [address] [place] [address]48 Monocytes (Bld) [#/Vol] 0.6 10*3/uL Normal 0-0.9 [facility] Comment on above: Performed By: #### [place], 71341-5 #### [facility] ([id number]) [address] [place] [address] 66509 Monocytes/100 WBC (Bld) 6.0 % Normal [facility] Comment on above: Performed By: #### Tonya DO [facility], 62716-2 #### [facility] ([id number]) [address] [place] [address] 80248 Neutrophils/100 WBC (Bld) 64.2 % Normal [facility] Comment on above: Performed By: #### Tonya DO [facility], 40768-7 #### [facility] ([id number]) [address] [place] [address]50 Platelet mean volume (Bld) [Entitic vol] 9.0 fL Normal 7-12 [facility] Comment on above: Performed By: #### RUSS Castaneda BCA, 14171-8 #### [facility] ([id number]) [address] [place] [address]40 Platelets (Bld) [#/Vol] 212 10*3/uL Normal 150-450 [facility] Comment on above: Performed By: #### RUSS Castaneda BCA, 39317-8 #### [facility] ([id number]) [address] [place] [address] [place] [address] RBC COUNT 4.97 X10E12/L Normal 3.80-5.20 [facility] Comment on above: Performed By: #### [place], 14[address]-2 #### [facility] ([id number]) [address] [place] [address] WBC (Bld) [#/Vol] 9.9 10*3/uL Normal 4.0-11.0 [facility] Comment on above: Performed By: #### [place], 35276-2 #### [facility] ([id number]) [address] [place] [address] Troponin I.cardiac High sens itivity method [Mass/Vol]on 07-29-2024 TROPONIN I, HIGH SENSITIVITY 3 ng/L Normal <16 [facility] Comment on above: Performed By: #### RUSS Castaneda BCA, 39619-1 #### [facility] ([id number]) [address] [place] [address] US THYROIDon 03-03-2024 US THYROID US THYROID [...] Root MD on 03/03/2024 1:44 PM Normal [facility] FREE T3on 03-02-2024 Free T3 [Mass/Vol] 4.15 pg/mL High 2.50-3.90 [facility] Comment on above: Performed By: #### H A1C, THYR, 0 #### [facility] ([id number]) [address] [place] [address] HGB A1C (GLYCO-HGB)on 2023 Glucose [Mass/Vol] 105 mg/dL Normal [facility] Comment on above: Performed By: #### H A1C, THYR, 0 #### [facility] ([id number]) [address], [address] [place] [address] HbA1c (Bld) [Mass fraction] 5.3 % Normal 4.4-5.6 [facility] Comment on above: Result Comment: NOTE ADA Guidelines Result HgbA1c Normal : less than 5.7 % Prediabetes : 5.7 % to 6.4 % Diabetes : > 6.4 % Use with caution in patients with abnormal hemoglobin variants as the half-life of red blood cells and in vivo glycation rates are affected. Performed By: #### H A1C, THYR, 305-0 #### [facility] ([id number]) [address] [place] [address] HbA1c (Bld) [Mass fraction]o n 03-02-2024 Average glucose Estimated from glycated hemoglobin (Bld) [Mass/Vol] 105 mg/dL [facility] Comment on above: PERFORMED AT [facility] [address] [address] [facility] e Hemoglobin A1con 03-02-2024 HbA1c (Bld) [Mass fraction] 5.3 % 4.4 - 5.6 % [facility] Comment on above: NOTE ADA Guidelines Result HgbA1c Normal : less than 5.7 % Prediabetes : 5.7 % to 6.4 % Diabetes : > 6.4 % Use with caution in patients with abnormal hemoglobin variants as the half-life of red blood cells and in vivo glycation rates are affected. THYROID PROFILEon 03-02-2024 Free T4 [Mass/Vol] 0.97 ng/dL Normal 0.61-1.60 [facility] Comment on above: Performed By: #### H A1C, THYR, 305-0 #### [facility] ([id number]) [address], [address] [place] [address] TSH 2.44 uIU/mL Normal 0.49-4.67 [facility] Comment on above: Performed By: #### H A1C, THYR, 3051-0 #### [facility] ([id number]) [address] [place] [address] CBC AND AUTO DIFFon 02-04-20 24 ABSOLUTE BASOPHIL 0.1 X10E9/L Normal 0.0-0.2 [facility] Comment on above: Performed By: #### Tonya DO, 2132-01, 84782-1 #### [facility] ([id number]) [address], [address] [place] [address] ABSOLUTE NEUTROPHIL 3.6 X10E9/L Normal 1.5-6.6 [facility] Comment on above: Performed By: #### Tonya DO, 2132-01, 96958-7 #### [facility] ([id number]) [address], [address] [place] [address] Basophils/100 WBC (Bld) 0.9 % Normal [facility] Comment on above: Performed By: #### Tonya DO, 2132-01, 52572-4 #### [facility] ([id number]) [address] [place] [address] Eosinophils (Bld) [#/Vol] 0.1 10*3/uL Normal 0.0-0.4 [facility] Comment on above: Performed By: #### Tonya DO, 2132-01, 70446-9 #### [facility] ([id number]) [address], [address] [place] [address] Eosinophils/100 WBC (Bld) 1.4 % Normal [facility] Comment on above: Performed By: #### Tonya DO, 2132-01, 57319-4 #### [facility] ([id number]) [address], [address] [place] [address] Erythrocyte distribution width (RBC) [Ratio] 13.5 % Normal 11.5-15.0 [facility] Comment on above: Performed By: #### Tonya DO, 2132-01, 33044-4 #### [facility] ([id number]) [address] [place] [address] Hematocrit (Bld) [Volume fraction] 41.6 % Normal 35-47 [facility] Comment on above: Performed By: #### Tonya DO, 2132-01, 25646-4 #### [facility] ([id number]) [address], [address] [place] [address] Hemoglobin (Bld) [Mass/Vol] 14.1 g/dL Normal 11.7-15.5 [facility] Comment on above: Performed By: #### Tonya DO, 2132-01, 94241-1 #### [facility] ([id number]) [address], [address] [place] [address] Lymphocytes (Bld) [#/Vol] 1.7 10*3/uL Normal 1.0-3.5 [facility] Comment on above: Performed By: #### Tonya DO, 2132-01, 41552-7 #### [facility] ([id number]) [address], [address] [place] [address] Lymphocytes/100 WBC (Bld) 29.2 % Normal [facility] Comment on above: Performed By: #### Tonya DO, 2132-01, 56786-4 #### [facility] ([id number]) [address], [address] [place] [address] MCH (RBC) [Entitic mass] 28.3 pg Normal 27-34 [facility] Comment on above: Performed By: #### Tonya DO, 2132-01, 08007-4 #### [facility] ([id number]) [address], [address] [place] [address] MCHC (RBC) [Mass/Vol] 33.8 g/dL Normal 32-36 [facility] Comment on above: Performed By: #### Tonya DO, 2132-01, 90934-1 #### [facility] ([id number]) [address], [address] [place] [address] MCV (RBC) [Entitic vol] 84 fL Normal 80-100 [facility] Comment on above: Performed By: #### Tonya DO, 2132-01, 52507-1 #### [facility] ([id number]) [address], [facility] [address] [place] [address] Monocytes (Bld) [#/Vol] 0.3 10*3/uL Normal 0-0.9 [facility] Comment on above: Performed By: #### Tonya DO, 2132-01, 60888-9 #### [facility] ([id number]) [address], [address] [place] [address] Monocytes/100 WBC (Bld) 5.7 % Normal [facility] Comment on above: Performed By: #### Tonya DO, 2132-01, 49649-8 #### [facility] ([id number]) [address], [address] [place] [address] Neutrophils/100 WBC (Bld) 62.8 % Normal [facility] Comment on above: Performed By: #### Tonya DO, 2132-01, 67049-0 #### [facility] ([id number]) [address], [address] [place] [address] Platelet mean volume (Bld) [Entitic vol] 10.3 fL Normal 7-12 [facility] Comment on above: Performed By: #### Tonya DO, 2132-01, 80363-4 #### [facility] ([id number]) [address], [address] [place] [address] Platelets (Bld) [#/Vol] 168 10*3/uL Normal 150-450 [facility] Comment on above: Performed By: #### Tonya DO, 2132-01, 57661-3 #### [facility] ([id number]) [address], [address] [place] [address] RBC COUNT 4.97 X10E12/L Normal 3.80-5.20 [facility] Comment on above: Performed By: #### Tonya OD, 2132-01, 29359-2 #### [facility] ([id number]) [address], [address] [place] [address] WBC (Bld) [#/Vol] 5.8 10*3/uL Normal 4.0-11.0 [facility] Comment on above: Performed By: #### Tonya DO, 2132-01, 85156-6 #### [facility] ([id number]) [address], [address] [place] [address] CBC auto differentialon 01-24 Basophils (Bld) [#/Vol] 0.1 10*3/uL [facility] Basophils/100 WBC (Bld) 0.9 % [facility] Eosinophils (Bld) [#/Vol] 0.1 10*3/uL [facility] Eosinophils/100 WBC (Bld) 1.4 % [facility] Erythrocyte distribution width (RBC) [Ratio] 13.5 % 11.5 - 15.0 % [facility] Hematocrit (Bld) [Volume fraction] 41.6 % 35 - 47 % [facility] Hemoglobin (Bld) [Mass/Vol] 14.1 g/dL 11.7 - 15.5 g/dL [facility] Lymphocytes (Bld) [#/Vol] 1.7 10*3/uL [facility] Lymphocytes/100 WBC (Bld) 29.2 % [facility] MCH (RBC) [Entitic mass] 28.3 pg 27 - 34 pg [facility] MCHC (RBC) [Mass/Vol] 33.8 g/dL 32 - 36 g/dL [facility] MCV (RBC) [Entitic vol] 84 fL 80 - 100 fL [facility] Monocytes (Bld) [#/Vol] 0.3 10*3/uL [facility] Monocytes/100 WBC (Bld) 5.7 % [facility] Neutrophils (Bld) [#/Vol] 3.6 10*3/uL [facility] Neutrophils/100 WBC (Bld) 62.8 % [facility] Platelet mean volume (Bld) [Entitic vol] 10.3 fL 7 - 12 fL [facility] Platelets (Bld) [#/Vol] 168 10*3/uL [facility] RBC (Bld) [#/Vol] 4.97 10*6/uL [facility] WBC corrected for nucl RBC Auto (Bld) [#/Vol] 5.8 [facility] VITAMIN B12on 02-04-2024 Cobalamin (Vitamin B12) [Mass/Vol] 276 pg/mL Normal 180-914 [facility] Comment on above: Performed By: #### Tonya DO, 2132-01, 70235-3 #### [facility] ([id number]) [address] [place] [address], [address] [place] [address] Vitamin D+Metabolites [Mass/ Vol]on 02-04-2024 VITAMIN D 25 HYD TOT 15.3 ng/mL Low 30-100 [facility] Comment on above: Result Comment: Vitamin D status 25 [place] Vitamin D Deficiency <20 ng/mL Insufficiency 20-29 ng/mL Sufficiency 30-100 ng/mL Toxicity >100 ng/mL NOTE: A pediatric reference range has not been established by the ophthalmic asst of this kit. [employer] recommends a Vitamin D level of = or >20ng/mL in infants and children. Performed By: #### Tonya DO, 9, 86982-4 #### [facility] ([id number]) [address] [place] [address], [address] [place] [address] POCT Influenza A/Influenza B /SARS-COV-2 Veritoron 08-28-2023 External Poct Influenza A Antigen Negative [facility] External Poct Influenza B Antigen Negative [facility] SARS-CoV-2 (COVID-19) Ag IA.rapid Ql (Resp) Negative [facility] POCT rapid strep Aon 024 S. pyogenes Ag IA Ql (Unsp spec) Negative Negative [facility] CBC auto differentialon 07-24 Basophils (Bld) [#/Vol] 0.0 10*3/uL [facility] Basophils/100 WBC (Bld) 1.1 % [facility] Eosinophils (Bld) [#/Vol] 0.0 10*3/uL [facility] Eosinophils/100 WBC (Bld) 1.2 % [facility] Erythrocyte distribution width (RBC) [Ratio] 13.5 % 11.5 - 15.0 % [facility] Hematocrit (Bld) [Volume fraction] 41.0 % 35 - 47 % [facility] Hemoglobin (Bld) [Mass/Vol] 14.0 g/dL 11.7 - 15.5 g/dL [facility] Interpretation and review of laboratory results Abnormal [facility] Lymphocytes (Bld) [#/Vol] 0.8 10*3/uL Low [facility] Lymphocytes/100 WBC (Bld) 23.3 % [facility] MCH (RBC) [Entitic mass] 28.6 pg 27 - 34 pg [facility] MCHC (RBC) [Mass/Vol] 34.1 g/dL 32 - 36 g/dL [facility] MCV (RBC) [Entitic vol] 84 fL 80 - 100 fL [facility] Monocytes (Bld) [#/Vol] 0.5 10*3/uL [facility] Monocytes/100 WBC (Bld) 14.0 % [facility] Neutrophils (Bld) [#/Vol] 2.1 10*3/uL [facility] Neutrophils/100 WBC (Bld) 60.4 % [facility] Platelet mean volume (Bld) [Entitic vol] 10.1 fL 7 - 12 fL [facility] Platelets (Bld) [#/Vol] 115 10*3/uL Low [facility] RBC (Bld) [#/Vol] 4.89 10*6/uL [facility] WBC corrected for nucl RBC Auto (Bld) [#/Vol] 3.5 Low [facility] Cobalamin (Vitamin B12) [Mas s/Vol]on 08-04-2023 [facility] Lipid 1996 panelon Cholesterol [Mass/Vol] 146 mg/dL Low 150 - 200 mg/dL [facility] Cholesterol in HDL [Mass/Vol] 30 mg/dL Low 39 - PINF mg/dL [facility] Comment on above: HDL <40 mg/dL - High Risk HDL > or = 40mg/dL- Desirable HDL >60 mg/dL - Negative Risk Cholesterol in LDL [Mass/Vol] 89 mg/dL NINF - 130 mg/dL [facility] Comment on above: LDL <100 mg/dL - Desirable LDL >160 mg/dL - High Risk Cholesterol in VLDL [Mass/Vol] 27 mg/dL 0 - 30 mg/dL [facility] Cholesterol.total/C holesterol in HDL [Mass ratio] 4.9 {ratio} 1.0 - 5.0 [facility] Interpretation and review of laboratory results Abnormal [facility] Triglyceride [Mass/Vol] 135 mg/dL 27 - 150 mg/dL [facility] Vitamin B12on 08-04-2023 Cobalamin (Vitamin B12) [Mass/Vol] 236 pg/mL 180 - 914 pg/mL [facility] Vitamin D 25 hydroxyon 08-03 Vitamin D+Metabolites [Mass/Vol] 26.0 ng/mL Low 30 - 100 ng/mL [facility] Comment on above: Vitamin D status 25 [place] Vitamin D Deficiency <20 ng/mL Insufficiency 20-29 ng/mL Sufficiency 30-100 ng/mL Toxicity >100 ng/mL NOTE: A pediatric reference range has not been established by the ophthalmic asst of this kit. The [employer] recommends a Vitamin D level of = or >20ng/mL in infants and children. Vitamin D+Metabolites [Mass/ Vol]on 08-04-2023 Interpretation and review of [facility] PAP ACOG PANEL 2: 30 to 67on 04-07-2022 . . Normal [facility] Comment on above: Result Comment: Perf ormed at: WB Performed By: #### [id number] #### [facility] [address] [address] [address] Chato Chatterjee Age Gdln ACOG Testing Normal [facility] Comment on above: Performed By: #### [id number] #### [facility] [address] [address] [address] Chato Chatterjee DIAGNOSIS: Comment Normal [facility] Comment on above: Result Comment: NEGA TIVE FOR INTRAEPITHELIAL LESION OR MALIGNANCY. Performed at: WB Performed By: #### [id number] #### [facility] [address] [address] [address] Chato Chatterjee HPV Aptima Negative Normal Negative [facility] Comment on above: Result Comment: This nucleic acid amplification test detects fourteen high-risk HPV types (16,18,31,33,35,39,45,51,52,56,58,59,66,68) without differentiation. Performed at: =G Performed By: #### [id number] #### [facility] [address] [address] [address] Chato Chatterjee HPV Genotype Reflex Comment Normal [facility] Comment on above: Result Comment: Crit eria not met, HPV Genotype not performed. Performed at: WB Performed By: #### [id number] #### [facility] [address] [place] [address] Dr. Chato Chatterjee Methodology: Comment Normal [facility] Comment on above: Result Comment: This liquid based ThinPrep(R) pap test was screened with the use of an image guided system. Performed at: WB Performed By: #### [id number] #### [facility] [address] [place] [address] Dr. Chato Chatterjee Note: Comment Normal [facility] Comment on above: Result Comment: The Pap smear is a screening test designed to aid in the detection of premalignant and malignant conditions of the uterine cervix. It is not a diagnostic procedure and should not be used as the sole means of detecting cervical cancer. Both false-positive and false-negative reports do occur. . Performed at: WB Performed By: #### [id number] #### [facility] [address] [place] [address] Dr. Chato Chatterjee Performed by: Comment [facility] Comment on above: Result Comment: Gabino Ladd, Extruding Press Adjuster (ASCP) Performed at: WB Performed By: #### [id number] #### [facility] [address] [place] [address] Dr. Chato Chatterjee Specimen adequacy: Comment Normal [facility] Comment on above: Result Comment: Sati sfactory for evaluation. Endocervical and/or squamous metaplastic cells (endocervical component) are present. Performed at: WB Performed By: #### [id number] #### [facility] [address] [place] [address] Dr. Chato Chatterjee Cytology Cervical or vaginal smear or scraping studyon 04-01-2022 [facility] CARDIAC STRESS/REST (LAURA CARDIAL PERFUSION/MIBI)on 05-29-2020 [facility] CARDIAC STRESS/REST (MYOCARDIAL PERFUSION/MIBI) Patient Name: KRYSTA DURAN STUDY: MYOCARDIAL PERFUSION STRESS TEST WITH EXERCISE Performing facility: [facility], [address] [place] [address], [address], [place], [place] [address] Provider: Ann Marie Lea DO, FACC PCP: Dr. Aaron Campbell Supervising provider: Chasity Callahan MD INDICATION: Chest Pain; HTN HISTORY: Gender: F; Age: 34 y/o ; Height: 162.56 cm; Weight: 392.2180472 kg. Chest Pain; Diabetes; HTN; Palpitations; Currently smoking. COMPARISON: No comparison. ACCESSION NUMBER(S): [id number]; [id number]; [id number] ORDERING CLINICIAN: DONATO LEA TECHNIQUE: TWO DAY [...] comparison Electronically signed by: CHASITY CALLAHAN MD [facility] CARDIAC STRESS/REST INJE CTIONon 05-29-2020 [facility] CARDIAC STRESS/REST INJECTION Patient Name: KRYSTA DURAN STUDY: MYOCARDIAL PERFUSION STRESS TEST WITH EXERCISE Performing facility: [facility], [address], [address], [place] [address] [facility] Provider: Ann Marie Lea DO, [facility] PCP: Dr. Aaron Campbell Supervising provider: Chasity Callahan MD INDICATION: Chest Pain; HTN HISTORY: Gender: F; Age: 34 y/o ; Height: 162.56 cm; Weight: 429.8986144 kg. Chest Pain; Diabetes; HTN; Palpitations; Currently smoking. COMPARISON: No comparison. ACCESSION NUMBER(S): [id number]; [id number]; [id number] ORDERING CLINICIAN: DONATO LEA TECHNIQUE: TWO DAY [...] Electronically signed by: CHASITY CALLAHAN MD Normal [facility] PART 2 STRESS OR REST (N O CHARGE)on 05-29-2020 [facility] PART 2 STRESS OR REST (NO CHARGE) Patient Name: KRYSTA DURAN STUDY: MYOCARDIAL PERFUSION STRESS TEST WITH EXERCISE Performing facility: [facility], [address] [place] [address], [address], [address] Provider: Ann Marie Lea DO, [facility] PCP: Dr. Aaron Campbell Supervising provider: Chasity Callahan MD INDICATION: Chest Pain; HTN HISTORY: Gender: F; Age: 34 y/o ; Height: 162.56 cm; Weight: 310.2503818 kg. Chest Pain; Diabetes; HTN; Palpitations; Currently smoking. COMPARISON: No comparison. ACCESSION NUMBER(S): [id number]; [id number]; [id number] ORDERING CLINICIAN: DONATO LEA TECHNIQUE: TWO DAY [...] Electronically signed by: CHASITY CALLAHAN MD Normal [facility] B12/Folate Panelon 0 Cobalamin (Vitamin B12) [Mass/Vol] 250 pg/mL Normal [id number] [facility] Comment on above: Performed By: #### B [id number] #### [facility] [employer] [address], [place] [id number] Strip Mill Operator: Calderon Perez MD Folic Acid 10.5 ng/mL Normal >4.8 [facility] Comment on above: Performed By: #### B 12FOL #### [facility] [employer] [address], [place] [id number] Strip Mill Operator: Calderon Perez MD Vitamin B12 & Folateon 03-30 Cobalamin (Vitamin B12) [Mass/Vol] 250 pg/mL 232 - 1245 pg/mL [place], [place] Folate 10.5 ng/mL >4.8 [place] XR CERVICAL SPINE W OBLIQUES FLEXION [...] Alex Wilson MD 03/30/20 Final result Normal [facility] No acute abnormality of the cervical spine. [place], [place] EXAMINATION: SEVEN XRAY VIEWS OF THE [...] views show no significant neural foraminal stenosis. [place], [place] Romie, [facility] Incoming Radiant Results From [employer] - 03/30/2020 2:36 PM EST EXAMINATION: SEVEN [...] No acute abnormality of the cervical spine. [place], [place] Vital Signs Date Time Vital Sign Value Performing Clinician Facility 01-25-2025 11: Body height 162.6 cm Alta Rothman MD Work Phone: [facility] 01-25-2025 11:11-0400 Body mass index (BMI) [Ratio] 57.78 kg/m2 Alta Rothman MD Work Phone: [facility] 01-25-2025 11:11-0400 Body temperature 97.5 [degF] Alta Rothman MD Work Phone: [facility] 01-25-2025 11:11-0400 Body weight 152.68 kg Alta Rothman MD Work Phone: [facility] 01-25-2025 11:11-0400 Diastolic blood pressure 64 mm[Hg] Alta Rothman MD Work Phone: [facility] 01-25-2025 11:11-0400 Heart rate 100 /min Alta Rothman MD Work Phone: [facility] 01-25-2025 11:11-0400 SaO2% (BldA) [Mass fraction] 97 % Alta Rothman MD Work Phone: [facility] 01-25-2025 11:11-0400 Systolic blood pressure 130 mm[Hg] Alta Rothman MD Work Phone: [facility] 01-05-2025 13:29-0400 Body mass index (BMI) [Ratio] 58.53 kg/m2 Mario Javad DO Work Phone: [facility] 01-05-2025 13:29-0400 Body weight 154.68 kg Mario Jvaad DO Work Phone: [facility] 01-05-2025 13:29-0400 Diastolic blood pressure 68 mm[Hg] Mario Javad DO Work Phone: [facility] 01-05-2025 13:29-0400 Systolic blood pressure 110 mm[Hg] Mario Javad DO Work Phone: [facility] 12-06-2024 13:41-0400 Body height 162.6 cm Mario Javad DO Work Phone: [facility] 12-06-2024 13:41-0400 Body mass index (BMI) [Ratio] 58.19 kg/m2 Mario Javad DO Work Phone: [facility] 12-06-2024 13:41-0400 Body weight 153.77 kg Mario Javad DO Work Phone: [facility] 12-06-2024 13:41-0400 Diastolic blood pressure 82 mm[Hg] Mario Javad DO Work Phone: [facility] 12-06-2024 13:41-0400 Systolic blood pressure 128 mm[Hg] Mario Javad DO Work Phone: [facility] 10-28-2024 11:17-0400 Body mass index (BMI) [Ratio] 58.19 kg/m2 Mario Javad DO Work Phone: [facility] 10-28-2024 11:17-0400 Body weight 153.77 kg Mario Javad DO Work Phone: [facility] 10-28-2024 11:17-0400 Diastolic blood pressure 82 mm[Hg] Mario Javad DO Work Phone: [facility] 10-28-2024 11:17-0400 Systolic blood pressure 126 mm[Hg] Mario Javad DO Work Phone: [facility] 09-28-2024 14:00-0400 Body height 162.6 cm Annette Campbell AURIST-LEAD DATABASE ADMINISTRATOR Work Phone: [facility] 09-28-2024 14:00-0400 Body mass index (BMI) [Ratio] 58.64 kg/m2 Annette Campbell AURIST-LEAD DATABASE ADMINISTRATOR Work Phone: [facility] 09-28-2024 14:00-0400 Body temperature 98.01 [degF] Annette Campbell AURIST-LEAD DATABASE ADMINISTRATOR Work Phone: [facility] 09-28-2024 14:00-0400 Body weight 154.95 kg Annette Campbell AURIST-LEAD DATABASE ADMINISTRATOR Work Phone: [facility] 09-28-2024 14:00-0400 Diastolic blood pressure 78 mm[Hg] Annette Campbell APRN-LEAD DATABASE ADMINISTRATOR Work Phone: [facility] 09-28-2024 14:00-0400 Heart rate 80 /min Annette Campbell APRN-LEAD DATABASE ADMINISTRATOR Work Phone: [facility] 09-28-2024 14:00-0400 Respiratory rate 18 /min Annette Campbell APRN-LEAD DATABASE ADMINISTRATOR Work Phone: [facility] 09-28-2024 14:00-0400 SaO2% (BldA) [Mass fraction] 98 % Annette Campbell APRN-LEAD DATABASE ADMINISTRATOR Work Phone: [facility] 09-28-2024 14:00-0400 Systolic blood pressure 140 mm[Hg] Annette Campbell APRN-LEAD DATABASE ADMINISTRATOR Work Phone: [facility] 09-14-2024 13:38-0400 Body height 162.6 cm Annette Campbell APRN-LEAD DATABASE ADMINISTRATOR Work Phone: [facility] 09-14-2024 13:38-0400 Body mass index (BMI) [Ratio] 59.87 kg/m2 Annette Campbell APRN-LEAD DATABASE ADMINISTRATOR Work Phone: [facility] 09-14-2024 13:38-0400 Body temperature 97.9 [degF] Annette Campbell APRN-LEAD DATABASE ADMINISTRATOR Work Phone: [facility] 09-14-2024 13:38-0400 Body weight 158.22 kg Annette Campbell APRN-LEAD DATABASE ADMINISTRATOR Work Phone: [facility] 09-14-2024 13:38-0400 Diastolic blood pressure 90 mm[Hg] Annette Campbell APRN-LEAD DATABASE ADMINISTRATOR Work Phone: [facility] 09-14-2024 13:38-0400 Heart rate 75 /min Annette LORA Work Phone: [facility] 09-14-2024 13:38-0400 Respiratory rate 18 /min Annette LORA Work Phone: [facility] 09-14-2024 13:38-0400 SaO2% (BldA) [Mass fraction] 98 % Annette LORA Work Phone: [facility] 09-14-2024 13:38-0400 Systolic blood pressure 170 mm[Hg] Annette Campbell APRN-SYLVIA Work Phone: [facility] 08-12-2024 14:42-0400 Body height 162.6 cm Annette LORA Work Phone: [facility] 08-12-2024 14:42-0400 Body mass index (BMI) [Ratio] 59.8 kg/m2 Annette LORA Work Phone: [facility] 08-12-2024 14:42-0400 Body temperature 98.1 [degF] Annette LORA Work Phone: [facility] 08-12-2024 14:42-0400 Body weight 158.03 kg Annette LORA Work Phone: [facility] 08-12-2024 14:42-0400 Diastolic blood pressure 80 mm[Hg] Annette Campbell APRN-SYLVIA Work Phone: [facility] 08-12-2024 14:42-0400 Heart rate 86 /min Annette LORA Work Phone: [facility] 08-12-2024 14:42-0400 Respiratory rate 18 /min Annette Campbell APRN-SYLVIA Work Phone: [facility] 08-12-2024 14:42-0400 SaO2% (BldA) [Mass fraction] 99 % Annette Campbell APRN-LEAD DATABASE ADMINISTRATOR Work Phone: [facility] 08-12-2024 14:42-0400 Systolic blood pressure 150 mm[Hg] Annette Campbell AURIST-LEAD DATABASE ADMINISTRATOR Work Phone: [facility] 07-29-2024 15:58-0500 Diastolic blood pressure 94 mm[Hg] Annette Campbell AURIST-LEAD DATABASE ADMINISTRATOR Work Phone: [facility] 07-29-2024 15:58-0500 Systolic blood pressure 162 mm[Hg] Annette Campbell AURIST-LEAD DATABASE ADMINISTRATOR Work Phone: [facility] 07-29-2024 15:36-0500 Body temperature 98.6 [degF] Annette Campbell APRN-LEAD DATABASE ADMINISTRATOR Work Phone: [facility] 07-29-2024 15:36-0500 Heart rate 78 /min Annette Campbell APRN-LEAD DATABASE ADMINISTRATOR Work Phone: [facility] 07-26-2024 16:53-0500 Body height 162.6 cm Annette Campbell APRN-LEAD DATABASE ADMINISTRATOR Work Phone: [facility] 07-26-2024 16:53-0500 Body mass index (BMI) [Ratio] 60.76 kg/m2 Annette Campbell APRN-LEAD DATABASE ADMINISTRATOR Work Phone: [facility] 07-26-2024 16:53-0500 Body temperature 98.4 [degF] Annette Campbell AURIST-LEAD DATABASE ADMINISTRATOR Work Phone: [facility] 07-26-2024 16:53-0500 Body weight 160.57 kg Annette Campbell APRN-LEAD DATABASE ADMINISTRATOR Work Phone: [facility] 07-26-2024 16:53-0500 Diastolic blood pressure 100 mm[Hg] Annette Campbell APRN-LEAD DATABASE ADMINISTRATOR Work Phone: [facility] 07-26-2024 16:53-0500 Heart rate 101 /min Annette Campbell APRN-LEAD DATABASE ADMINISTRATOR Work Phone: [facility] 07-26-2024 16:53-0500 Respiratory rate 18 /min Annette Campbell AURIST-LEAD DATABASE ADMINISTRATOR Work Phone: [facility] 07-26-2024 16:53-0500 SaO2% (BldA) [Mass fraction] 99 % Annette Campbell APRN-LEAD DATABASE ADMINISTRATOR Work Phone: [facility] 07-26-2024 16:53-0500 Systolic blood pressure 170 mm[Hg] Annette Campbell APRN-LEAD DATABASE ADMINISTRATOR Work Phone: [facility] 05-24-2024 16:10-0500 Body height 162.6 cm Annette Campbell APRN-LEAD DATABASE ADMINISTRATOR Work Phone: [facility] 05-24-2024 16:10-0500 Body mass index (BMI) [Ratio] 59.73 kg/m2 Annette Campbell APRN-LEAD DATABASE ADMINISTRATOR Work Phone: [facility] 05-24-2024 16:10-0500 Body temperature 98.71 [degF] Annette Campbell APRN-LEAD DATABASE ADMINISTRATOR Work Phone: [facility] 05-24-2024 16:10-0500 Body weight 157.85 kg Annette Campbell APRN-LEAD DATABASE ADMINISTRATOR Work Phone: [facility] 05-24-2024 16:10-0500 Diastolic blood pressure 100 mm[Hg] Annettewoo Campbell APRN-LEAD DATABASE ADMINISTRATOR Work Phone: [facility] 05-24-2024 16:10-0500 Heart rate 115 /min Annette Campbell APRN-LEAD DATABASE ADMINISTRATOR Work Phone: [facility] 05-24-2024 16:10-0500 Respiratory rate 22 /min Annette Campbell AURIST-LEAD DATABASE ADMINISTRATOR Work Phone: [facility] 05-24-2024 16:10-0500 SaO2% (BldA) [Mass fraction] 99 % Annette Campbell AURIST-LEAD DATABASE ADMINISTRATOR Work Phone: [facility] 05-24-2024 16:10-0500 Systolic blood pressure 160 mm[Hg] Annette Campbell AURIST-LEAD DATABASE ADMINISTRATOR Work Phone: [facility] 03-18-2024 11:50-0400 Body mass index (BMI) [Ratio] 60.21 kg/m2 Mario Javad DO Work Phone: [facility] 03-18-2024 11:50-0400 Body weight 159.12 kg Mario Javad DO Work Phone: [facility] 03-18-2024 11:50-0400 Diastolic blood pressure 80 mm[Hg] Mario Javad DO Work Phone: [facility] 03-18-2024 11:50-0400 Systolic blood pressure 120 mm[Hg] Mario Javad DO Work Phone: [facility] 02-18-2024 13:24-0400 Body mass index (BMI) [Ratio] 61.11 kg/m2 Mario Javad DO Work Phone: [facility] 02-18-2024 13:24-0400 Body weight 161.48 kg Mario Javad DO Work Phone: [facility] 02-18-2024 13:24-0400 Diastolic blood pressure 82 mm[Hg] Mario Javad DO Work Phone: [facility] 02-18-2024 13:24-0400 Systolic blood pressure 140 mm[Hg] Mario Javad DO Work Phone: [facility] 02-04-2024 12:58-0400 Body height 162.6 cm Annette Campbell AURIST-LEAD DATABASE ADMINISTRATOR Work Phone: [facility] 02-04-2024 12:58-0400 Body mass index (BMI) [Ratio] 60.45 kg/m2 Annette Campbell APRN-SYLVIA Work Phone: [facility] 02-04-2024 12:58-0400 Body temperature 97.9 [degF] Annette Campbell APRN-SYLVIA Work Phone: [facility] 02-04-2024 12:58-0400 Body weight 159.76 kg Annette Campbell APRN-SYLVIA Work Phone: [facility] 02-04-2024 12:58-0400 Diastolic blood pressure 80 mm[Hg] Annette Campbell APRN-SYLVIA Work Phone: [facility] 02-04-2024 12:58-0400 Heart rate 90 /min Annette Campbell APRN-SYLVIA Work Phone: [facility] 02-04-2024 12:58-0400 Respiratory rate 18 /min Annette Campbell APRN-SYLVIA Work Phone: [facility] 02-04-2024 12:58-0400 SaO2% (BldA) [Mass fraction] 99 % Annette Campbell APRN-SYLVIA Work Phone: [facility] 02-04-2024 12:58-0400 Systolic blood pressure 138 mm[Hg] Annette Campbell APRN-SYLVIA Work Phone: [facility] 08-28-2023 11:05-0400 Body height 162.6 cm Annette Campbell APRN-SYLVIA Work Phone: [facility] 08-28-2023 11:05-0400 Body mass index (BMI) [Ratio] 59.67 kg/m2 Annette Campbell APRN-LEAD DATABASE ADMINISTRATOR Work Phone: [facility] 08-28-2023 11:05-0400 Body temperature 98.01 [degF] Annette Campbell APRN-LEAD DATABASE ADMINISTRATOR Work Phone: [facility] 08-28-2023 11:05-0400 Body weight 157.67 kg Annette Campbell APRN-LEAD DATABASE ADMINISTRATOR Work Phone: [facility] 08-28-2023 11:05-0400 Diastolic blood pressure 82 mm[Hg] Annette Campbell APRN-LEAD DATABASE ADMINISTRATOR Work Phone: [facility] 08-28-2023 11:05-0400 Heart rate 90 /min Annette Campbell APRN-LEAD DATABASE ADMINISTRATOR Work Phone: [facility] 08-28-2023 11:05-0400 SaO2% (BldA) [Mass fraction] 98 % Annette Campbell APRN-LEAD DATABASE ADMINISTRATOR Work Phone: [facility] 08-28-2023 11:05-0400 Systolic blood pressure 138 mm[Hg] Annette Campbell APRN-LEAD DATABASE ADMINISTRATOR Work Phone: [facility] 08-14-2023 12:25-0400 Diastolic blood pressure 86 mm[Hg] Diane Eaton AURIST-ELECTRONIC INDUCTION HARDENER Work Phone: [facility] 08-14-2023 12:25-0400 Systolic blood pressure 146 mm[Hg] Diane Eaton AURIST-ELECTRONIC INDUCTION HARDENER Work Phone: [facility] 08-14-2023 11:38-0400 Body height 162.6 cm Diane Eaton APRN-ELECTRONIC INDUCTION HARDENER Work Phone: [facility] 08-14-2023 11:38-0400 Body mass index (BMI) [Ratio] 59.7 kg/m2 Diane Eaton APRN-ELECTRONIC INDUCTION HARDENER Work Phone: [facility] 08-14-2023 11:38-0400 Body temperature 97.39 [degF] Diane Eaton APRN-ELECTRONIC INDUCTION HARDENER Work Phone: [facility] 08-14-2023 11:38-0400 Body weight 157.76 kg Diane Eaton APRN-ELECTRONIC INDUCTION HARDENER Work Phone: [facility] 08-14-2023 11:38-0400 Heart rate 87 /min Diane SANTILLANP Work Phone: [facility] 08-14-2023 11:38-0400 Respiratory rate 20 /min Diane Eaton APRN-ELECTRONIC INDUCTION HARDENER Work Phone: [facility] 08-14-2023 11:38-0400 SaO2% (BldA) [Mass fraction] 96 % Diane CROFTELECTRONIC INDUCTION HARDENER Work Phone: [facility] 08-04-2023 11:33-0400 Body height 162.6 cm Annette Campbell APRN-LEAD DATABASE ADMINISTRATOR Work Phone: [facility] 08-04-2023 11:33-0400 Body mass index (BMI) [Ratio] 58.81 kg/m2 Annette Campbell AURIST-LEAD DATABASE ADMINISTRATOR Work Phone: [facility] 08-04-2023 11:33-0400 Body temperature 97.5 [degF] Annette Campbell APRN-LEAD DATABASE ADMINISTRATOR Work Phone: [facility] 08-04-2023 11:33-0400 Body weight 155.4 kg Annette Campbell APRN-LEAD DATABASE ADMINISTRATOR Work Phone: [facility] 08-04-2023 11:33-0400 Diastolic blood pressure 60 mm[Hg] Annette Campbell APRN-LEAD DATABASE ADMINISTRATOR Work Phone: [facility] 08-04-2023 11:33-0400 Heart rate 86 /min Annettewoo Campbell APRN-LEAD DATABASE ADMINISTRATOR Work Phone: [facility] 08-04-2023 11:33-0400 SaO2% (BldA) [Mass fraction] 99 % Annette Campbell APRN-LEAD DATABASE ADMINISTRATOR Work Phone: [facility] 08-04-2023 11:33-0400 Systolic blood pressure 132 mm[Hg] Annette Campbell AURIST-LEAD DATABASE ADMINISTRATOR Work Phone: [facility] 04-03-2020 00:01-0500 BP Diastolic 103 mm[Hg] [facility] [place] 04-03-2020 00:01-0500 BP Systolic 157 mm[Hg] Lisseth [facility] , [place] 04-03-2020 00:01-0500 Pulse Oximetry 99 % Lisseth [place] [facility] , [place] 04-02-2020 23:46-0500 BMI (Body Mass Index) 51.49 kg/m2 Lisseth [facility], [place] 04-02-2020 23:46-0500 Body weight 136.08 kg Lisseth [facility] , [place] 04-02-2020 23:46-0500 Height 162.6 cm Lisseth [facility] , [place] 04-02-2020 23:46-0500 Pulse (Heart Rate) 79 /min Lisseth Madison [facility], [place] 04-02-2020 23:46-0500 Respiratory Rate 18 /min [facility] [place] 04-02-2020 23:39-0500 Body Temperature 97.3 [degF] [place] Encounters Encounter Date Encounter Type Care Provider Facility Start: 01-26-2025 End: 01-26-2025 Clinisync Result Encounter Mario Javad DO Work Phone: [facility] External Department Unsolicited Start: 01-26-2025 End: 01-26-2025 Clinisync Result Encounter Mario Javad DO Work Phone: [facility] External Department Unsolicited Start: 01-25-2025 End: 01-25-2025 Office outpatient new 45 minutes Alta Rothman MD Work Phone: [facility] Comment on above: Chronic fatigue synd chandler (Primary Dx); TALAT (obstructive sleep apnea); Gastroesophageal reflux disease without esophagitis; Vitamin B 12 deficiency Start: 01-25-2025 End: 01-25-2025 ambulatory ALTA ROTHMAN [facility] Start: 01-06-2025 End: 01-06-2025 Clinical Support Ash La DO Work Phone: [facility] Comment [...] 12-15-2024 End: 12-15-2024 Refill Yaz Luna CMA [facility] Comment on above: Essential hypertensi on; Essential (primary) hypertension Start: 12-06-2024 End: 12-06-2024 Office outpatient visit 15 minutes Mario Javad DO Work Phone: [facility] Comment on above: Menorrhagia with irr egular cycle Start: 12-06-2024 End: 12-06-2024 ambulatory MARIO JAVAD Not Available Start: 12-02-2024 End: 12-02-2024 Clinical Support Iesha Valdovinos AURIST-LEAD DATABASE ADMINISTRATOR Work Phone: [facility] Start: 11-03-2024 End: 11-03-2024 ambulatory ANNETTE CAMPBELL [facility] Start: 10-28-2024 End: 10-28-2024 Bamboo flowsheet Mario [...] 10-19-2024 End: 10-19-2024 Clinical Support Annette Campbell AURIST-LEAD DATABASE ADMINISTRATOR Work Phone: [facility] Comment on above: Vitamin B 12 deficie ncy (Primary Dx) Start: 09-28-2024 End: 09-28-2024 Office outpatient visit 15 minutes Annette Campbell AURIST-LEAD DATABASE ADMINISTRATOR Work Phone: [facility] Comment on above: Essential hypertensi on (Primary Dx); Vitamin D deficiency Start: 09-28-2024 End: 09-28-2024 ambulatory [facility] Start: 09-28-2024 End: 09-28-2024 ambulatory [facility] Start: 09-14-2024 End: 09-14-2024 Office outpatient visit 15 minutes Annette Campbell AURIST-LEAD DATABASE ADMINISTRATOR Work Phone: [facility] Comment on above: Essential hypertensi on (Primary Dx) Start: 09-14-2024 End: 09-14-2024 ambulatory [facility] Start: 09-01-2024 End: 09-01-2024 Orders Only Annette Oz FrazierCampbell AURIST-LEAD DATABASE ADMINISTRATOR Work Phone: [facility] Comment on above: Vitamin D deficiency Start: 08-12-2024 End: 08-12-2024 ambulatory [facility] Start: 08-12-2024 End: 08-12-2024 Office outpatient visit 15 minutes Annette Frazierillo AURIST-LEAD DATABASE ADMINISTRATOR Work Phone: [facility] Comment on above: Vitamin B 12 deficie ncy (Primary Dx); Acute right otitis media; Vaginal mayuri; Essential hypertension Start: 08-12-2024 End: 08-12-2024 ambulatory [facility] Start: 07-29-2024 End: 07-30-2024 Emergency department patient visit ANNETTE Oz CAMPBELL [facility] Start: 07-29-2024 End: 07-29-2024 Clinical Support nAnette Campbell AURIST-LEAD DATABASE ADMINISTRATOR Work Phone: [facility] Internal Medicine - Family Medicine Comment on above: Essential (primary) hypertension (Primary Dx) Start: 07-26-2024 End: 07-26-2024 ambulatory [facility] Start: 07-26-2024 End: 07-26-2024 Office outpatient visit 15 minutes Annette Campbell AURIST-LEAD DATABASE ADMINISTRATOR Work Phone: [facility] Comment on above: Essential (primary) hypertension (Primary Dx); Vitamin B 12 deficiency; Dysfunction of right eustachian tube Start: 07-24-2024 End: 07-26-2024 Refill Annette Campbell AURIST-LEAD DATABASE ADMINISTRATOR Work Phone: [facility] Comment on above: Essential (primary) hypertension Start: 06-24-2024 End: 06-24-2024 Clinical Support Annette Campbell AURIST-LEAD DATABASE ADMINISTRATOR Work Phone: [facility] Start: 05-24-2024 End: 05-24-2024 Office outpatient visit 15 minutes Annette Campbell AURIST-LEAD DATABASE ADMINISTRATOR Work Phone: [facility] Comment on above: Gastroenteritis (Liliane diane Dx); Nausea Start: 05-24-2024 End: 05-24-2024 ambulatory [facility] Start: 04-15-2024 End: 04-15-2024 Clinical Support Annette Campbell AURIST-LEAD DATABASE ADMINISTRATOR Work Phone: [facility] - [facility] Comment on above: Vitamin B 12 deficie ncy (Primary Dx) Start: 03-18-2024 End: 03-18-2024 Bamboo flowsheet Mario Palacioso DO Work Phone: [facility] Start: [...] 03-15-2024 End: 03-15-2024 Clinical Support Annette Campbell AURIST-LEAD DATABASE ADMINISTRATOR [facility]: [facility] Comment on above: Vitamin B 12 deficie ncy (Primary Dx) Start: 03-02-2024 End: 03-02-2024 External Result Encounter Mario Javad DO Work Phone: [facility] External Department Unsolicited Start: 03-02-2024 End: 03-02-2024 External Result Encounter Mario Javad DO Work Phone: [facility] External Department Unsolicited Start: 03-02-2024 End: 03-02-2024 ambulatory ANNETTE CAMPBELL [facility] Start: 02-18-2024 End: 02-18-2024 Bamboo flowsheet Mario Javad DO Work Phone: [facility] Start: 02-18-2024 End: 02-18-2024 Bamboo flowsheet Mario Javad DO Work Phone: [facility] Start: 02-18-2024 End: 02-18-2024 Patient encounter procedure Mario Javad DO Work Phone: [facility] Start: 02-18-2024 End: 02-18-2024 Periodic preventive med est patient 18-39 yrs Mario Palacioso DO Work Phone: [facility] Comment on above: Well woman exam with routine gynecological exam; Hyperthyroidism (CMS/HCC); Insulin resistance Start: 02-18-2024 End: 02-18-2024 ambulatory MARIO JAVAD Not Available Start: 02-12-2024 End: 02-12-2024 Clinical Support Annette Campbell APRN-SYLVIA Work Phone: [facility] Start: 02-04-2024 End: 02-04-2024 ambulatory [facility] Start: 02-04-2024 End: 02-04-2024 Office outpatient visit 15 minutes Annette Campbell APRN-SYLVIA Work Phone: [facility] - [facility] Comment on above: Essential hypertensi on (Primary Dx); Vitamin D deficiency; Vitamin B 12 deficiency; Leukocytosis, unspecified type Start: 02-04-2024 End: 02-04-2024 ambulatory [facility] Start: 01-29-2024 End: 01-29-2024 Refill Annette Campbell APRN-SYLVIA Work Phone: [facility] Comment on above: Essential (primary) hypertension Start: 01-13-2024 End: 01-13-2024 Clinical Support Annette Campbell APRN-SYLVIA Work Phone: [facility] Comment on above: Vitamin B 12 deficie ncy (Primary Dx) Start: 12-03-2023 End: 12-03-2023 Clinical Support Annette Campbell APRN-LEAD DATABASE ADMINISTRATOR Work Phone: [facility] Start: 11-03-2023 End: 11-03-2023 Clinical Support Annette Campbell APRN-LEAD DATABASE ADMINISTRATOR Work Phone: [facility] Comment on above: Vitamin B 12 deficie ncy (Primary Dx) Start: 10-09-2023 End: 10-09-2023 Telephone encounter Nahed Starr CMA [facility] Start: 09-29-2023 End: 09-29-2023 Clinical Support Annette Campbell AURIST-LEAD DATABASE ADMINISTRATOR Work Phone: [facility] Comment on above: B12 deficiency (Prim akin Dx) Start: 09-22-2023 End: 09-23-2023 Telephone encounter Annette Campbell AURIST-LEAD DATABASE ADMINISTRATOR Work Phone: [facility] Start: 08-29-2023 Orders Only Diane Villela Uma AURIST-ELECTRONIC INDUCTION HARDENER Work Phone: [facility] Comment on above: Acute bacterial conj unctivitis, unspecified laterality (Primary Dx) Start: 08-28-2023 End: 08-28-2023 Office outpatient visit 25 minutes Annette Campbell AURIST-LEAD DATABASE ADMINISTRATOR Work Phone: [facility] Comment on above: Acute non-recurrent pansinusitis (Primary Dx); Vitamin B 12 deficiency; Upper respiratory symptom Start: 08-25-2023 Orders Only Annette juarez AURIST-LEAD DATABASE ADMINISTRATOR Work Phone: [facility] Comment on above: Congestion of nasal sinus (Primary Dx); Congestion of both ears Start: 08-14-2023 End: 08-14-2023 Office outpatient visit 15 minutes Diane Villela Uma AURIST-ELECTRONIC INDUCTION HARDENER Work Phone: [facility] Comment on above: Viral URI (Primary D x) Start: 08-04-2023 End: 08-04-2023 Office outpatient visit 25 minutes Annette Campbell AURIST-LEAD DATABASE ADMINISTRATOR Work Phone: [facility] Comment on above: Vitamin B 12 deficie ncy (Primary Dx); Vitamin D deficiency; Prediabetes; Mixed hyperlipidemia; Ocular migraine; Essential hypertension Start: 04-01-2022 End: 04-01-[address] MARIO FARNSWORTH Facility:[facility] Start: 09-19-2020 End: 09-20-2020 ambulatory SR MARIO DURAN [facility] Start: 04-03-2020 End: 04-03-2020 Emergency department patient visit LISSETH GIBBS [facility] Start: 04-02-2020 End: 04-03-2020 Emergency department patient visit Lisseth Madison Work Phone: [facility] ED Comment on above: Hypertension, unspec ified type (Primary Dx) Start: 03-30-2020 End: 04-02-2020 Patient encounter procedure [facility] Start: 03-30-2020 End: 04-01-2020 Subsequent hospital visit by physician Faiza Olmedo Dr [facility] Comment on above: Neck pain; Midline thoracic back pain, unspecified chronicity Neck pain Midline thoracic mila k pain, unspecified chronicity Procedures Date Procedure Procedure Detail Performing Clinician Start: 01-26-2025 ALL BASIC METABOLIC PANEL Mario Farnsworth DO Work Phone: Start: 01-26-2025 ECG 12-LEAD Mario Palacios o DO Work Phone: Start: 01-25-2025 Adult depression scr eening assessment Alta Rothman MD Work Phone: Start: 12-06-2024 Urine test visual color cmprsn meths Mario Farnsworth DO Work Phone: Start: 09-28-2024 Adult depression scr eening assessment Annette Campbell AURIST-LEAD DATABASE ADMINISTRATOR Work Phone: Start: 09-14-2024 Adult depression scr eening assessment Annette Campbell AURIST-LEAD DATABASE ADMINISTRATOR Work Phone: Start: 08-12-2024 Adult depression scr eening assessment Annette Campbell AURIST-LEAD DATABASE ADMINISTRATOR Work Phone: Start: 03-02-2024 Hemoglobin glycosylated a1c Mario Farnsworth DO Work Phone: Start: 02-18-2024 Microscopic observat ion [Identifier] in Cervix by Cyto stain Mario Farnsworth DO Work Phone: Start: 02-04-2024 Follow-up visit Follow-up ANNETTE CAMPBELL Start: 08-28-2023 POCT INFLUENZA A/INF LUENZA B/SARS-COV-2 VERITOR Annette Campbell [facility] Work Phone: Start: 08-28-2023 Iaadiadoo streptococ cus group a Annette Campbell [facility] Work Phone: Start: 08-28-2023 Adult depression scr eening assessment Annette Campbell [facility] Work Phone: Start: 08-14-2023 Adult depression scr eening assessment [facility] Eaton [facility] Work Phone: Start: 08-04-2023 Adult depression scr eening assessment Annette Campbell [facility] Work Phone: Start: 04-01-2022 Cytp cerv/vag auto t hin layer prep mnl screen Mario Farnsworth DO Work Phone: Start: 03-30-2020 Radex spine cervical 6 or more views [facility]WELL [facility]ANES Start: 03-30-2020 Radex spine thoracic 2 views [facility]WELL [facility]ANES Start: 03-30-2020 Cyanocobalamin vitamin b-12 ONESIMOSIERRA LLANES Start: 03-30-2020 Radex spine cervical 6 or more views Onesimosierra Llanes Work Phone: Start: 03-30-2020 VITAMIN B12 & FOLATE Ke kate Lee [employer] Work Phone: Plan of Treatment Date Care Activity Detail Author Start: 04-01-2027 Screening for malign ant neoplasm of cervix [facility] Start: 02-17-2027 Screening for malign ant neoplasm of cervix Pap Smear [facility] Start: 01-25-2026 Adult BMI Screening Adult BMI Screen ing [facility] Start: 01-25-2026 Depression Screening Depression Scre ening [facility] Start: 01-25-2026 Tobacco Screening Tobacco Screening [facility] Start: 11-21-2025 DTaP,Tdap and Td Vaccines (3 - Td or Tdap) DTaP,Tdap and Td Vaccines (3 - Td or Tdap) [facility] Start: 09-28-2025 Adult BMI Follow Up Plan Adult BMI F ollow Up Plan [facility] Start: 09-28-2025 Adult BMI Screening Adult BMI Screen ing [facility] Start: 09-28-2025 Depression Screening Depression Scre ening [facility] Start: 09-28-2025 Tobacco Screening Tobacco Screening [facility] Start: 09-14-2025 Adult BMI Follow Up Plan Adult BMI F ollow Up Plan [facility] Start: 09-14-2025 Adult BMI Screening Adult BMI Screen ing [facility] Start: 09-14-2025 Depression Screening Depression Scre ening [facility] Start: 09-14-2025 Tobacco Screening Tobacco Screening [facility] Start: 08-12-2025 Adult BMI Follow Up Plan Adult BMI F ollow Up Plan [facility] Start: 08-12-2025 Adult BMI Screening Adult BMI Screen ing [facility] Start: 08-12-2025 Depression Screening Depression Scre ening [facility] Start: 08-12-2025 Tobacco Screening Tobacco Screening [facility] Start: 07-27-2025 Tobacco Screening Tobacco Screening [facility] Start: 07-26-2025 Adult BMI Follow Up Plan Adult BMI F ollow Up Plan [facility] Start: 07-26-2025 Adult BMI Screening Adult BMI Screen ing [facility] Start: 07-26-2025 Tobacco Screening Tobacco Screening [facility] Start: 05-24-2025 Adult BMI Follow Up Plan Adult BMI F ollow Up Plan [facility] Start: 05-24-2025 Adult BMI Screening Adult BMI Screen ing [facility] Start: 05-24-2025 Tobacco Screening Tobacco Screening [facility] Start: 05-03-2025 End: 05-03-2025 Patient encounter procedure 05/03/2025 3:15 PM EST Office Visit [facility] [address] [facility] [place] [id number] Alta Rothman MD [address], [place], [place] [id number] [facility] Start: 02-10-2025 End: 02-10-2025 Patient encounter procedure 02/10/2025 9:40 AM EDT Office Visit FARZANA ELIZABETH [address] [place] [phone] Mario Farnsworth DO [address] [place] [address] [facility] Start: 02-07-2025 End: 02-07-2025 Clinical Support 02/07/2025 3:30 PM EDT Clinical Support [facility] [address] [place] [phone] Rose Mary Ocampo, AURIST-LEAD DATABASE ADMINISTRATOR [address] [place] [address] [facility] Start: 02-07-2025 End: 01-25-2026 Cyanocobalamin vitamin b-12 Vitamin B12 Lab Routine Chronic fatigue syndrome Expected: 02/07/2025 (Approximate), Expires: 01/25/2026 [facility] Work Phone: Comment on above: Expected: 02/07/2025 (Approximate), Expires: 01/25/2026 Start: 02-07-2025 End: 01-25-2026 Vitamin D 25 hydroxy Vitamin D 25 hydroxy Lab Routine Chronic fatigue syndrome Expected: 02/07/2025, Expires: 01/25/2026 [facility] [employer] Comment on above: Expected: 02/07/2025 , Expires: 01/25/2026 Start: 02-03-2025 Adult BMI Follow Up Plan Adult BMI F ollow Up Plan [facility] Start: 02-03-2025 Adult BMI Screening Adult BMI Screen ing [facility] Start: 02-03-2025 Tobacco Screening Tobacco Screening [facility] Start: 01-25-2025 End: 01-25-2025 Patient encounter procedure 01/25/2025 11:15 AM EDT Office Visit [facility] [address] [place] [address] [place] [phone] Alta Rothman MD [address], [place] [address] [facility] Start: 01-24-2025 Influenza vaccination [facility] Start: 01-06-2025 End: 01-06-2025 Clinical Support 01/06/2025 2:00 PM EDT Clinical Support [facility] Internal Medicine Family Medicine [address] [place] [address] Iesha Valdovinos, AURIST-LEAD DATABASE ADMINISTRATOR [address] [place] [address] [facility] Internal Medicine [facility] Start: 01-05-2025 End: 01-05-2025 Patient encounter procedure 01/05/2025 1:20 PM EDT Consult [facility] [address] [place] [phone] Mario Farnsworth DO [address] [place] [address] [facility] Start: 12-30-2024 End: 12-30-2024 Patient encounter procedure 12/30/2024 1:00 PM EDT Office Visit [facility] - Family Medicine [address] [place] [address] Annette Campbell, AURIST-LEAD DATABASE ADMINISTRATOR [address] [place] [address] [facility] Internal Medicine [facility] Start: 12-06-2024 End: 12-06-2025 Antimullerian hormone (AMH) Antimullerian hormone (AMH) Lab Routine Menorrhagia with irregular cycle Expected: 12/06/2024 (Approximate), Expires: 12/06/2025 [facility] Work Phone: Comment on above: Expected: 12/06/2024 (Approximate), Expires: 12/06/2025 Start: 12-06-2024 End: 12-06-2024 Patient encounter procedure 12/06/2024 1:30 PM EDT Procedure Visit [facility] [address] [place] [phone] Mario Farnsworth, DO [address] [place] [address] [facility] Start: 11-22-2024 End: 11-22-2024 Clinical Support 11/22/2024 2:00 PM EDT Clinical Support [facility] Internal [facility] - Family [facility] [address] [place] [address] [facility] Start: 10-28-2024 End: 10-28-2025 DHEA DHEA Lab Routine Irregular menses Expected: 10/28/2024 (Approximate), Expires: 10/28/2025 [facility] Healthcare Comment on above: Expected: 10/28/2024 (Approximate), Expires: 10/28/2025 Start: 10-28-2024 End: 10-28-2025 US Pelvis US Pelvis w/ TV Imaging Routine Irregular menses Expected: 10/28/2024, Expires: 10/28/2025 [facility] Comment on above: Expected: 10/28/2024 , Expires: 10/28/2025 Start: 10-28-2024 End: 10-28-2024 Patient encounter procedure 10/28/2024 10:50 AM EDT Office Visit [facility] [address] [place] [phone] Mario Farnsworth, DO [address] [place] [address] Arrived [facility] Comment on above: Arrived Start: 10-14-2024 End: 10-14-2024 Clinical Support 10/14/2024 2:40 PM EDT Clinical Support [facility] [address] [place] [address] [facility] Start: 09-28-2024 End: 09-28-2024 Patient encounter procedure 09/28/2024 2:00 PM EDT Office Visit [facility] - Family [facility] [address] [place] [address] Annette Campbell, AURIST-LEAD DATABASE ADMINISTRATOR [address] [place] [address] [facility] Start: 09-14-2024 End: 09-14-2024 Patient encounter procedure 09/14/2024 1:40 PM EDT Office Visit [facility] Internal [facility] Family [facility] [address] [place] [address] Annette Campbell, AURIST-LEAD DATABASE ADMINISTRATOR [address] [place] [address] [facility] Start: 08-27-2024 Adult BMI Follow Up Plan Adult BMI F ollow Up Plan [facility] Start: 08-27-2024 Adult BMI Screening Adult BMI Screen ing [facility] Start: 08-27-2024 Depression Screening Depression Scre ening [facility] Start: 08-27-2024 Tobacco Screening Tobacco Screening [facility] Start: 08-13-2024 Adult BMI Screening Adult BMI Screen ing [facility] Start: 08-13-2024 Depression Screening Depression Scre ening [facility] Start: 08-13-2024 Tobacco Screening Tobacco Screening [facility] Start: 08-04-2024 End: 08-04-2024 Patient encounter procedure 08/04/2024 1:00 PM EDT Office Visit [facility] Medicine [address] [place] [address] Annette Campbell, AURIST-LEAD DATABASE ADMINISTRATOR [address] [place] [address] [facility] Start: 08-03-2024 Adult BMI Follow Up Plan Adult BMI F ollow Up Plan [facility] Start: 08-03-2024 Adult BMI Screening Adult BMI Screen ing [facility] Start: 08-03-2024 Depression Screening Depression Scre ening [facility] Start: 08-03-2024 Tobacco Screening Tobacco Screening [facility] Start: 07-29-2024 End: 07-29-2024 Clinical Support 07/29/2024 3:30 PM EST Clinical Support [facility] [address] [place] [address] [facility] Start: 07-26-2024 End: 07-26-2024 Patient encounter procedure 07/26/2024 4:20 PM EST Office Visit [facility] Medicine [address] [place] [address] Annette Campbell, AURIST-LEAD DATABASE ADMINISTRATOR [address] [place] [address] [facility] Start: 05-05-2024 Adult BMI Follow Up Plan Adult BMI F ollow Up Plan [facility] Start: 04-15-2024 End: 04-15-2024 Clinical Support 04/15/2024 2:00 PM EST Clinical Support [facility] Family Medicine [address] [place] [address] Annette Campbell, AURIST-LEAD DATABASE ADMINISTRATOR [address] [place] [address] [facility] - Family [facility] Start: 03-18-2024 End: 03-18-2024 Patient encounter procedure [facility] Comment on above: Arrived Start: 02-18-2024 End: 02-18-2024 Patient encounter procedure 02/18/2024 1:00 PM EDT Office Visit [facility] [address] [place] [phone] Mario Farnsworth DO [address] [place] [address] Arrived [facility] Comment on above: Arrived Start: 02-12-2024 End: 02-12-2024 Clinical Support 02/12/2024 11:40 AM EDT Clinical Support [facility] - Family Medicine [address] [place] [address] [facility] Family [facility] Start: 02-04-2024 End: 02-04-2024 Patient encounter procedure 02/04/2024 1:00 PM EDT Office Visit [facility] - Family Medicine [address] [place] [address] Annette Campbell, A[facility]IST[facility] [address] [place] [address] [facility] - Family Medicine Start: 01-25-2024 Influenza vaccination N [facility] Start: 01-01-2024 End: 01-01-2024 Clinical Support 01/01/2024 2:00 PM EDT Clinical Support [facility] - Family Medicine [address] [place] [address] [facility] Family [facility] Start: 12-03-2023 End: 12-03-2023 Clinical Support 12/03/2023 2:00 PM EDT Clinical Support [facility] Physicians Internal Medicine - Family Medicine [address] [place] [address] [facility] Internal [facility] - [facility] Medicine Start: 10-30-2023 End: 10-30-2023 Clinical Support 10/30/2023 2:00 PM EDT Clinical Support [facility] Internal Medicine - Family Medicine [address] [place] [address] [facility] Internal Medicine - Family Medicine Start: 09-04-2023 End: 09-04-2023 Clinical Support 09/04/2023 2:30 PM EDT Clinical Support [facility] Internal Medicine - Family Medicine [address] [place] [address] [facility] Internal Medicine - Family Medicine Start: 01-24-2023 Influenza vaccination Influenza Vacc ine [facility] Start: 01-25-2020 Influenza vaccination Flu vaccine (# 1) [place], [place] Start: 2008 Screening for malign ant neoplasm of cervix [facility] Start: 2006 DTaP/Tdap/Td vaccine (1 - Tdap) DTaP/Tdap/Td vaccine (1 - Tdap) [place], [place] Start: 2002 HIV screening HIV screen [place], [place] Start: 1993 Pneumococcal 0-64 ye ars Vaccine (1 of 1 - PPSV23) Pneumococcal 0-64 years Vaccine (1 of 1 - PPSV23) [place] Start: 1988 Varicella vaccine (1 of 2 - 2-dose childhood series) Varicella vaccine (1 of 2 - 2-dose childhood series) [place] Start: 1987 Tobacco Counseling Tobacco Counselin g [facility] End: 09-28-2025 Basic metabolic 2000 panel - Serum or Plasma Basic Metabolic Panel Lab Routine Essential hypertension 1 Occurrences starting 09/28/2024 until 09/28/2025 [facility] Comment on above: 1 Occurrences starti ng 09/28/2024 until 09/28/2025 Basic metabolic 2000 panel - Serum or Plasma Basic Metabolic Panel Lab Routine Essential hypertension 09/28/2024 2:26 PM EDT [facility] End: 09-28-2025 CBC W Auto Differential panel - Blood CBC auto differential Lab Routine Essential hypertension 1 Occurrences starting 09/28/2024 until 09/28/2025 [facility] Comment on above: 1 Occurrences starti ng 09/28/2024 until 09/28/2025 CBC W Auto Different ial panel - Blood CBC auto differential Lab Routine Essential hypertension 09/28/2024 2:26 PM EDT [facility] CBC W Auto Different ial panel - Blood CBC and differential Lab Routine Irregular menses Ordered: 10/28/2024 [facility] Comment on above: Ordered: 10/28/2024 Cobalamin (Vitamin B 12) [Mass/volume] in Serum or Plasma Vitamin B12 Lab Routine Vitamin B 12 deficiency 02/04/2024 7:48 PM EDT [facility] End: 02-03-2025 Cyanocobalamin vitamin b-12 Vitamin B12 Lab Routine Vitamin B 12 deficiency 1 Occurrences starting 02/04/2024 until 02/03/2025 [employer] Work Phone: Comment on above: 1 Occurrences starti ng 02/04/2024 until 02/03/2025 End: 08-12-2025 Cyanocobalamin vitamin b-12 Vitamin B12 Lab Routine Vitamin B 12 deficiency 1 Occurrences starting 08/12/2024 until 08/12/2025 [employer] Work Phone: Comment on above: 1 Occurrences starti ng 08/12/2024 until 08/12/2025 Cytology Cervical or vaginal smear or scraping study Pap Smear Pathology and Cytology Routine Well woman exam with routine gynecological exam Ordered: 02/18/2024 [facility] [employer] Work Phone: Comment on above: Ordered: 02/18/2024 DHEA-sulfate DHEA-sulfate Lab Routine Irregular menses Ordered: 10/28/2024 [facility] Comment on above: Ordered: 10/28/2024 Estradiol Estradiol Lab Ro utine Irregular menses Ordered: 10/28/2024 [facility] Comment on above: Ordered: 10/28/2024 Follicle stimulating hormone Follicle stimulating hormone Lab Routine Irregular menses Ordered: 10/28/2024 [facility] Comment on above: Ordered: 10/28/2024 hCG, quantitative, hCG, quantitative, Lab Routine Irregular menses Ordered: [facility]/28/[facility] Work [facility]: Comment on above: Ordered: 10/28/2024 Hemoglobin A1c/Hemoglobin.total in Blood Hemoglobin A1c Lab Routine Insulin resistance Ordered: 02/18/2024 [facility] Comment on above: Ordered: 02/18/2024 End: 08-04-2024 Hemoglobin A1c/Hemoglobin.total in Blood Hemoglobin A1c Lab Routine Prediabetes 1 Occurrences starting 08/04/2023 until 08/04/2024 [employer] Work Phone: Comment on above: 1 Occurrences starti ng 08/04/2023 until 08/04/2024 Hemoglobin A1c/Hemoglobin.total in Blood Hemoglobin A1c Lab Routine Prediabetes 08/04/2023 10:55 PM EDT [email or web address] Hemoglobin A1c/Hemoglobin.total in Blood Hemoglobin A1c Lab Routine Irregular menses Ordered: 10/28/2024 [facility] Comment on above: Ordered: 10/28/2024 Human papilloma viru s DNA [Presence] in Unspecified specimen by Probe with amplification HPV DNA probe, amplified Microbiology Routine Well woman exam with routine gynecological exam Ordered: 02/18/2024 [facility] Comment on above: Ordered: 02/18/2024 Luteinizing hormone Luteinizing hormone Lab Routine Irregular menses Ordered: 10/28/2024 [facility] Comment on above: Ordered: 10/28/2024 End: 09-28-2025 Magnesium [Mass/volume] in Serum or Plasma Magnesium Lab Routine Essential hypertension 1 Occurrences starting 09/28/2024 until 09/28/2025 [email or web address] Comment on above: 1 Occurrences starti ng 09/28/2024 until 09/28/2025 Magnesium [Mass/volu me] in Serum or Plasma Magnesium Lab Routine Essential hypertension 09/28/2024 2:26 PM EDT [email or web address] Progesterone Progesterone Lab Routine Irregular menses Ordered: 10/28/2024 [facility] Comment on above: Ordered: 10/28/2024 Thyrotropin [Units/volume] in Serum or Plasma TSH Lab Routine Hyperthyroidism (CMS/HCC) Ordered: 02/18/2024 [facility] Comment on above: Ordered: 02/18/2024 Thyrotropin [Units/volume] in Serum or Plasma TSH Lab Routine Irregular menses Ordered: 10/28/2024 [facility] Comment on above: Ordered: 10/28/2024 Thyroxine (T4) free [Mass/volume] in Serum or Plasma T4, free Lab Routine Irregular menses Ordered: 10/28/2024 [facility] Comment on above: Ordered: 10/28/2024 End: 02-04-2025 Vitamin D 25 hydroxy Vitamin D 25 hydroxy Lab Routine Vitamin D deficiency 1 Occurrences starting 02/04/2024 until 02/04/2025 [facility] Comment on above: 1 Occurrences starti ng 02/04/2024 until 02/04/2025 End: 09-29-2025 Vitamin D 25 hydroxy Vitamin D 25 hydroxy Lab Routine Vitamin D deficiency 1 Occurrences starting 09/28/2024 until 09/29/2025 [facility] Work Phone: Comment on above: 1 Occurrences starti ng 09/28/2024 until 09/29/2025 Vitamin D 25 hydroxy Vitamin D 2 5 hydroxy Lab Routine Vitamin D deficiency 09/28/2024 2:26 PM EDT [facility] Vitamin D+Metabolite s [Mass/volume] in Serum or Plasma Vitamin D 25 hydroxy Lab Routine Vitamin D deficiency 02/04/2024 7:48 PM EDT [facility] End: 03-30-2020 XR THORACIC SPINE (2 VIEWS) XR THORACIC SPINE (2 VIEWS) Imaging Routine Midline thoracic back pain, unspecified chronicity 1 Occurrences starting 03/30/2020 until 03/30/2020 [place] Comment on above: 1 Occurrences starti ng 03/30/2020 until 03/30/2020 Immunizations Immunization Date Immunization Notes Care Provider Cy gimenez 11-22-2015 tetanus toxoid, redu bruce diphtheria toxoid, and acellular pertussis vaccine, adsorbed Annette Campbell AURIST-LEAD DATABASE ADMINISTRATOR Work Phone: [facility] 04-01-2014 influenza, seasonal, injectable, preservative free Annette Campbell AURIST-LEAD DATABASE ADMINISTRATOR Work Phone: [facility] 04-01-2014 tetanus toxoid, redu bruce diphtheria toxoid, and acellular pertussis vaccine, adsorbed Annette Campbell AURIST-LEAD DATABASE ADMINISTRATOR Work Phone: [facility] 04-01-2014 influenza virus vaccine, unspecified formulation Annette Campbell AURIST-LEAD DATABASE ADMINISTRATOR Work Phone: [facility] Payers Date Payer Category Payer Medicaid [id number] 2022 Medicaid [id number] 2014 Unknown [id number] 1987 Unknown [id number] 2.16.8 40.1.116660.3.579.2.173 1987 Unknown [id number] 2.16.8 40.1.172895.3.579.2.173 1987 Unknown [id number] 2.16.8 40.1.541876.3.579.2.173 1987 Unknown [id number] 2.16.8 40.1.043207.3.579.2.173 1987 Unknown [id number] 2.16.8 40.1.245119.3.579.2.175 1987 Unknown [id number] 2.16.8 40.1.786142.3.579.2.175 1987 Unknown [id number] 2.16.84 0.1.969397.3.579.2.593 1987 Unknown [id number] 2.16. 840.1.809267.3.579.2.1286 1987 Unknown [id number] 2.16. 840.1.269069.3.579.2.1286 1987 Unknown [id number] 2.16.8 40.1.143072.3.579.2.1286 1987 Unknown [id number] 2.16. 840.1.698520.3.579.2.1286 1987 Unknown [id number] 2.16. 840.1.639393.3.579.2.1285 1987 Unknown [id number] 2.16. 840.1.104142.3.579.2.1285 1987 Unknown [id number] 2.16.8 40.1.439563.3.579.2.1285 1987 Unknown [id number] 2.16.8 40.1.830914.3.579.2.1285 1987 Unknown [id number] 2.16.8 40.1.157521.3.579.2.1258 1987 Unknown [id number] 2.16.8 40.1.746801.3.579.2.1258 1987 Unknown [id number] 2.16.8 40.1.277029.3.579.2.1258 1987 Unknown [id number] 2.16.84 0.1.855141.3.579.2.1258 1987 Unknown [id number] 2.16.84 0.1.615924.3.579.2.1258 1987 Unknown [id number] 2.16. 840.1.979725.3.579.2.1285 1987 Unknown [id number] 2.16. 840.1.504046.3.579.2.1285 1987 Unknown [id number] 2.16. 840.1.828970.3.579.2.1285 1987 Unknown [id number] 2.16. 840.1.504851.3.579.2.1285 1987 Unknown [id number] 2.16. 840.1.925647.3.579.2.1285 1987 Unknown [id number] 2.16. 840.1.348207.3.579.2.1285 1987 Unknown [id number] 2.16. 840.1.855677.3.579.2.1285 1987 Unknown [id number] 2.16. 840.1.171964.3.579.2.1286 1987 Unknown [id number] 2.16. 840.1.587888.3.579.2.1286 1987 Unknown [id number] 2.16. 840.1.255032.3.579.2.1286 1987 Unknown [id number] 2.16. 840.1.781737.3.579.2.1286 1987 Unknown [id number] 2.16.8 40.1.637502.3.579.2.1286 1987 Unknown [id number] 2.16.8 40.1.638840.3.579.2.1286 1987 Unknown [id number] 2.16.8 40.1.691039.3.579.2.1286 1987 Unknown [id number] 2.16.8 40.1.847198.3.579.2.1286 1959 Unknown [id number] Social History Date Type Detail Facility Start: 03-30-2020 End: 02-18-2024 Tobacco smoking status WIIS Current every day smoker [facility] Start: 05-26-2005 History of tobacco use Cigarette Smo ker [place] Start: 03-30-2020 End: 02-18-2024 Tobacco use and exposure Never used [place] Start: 03-30-2020 End: 04-02-2020 Alcohol intake Lifetime non-drinker (finding) [place] Start: 03-30-2020 History SDOH Alcohol Frequency 1 [place] Start: 1985 Sex Assigned At Not on file [place] Exposure to SARS-CoV -2 (event) Not sure [place] Start: 06-12-2021 End: 02-18-2024 Cigarettes smoked current (pack per day) - Reported 0.3 [facility] Start: 02-18-2024 End: 01-05-2025 Alcoholic beverage intake Ex-drinker (finding) [facility] Start: 06-12-2021 End: 09-25-2024 Tobacco use panel [facility] Do you belong to any clubs or organizations such as jewish groups, unions, fraternal or athletic groups, or school groups? No [facility] Are you now , , , , never or living with a partner? [facility] How often to you hav e a drink containing alcohol? Never [facility] Average Number of Drinks Not on file [facility] Do you feel stress - tense, restless, nervous, or anxious, or unable to sleep at night because your mind is troubled all the time - these days [OSQ] Only a little [facility] Start: 06-12-2021 Education 12 [facility] Start: 12-29-2014 Sex Female (finding) [facility] Clinical Notes 08-04-2023 to 01-25-2025 Alta Rothman MD - 01/25/2025 11:15 AM Annika La DO - 01/06/2025 1:15 PM EDTBfadumo Garcia - 01/05/2025 1:20 PM EDTTelephone Encounter - Yaz Luna CMA - 12/15/2024 3:14 PM EDT Note Date & Type Note Facility 01-25-2025 History of Present illness Narrative Images from the original note were not included. [address] [place] [id number] Patient: Krysta Duran Date of : 1985 Encounter Date: 01/25/2025 SUBJECTIVE: HISTORY OF PRESENT ILLNESS: Chief Complaint: Chief Complaint Patient presents with [facility] Patient ID: Krysta is a 39 y.o. female 39-year-old female here to [facility] primary care provider Has a past medical [...] min Stress: No Stress Concern Present (06/12/2021) [place] [employer] - Occupational Stress Questionnaire Feeling of Stress : Only a little Social Connections: Moderately Isolated (06/12/2021) Social Connection and Isolation Panel [NHANES] Frequency of Communication with Friends and Family: Three times a week Frequency of Social Gatherings with Friends and Family: Once a week Attends Faith Services: Never Active Member of Clubs or Organizations: No Attends Club or Organization Meetings: Never Marital Status: Interpersonal Safety: Unknown (07/17/2023) Received from [facility] Safety & Environment Fear of Current or [...] obtained and reviewed the relevant labs/imaging. ASSESSMENT/PLAN: Krysta was seen today for establish care. Diagnoses [...] months ALTA ROTHMAN MD Family Medicine Physician [facility] Medicine / [facility] 01/25/25 This note was completed with voice recognition software. The document was reviewed for errors however some may still be present. Please do not hesitate to contact/Epic msg the author to verify any questions/concerns. documented in this encounter [facility] 01-06-2025 History of Present illness Narrative B12 injection given without incident. documented in this encounter [facility] 01-05-2025 History of Present illness Narrative Reason for Appointment: Patient ID: Krysta Duran is a 39 y.o. female who presents for Pre-op Visit Patient presents today for Pre Op appointment. Patient is scheduled to undergo D&C Hysteroscopy, possible Myosure and removal of vaginal cyst on 02-04-[address] Farnsworth at [facility]. 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 Exam conducted with a hose tender present. Vitals: Estimated body mass index is [...] reviewed, and patient is to proceed to [facility] OR. Follow Up: Patient is to follow up between 1-2 weeks post operative to assess proper healing and recovery from procedure. Documented by Fifi Coronel LPN on behalf of: Mario Farnsworth DO documented in this encounter [facility] 12-15-2024 Miscellaneous Notes Patient can not get into her new PCP until late Jan. She needs enough of these wto meds to hold her over until then documented in this encounter [facility] 12-15-2024 Telephone encounter Note Patient can not get into her new PCP until late Jan. 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 Exam conducted with a hose tender present. Vitals: Estimated body mass index is [...] future childbearing. Patient will schedule procedure with Change Manager since Endometrial Biopsy could not be performed. 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 Exam conducted with a hose tender present. Vitals: Estimated body mass index is [...] Mario Farnsworth DO documented in this encounter [facility] 09-28-2024 History of Present illness Narrative Images from the original note were not included. [address] [place] [address] SUBJECTIVE: Patient ID: Krysta Duran is a 39 y.o. female. Chief Complaint Patient presents with Hypertension Presents for HTN follow up Blood pressures have improved. She is now 140/78. Was previously 170/90.States her headaches are now intermittent, have significantly improved. States yesterday when she took her blood pressure, she noticed her pulse was 120. Milam palpitations. She took her medication, which includes [...] Vila 09/28/24 1444 documented in this encounter [facility] 09-14-2024 History of Present illness Narrative Images from the original note were not included. [address] [place] [address] SUBJECTIVE: Patient ID: Krysta Duran is a [...] Vila 09/14/24 1415 documented in this encounter [employer] 08-12-2024 History of Present illness Narrative Images from the original note were not included. [address] [place] [address] SUBJECTIVE: Patient ID: Krysta Duran is a [...] [place]ila 08/12/24 1528 documented in this encounter [facility] 08-12-2024 Instructions GUIDO Vila - 08/12/2024 2:40 PM EDT Are You Ready To Kick The Habit? Free Tobacco Cessation Resources [facility] Services [facility] provide all employees with free tobacco cessation services that include: Counseling to understand nicotine addiction Education about medications that can help you successfully quit Assistance with developing a plan to quit Call to set up an individual appointment or find out when group classes will be held: [facility]: [phone] [facility]: [phone] [facility]: [phone] [facility]: [phone] Quit Smoking Action Plan and Resources [facility] offers an eight-week, online smoking cessation plan to all [facility] employees, regardless of whether [place] is your medical insurance provider. Go to [email or web address] and click the Health Risk Assessment and Resources link to get started. In the [employer] menu, click Action Plans instead of Health Risk Assessment to access the Quit Smoking Action Plan. Additional smoking cessation resources are also available to all [facility] employees on the [employer] web page at www.[employer].ncyclo/quits cassandra. [place] Tobacco Cessation Program If [employer] is your medical insurance provider, there are more free resources available to you, including: No copays or deductibles on local tobacco cessation counseling services to help you quit Prescription assistance for tobacco cessation medications to help you quit For details about the tobacco cessation program available to [employer] members, go to www.[employer].ncyclo (Search: Tobacco Cessation Program). [place] Tobacco Quit Line 5-365-IYNO-NOW ( ) is a toll-free, telephonic service that helps [place] residents quit smoking and using tobacco. It is staffed by experts who tailor a quit plan for you and provide you with advice. [place] Tobacco Quit Line 4-310-BCFQ-NOW ( ) is a toll-free, telephonic service that helps [place] residents quit smoking and using tobacco. It is staffed by experts who tailor a quit plan for you and provide you with advice. Two weeks of nicotine replacement therapy may be provided at no charge, if needed. Additional Resources These national organizations also offer free information and resources to help you quit tobacco: [place] [employer]--www.cancer.org/healthy/s tayawayfromtobacco [place] [employer]--www.heart.org (Search: Quit Smoking) Centers for Disease Control and Prevention--www.cdc.gov/tobacco [place] [employer]--www.lungusa.org documented in this encounter [employer] 07-29-2024 Miscellaneous Notes ----- Message from Magi [...] Pressure - High-A-AH documented in this encounter [facility] 07-29-2024 Telephone encounter Note ----- Message from Magi sent at 07/29/2024 7:59 PM EST ----- Contract: 198 Has a question concerning BP 213/124 [facility] 07-29-2024 Telephone encounter Note Seen in [...] gait) Protocols used: Blood Pressure - High-A-AH [facility] 07-29-2024 History of Present illness Narrative Blood pressure was 170/100 at last appointment. Currently is 164/100 and 162/94. Currently taking metoprolol succinate 100 mg oral daily. Add lisinopril 20 mg oral daily. Patient informed of changes. Voices understanding. GUIDO Vila 07/29/24 1611 [facility] History of Present illness Narrative Images from the original note were not included. [address] [place] [id number] SUBJECTIVE: Patient ID: Krysta Duran is a [...] of right eustachian tube - methylPREDNISolone (MEDROL, KIRILL,) 4 mg tablet; Take 1 tablet (4 [...] Vila 07/27/24 1009 documented in this encounter [facility] 06-24-2024 History of Present illness Narrative After obtaining consent, and per orders of Annette Campbell, injection of B12 given by Nahed Starr CMA. Patient instructed to remain in clinic for 20 minutes afterwards, and to report any adverse reaction to me immediately. GUIDO Vila 06/24/24 1337 documented in this encounter [facility] 05-24-2024 History of Present illness Narrative Images from the original note were not included. [address] [place] [address] SUBJECTIVE: Patient ID: Krysta Duran is [...] Vila 05/24/24 1642 documented in this encounter [employer] 03-18-2024 History of Present illness Narrative Reason for Appointment: Patient ID: Krysta Duran is a 38 y.o. female who presents for Pre-op Visit Patient presents today for Pre Op appointment. Patient is scheduled to undergo Excision Bartholin's Cyst on 04/16/[address] Farnsworth at [facility]. MEDICATIONS Current Outpatient Medications Medication Instructions ibuprofen 600 mg, Every 8 hours PRN metoprolol succinate XL (Toprol-XL) 50 MG 24 hr tablet 1 tablet, Daily ALLERGIES Allergies Allergen Reactions Benzonatate Other Reaction(s): Facial Swelling PROBLEMS Active Ambulatory Problems Diagnosis Date Noted Antiphospholipid syndrome ([facility]) 07/30/2020 Anxiety disorder 04/04/2020 Chronic fatigue syndrome 04/04/2020 Essential hypertension ([facility]/HCC) 04/04/2020 Gastroesophageal reflux disease 04/04/2020 Hirsutism 04/04/2020 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/2020 Hyperthyroidism ([facility]) 01/19/2020 Insulin resistance 04/04/2020 Migraine ([facility]/HCC) 04/04/2020 Morbid obesity (CMS/HCC) 04/04/2020 Multiple thyroid nodules ([facility]) 01/29/2023 Non-toxic uninodular goiter ([facility]) 04/04/2020 Polycystic ovary syndrome 04/04/2020 Prediabetes [...] nursing note reviewed. Exam conducted with a hose tender present. Vitals: Estimated body mass index is [...] on 04/16/[address] Farnsworth at [facility]. Discussed post-operative care and recovery. Surgical consents were signed, mmc was reviewed, and patient is to proceed to [facility] OR. Follow Up: Patient is to follow up between 1-2 weeks post operative to assess proper healing and recovery from procedure. Documented by Daphne Matos LPN on behalf of: Mario Farnsworth DO documented in this encounter [facility] 02-18-2024 History of Present illness Narrative Reason for Appointment: Patient ID: Krysta Duran is a 38 y.o. female who presents for Gynecologic Exam Patient presents today for Annual Exam. MEDICATIONS Current Outpatient Medications Medication Instructions albuterol HFA 90 mcg/act inhaler Inhalation cetirizine-pseudoephedrine (ZyrTEC-D) 5-120 MG 12 hr tablet 1 tablet, Oral, 2 times daily cholecalciferol (Vitamin D-3) 250 MCG (45594 UT) capsule 1 capsule, Oral, Daily cyanocobalamin [...] Ambulatory Problems Diagnosis Date Noted Antiphospholipid syndrome (CMS/HCC) 07/30/2020 Anxiety disorder 04/04/2020 Chronic fatigue syndrome 04/04/2020 Essential hypertension ([facility]) 04/04/2020 Gastroesophageal reflux disease 04/04/2020 Hirsutism 04/04/2020 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/2020 Hyperthyroidism ([facility]) 01/19/2020 Insulin resistance 04/04/2020 Migraine ([facility]) 04/04/2020 Morbid obesity ([facility]) 04/04/2020 Multiple thyroid nodules ([facility]) 01/29/2023 Non-toxic uninodular goiter ([facility]) 04/04/2020 Polycystic ovary syndrome 04/04/2020 Prediabetes [...] nursing note reviewed. Exam conducted with a hose tender present. Vitals: Estimated body mass index is [...] Mario Farnsworth DO documented in this encounter [facility] 02-12-2024 History of Present illness Narrative After obtaining consent, and per orders of Annette Campbell, injection of B12 given by Nahed Starr CMA. Patient instructed to remain in clinic for 20 minutes afterwards, and to report any adverse reaction to me immediately. documented in this encounter [facility] 02-04-2024 History of Present illness Narrative Images from the original note were not included. [address] [place] [address] SUBJECTIVE: Patient ID: Krysta Duran is a [...] or procedures Follow-up: Annual physical 6 months GUIDO Vila 02/04/24 1402 documented in this encounter [facility] 12-03-2023 History of Present illness Narrative B12 administered per MA GUIDO Vila 12/03/23 1516 documented in this encounter [facility] 10-09-2023 Miscellaneous Notes Pt called wanted to know if you could represcribe the flonase , she was prescribled flonase by urgent care a month ago and ent would like her using that over the zyrtec Done documented in this encounter [facility] 10-09-2023 Telephone encounter Note Pt called wanted to know if you could represcribe the flonase , she was prescribled flonase by urgent care a month ago and ent would like her using that over the zyrtec [facility] 10-09-2023 Telephone encounter Note Done [facility] 09-22-2023 Miscellaneous Notes Patient called she would like a referral to ENT, I mentioned Timmis and she said that was fine I need a reason, is this for chronic ear pain? Yes, and drainage. Nothing that we have done has helped her. Done documented in this encounter [facility] 09-22-2023 Telephone encounter Note Patient called she would like a referral to ENT, I mentioned Timmis and she said that was fine [facility] 09-22-2023 Telephone encounter Note I need a reason, is this for chronic ear pain? [facility] 09-22-2023 Telephone encounter Note Yes, and drainage. Nothing that we have done has helped her. [facility] 09-22-2023 Telephone encounter Note Done [facility] 08-28-2023 History of Present illness Narrative Images from the original note were not included. [address] [facility] [address] SUBJECTIVE: Patient ID: Krysta Duran is a [...] throat. Motrin or Tylenol as needed per ophthalmic asst guidelines for fever or pain. POCT rapid [...] Vila 08/28/23 1358 documented in this encounter [facility] 08-14-2023 History of Present illness Narrative [...] back with an update NICOLAS Kwan 08/14/23 2334 documented in this encounter [facility] 08-04-2023 History of Present illness Narrative Images from the original note were not included. [address] [place] [address] SUBJECTIVE: Patient ID: Krysta Duran is [...] Vila 08/04/23 1611 documented in this encounter [facility] Evaluation note Diagnosis Pre-operative exam Unspecified pre-operative examination Bartholin's gland cyst Cyst of Bartholin's gland documented in this encounter [facility] HealthcareEvaluation note* Diagnosis Well woman exam with routine gynecological exam Routine gynecological examination Hyperthyroidism (CMS/HCC) Thyrotoxicosis without mention of goiter or other cause, without mention of thyrotoxic crisis or storm Insulin resistance Other abnormal glucose documented in this encounter [facility] HealthcareEvaluation note* Diagnosis Gastroenteritis- Primary Other and unspecified noninfectious gastroenteritis and colitis Nausea Nausea alone documented in this encounter [facility]* Diagnosis Ear pain, bilateral- Primary documented in this encounter [facility]* Diagnosis B12 deficiency- Primary documented in this encounter [facility]* Diagnosis Seasonal allergic rhinitis due to pollen- Primary documented in this encounter [facility]* Diagnosis Vitamin B 12 deficiency- Primary Other B-complex deficiencies documented in this encounter [facility]* Diagnosis Vitamin B 12 deficiency- Primary Other B-complex deficiencies Vitamin D deficiency Prediabetes Other abnormal glucose Mixed hyperlipidemia Ocular migraine Variants of migraine, not elsewhere classified, without mention of intractable migraine without mention of status migrainosus Essential hypertension Unspecified essential hypertension [facility]* Diagnosis Viral URI- Primary Acute upper respiratory infections of unspecified site [facility]* Diagnosis Congestion of nasal sinus- Primary Other diseases of nasal cavity and sinuses Congestion of both ears [facility]* Diagnosis Acute non-recurrent pansinusitis- Primary Vitamin B 12 deficiency Other B-complex deficiencies Upper respiratory symptom [facility]* Diagnosis Acute bacterial conjunctivitis, unspecified laterality- Primary [facility]* Diagnosis Vitamin B 12 deficiency- Primary Other B-complex deficiencies [facility]* Diagnosis Essential (primary) hypertension Unspecified essential hypertension [facility] Diagnosis Essential hypertension- Primary Unspecified essential hypertension Vitamin D deficiency Vitamin B 12 deficiency Other B-complex deficiencies Leukocytosis, unspecified type [facility] Diagnosis Vitamin B 12 deficiency- Primary Other B-complex deficiencies [facility]* Diagnosis Vitamin B 12 deficiency- Primary Other B-complex deficiencies [facility]* Diagnosis Essential (primary) hypertension Unspecified essential hypertension [facility] Diagnosis Essential (primary) hypertension- Primary Unspecified essential hypertension Vitamin B 12 deficiency Other B-complex deficiencies Dysfunction of right eustachian tube [facility]* Diagnosis Essential (primary) hypertension- Primary Unspecified essential hypertension [facility]* Diagnosis Vitamin B 12 deficiency- Primary Other B-complex deficiencies Acute right otitis media Vaginal mayuri Candidiasis of vulva and vagina Essential hypertension Unspecified essential hypertension [facility]* Diagnosis Vitamin D deficiency [facility]* Diagnosis Essential hypertension- Primary Unspecified essential hypertension documented [facility]* Diagnosis Essential hypertension- Primary Unspecified essential hypertension Vitamin D deficiency [facility]* Diagnosis Vitamin B 12 deficiency- Primary Other B-complex deficiencies documented [facility]* Diagnosis Irregular menses Irregular menstrual cycle documented in this encounter [facility] HealthcareEvaluation note* Diagnosis Menorrhagia with irregular cycle documented in this encounter [facility] HealthcareEvaluation note* Diagnosis Essential hypertension Unspecified essential hypertension Essential (primary) hypertension Unspecified essential hypertension documented in this encounter [facility]* Diagnosis Pre-op examination Menorrhagia with regular cycle Vaginal cyst Other specified noninflammatory disorder of vagina documented in this encounter [facility] HealthcareEvaluation note* Diagnosis Vitamin B 12 deficiency- Primary Other B-complex deficiencies documented in this encounter [facility] note* Diagnosis Chronic fatigue syndrome- Primary TALAT (obstructive sleep apnea) Obstructive sleep apnea (adult) (pediatric) Gastroesophageal reflux disease without esophagitis Esophageal reflux Vitamin B 12 deficiency Other B-complex deficiencies documented in this encounter [facility] SystemInstructions* Attachments The following attachments cannot be sent through Care Everywhere. * Viral Gastroenteritis Discharge Instructions, Adult (Citizen Of [place]) [facility]Not [facility] [employer] SystemInstructionsNot on file [facility] in [facility] System[facility]ructionsNot on file [facility] SystemInstructionsNot on file [facility]* Attachments The following attachments cannot be sent through Care Everywhere. * Vitamin B12 Deficiency Discharge Instructions (Citizen Of [place]) [facility]* Attachments The following attachments cannot be sent through Care Everywhere. * Vitamin D deficiency (Citizen [place]) * Vitamin B12 deficiency and folate deficiency (Citizen [place]) [facility] [employer] SystemInstructionsNot on file documented in this [facility] SystemInstructions* Attachments The following attachments cannot be sent through Care Everywhere. * Sinusitis in adults (Citizen Of [place]) [facility] [employer] SystemInstructionsNot on file documented in this [facility] [employer] SystemInstructionsNot on file [facility]* Attachments The following attachments cannot be sent through Care Everywhere. * High blood pressure in adults (Citizen Of [place]) [facility] SystemInstructionsNot on file [facility] this [facility] SystemInstructions* Attachments The following attachments cannot be sent through Care Everywhere. * Eustachian tube problems (Citizen [place]) * High blood pressure in adults (Citizen [place]) [facility]ructionsNot on file documented in this [facility] Hospital[facility]ructionsNot on file documented in [facility]* Attachments The following attachments cannot be sent through Care Everywhere. * High Blood Pressure Discharge Instructions (Citizen [place]) [facility]* Attachments The following attachments cannot be sent through Care Everywhere. * Controlling your blood pressure through lifestyle (Citizen Of [place]) documented in this [facility] HospitalInstructionsNot on file documented in this encounterKe[facility] HospitalReason for referral (narrative)* Consultation (Routine) - Pending Review Specialty Diagnoses / Procedures Referred By Arelis shoemaker Referred To Contact Otolaryngology Diagnoses Ear pain, bilateral Annette Campbell APRN-CNP [address] [place] [address] Tanja Wellington MD [address] [place] [address] Referral ID Status Reason Start Date Expiration Date Visits Requested Visits Authorized [id number] Pending Review Specialty Services Required 09/23/2023 09/22/2024 1 1 [facility] Assessments Diagnosis Neck pain Cervicalgia Midline [...] through Care Everywhere. * Hypertension: General Info (Citizen Of [place]) documented in this encounter Additional Source Comments INFORMATION SOURCE (unrecogn ized section and content) DATE CREATED AUTHOR 04/01/2020 [facility] DATE CREATED AUTHOR AUTHOR'S ORGANIZ ATION 06/02/2020 [facility] DATE CREATED AUTHOR AUTHOR'S ORGANIZ ATION 09/20/2020 [facility] DATE CREATED AUTHOR AUTHOR'S ORGANIZ ATION 04/08/[address] [facility] DATE CREATED AUTHOR AUTHOR'S ORGANIZ ATION 10/01/2024 [facility] DATE CREATED AUTHOR AUTHOR'S ORGANIZ ATION 11/09/2024 [facility] DATE CREATED AUTHOR AUTHOR'S ORGANIZ ATION 01/07/2025 [facility] EPIC DATE CREATED AUTHOR AUTHOR'S ORGANIZ ATION 01/26/2025 [facility] DATE CREATED AUTHOR AUTHOR'S ORGANIZ ATION 02/03/2025 [facility] Reason for Visit (unrecogniz ed section and [...] Care Teams (unrecognized sec tion and content) Ordnance Artificer Relationship Specialty Start Date End Date Cynthia Colvin PCP - [facility] 11/24/23 Annette Campbell CRNP [address] [place] [address] Referring Physician Nurse Practitioner 09/24/23 Ordnance Artificer Relationship Specialty Start Date End Date Cynthia Colvin PCP - [facility] 11/24/23 Annette Campbell CRNP [address] [place] [address] Referring Physician Nurse Practitioner 09/24/23 Ordnance Artificer Relationship Specialty Start Date End Date Cynthia Colvin PCP - [facility] 11/24/23 Annette Campbell CRNP [address] [place] [address] Referring Physician Nurse Practitioner 09/24/23 Ordnance Artificer Relationship Specialty Start Date End Date Cynthia Colvin PCP - [facility] 11/24/23 Annette Campbell CRNP [address] [place] [address] Referring Physician Nurse Practitioner 09/24/23 Ordnance Artificer Relationship Specialty Start Date End Date Kamlesh Charles MD [address] [place] [address] PCP - [facility] 08/25/23 Annette Campbell CRNP [address] [place] [address] Referring Physician Nurse Practitioner 09/24/23 Ordnance Artificer Relationship Specialty Start Date End Date Annette Campbell, AURIST-[employer] DAT[employer] ADMINISTRATOR [address] [place] [address] PCP - General Family Medicine 04/03/20 Ordnance Artificer Relationship Specialty Start Date End Date Annette Campbell [facility] [address] [place] [address] PCP - General Family Medicine 04/03/20 Ordnance Artificer Relationship Specialty Start Date End Date Annette Campbell [facility] [address] [place] [address] PCP - General Family Medicine 04/03/20 Ordnance Artificer Relationship Specialty Start Date End Date Annette Campbell [facility] [address] [place] [address] PCP - General Family Medicine 04/03/20 Ordnance Artificer Relationship Specialty Start Date End Date Annette Campbell [facility] [address] [place] [address] PCP - General Family Medicine 04/03/20 Ordnance Artificer Relationship Specialty Start Date End Date Annette Campbell [facility] [address] [place] [address] PCP - General Family Medicine 04/03/20 Ordnance Artificer Relationship Specialty Start Date End Date Annette Campbell [facility] [address] [place] [address] PCP - General Family Medicine 04/03/20 Ordnance Artificer Relationship Specialty Start Date End Date Annette Campbell [facility] [address] [place] [address] PCP - General Family Medicine 04/03/20 Ordnance Artificer Relationship Specialty Start Date End Date Annette Campbell [facility] [address] [place] [address] PCP - General Family Medicine 04/03/20 Ordnance Artificer Relationship Specialty Start Date End Date Annette Campbell [facility] [address] [place] [address] PCP - General Family Medicine 04/03/20 Ordnance Artificer Relationship Specialty Start Date End Date Annette Campbell [facility] [address] [place] [address] PCP - General Family Medicine 04/03/20 Ordnance Artificer Relationship Specialty Start Date End Date Annette Campbell [facility] [address] [place] [address] PCP - General Family Medicine 04/03/20 Ordnance Artificer Relationship Specialty Start Date End Date Annette Campbell [facility] [address] [place] [address] PCP - General Family Medicine 04/03/20 Ordnance Artificer Relationship Specialty Start Date End Date Annette Campbell, AURIST-[facility] [address] [place] [address] PCP - General Family Medicine 04/03/20 Ordnance Artificer Relationship Specialty Start Date End Date [facility] [address] [place] [address] PCP - General Family Medicine 04/03/20 Ordnance Artificer Relationship Specialty Start Date End Date [facility] [address] [place] [address] PCP - General Family Medicine 04/03/20 Ordnance Artificer Relationship Specialty Start Date End Date Bernadette Colvinsa PCP - [facility] [employer] 11/24/23 Annette Campbell CRNP Referring Physician Nurse Practitioner 09/24/23 Ordnance Artificer Relationship Specialty Start Date End Date Bernadette Colvinsa PCP - [facility] [employer] 11/24/23 Annette Campbell CRNP Referring Physician Nurse Practitioner 09/24/23 Ordnance Artificer Relationship Specialty Start Date End Date KrBernadette galeassa PCP - [facility] [employer]CH[employer] 11/24/23 Annette Campbell CRNP Referring Physician Nurse Practitioner 09/24/23 Ordnance Artificer Relationship Specialty Start Date End Date Bernadette Colvinsa PCP - [facility] [employer] 11/24/23 Annette Campbell CRNP Referring Physician Nurse [...] BE BASED ON THE PRIMARY CLINICAL RECORDS. [facility] [employer] provides no warranty or guarantee of the accuracy or completeness of information in this document.
[2025-02-04 08:22] LABS: Hematocrit 37.8 % (36.0-48.0); Hemoglobin 13.2 g/dL (12.0-16.0); Immature Granulocytes Abs Auto 0.01 10^3/uL (0.00-0.03); Immature Granulocytes Pct Auto 0.1 % (0.0-0.5); Lymphocytes Absolute Auto 2.4 10^3/uL (1.2-3.8); Mean Corpuscular HGB Conc 34.9 g/dL (29.9-35.2); Mean Corpuscular Hemoglobin 29.7 pg (26.7-34.0); Mean Corpuscular Volume 85.1 fL (81.0-99.0); Platelet Count 195 10^3/uL (150-450); Red Blood Count 4.44 10^6/uL (4.20-5.40); White Blood Count 7.4 10^3/uL (4.0-11.0)
--- NOTE | 2025-02-04 11:27 | PM.ONB ---
Brief Operative Note Date of procedure: 02/04/25 Pre-op diagnosis general: thickend endometrium, rt labial lipoma Post-op diagnosis: same as pre-op Procedure: NAME OF PROCEDURE: [ D&c hysteroscopy with myosure] PROCEDURE: The patient was taken back to the Operating Room where she was prepped and draped in normal sterile fashion after being placed under general anesthesia without difficulty. She was also placed in the dorsal lithotomy position. A weighted speculum was placed in the patient?s vagina. The anterior lip of the cervix was identified and grasped with a single tooth tenaculum. The patient?s uterus was then sounded roughly to [? 8] cm. The patient was then gently dilated using Hegar dilators. due to patients body habitus the hysteroscope could not be passed into the uterus, the hysteroscopy could not be completely performed, endometrial pipette was used to try and obtain endometrial currettings, The hysteroscope was then removed . The endometrial curettings were sent out to pathology. The single tooth tenaculum was then removed from the patient's anterior lip of the cervix where excellent hemostasis was noted. attention was placed to the rt labial lipoma, a 4cm incision was made, alices where placed on the skin edges the lipoma was dissected using metzenbaum scissors, the lipoma was removed the bed was coagulated with excellent hemostasis, the skin was closed using 3-0 vicryl. All instruments were removed from the patient?s vagina. The patient tolerated the procedure well. Sponge, lap and needle counts were correct times two. The patient was taken to the Recovery Room in stable condition.Room in stable condition. Anesthesia: MAC Surgeon: Mario Farnsworth Estimated blood loss (mL): 10 Pathology: other (lipoma and endometrial currettings) Condition: stable Disposition: PACU Urinary Catheter Management Urinary Catheter Management Straight: Cath placed during this visit: no Urethral: Cath placed during this visit: no
--- NOTE | 2025-02-04 12:17 | PC.NURSE ---
patient's blood pressure is low Lacey BARRIGA aware gave phenylephrine at 1144 to help increase. Re-notified SOUND EQUIPMENT MECHANIC and Dr. Rollins came in to monitor at bedside.
--- NOTE | 2025-02-04 12:24 | PC.NURSE ---
1200: .50 mcg of phenylephrine to help increase blood pressure at this time.
--- NOTE | 2025-02-04 12:33 | PC.NURSE ---
1205 Dr. Rollins gave 1 mcg of phenylephrine due to BP going down again . printed blood pressures after meds give. Patient is awake talking and eating ice chips. Patient denies feeling light headed or dizzy.
--- NOTE | 2025-02-04 12:38 | PC.NURSE ---
Patient's blood pressure are up and down but are going up slowly. Patient remains in phase 1 for this flex o writer operator to continue to monitor blood pressures
--- NOTE | 2025-02-04 12:44 | PC.NURSE ---
Patient denies any pain states she has pressure to urinate . Thompson catheter in place with small amount clear yellow urine in the top part of the tube.
--- NOTE | 2025-02-04 14:03 | PC.NURSE ---
30 CC 0F CLEAR YELLOW URINE IN KELLER BAG PRIOR TO DISCHARGE. REMOVED KELLER DIRECTED BY PHYSICIAN. PATIENT TOLERATED WELL
== END 2025-02-04 13:50 | disposition home or self-care (01) ==
PROVIDERS: PCP Student in an Organized Health Care Education/Training Program; Visit Provider Obstetrics & Gynecology
PROC: (CPT 940; principal; 2025-02-04 09:35)
DX: N92.0 Excessive and frequent menstruation with regular cycle (principal); N89.8 Other specified noninflammatory disorders of vagina; R93.89 Abnormal findings on diagnostic imaging of other specified body structures; E66.01 Morbid (severe) obesity due to excess calories; Z68.43 Body mass index [BMI] 50.0-59.9, adult; F17.210 Nicotine dependence, cigarettes, uncomplicated; G47.33 Obstructive sleep apnea (adult) (pediatric); I10 Essential (primary) hypertension; K21.9 Gastro-esophageal reflux disease without esophagitis; R73.03 Prediabetes; F41.9 Anxiety disorder, unspecified
CPT/HCPCS: 57135; 58558; 36415; 84702; 85025; J0131; J1100; J1171; J1885; J2405; J2704; J3010